=== PATIENT | female | born 1975 | race American Indian/Alaskan Native ===

== ENCOUNTER 2018-08-09 10:05 | Emergency (ER) | payer OTHER, SELFPAY ==
--- OUTSIDE RECORDS SUMMARY | 2018-08-09 10:07 | XMS REPORT ---
:1975 [facility] [address] [place] [address] Care Team Providers Name Role Phone Unavailable Unavailable Unavailable Problems This patient has no known problems. Allergies, Adverse Reactions, Alerts This patient has no known allergies or adverse reactions. Medications This patient has no known medications.
[2018-08-09] MEDS ORDERED: ONDANSETRON 4 MG/2 ML VIAL ONE ×2 (10:35→11:54)
[2018-08-09] MEDS ORDERED: NA CHLORIDE 0.9% 1,000 ML ONE ×2 (10:35→13:02)
[2018-08-09] MEDS ORDERED: MORPHINE 4 MG/ML SYR ONE (10:35)
[2018-08-09 11:02] LABS: Albumin 4.3 g/dL (3.4-5.0); Bilirubin Direct 0.1 mg/dL (0-0.2); Bilirubin Total 0.5 mg/dL (0.2-1.0); Potassium 3.4 mmol/L (3.5-5.1); Protein, Total 8.5 g/dL (6.4-8.2)
[2018-08-09 11:14] LABS: Absolute Lymphocytes (CBC) 5.3 K/uL (0.7-4.9); Absolute Monocytes 0.7 K/uL (0.1-1.3); Absolute Neutrophil 4.7 K/uL (1.8-8.0); Hematocrit 42.2 % (36.0-45.0); Lymphocytes % 48.6 % (15.3-44.8); MPV 8.4 fL (7.6-11.3); Monocytes % 6.6 % (3.3-12.3); RBC Red Blood Cell Count 4.99 M/uL (3.86-4.86)
[2018-08-09] MEDS ORDERED: DIPHENHYDRAMINE 50 MG/ML VIAL ONE (11:54)
[2018-08-09] MEDS ORDERED: KETOROLAC 30 MG/ML INJ ONE (13:00)
[2018-08-09] MEDS ORDERED: FAMOTIDINE 20 MG/2 ML VIAL IV ONE (13:00)
[2018-08-09] MEDS ORDERED: PROMETHAZINE 25 MG/ML VIAL ONE (13:18)
--- NOTE | 2018-08-09 13:24 | EKG ---
Test Date: 2018-08-09 Test Time: 10:18:45 Sales Account Associate: JAZMYN MEASUREMENT RESULTS: Intervals: Rate: 70 WY: 168 QRSD: 98 QT: 414 QTc: 447 Romeo: P: 40 WY: 168 QRS: -5 T: 62 INTERPRETIVE STATEMENTS: Normal sinus rhythm Normal ECG No previous ECG available for comparison Electronically Signed On 08-09-18 13:23:19 CDT by Ajrun Aj
[2018-08-09 13:40] LABS: Urine Blood NEGATIVE (NEG); Urine Glucose NEGATIVE (NEG); Urine Protein 3+ (NEG); Urine pH 5.5 (5.0-7.0)
[2018-08-09 14:09] LABS: Blood Morphology Comment NOT SEEN (NOT SEEN); Platelet Estimate ADEQ
--- NOTE | 2018-08-09 14:18 | ER ---
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 Transition of care: patient was not received from another setting of care. Onset of symptoms was August 09, 2018. Risk Assessment: Do you want to hurt yourself or someone else? Patient reports no desire to harm self or others. Initial Sepsis Screen: Does the patient meet any 2 criteria? No. Patient's initial sepsis screen is negative. Does the patient have a suspected source of infection? No. Patient's initial sepsis screen is negative. Care prior to arrival: None. 10:10 Method Of Arrival: Ambulatory sg 10:10 Acuity: BOLA 3 sg Historical: - Allergies: 10:15 No Known Allergies; sg - Home Meds: 10:15 Beta Sincere [Active]; sg - PMHx: 10:15 Diabetes - NIDDM; Hyperlipidemia; Hypertension; sg - Immunization history:: Adult Immunizations up to date. - Social history:: Smoking status: Patient/guardian denies using tobacco. - Ebola Screening: : Patient negative for fever greater than or equal to 101.5 degrees Fahrenheit, and additional compatible Ebola Virus Disease symptoms Patient denies exposure to infectious person Patient denies travel to an Ebola-affected area in the 21 days before illness onset No symptoms or risks identified at this time. Screenin:25 Abuse screen: Denies threats or abuse. Nutritional screening: No deficits noted. em Tuberculosis screening: No symptoms or risk factors identified. Fall Risk None identified. Assessment: 10:20 General: Appears uncomfortable, Reports feeling ill for 2-3 days, Denies fever. Pain: em Complains of pain in chest and left upper quadrant and right upper quadrant Pain radiates to back Pain currently is 6 out of 10 on a pain scale. Pain began 2-3 days ago. Neuro: Level of Consciousness is awake, alert, obeys commands, Oriented to person, place, time, situation, Moves all extremities. Gait is steady, Speech is normal. Cardiovascular: Reports nausea, syncope, Heart tones S1 S2 present Capillary refill < 3 seconds Patient's skin is warm and dry. Rhythm is sinus rhythm. Respiratory: Airway is patent Respiratory effort is even, unlabored, Respiratory pattern is regular, symmetrical, Breath sounds are clear bilaterally. Denies shortness of breath. GI: Abdomen is round non-distended, Pt is actively vomiting bile, Bowel sounds present X 4 quads. Abd is soft X 4 quads Abdomen is tender to palpation in right upper quadrant and left upper quadrant Reports nausea, vomiting, Patient currently denies diarrhea. Derm: Skin is intact, is healthy with good turgor, Skin is pink, warm \T\ dry. Musculoskeletal: Range of motion: intact in all extremities. 10:40 Reassessment: Patient appears in no apparent distress at this time. I agree with above iw assessment by Sajan Dangelo LVN. 11:30 Reassessment: Patient appears in no apparent distress at this time. Patient and/or em family updated on plan of care and expected duration. Pain level reassessed. Patient is alert, oriented x 3, equal unlabored respirations, skin warm/dry/pink. feeling slightly better, rates nausea 7/10, provider at bedside. 12:40 Reassessment: Patient and/or family updated on plan of care and expected duration. Pain em level reassessed. reports pain that woke her up from anterior side of chest to posterior, provider notified, new medication orders received. 13:00 Reassessment: given water for PO challenge, unable to tolerate PO challenge at this em time, provider notified. 14:13 Reassessment: PO challenge given, tolerated PO challenge, provider notified. em 14:34 Reassessment: Patient appears in no apparent distress at this time. Patient and/or em family updated on plan of care and expected duration. Pain level reassessed. Patient is alert, oriented x 3, equal unlabored respirations, skin warm/dry/pink. rates nausea 3/10 Patient states feeling better. Patient states symptoms have improved. Vital Signs: 10:14 BP 189 / 103; Pulse 74; Resp 16; Temp 98.2(TE); Pulse Ox 100% ; Pain 6/10; sg 10:40 BP 175 / 95; Pulse 66; Resp 18; Pulse Ox 18% on R/A; em 11:36 BP 174 / 79; Pulse 70; Resp 18; Pulse Ox 95% on R/A; em 12:30 BP 171 / 92; Pulse 70; Resp 18; Pulse Ox 99% on R/A; em 14:27 BP 179 / 89; Pulse 72; Resp 18; Pulse Ox 99% on R/A; em ED Course: 10:08 Patient arrived in ED. mr 10:08 Fifi Lawrence FNP-C is PHCP. kb 10:08 Inder Newman MD is Attending Physician. kb 10:12 Sajan Dangelo LVN is Primary Nurse. em 10:14 Arm band placed on. sg 10:17 Triage completed. sg 10:25 Patient has correct armband on for positive identification. Placed in gown. Bed in low em position. Call light in reach. Pulse ox on. NIBP on. 10:33 EKG done, by operating theatre technician. reviewed by Fifi KAY. at1 10:35 Initial lab(s) drawn, by nm, sent to lab. Inserted saline lock: 20 gauge in right em forearm, using aseptic technique. Blood collected. 14:00 PO fluids given. ms 14:33 No provider procedures requiring assistance completed. IV discontinued, intact, em bleeding controlled, No redness/swelling at site. Pressure dressing applied. Administered Medications: 10:35 Drug: NS 0.9% 1000 ml Route: IV; Rate: 1000 ml; Site: right forearm; em 12:37 Follow up: IV Status: Completed infusion; IV Intake: 1000ml em 10:36 Drug: morphine 4 mg Route: IVP; Site: right forearm; iw 12:38 Follow up: Response: No adverse reaction; Pain is decreased em 10:37 Drug: Zofran 4 mg Route: IVP; Site: right forearm; iw 11:30 Follow up: Response: No adverse reaction; Nausea unchanged em 11:49 Drug: Zofran 4 mg Route: IVP; Site: right forearm; em 12:30 Follow up: Response: No adverse reaction; Nausea is decreased em 11:49 Drug: Benadryl 12.5 mg Route: IVP; Site: right forearm; iw 12:30 Follow up: Response: No adverse reaction; Marked relief of symptoms em 13:03 Drug: Pepcid 20 mg Route: IVP; Site: right forearm; iw 13:30 Follow up: Response: No adverse reaction; Pain is decreased em 13:30 Follow up: Response: No adverse reaction; Pain is decreased em 13:04 Drug: TORadol 30 mg Route: IVP; Site: right forearm; iw 13:05 Drug: NS 0.9% 1000 ml Route: IV; Rate: 1 bolus; Site: right forearm; em 14:43 Follow up: IV Status: Completed infusion; IV Intake: 1000ml em 13:20 Drug: Phenergan 12.5 mg Route: IVP; Site: right forearm; iw 14:15 Follow up: Response: No adverse reaction; Nausea is decreased em Intake: 11:15 IV: 1000ml; Total: 1000ml. em 12:37 IV: 1000ml; Total: 2000ml. em 14:43 IV: 1000ml; Total: 3000ml. em Outcome: 14:17 Discharge ordered by . kb 14:42 Discharged to home ambulatory. em 14:42 Condition: good 14:42 Discharge instructions given to patient, Instructed on discharge instructions, follow up and referral plans. Demonstrated understanding of instructions, follow-up care. 14:42 Patient left the ED. em Signatures: Fifi Lawrence, ICT ANALYST-C ICT ANALYST-Ckb Keith Hardwick, RN RN Killian, Aaliyah mr Dangelo, Sajan, MATERIAL WORKER MATERIAL WORKER em Clary Pandya, RN Mica Reno ms, Amanda, warehouse unloader EKG Tat1
--- NOTE | 2018-08-09 14:18 | EDPHYS ---
Physician Documentation [facility] Name: Tonya Caballero Age: 43 yrs Sex: Female : 1975 Arrival Date: 08/09/2018 Time: 10:08 Bed 15 Private MD: ED Physician Inder Newman HPI: 08/09 10:45 This 43 yrs old Female presents to ER via Ambulatory with complaints of kb Abdominal Pain, Chest Pain, Vomiting. 10:45 The patient presents with abdominal pain in the upper abdomen. Onset: The kb symptoms/episode began/occurred 4 day(s) ago. The symptoms do not radiate. Associated signs and symptoms: Pertinent positives: nausea and vomiting. The symptoms are described as constant. Modifying factors: The symptoms are alleviated by nothing, the symptoms are aggravated by nothing. Severity of pain: At its worst the pain was moderate in the emergency department the pain is unchanged. The patient has experienced similar episodes in the past, a few times. The patient has been recently seen by a physician: the ER physician, out of Town, 3 day(s) ago, with similar presenting complaints, lab tests were done. Pt reports n/v and abd pain that started on Sunday. Went to [place] ER and was given reglan and bentyl, but symptoms have persisted. . Historical: - Allergies: 10:15 No Known Allergies; sg - Home Meds: 10:15 Beta Sincere [Active]; sg - PMHx: 10:15 Diabetes - NIDDM; Hyperlipidemia; Hypertension; sg - Immunization history:: Adult Immunizations up to date. - Social history:: Smoking status: Patient/guardian denies using tobacco. - Ebola Screening: : Patient negative for fever greater than or equal to 101.5 degrees Fahrenheit, and additional compatible Ebola Virus Disease symptoms Patient denies exposure to infectious person Patient denies travel to an Ebola-affected area in the 21 days before illness onset No symptoms or risks identified at this time. ROS: 10:21 Constitutional: Negative for fever, chills, and weight loss, ENT: Negative for injury, kb pain, and discharge, Neck: Negative for injury, pain, and swelling, Respiratory: Negative for shortness of breath, cough, wheezing, and pleuritic chest pain, Back: Negative for injury and pain, : Negative for injury, bleeding, discharge, and swelling, MS/Extremity: Negative for injury and deformity, Skin: Negative for injury, rash, and discoloration, Neuro: Negative for headache, weakness, numbness, tingling, and seizure. 10:21 Cardiovascular: Positive for chest pain, Negative for edema, orthopnea, palpitations, paroxysmal nocturnal dyspnea. 10:21 Abdomen/GI: Positive for abdominal pain, nausea and vomiting, Negative for diarrhea, constipation, abdominal cramps, abdominal distension, anorexia. Exam: 10:39 Constitutional: This is a well developed, well nourished patient who is awake, alert, kb and in no acute distress. Head/Face: Normocephalic, atraumatic. ENT: Nares patent. No nasal discharge, no septal abnormalities noted. Tympanic membranes are normal and external auditory canals are clear. Oropharynx with no redness, swelling, or masses, exudates, or evidence of obstruction, uvula midline. Mucous membranes moist. Neck: Trachea midline, no thyromegaly or masses palpated, and no cervical lymphadenopathy. Supple, full range of motion without nuchal rigidity, or vertebral point tenderness. No Meningismus. Chest/axilla: Normal chest wall appearance and motion. Nontender with no deformity. No lesions are appreciated. Cardiovascular: Regular rate and rhythm with a normal S1 and S2. No gallops, murmurs, or rubs. Normal PMI, no JVD. No pulse deficits. Respiratory: Lungs have equal breath sounds bilaterally, clear to auscultation and percussion. No rales, rhonchi or wheezes noted. No increased work of breathing, no retractions or nasal flaring. Skin: Warm, dry with normal turgor. Normal color with no rashes, no lesions, and no evidence of cellulitis. MS/ Extremity: Pulses equal, no cyanosis. Neurovascular intact. Full, normal range of motion. Neuro: Awake and alert, GCS 15, oriented to person, place, time, and situation. Cranial nerves II-XII grossly intact. Motor strength 5/5 in all extremities. Sensory grossly intact. Cerebellar exam normal. Normal gait. 10:39 Abdomen/GI: Inspection: abdomen appears normal, Bowel sounds: normal, in all quadrants, Palpation: soft, in all quadrants, moderate abdominal tenderness, in the right upper quadrant and left upper quadrant. 10:48 ECG was reviewed by the Attending Physician. kb Vital Signs: 10:14 BP 189 / 103; Pulse 74; Resp 16; Temp 98.2(TE); Pulse Ox 100% ; Pain 6/10; sg 10:40 BP 175 / 95; Pulse 66; Resp 18; Pulse Ox 18% on R/A; em 11:36 BP 174 / 79; Pulse 70; Resp 18; Pulse Ox 95% on R/A; em 12:30 BP 171 / 92; Pulse 70; Resp 18; Pulse Ox 99% on R/A; em 14:27 BP 179 / 89; Pulse 72; Resp 18; Pulse Ox 99% on R/A; em MDM: 10:09 Patient medically screened. kb 10:22 Data reviewed: vital signs, nurses notes. Data interpreted: Pulse oximetry: on room air kb is 100 %. Interpretation: normal. 11:43 ED course: Pt reports she is feeling better, but gets nausea when moving around. . kb 13:43 ED course: Pt failed first po challenge. Phenergan administered, will repeat PO kb challenge. 14:16 Counseling: I had a detailed discussion with the patient and/or guardian regarding: the kb historical points, exam findings, and any diagnostic results supporting the discharge/admit diagnosis, lab results, the need for outpatient follow up, a family practitioner, to return to the emergency department if symptoms worsen or persist or if there are any questions or concerns that arise at home. ED course: Tolerating PO after phenergan. Pt would like to go home. Will continue phenergan and reglan as needed. 08/09 10:23 Order name: Basic Metabolic Panel; Complete Time: 11:04 kb 08/09 10:23 Order name: CBC with Diff; Complete Time: 14:10 kb 08/09 10:23 Order name: Hepatic Function; Complete Time: 11:04 kb 08/09 10:23 Order name: Lipase; Complete Time: 11:04 kb 08/09 12:56 Order name: Urine Dipstick--Ancillary (enter results); Complete Time: 13:43 eb 08/09 14:06 Order name: Manual Differential; Complete Time: 14:10 EDMS 08/09 10:23 Order name: IV Saline Lock; Complete Time: 10:35 kb 08/09 10:23 Order name: Labs collected and sent; Complete Time: 10:35 kb 08/09 11:21 Order name: Vital Signs; Complete Time: 11:35 kb 08/09 12:37 Order name: PO challenge; Complete Time: 13:04 kb 08/09 13:05 Order name: EKG Electrocardiogram EDMS 08/09 13:43 Order name: PO challenge; Complete Time: 14:14 kb EC:48 Rate is 70 beats/min. Rhythm is regular, Normal Sinus Rhythm. QRS Jayess is Normal. CO kb interval is normal at 168 msec. QRS interval is normal at 98 msec. QT interval is normal at 414 msec. Clinical impression: Normal ECG. Interpreted by me. Reviewed by me. Administered Medications: 10:35 Drug: NS 0.9% 1000 ml Route: IV; Rate: 1000 ml; Site: right forearm; em 12:37 Follow up: IV Status: Completed infusion; IV Intake: 1000ml em 10:36 Drug: morphine 4 mg Route: IVP; Site: right forearm; iw 12:38 Follow up: Response: No adverse reaction; Pain is decreased em 10:37 Drug: Zofran 4 mg Route: IVP; Site: right forearm; iw 11:30 Follow up: Response: No adverse reaction; Nausea unchanged em 11:49 Drug: Zofran 4 mg Route: IVP; Site: right forearm; em 12:30 Follow up: Response: No adverse reaction; Nausea is decreased em 11:49 Drug: Benadryl 12.5 mg Route: IVP; Site: right forearm; iw 12:30 Follow up: Response: No adverse reaction; Marked relief of symptoms em 13:03 Drug: Pepcid 20 mg Route: IVP; Site: right forearm; iw 13:30 Follow up: Response: No adverse reaction; Pain is decreased em 13:30 Follow up: Response: No adverse reaction; Pain is decreased em 13:04 Drug: TORadol 30 mg Route: IVP; Site: right forearm; iw 13:05 Drug: NS 0.9% 1000 ml Route: IV; Rate: 1 bolus; Site: right forearm; em 14:43 Follow up: IV Status: Completed infusion; IV Intake: 1000ml em 13:20 Drug: Phenergan 12.5 mg Route: IVP; Site: right forearm; iw 14:15 Follow up: Response: No adverse reaction; Nausea is decreased em Disposition: 15:17 Co-signature as Attending Physician, Inder Newman MD. rn Disposition: 08/09/18 14:17 Discharged to Home. Impression: Nausea with vomiting, unspecified, Essential (primary) hypertension, Upper abdominal pain, unspecified. - Condition is Stable. - Discharge Instructions: Nausea and Vomiting, Adult, [id number]. - Medication Reconciliation Form, Thank You Letter, Antibiotic Education, Prescription Opioid Use, Work release form form. - Follow up: Emergency Department; When: As needed; Reason: Worsening of condition. Follow up: Private Physician; When: 2 - 3 days; Reason: Recheck today's complaints, Continuance of care, Re-evaluation by your physician. Signatures: Dispatcher [employer] EDFifi Ramesh, CLINICAL MANAGER-C CLINICAL MANAGER-Ckb Keith Hardwick, RN RN sg Sajan Dangelo, CEMENT AND CONCRETE PLANT WORKER CEMENT AND CONCRETE PLANT WORKER Clary Merino, Inder Castaneda RN, MD MD fingernail former: (The following items were deleted from the chart) 14:18 14:17 08/09/2018 14:17 Discharged to Home. Impression: Nausea with vomiting, kb unspecified. Condition is Stable. Forms are Medication Reconciliation Form, Thank You Letter, Antibiotic Education, Prescription Opioid Use. Follow up: Emergency Department; When: As needed; Reason: Worsening of condition. Follow up: Private Physician; When: 2 - 3 days; Reason: Recheck today's complaints, Continuance of care, Re-evaluation by your physician. kb 14:42 14:18 08/09/2018 14:17 Discharged to Home. Impression: Nausea with vomiting, em unspecified; Essential (primary) hypertension; Upper abdominal pain, unspecified. Condition is Stable. Discharge Instructions: Nausea and Vomiting, Adult, [id number]. Forms are Medication Reconciliation Form, Thank You Letter, Antibiotic Education, Prescription Opioid Use. Follow up: Emergency Department; When: As needed; Reason: Worsening of condition. Follow up: Private Physician; When: 2 - 3 days; Reason: Recheck today's complaints, Continuance of care, Re-evaluation by your physician. kb
== END 2018-08-09 14:42 | disposition home or self-care (01) ==
LOC: ER 10:05
DX: R11.2 Nausea with vomiting, unspecified (principal); I10 Essential (primary) hypertension
CPT/HCPCS: 36415; 80048; 80076; 81003; 83690; 85025; 93005; 96361; 96374; 96375; 99284; J2405; J2550; J7030

== ENCOUNTER 2018-08-11 07:50 | Emergency (ER) | payer SELFPAY ==
--- OUTSIDE RECORDS SUMMARY | 2018-08-11 07:52 | XMS REPORT ---
:1975 [facility] Address [address] [place] [address] [address] [place] [address] Care Team Providers Name Role Phone Unavailable Unavailable Unavailable Problems This patient has no known problems. Allergies, Adverse Reactions, Alerts This patient has no known allergies or adverse reactions. Medications This patient has no known medications.
[2018-08-11] MEDS ORDERED: PROMETHAZINE 25 MG/ML VIAL ONE (08:14)
[2018-08-11] MEDS ORDERED: NA CHLORIDE 0.9% 1,000 ML ONE (08:14)
[2018-08-11 08:28] LABS: Absolute Lymphocytes (CBC) 2.7 K/uL (0.7-4.9); Absolute Monocytes 0.4 K/uL (0.1-1.3); Absolute Neutrophil 5.4 K/uL (1.8-8.0); Basophils % 0.7 % (0-1.3); Eosinophils % 0.9 % (0-4.4); Hematocrit 40.5 % (36.0-45.0); Lymphocytes % 31.2 % (15.3-44.8); Monocytes % 4.8 % (3.3-12.3); RBC Red Blood Cell Count 4.82 M/uL (3.86-4.86)
[2018-08-11] MEDS ORDERED: FAMOTIDINE 20 MG/2 ML VIAL IV ONE (08:43)
[2018-08-11] MEDS ORDERED: METOCLOPRAMIDE 10 MG/2mL INJ ONE (08:43)
[2018-08-11 08:49] LABS: ALT/SGPT 27 U/L (12-78); AST/SGOT 15 U/L (15-37); Albumin 4.1 g/dL (3.4-5.0); Alkaline Phosphatase 110 U/L (45-117); BUN Blood Urea Nitrogen 9 mg/dL (7-18); Bicarbonate 27 mmol/L (21-32); Bilirubin Direct 0.1 mg/dL (0-0.2); Bilirubin Total 0.5 mg/dL (0.2-1.0); Glucose Level 183 mg/dL (74-106); Lipase 82 U/L (73-393); Potassium 3.4 mmol/L (3.5-5.1); Protein, Total 8.1 g/dL (6.4-8.2); Sodium Level 137 mmol/L (136-145)
[2018-08-11] MEDS ORDERED: cloNIDine HCl 0.1 MG TAB ONE (09:59)
[2018-08-11 10:10] LABS: Urine Blood NEGATIVE (NEG); Urine Glucose NEGATIVE (NEG); Urine Protein 2+ (NEG)
--- NOTE | 2018-08-11 10:45 | RAD REPORT ---
EXAM DESCRIPTION: CT - Abdomen Pelvis W Contrast - 08/11/2018 10:23 am CLINICAL HISTORY: Abdominal pain, hyperemesis COMPARISON: June 2015 TECHNIQUE: Biphasic, helical CT imaging of the abdomen and pelvis was performed following 100 ml non -ionic IV contrast. Oral contrast was given. All CT scans are performed using dose optimization technique as appropriate and may include automated exposure control or mA/KV adjustment according to patient size. FINDINGS: No suspicious findings in the lung bases. The liver, spleen, and pancreas show no suspicious findings. Cholecystectomy clips are present. No bi liary tree dilatation. Symmetric renal function is seen with no hydronephrosis or suspicious renal mass. No pyelonephritis o r acute parenchymal process. No bladder abnormalities. No adrenal abnormality. Uterus and ovaries hiren w no suspicious findings. No gastric wall thickening or edema. Oral contrast has reached the right side colon. No dilated large or small bowel. There is moderate stool volume in the colon. No free air, free fluid or inflammatory stranding. No hernia, mass or bulky lymphadenopathy. No suspicious bony findings. IMPRESSION: Contrast enhanced CT abdomen and pelvis showing no significant or suspicious finding.
[2018-08-11] MEDS ORDERED: DIAZEPAM 5 MG TABLET ONE (10:55)
[2018-08-11] MEDS ORDERED: ONDANSETRON 4 MG/2 ML VIAL ONE (10:56)
--- NOTE | 2018-08-11 11:12 | ER ---
Nurse's Notes [facility] Name: Tonya Caballero Age: 43 yrs Sex: Female : 1975 Arrival Date: 08/11/2018 Time: 07:53 Bed 5 Private MD: Diagnosis: Vomiting;Unspecified abdominal pain Presentation: 08/11 07:55 Presenting complaint: Patient states: "I've been vomiting since last Sunday and I was aa5 seen here a few days ago and in [place] [facility] on Sunday but I still can't stop vomiting". Pt states "I've vomited about 7 times today since 4am and it's just bile". Pt also c/o abd pain. 07:55 Transition of care: patient was not received from another setting of care. Onset of aa5 symptoms was July 2018. Risk Assessment: Do you want to hurt yourself or someone else? Patient reports no desire to harm self or others. Initial Sepsis Screen: Does the patient meet any 2 criteria? No. Patient's initial sepsis screen is negative. Does the patient have a suspected source of infection? No. Patient's initial sepsis screen is negative. Care prior to arrival: None. 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 - Social history:: Smoking status: Patient uses tobacco products, smokes one pack cigarettes per day. - Family history:: not pertinent. - Ebola Screening: : No symptoms or risks identified at this time. - Hospitalizations: : No recent hospitalization is reported. Screenin:08 Abuse screen: Denies threats or abuse. Nutritional screening: No deficits noted. aa5 Tuberculosis screening: No symptoms or risk factors identified. Fall Risk None identified. Assessment: 07:55 General: Appears uncomfortable, Behavior is calm, cooperative. Pain: Complains of pain aa5 in across umbilical area Pain does not radiate. Pain currently is 6 out of 10 on a pain scale. Quality of pain is described as "like my guts are twisting and I know it's just pain from vomiting so much" Pain began approximately 1 week ago Is intermittent. Neuro: Level of Consciousness is awake, alert, obeys commands, Oriented to person, place, time, situation, Appropriate for age. Cardiovascular: Heart tones S1 S2 present Rhythm is regular. Respiratory: Airway is patent Respiratory effort is even, unlabored, Respiratory pattern is regular, symmetrical, Breath sounds are clear bilaterally. GI: Abdomen is round non-distended, Bowel sounds present X 4 quads. Abd is soft and non tender X 4 quads. Reports nausea, vomiting, Patient currently denies diarrhea. : No signs and/or symptoms were reported regarding the genitourinary system. EENT: No signs and/or symptoms were reported regarding the EENT system. Derm: Skin is pink, warm \\T\\ dry. Musculoskeletal: Range of motion: intact in all extremities. 08:30 Reassessment: Pt dry heaving at this time, Dr. Newman notified (see MAR). Pt ambulatory aa5 to restroom to provide urine specimen. . 08:40 Reassessment: Patient is alert, oriented x 3, equal unlabored respirations, skin aa5 warm/dry/pink. Pt appears comfortable at this time, pt states "just give me a few minutes and I'll start drinking the CT oral contrast". . 09:10 Reassessment: Patient is alert, oriented x 3, equal unlabored respirations, skin aa5 warm/dry/pink. Pt lying down in bed. States symptoms have not improved. Pt states "I drank some of the contrast but I threw it all up (300 cc)", Dr. Newman was notified. . 09:45 Reassessment: Patient is alert, oriented x 3, equal unlabored respirations, skin aa5 warm/dry/pink. Awaiting CT scan. Pt states "I keep trying to rest and get comfortable but I just can't". Pt now lying down in bed. . 10:35 Reassessment: Pt back from CT scan, pt states "I had a panic attack in CT". Pt aa5 requesting anti-nausea medication and anxiety medication at this time. Dr. Newman notified. . 11:20 Reassessment: Patient is alert, oriented x 3, equal unlabored respirations, skin aa5 warm/dry/pink. 11:20 General: Behavior is calm. aa5 Vital Signs: 07:56 BP 195 / 111; Pulse 71; Resp 18 S; Temp 98.0(O); Pulse Ox 98% on R/A; Weight 91.63 kg aa5 (R); Height 5 ft. 4 in. (162.56 cm) (R); Pain 6/10; 08:40 BP 199 / 91; Pulse 74; Resp 18 S; Pulse Ox 98% on R/A; aa5 09:45 BP 216 / 114; Pulse 66; Resp 18 S; Pulse Ox 98% on R/A; aa5 10:45 BP 204 / 114; Pulse 70; Resp 16 S; Pulse Ox 99% on R/A; aa5 11:15 BP 151 / 94; Pulse 71; Resp 16 S; Pulse Ox 99% on R/A; aa5 07:56 Body Mass Index 34.67 (91.63 kg, 162.56 cm) aa5 09:45 Dr. Newman notified of increased BP aa5 ED Course: 07:53 Patient arrived in ED. mr 07:54 Arm band placed on Patient placed in an exam room, on a stretcher. aa5 07:54 Patient has correct armband on for positive identification. Placed in gown. Bed in low aa5 position. Call light in reach. Side rails up X2. 07:55 Inder Newman MD is Attending Physician. rn 08:03 Ese Gottlieb, LARS is Primary Nurse. aa5 08:04 Triage completed. aa5 08:15 Inserted saline lock: 20 gauge in left antecubital area, using aseptic technique. aa5 Missed attempt by Barrie Castro RN at 0810. 08:21 Initial lab(s) drawn, by me, sent to lab. Missed attempt(s): 22 gauge in right hj antecubital area. 10:[address] kw1 10:24 CT Abd/Pelvis - W/Contrast In Process Unspecified. EDMS 11:11 Ross Thorpe MD is Referral Physician. rn 11:20 No provider procedures requiring assistance completed. aa5 11:20 IV discontinued, intact, bleeding controlled, No redness/swelling at site. Pressure aa5 dressing applied. Administered Medications: 08:15 Drug: NS 0.9% 1000 ml Route: IV; Rate: 1000 ml; Site: left antecubital; aa5 11:00 Follow up: IV Status: Completed infusion aa5 08:15 Drug: Phenergan 25 mg Route: IVP; Site: left antecubital; aa5 08:20 Follow up: Response: No adverse reaction aa5 08:33 Drug: Reglan 10 mg Route: IVP; Site: left antecubital; aa5 08:40 Follow up: Response: No adverse reaction aa5 08:35 Drug: Pepcid 20 mg Route: IVP; Site: left antecubital; aa5 08:40 Follow up: Response: No adverse reaction aa5 09:48 Drug: cloNIDine 0.2 mg Route: PO; aa5 10:50 Follow up: Response: No adverse reaction aa5 10:50 Drug: Valium 5 mg Route: PO; aa5 11:20 Follow up: Response: No adverse reaction; Anxiety decreased aa5 10:50 Drug: Zofran 4 mg Route: IVP; Site: left antecubital; aa5 10:55 Follow up: Response: No adverse reaction aa5 Outcome: 11:11 Discharge ordered by . rn 11:20 Discharged to home ambulatory, with family. aa5 11:20 Condition: stable 11:20 Discharge instructions given to patient, Instructed on discharge instructions, follow up and referral plans. medication usage, Demonstrated understanding of instructions, follow-up care, medications, Prescriptions given X 1. 11:28 Patient left the ED. aa5 Signatures: Dispatcher [employer] Aaliyah Langston Roman, MD MD rn Calderon, Audri, RN RN aa5 Barrie Castro RN RN Analy Lobo 1
--- NOTE | 2018-08-11 11:12 | EDPHYS ---
Physician Documentation [facility] Name: Tonya Caballero Age: 43 yrs Sex: Female : 1975 Arrival Date: 08/11/2018 Time: 07:53 Bed 5 Private MD: ED Physician Inder Newman HPI: 08/11 08:03 This 43 yrs old Female presents to ER via Unassigned with complaints of rn Vomiting. 08:03 The patient presents to the emergency department with nausea, vomiting, abdominal pain. rn Onset: The symptoms/episode began/occurred 1 week(s) ago. Possible causes: unknown. The symptoms are aggravated by nothing. The symptoms are alleviated by nothing. Severity of symptoms: At their worst the symptoms were moderate in the emergency department the symptoms are unchanged. The patient has experienced similar episodes in the past. The patient has been recently seen by a physician:. Reports seen twice for this, "only labs done", reports nausea/vomiting daily for 1 week, no known intestinal issues, no fever, no diarrhea. States taking phenergan at home and still throwing up.. 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 - Social history:: Smoking status: Patient uses tobacco products, smokes one pack cigarettes per day. - Family history:: not pertinent. - Ebola Screening: : No symptoms or risks identified at this time. - Hospitalizations: : No recent hospitalization is reported. ROS: 08:03 Constitutional: Negative for fever, chills, + weight loss since vomiting Eyes: Negative rn for injury, pain, redness, and discharge, Neck: Negative for injury, pain, and swelling, Cardiovascular: Negative for chest pain, palpitations, and edema, Respiratory: Negative for shortness of breath, cough, wheezing, and pleuritic chest pain, Abdomen/GI: + abd pain, nausea/vomiting MS/Extremity: Negative for injury and deformity, Skin: Negative for injury, rash, and discoloration, Neuro: + generalized weakness, no headache Exam: 08:03 Constitutional: This is a well developed, well nourished patient who is awake, alert, rn and in no acute distress. Head/Face: Normocephalic, atraumatic. Eyes: Pupils equal round and reactive to light, extra-ocular motions intact. Lids and lashes normal. Conjunctiva and sclera are non-icteric and not injected. Cornea within normal limits. Periorbital areas with no swelling, redness, or edema. ENT: dry MM Neck: Supple, full range of motion without nuchal rigidity. No Meningismus. Respiratory: No increased work of breathing, no retractions or nasal flaring. Abdomen/GI: soft, mild periumbilical tenderness, no rebound Back: No spinal tenderness. No costovertebral tenderness. Full range of motion. Skin: Warm, dry MS/ Extremity: Pulses equal, no cyanosis. Neurovascular intact. Full, normal range of motion. Equal circumference. Neuro: Awake and alert, GCS 15, oriented to person, place, time, and situation. Cranial nerves II-XII grossly intact. Motor strength 5/5 in all extremities. Sensory grossly intact. 08:22 ECG was reviewed by the Attending Physician. rn Vital Signs: 07:56 BP 195 / 111; Pulse 71; Resp 18 S; Temp 98.0(O); Pulse Ox 98% on R/A; Weight 91.63 kg aa5 (R); Height 5 ft. 4 in. (162.56 cm) (R); Pain 6/10; 08:40 BP 199 / 91; Pulse 74; Resp 18 S; Pulse Ox 98% on R/A; aa5 09:45 BP 216 / 114; Pulse 66; Resp 18 S; Pulse Ox 98% on R/A; aa5 10:45 BP 204 / 114; Pulse 70; Resp 16 S; Pulse Ox 99% on R/A; aa5 11:15 BP 151 / 94; Pulse 71; Resp 16 S; Pulse Ox 99% on R/A; aa5 07:56 Body Mass Index 34.67 (91.63 kg, 162.56 cm) aa5 09:45 Dr. Newman notified of increased BP aa5 MDM: 07:55 Patient medically screened. rn 11:10 Differential diagnosis: Nonspecific abd pain, gastritis, pancreatitis, diverticulitis, rn viral gastroenteritis, gastroenteritis. Data reviewed: vital signs, nurses notes, lab test result(s), radiologic studies, CT scan, and as a result, I will discharge patient. Counseling: I had a detailed discussion with the patient and/or guardian regarding: the historical points, exam findings, and any diagnostic results supporting the discharge/admit diagnosis, lab results, radiology results, the need for outpatient follow up, to return to the emergency department if symptoms worsen or persist or if there are any questions or concerns that arise at home. Response to treatment: the patient's symptoms have markedly improved after treatment, and as a result, I will discharge patient. Special discussion: Based on the patient's Hx, exam, and Dx evaluation, there is no indication for emergent surgery or inpatient Tx. It is understood by the patient/guardian that if the Sx's persist or worsen they need to return immediately for re-evaluation. I discussed with the patient/guardian in detail that at this point there is no indication for admission to the hospital. It is understood, however, that if the symptoms persist or worsen the patient needs to return immediately for re-evaluation. Based on the history and exam findings, there is no indication for further emergent testing or inpatient evaluation. 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 ED course: Recommend GI f/u given multiple normal w/u in ER, has hx of acid reflux, doesn't take meds regularly, and under a lot of stress. Return precautions given, will prescribe zofran to alternate with her phenergan. Currently tolerating water. . 08/11 08:01 Order name: Basic Metabolic Panel; Complete Time: 09: rn 08/11 08:01 Order name: CBC with Diff; Complete Time: :08/11 08:01 Order name: Hepatic Function; Complete Time: 09:08/11 08:01 Order name: Lipase; Complete Time: 09:08/11 08:51 Order name: Urine Dipstick--Ancillary (enter results); Complete Time: 10:20 eb 08/11 08:51 Order name: Urine --Ancillary (enter results); Complete Time: 10:20 eb 08/11 08:01 Order name: CT Abd/Pelvis - W/Contrast; Complete Time: 10:53 rn 08/11 08:01 Order name: IV Saline Lock; Complete Time: 08:40 rn 08/11 08:01 Order name: Labs collected and sent; Complete Time: 08:40 rn 08/11 08:02 Order name: Urine Dipstick-Ancillary (obtain specimen); Complete Time: 08:40 rn 08/11 08:02 Order name: Urine Test (obtain specimen); Complete Time: 08:40 rn 08/11 08:08 Order name: EKG - Nurse/Tech; Complete Time: 08:20 rn EC:22 Rate is 70 beats/min. Rhythm is regular. QRS [place] is Normal. NM interval is normal. QRS rn interval is normal. QT interval is normal. No Q waves. T waves are Normal. No ST changes noted. Clinical impression: Normal ECG. Interpreted by me. Reviewed by me. Administered Medications: 08:15 Drug: NS 0.9% 1000 ml Route: IV; Rate: 1000 ml; Site: left antecubital; aa5 11:00 Follow up: IV Status: Completed infusion aa5 08:15 Drug: Phenergan 25 mg Route: IVP; Site: left antecubital; aa5 08:20 Follow up: Response: No adverse reaction aa5 08:33 Drug: Reglan 10 mg Route: IVP; Site: left antecubital; aa5 08:40 Follow up: Response: No adverse reaction aa5 08:35 Drug: Pepcid 20 mg Route: IVP; Site: left antecubital; aa5 08:40 Follow up: Response: No adverse reaction aa5 09:48 Drug: cloNIDine 0.2 mg Route: PO; aa5 10:50 Follow up: Response: No adverse reaction aa5 10:50 Drug: Valium 5 mg Route: PO; aa5 11:20 Follow up: Response: No adverse reaction; Anxiety decreased aa5 10:50 Drug: Zofran 4 mg Route: IVP; Site: left antecubital; aa5 10:55 Follow up: Response: No adverse reaction aa5 Disposition: 08/11/18 11:11 Discharged to Home. Impression: Vomiting, Unspecified abdominal pain. - Condition is Stable. - Discharge Instructions: Abdominal Pain, Adult, Nausea and Vomiting, Adult. - Prescriptions for Zofran ODT 4 mg Oral tablet,disintegrating - place 1 tablet by TRANSLINGUAL route every 8 hours As needed; 15 tablet. - Medication Reconciliation Form, Thank You Letter, Antibiotic Education, Prescription Opioid Use form. - Follow up: Ross Thorpe MD; When: As needed; Reason: Recheck today's complaints, Re-evaluation by your physician. - Problem is an ongoing problem. - Symptoms have improved. Signatures: Dispatcher [employer] EDMS Inder Newman MD MD rn Calderon, Audri, RN RN aa5 Corrections: (The following items were deleted from the chart) 11:28 11:11 08/11/2018 11:11 Discharged to Home. Impression: Vomiting; Unspecified abdominal aa5 pain. Condition is Stable. Forms are Medication Reconciliation Form, Thank You Letter, Antibiotic Education, Prescription Opioid Use. Follow up: Ross Thorpe; When: As needed; Reason: Recheck today's complaints, Re-evaluation by your physician. Problem is an ongoing problem. Symptoms have improved. rn
== END 2018-08-11 11:28 | disposition home or self-care (01) ==
LOC: ER 07:50
DX: R11.2 Nausea with vomiting, unspecified (principal); R10.9 Unspecified abdominal pain; E11.9 Type 2 diabetes mellitus without complications; E78.5 Hyperlipidemia, unspecified; I10 Essential (primary) hypertension; F17.210 Nicotine dependence, cigarettes, uncomplicated
CPT/HCPCS: 36415; 74177; 80048; 80076; 81003; 81025; 83690; 85025; 96361; 96374; 96375; 99284; J2405; J2550; J2765; J7030; Q9967

== ENCOUNTER 2019-01-03 08:31 | Emergency (ER) | payer OTHER, SELFPAY ==
--- OUTSIDE RECORDS SUMMARY | 2019-01-03 08:34 | XMS REPORT ---
:1975 [facility] Address [address] [place] [address] [address] [place] [address] Care Team Providers Name Role Phone Unavailable Unavailable Unavailable Problems This patient has no known problems. Allergies, Adverse Reactions, Alerts This patient has no known allergies or adverse reactions. Medications This patient has no known medications.
--- NOTE | 2019-01-03 09:39 | ER ---
Nurse's Notes [facility] Name: Tonya Caballero Age: 43 yrs Sex: Female : 1975 Arrival Date: 01/03/2019 Time: 08:35 Bed 7 Private MD: Diagnosis: Vomiting;Gastro-esophageal reflux disease;Anxiety disorder, unspecified Presentation: 01/03 08:46 Presenting complaint: Patient states: n/v/body chills x 1 day. Denies abd pain. sv Transition of care: patient was not received from another setting of care. Onset of symptoms was January 02, 2019. Risk Assessment: Do you want to hurt yourself or someone else? Patient reports no desire to harm self or others. Initial Sepsis Screen: Does the patient meet any 2 criteria? No. Patient's initial sepsis screen is negative. Does the patient have a suspected source of infection? No. Patient's initial sepsis screen is negative. Care prior to arrival: None. 08:46 Method Of Arrival: Ambulatory sv 08:46 Acuity: BOLA 3 sv Historical: - Allergies: 08:47 No Known Allergies; sv - Home Meds: 08:47 Metoprolol Tartrate Oral [Active]; Omeprazole Oral [Active]; sv - PMHx: 08:47 Diabetes - NIDDM; Hyperlipidemia; Hypertension; sv - PSHx: 08:47 Cholecystectomy; Left ovary removed; Fallopian tubes removed; sv - Immunization history:: Adult Immunizations up to date. - Social history:: Smoking status: Patient uses tobacco products. - Ebola Screening: : No symptoms or risks identified at this time. - Family history:: not pertinent. Screenin:47 Abuse screen: Denies threats or abuse. Denies injuries from another. Nutritional sv screening: No deficits noted. Tuberculosis screening: No symptoms or risk factors identified. Fall Risk None identified. Assessment: 09:52 Reassessment: Patient appears in no apparent distress at this time. No changes from previously documented assessment. Patient and/or family updated on plan of care and expected duration. Pain level reassessed. Patient is alert, oriented x 3, equal unlabored respirations, skin warm/dry/pink. Vital Signs: 08:47 BP 165 / 105; Pulse 82; Resp 18; Temp 97.9; Pulse Ox 99% ; Weight 90.72 kg; Height 5 sv ft. 3 in. (160.02 cm); Pain 0/10; 09:31 BP 130 / 99; Pulse 78; Resp 18; Pulse Ox 100% ; sv 08:47 Body Mass Index 35.43 (90.72 kg, 160.02 cm) sv ED Course: 08:35 Patient arrived in ED. cf2 08:42 Robina Herman RN is Primary Nurse. sv 08:42 Anup Morelos MD is Attending Physician. celeste 08:42 Arm band placed on. sv 08:42 Patient has correct armband on for positive identification. Bed in low position. sv 08:46 Triage completed. sv 08:47 Call light in reach. Adult w/ patient. Pulse ox on. NIBP on. Door closed. Head of bed sv elevated. 08:48 Awaiting ED provider evaluation. sv 09:25 Awaiting ED provider evaluation. sv 09:29 ED physician to see patient. sv 09:52 No provider procedures requiring assistance completed. Patient did not have IV access sv during this emergency room visit. Administered Medications: 09:52 Drug: ProTONIX 40 mg Route: PO; sv 09:52 Follow up: Response: Medication administered at discharge. sv 09:52 Drug: Zofran 4 mg Route: PO; sv 09:52 Follow up: Response: Medication administered at discharge. sv Outcome: 09:37 Discharge ordered by . celeste 09:52 Discharged to home ambulatory. sv 09:52 Condition: stable 09:52 Discharge instructions given to patient, Instructed on discharge instructions, follow up and referral plans. medication usage, Demonstrated understanding of instructions, follow-up care, medications, Prescriptions given X 2. 09:52 Patient left the ED. sv Signatures: Robina Herman RN RN Anup Hernandez MD MD cha Frazier, [place] cf2
--- NOTE | 2019-01-03 09:39 | EDPHYS ---
Physician Documentation [facility] Name: Tonya Caballero Age: 43 yrs Sex: Female : 1975 Arrival Date: 01/03/2019 Time: 08:35 Bed 7 Private MD: ED Physician Anup Morelos HPI: 01/03 09:34 This 43 yrs old Female presents to ER via Ambulatory with complaints of celeste Nausea/Vomiting. 09:34 The patient presents to the emergency department with nausea, vomiting. Onset: The celeste symptoms/episode began/occurred 2 day(s) ago. Possible causes: unknown. The symptoms are aggravated by nothing. The symptoms are alleviated by nothing. Associated signs and symptoms: The patient has no apparent associated signs or symptoms. Severity of symptoms: At their worst the symptoms were. The patient has not experienced similar symptoms in the past. Historical: - Allergies: 08:47 No Known Allergies; sv - Home Meds: 08:47 Metoprolol Tartrate Oral [Active]; Omeprazole Oral [Active]; sv - PMHx: 08:47 Diabetes - NIDDM; Hyperlipidemia; Hypertension; sv - PSHx: 08:47 Cholecystectomy; Left ovary removed; Fallopian tubes removed; sv - Immunization history:: Adult Immunizations up to date. - Social history:: Smoking status: Patient uses tobacco products. - Ebola Screening: : No symptoms or risks identified at this time. - Family history:: not pertinent. ROS: 09:34 Constitutional: Negative for fever, chills, and weight loss, Eyes: Negative for injury, celeste pain, redness, and discharge, ENT: Negative for injury, pain, and discharge, Neck: Negative for injury, pain, and swelling, Cardiovascular: Negative for chest pain, palpitations, and edema, Respiratory: Negative for shortness of breath, cough, wheezing, and pleuritic chest pain, Back: Negative for injury and pain, : Negative for injury, bleeding, discharge, and swelling, MS/Extremity: Negative for injury and deformity, Skin: Negative for injury, rash, and discoloration, Neuro: Negative for headache, weakness, numbness, tingling, and seizure, Psych: Negative for depression, anxiety, suicide ideation, homicidal ideation, and hallucinations, Allergy/Immunology: Negative for hives, rash, and allergies, Endocrine: Negative for neck swelling, polydipsia, polyuria, polyphagia, and marked weight changes, Hematologic/Lymphatic: Negative for swollen nodes, abnormal bleeding, and unusual bruising. 09:34 Abdomen/GI: Positive for abdominal pain, vomiting. 09:34 Psych: Positive for anxiety. Exam: 09:34 Constitutional: This is a well developed, well nourished patient who is awake, alert, celeste and in no acute distress. Head/Face: Normocephalic, atraumatic. Eyes: Pupils equal round and reactive to light, extra-ocular motions intact. Lids and lashes normal. Conjunctiva and sclera are non-icteric and not injected. Cornea within normal limits. Periorbital areas with no swelling, redness, or edema. ENT: Nares patent. No nasal discharge, no septal abnormalities noted. Tympanic membranes are normal and external auditory canals are clear. Oropharynx with no redness, swelling, or masses, exudates, or evidence of obstruction, uvula midline. Mucous membranes moist. Neck: Trachea midline, no thyromegaly or masses palpated, and no cervical lymphadenopathy. Supple, full range of motion without nuchal rigidity, or vertebral point tenderness. No Meningismus. Chest/axilla: Normal chest wall appearance and motion. Nontender with no deformity. No lesions are appreciated. Cardiovascular: Regular rate and rhythm with a normal S1 and S2. No gallops, murmurs, or rubs. Normal PMI, no JVD. No pulse deficits. Respiratory: Lungs have equal breath sounds bilaterally, clear to auscultation and percussion. No rales, rhonchi or wheezes noted. No increased work of breathing, no retractions or nasal flaring. Back: No spinal tenderness. No costovertebral tenderness. Full range of motion. Skin: Warm, dry with normal turgor. Normal color with no rashes, no lesions, and no evidence of cellulitis. MS/ Extremity: Pulses equal, no cyanosis. Neurovascular intact. Full, normal range of motion. Neuro: Awake and alert, GCS 15, oriented to person, place, time, and situation. Cranial nerves II-XII grossly intact. Motor strength 5/5 in all extremities. Sensory grossly intact. Cerebellar exam normal. Normal gait. Psych: Awake, alert, with orientation to person, place and time. Behavior, mood, and affect are within normal limits. 09:34 Abdomen/GI: Inspection: abdomen appears normal, Bowel sounds: normal, Palpation: mild abdominal tenderness, in the epigastric area. 09:39 Musculoskeletal/extremity: DVT Exam: No signs of deep vein thrombosis. no pain, no celeste swelling, no tenderness, negative Homans' sign noted on exam, no appreciated bluish discoloration, no erythema, no increased warmth. Vital Signs: 08:47 BP 165 / 105; Pulse 82; Resp 18; Temp 97.9; Pulse Ox 99% ; Weight 90.72 kg; Height 5 sv ft. 3 in. (160.02 cm); Pain 0/10; 09:31 BP 130 / 99; Pulse 78; Resp 18; Pulse Ox 100% ; sv 08:47 Body Mass Index 35.43 (90.72 kg, 160.02 cm) sv MDM: 08:42 Patient medically screened. [facility] 09:39 Data reviewed: vital signs, nurses notes. [facility] Administered Medications: 09:52 Drug: ProTONIX 40 mg Route: PO; sv 09:52 Follow up: Response: Medication administered at discharge. sv 09:52 Drug: Zofran 4 mg Route: PO; sv 09:52 Follow up: Response: Medication administered at discharge. sv Disposition: 01/03/19 09:37 Discharged to Home. Impression: Vomiting, Gastro-esophageal reflux disease, Anxiety disorder, unspecified. - Condition is Stable. - Discharge Instructions: Type 2 Diabetes Mellitus, Diagnosis, Adult, Nausea and Vomiting, Adult, Nausea and Vomiting, Adult, [id number], Type 2 Diabetes Mellitus, Diagnosis, Adult, [id number]. - Prescriptions for Protonix 40 mg Oral Tablet - take 1 tablet by ORAL route once daily; 30 tablet. Zofran 4 mg Oral Tablet - take 1 tablet by ORAL route every 12 hours As needed; 20 tablet. - Work release form, Medication Reconciliation Form, Thank You Letter, Antibiotic Education, Prescription Opioid Use form. - Follow up: Private Physician; When: 2 - 3 days; Reason: Recheck today's complaints, Continuance of care, Re-evaluation by your physician. - Problem is new. - Symptoms have improved. Signatures: Robina Herman RN RN Anup Morelos MD MD cha Corrections: (The following items were deleted from the chart) 09:52 09:37 01/03/2019 09:37 Discharged to Home. Impression: Vomiting; Gastro-esophageal sv reflux disease; Anxiety disorder, unspecified. Condition is Stable. Forms are Work release form, Medication Reconciliation Form, Thank You Letter, Antibiotic Education, Prescription Opioid Use. Follow up: Private Physician; When: 2 - 3 days; Reason: Recheck today's complaints, Continuance of care, Re-evaluation by your physician. Problem is new. Symptoms have improved. celeste
[2019-01-03] MEDS ORDERED: ONDANSETRON 4 MG (ODT) TAB ONE (09:42)
[2019-01-03] MEDS ORDERED: PANTOPRAZOLE 40MG TABLET PO ONE (09:42)
== END 2019-01-03 09:52 | disposition home or self-care (01) ==
LOC: ER 08:31
DX: K21.9 Gastro-esophageal reflux disease without esophagitis (principal); F41.9 Anxiety disorder, unspecified; I10 Essential (primary) hypertension
CPT/HCPCS: 99283

== ENCOUNTER 2019-03-03 19:43 | Emergency (ER) | payer OTHER ==
[2019-03-03] MEDS ORDERED: MORPHINE 2 MG/ML SYR ONE (20:22)
[2019-03-03] MEDS ORDERED: METOPROLOL TAR 50 MG TAB ONE (20:22)
[2019-03-03] MEDS ORDERED: ASPIRIN 81 MG CHEWABLE TABLET ONE (20:22)
[2019-03-03] MEDS ORDERED: ONDANSETRON 4 MG/2 ML VIAL ONE (20:23)
[2019-03-03 20:49] LABS: Absolute Lymphocytes (CBC) 3.9 K/uL (0.7-4.9); Basophils % 1.1 % (0-1.3); Hematocrit 38.3 % (36.0-45.0); Lymphocytes % 37.7 % (15.3-44.8); MPV 7.7 fL (7.6-11.3); RBC Red Blood Cell Count 4.51 M/uL (3.86-4.86)
[2019-03-03 20:50] LABS: Protime INR 0.97
[2019-03-03 21:09] LABS: ALT/SGPT 16 U/L (12-78); AST/SGOT 10 U/L (15-37); Albumin 3.8 g/dL (3.4-5.0); Alkaline Phosphatase 122 U/L (45-117); BUN Blood Urea Nitrogen 9 mg/dL (7-18); Bicarbonate 27 mmol/L (21-32); Bilirubin Direct < 0.1 mg/dL (0-0.2); Bilirubin Total 0.4 mg/dL (0.2-1.0); Glucose Level 184 mg/dL (74-106); Magnesium 1.9 mg/dL (1.8-2.4); NT PRO-BNP 57 pg/mL (<125); Potassium 3.4 mmol/L (3.5-5.1); Protein, Total 7.8 g/dL (6.4-8.2); Sodium Level 139 mmol/L (136-145); Troponin (Emerg Dept Use Only) < 0.02 ng/mL (0.0-0.045)
--- NOTE | 2019-03-03 21:16 | ER ---
Nurse's Notes [facility] Name: Tonya Caballero Age: 44 yrs Sex: Female : 1975 Arrival Date: 03/03/2019 Time: 19:46 Bed 4 Private MD: Jessica Gary A Diagnosis: Other chest pain;Emotional lability-grief reaction;Essential (primary) hypertension;Type 2 diabetes mellitus;Hypokalemia Presentation: 03/03 19:55 Presenting complaint: Patient states: chest pressure. pt found out at 1800 her older ak1 brother . pt younger last Sunday. Transition of care: patient was not received from another setting of care. Onset of symptoms is unknown. Risk Assessment: Do you want to hurt yourself or someone else? Patient reports no desire to harm self or others. Initial Sepsis Screen: Does the patient meet any 2 criteria? No. Patient's initial sepsis screen is negative. Does the patient have a suspected source of infection? No. Patient's initial sepsis screen is negative. Care prior to arrival: None. 19:55 Method Of Arrival: Ambulatory ak1 19:55 Acuity: BOLA 3 ak1 Triage Assessment: 19:56 General: Appears distressed, Behavior is anxious. Pain: Complains of pain in chest. 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 - Social history:: Smoking status: Patient uses tobacco products, smokes one pack cigarettes per day. - Ebola Screening: : No symptoms or risks identified at this time. - Family history:: not pertinent. Screenin:10 Abuse screen: Denies threats or abuse. Denies injuries from another. Nutritional ca1 screening: No deficits noted. Tuberculosis screening: No symptoms or risk factors identified. Fall Risk IV access (20 points). Assessment: 20:10 General: Appears in no apparent distress. comfortable, Behavior is cooperative, ca1 appropriate for age, crying. Pain: Complains of pain in mid-sternal area Pain does not radiate. Pain currently is 4 out of 10 on a pain scale. Quality of pain is described as heavy, Pain began 2 hours ago. Is intermittent. Neuro: Level of Consciousness is awake, alert, obeys commands, Oriented to person, place, time, situation, Appropriate for age. Cardiovascular: Heart tones S1 S2 present Capillary refill < 3 seconds Patient's skin is warm and dry. Pulses are all present. Rhythm is sinus rhythm. Respiratory: Airway is patent Respiratory effort is even, unlabored, Respiratory pattern is regular, symmetrical, Breath sounds are clear bilaterally. GI: Abdomen is round non-distended, Bowel sounds present X 4 quads. Abd is soft and non tender X 4 quads. : No deficits noted. No signs and/or symptoms were reported regarding the genitourinary system. EENT: No deficits noted. No signs and/or symptoms were reported regarding the EENT system. Derm: Skin is intact, is healthy with good turgor, Skin is pink, warm \T\ dry. Musculoskeletal: Circulation, motion, and sensation intact. Capillary refill < 3 seconds, Range of motion: intact in all extremities. 21:17 Reassessment: Patient appears in no apparent distress at this time. Patient and/or ca1 family updated on plan of care and expected duration. Pain level reassessed. Patient is alert, oriented x 3, equal unlabored respirations, skin warm/dry/pink. 21:55 Reassessment: Patient appears in no apparent distress at this time. Patient is alert, ca1 oriented x 3, equal unlabored respirations, skin warm/dry/pink. Appears calm at this time. 22:05 Reassessment: Patient appears in no apparent distress at this time. Patient and/or wh family updated on plan of care and expected duration. Pain level reassessed. Patient is alert, oriented x 3, equal unlabored respirations, skin warm/dry/pink. Patient states feeling better. Patient states symptoms have improved. Vital Signs: 19:56 BP 195 / 113; Pulse 95; Resp 22; Temp 97.0; Pulse Ox 100% on R/A; Weight 99.79 kg (R); ak1 Height 5 ft. 4 in. (162.56 cm) (R); Pain 10/10; 21:17 BP 182 / 112; Pulse 80; Resp 16 S; Pulse Ox 98% on R/A; ca1 21:55 BP 138 / 90; Pulse 68; Resp 20 S; Pulse Ox 99% on R/A; ca1 19:56 Body Mass Index 37.76 (99.79 kg, 162.56 cm) ak1 ED Course: 19:46 Patient arrived in ED. es 19:46 Jessica Gary MD is Private Physician. es 19:56 Triage completed. ak1 19:56 Arm band placed on Patient placed in an exam room, on a stretcher, Patient notified of ak1 wait time. 20:08 Anup Morelos MD is Attending Physician. celeste 20:10 Patient has correct armband on for positive identification. Placed in gown. Bed in low ca1 position. Call light in reach. Side rails up X 1. desk monitor on. Pulse ox on. NIBP on. Warm blanket given. 20:10 No provider procedures requiring assistance completed. Patient maintains SpO2 ca1 saturation greater than 95% on room air. 20:31 Josefina Brooks, LARS is Primary Nurse. ca1 20:40 Inserted saline lock: 22 gauge in left antecubital area, using aseptic technique. Blood ea collected. 20:58 XRAY Chest (1 view) In Process Unspecified. EDMS 21:15 Jessica Gary MD is Referral Physician. celeste 21:15 Frank Gutierrez MD is Referral Physician. celeste 22:06 IV discontinued, intact, bleeding controlled, No redness/swelling at site. wh Administered Medications: 20:45 Drug: Zofran 4 mg Route: IVP; Site: left antecubital; ea 21:28 Follow up: Response: No adverse reaction ca1 20:47 Drug: Aspirin Chewable Tablet 324 mg Route: PO; ea 21:28 Follow up: Response: No adverse reaction ca1 20:47 Drug: Lopressor (metoprolol TARTRATE) 50 mg Route: PO; ea 21:28 Follow up: Response: No adverse reaction ca1 20:47 Drug: morphine 2 mg Route: IVP; Site: left antecubital; ea 22:06 Follow up: Response: No adverse reaction; Pain is decreased; RASS: Alert and Calm (0) 21:15 Drug: Lisinopril 10 mg Route: PO; ca1 21:56 Follow up: Response: No adverse reaction; Blood pressure is lowered ca1 21:27 Drug: Potassium Effervescent Tablet 25 mEq Route: PO; ca1 21:56 Follow up: Response: No adverse reaction ca1 21:28 Drug: Ativan 1 mg Route: IVP; Site: left forearm; ca1 21:56 Follow up: Response: No adverse reaction; Marked relief of symptoms ca1 Outcome: 21:15 Discharge ordered by . celeste 22:05 Discharged to home ambulatory. 22:05 Condition: stable 22:05 Discharge instructions given to patient, Instructed on discharge instructions, follow up and referral plans. no drinking with medication, no driving heavy equipment, medication usage, POC Chest pain and HTN Demonstrated understanding of instructions, follow-up care, medications, POC Prescriptions given X 2. 22:07 Patient left the ED. Signatures: Dispatcher [employer] EDAnup Forbes MD MD cha Salyer, Edna es Krenek, Amber RN LARS akElly Barone RN RN ea Habalo, Winsy wh Acob, Cheryl, RN RN ca1
--- NOTE | 2019-03-03 21:16 | EDPHYS ---
Physician Documentation [facility] Name: Tonya Caballero Age: 44 yrs Sex: Female : 1975 Arrival Date: 03/03/2019 Time: 19:46 Bed 4 Private MD: Jessica Gary A ED Physician Anup Morelos HPI: 03/03 21:02 This 44 yrs old Female presents to ER via Ambulatory with complaints of [facility] Chest Pain. 21:02 The patient or guardian reports chest pain that is located primarily in the anterior [facility] chest wall, bilaterally. Onset: just prior to arrival. The pain does not radiate. Associated signs and symptoms: Pertinent positives: stress. The chest pain is described as a pressure. Modifying factors: The symptoms are alleviated by nothing. the symptoms are aggravated by emotionally stressful situations. Severity of pain: At its worst the pain was mild in the emergency department the pain has resolved. The patient has not experienced similar symptoms in the past. 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 - Social history:: Smoking status: Patient uses tobacco products, smokes one pack cigarettes per day. - Ebola Screening: : No symptoms or risks identified at this time. - Family history:: not pertinent. ROS: 21:02 Constitutional: Negative for fever, chills, and weight loss, Eyes: Negative for injury, celeste pain, redness, and discharge, ENT: Negative for injury, pain, and discharge, Neck: Negative for injury, pain, and swelling, Respiratory: Negative for shortness of breath, cough, wheezing, and pleuritic chest pain, Abdomen/GI: Negative for abdominal pain, nausea, vomiting, diarrhea, and constipation, Back: Negative for injury and pain, : Negative for injury, bleeding, discharge, and swelling, MS/Extremity: Negative for injury and deformity, Skin: Negative for injury, rash, and discoloration, Neuro: Negative for headache, weakness, numbness, tingling, and seizure, Psych: Negative for depression, anxiety, suicide ideation, homicidal ideation, and hallucinations, Allergy/Immunology: Negative for hives, rash, and allergies, Endocrine: Negative for neck swelling, polydipsia, polyuria, polyphagia, and marked weight changes, Hematologic/Lymphatic: Negative for swollen nodes, abnormal bleeding, and unusual bruising. 21:02 Cardiovascular: Positive for chest pain, of the chest. Exam: 21:02 Constitutional: This is a well developed, well nourished patient who is awake, alert, celeste and in no acute distress. Head/Face: Normocephalic, atraumatic. Eyes: Pupils equal round and reactive to light, extra-ocular motions intact. Lids and lashes normal. Conjunctiva and sclera are non-icteric and not injected. Cornea within normal limits. Periorbital areas with no swelling, redness, or edema. ENT: Nares patent. No nasal discharge, no septal abnormalities noted. Tympanic membranes are normal and external auditory canals are clear. Oropharynx with no redness, swelling, or masses, exudates, or evidence of obstruction, uvula midline. Mucous membranes moist. Neck: Trachea midline, no thyromegaly or masses palpated, and no cervical lymphadenopathy. Supple, full range of motion without nuchal rigidity, or vertebral point tenderness. No Meningismus. Chest/axilla: Normal chest wall appearance and motion. Nontender with no deformity. No lesions are appreciated. Cardiovascular: Regular rate and rhythm with a normal S1 and S2. No gallops, murmurs, or rubs. Normal PMI, no JVD. No pulse deficits. Respiratory: Lungs have equal breath sounds bilaterally, clear to auscultation and percussion. No rales, rhonchi or wheezes noted. No increased work of breathing, no retractions or nasal flaring. Abdomen/GI: Soft, non-tender, with normal bowel sounds. No distension or tympany. No guarding or rebound. No evidence of tenderness throughout. Back: No spinal tenderness. No costovertebral tenderness. Full range of motion. Female : Normal external genitalia. Skin: Warm, dry with normal turgor. Normal color with no rashes, no lesions, and no evidence of cellulitis. MS/ Extremity: Pulses equal, no cyanosis. Neurovascular intact. Full, normal range of motion. Neuro: Awake and alert, GCS 15, oriented to person, place, time, and situation. Cranial nerves II-XII grossly intact. Motor strength 5/5 in all extremities. Sensory grossly intact. Cerebellar exam normal. Normal gait. Psych: Awake, alert, with orientation to person, place and time. Behavior, mood, and affect are within normal limits. 21:02 Musculoskeletal/extremity: DVT Exam: No signs of deep vein thrombosis. no pain, no swelling, no tenderness, negative Homans' sign noted on exam, no appreciated bluish discoloration, no erythema, no increased warmth. Vital Signs: 19:56 BP 195 / 113; Pulse 95; Resp 22; Temp 97.0; Pulse Ox 100% on R/A; Weight 99.79 kg (R); ak1 Height 5 ft. 4 in. (162.56 cm) (R); Pain 10/10; 21:17 BP 182 / 112; Pulse 80; Resp 16 S; Pulse Ox 98% on R/A; ca1 21:55 BP 138 / 90; Pulse 68; Resp 20 S; Pulse Ox 99% on R/A; ca1 19:56 Body Mass Index 37.76 (99.79 kg, 162.56 cm) ak1 MDM: 20:08 Patient medically screened. [facility] 21:06 Data reviewed: vital signs, nurses notes, lab test result(s), EKG, radiologic studies, [facility] CT scan, plain films. 03/03 20:08 Order name: Basic Metabolic Panel; Complete Time: 21:12 03/03 20:08 Order name: CBC with Diff; Complete Time: 21:00 03/03 20:08 Order name: LFT's; Complete Time: 21:12 03/03 20:08 Order name: Magnesium; Complete Time: 21:12 03/03 20:08 Order name: NT PRO-BNP; Complete Time: 21:12 03/03 20:08 Order name: PT-INR; Complete Time: 21:00 03/03 20:08 Order name: Troponin (emerg Dept Use Only); Complete Time: 21:12 03/03 20:08 Order name: XRAY Chest (1 view) 03/03 20:08 Order name: EKG; Complete Time: 20:09 ea 03/03 20:08 Order name: Cardiac monitoring; Complete Time: 20: ea 03/03 20:08 Order name: EKG - Nurse/Tech; Complete Time: 20: ea 03/03 20:08 Order name: IV Saline Lock; Complete Time: 20:34 ea 03/03 20:08 Order name: Labs collected and sent; Complete Time: 20:34 ea 03/03 20:08 Order name: O2 Per Protocol; Complete Time: 20: ea 03/03 20:08 Order name: O2 Sat Monitoring; Complete Time: 20: ea Administered Medications: 20:45 Drug: Zofran 4 mg Route: IVP; Site: left antecubital; ea 21:28 Follow up: Response: No adverse reaction ca1 20:47 Drug: Aspirin Chewable Tablet 324 mg Route: PO; ea 21:28 Follow up: Response: No adverse reaction ca1 20:47 Drug: Lopressor (metoprolol TARTRATE) 50 mg Route: PO; ea 21:28 Follow up: Response: No adverse reaction ca1 20:47 Drug: morphine 2 mg Route: IVP; Site: left antecubital; ea 22:06 Follow up: Response: No adverse reaction; Pain is decreased; RASS: Alert and Calm (0) wh 21:15 Drug: Lisinopril 10 mg Route: PO; ca1 21:56 Follow up: Response: No adverse reaction; Blood pressure is lowered ca1 21:27 Drug: Potassium Effervescent Tablet 25 mEq Route: PO; ca1 21:56 Follow up: Response: No adverse reaction ca1 21:28 Drug: Ativan 1 mg Route: IVP; Site: left forearm; ca1 21:56 Follow up: Response: No adverse reaction; Marked relief of symptoms ca1 Disposition: 03/03/19 21:15 Discharged to Home. Impression: Other chest pain, Emotional lability - grief reaction, Essential (primary) hypertension, Type 2 diabetes mellitus, Hypokalemia. - Condition is Stable. - Discharge Instructions: Nonspecific Chest Pain, Type 2 Diabetes Mellitus, Diagnosis, Adult, Hypertension, Nonspecific Chest Pain, [id number], Hypertension, [id number], Aspirin and Your Heart, Type 2 Diabetes Mellitus, Diagnosis, Adult, [id number]. - Prescriptions for Lisinopril 10 mg Oral Tablet - take 1 tablet by ORAL route once daily; 20 tablet. Xanax 1 mg Oral Tablet - take 1 tablet by ORAL route every 8 hours As needed; 20 tablet. - Medication Reconciliation Form, Thank You Letter, Antibiotic Education, Prescription Opioid Use form. - Follow up: Jessica Gary; When: 1 - 2 days; Reason: Recheck today's complaints, Continuance of care, Re-evaluation by your physician. Follow up: Frank Gutierrez; When: 2 - 3 days; Reason: Recheck today's complaints, Re-evaluation by your physician. - Problem is new. - Symptoms have improved. Signatures: Dispatcher [employer] EDMS Anup Morelos MD MD cha Krenek, Amber RN RN ak1 Elly Huitron RN Roland Hughes ea, Josefina RN RN ca1 Corrections: (The following items were deleted from the chart) 22:07 21:15 03/03/2019 21:15 Discharged to Home. Impression: Other chest pain; Emotional wh lability - grief reaction; Essential (primary) hypertension; Type 2 diabetes mellitus; Hypokalemia. Condition is Stable. Discharge Instructions: Nonspecific Chest Pain, Type 2 Diabetes Mellitus, Diagnosis, Adult, Hypertension, Nonspecific Chest Pain, [id number], Hypertension, [id number], Aspirin and Your Heart, Type 2 Diabetes Mellitus, Diagnosis, Adult, [id number]. Prescriptions for Lisinopril 10 mg Oral Tablet - take 1 tablet by ORAL route once daily; 20 tablet, Xanax 1 mg Oral Tablet - take 1 tablet by ORAL route every 8 hours As needed; 20 tablet. and Forms are Medication Reconciliation Form, Thank You Letter, Antibiotic Education, Prescription Opioid Use. Follow up: Jessica Gary; When: 1 - 2 days; Reason: Recheck today's complaints, Continuance of care, Re-evaluation by your physician. Follow up: Farnk Gutierrez; When: 2 - 3 days; Reason: Recheck today's complaints, Re-evaluation by your physician. Problem is new. Symptoms have improved. celeste
[2019-03-03] MEDS ORDERED: LISINOPRIL 10 MG TAB ONE (21:21)
[2019-03-03] MEDS ORDERED: LORazepam 2 MG/ML VIAL ONE (21:21)
[2019-03-03] MEDS ORDERED: POTASSIUM 25 MEQ EFFERV TAB ONE (21:22)
[2019-03-03 22:11] VITALS: TEMP 97
[2019-03-03 22:14] VITALS: BP 138/90; O2SAT 99
--- NOTE | 2019-03-04 07:42 | RAD REPORT ---
EXAM DESCRIPTION: RAD - Chest Single View - 03/03/2019 8:58 pm CLINICAL HISTORY: Chest pain, chest pressure COMPARISON: None. TECHNIQUE: AP portable chest image was obtained 2033 hours . FINDINGS: Lungs are clear. Heart and vasculature are normal. No measurable pleural effusion and no p neumothorax. No acute bony abnormality seen. No acute aortic findings suspected. IMPRESSION: No acute cardiopulmonary process.
--- NOTE | 2019-03-04 08:50 | P.CNS ---
Date of Consult: 03/03/19 Reason for Consult: Medical management Requesting Physician: Anup Morelos Primary Care Provider: Abdirahman Chief Complaint: Anxiety disorder/hypertension/chest pain/bereavement History of Present Illness: Patient is a 44-year-old female who presents to the hospital with anxiety disorder. Her brother a week ago and she had another brother who lives in town today. Her son also a year ago. The anniversary was last week. She is undergoing a lot of anxiety. Her blood pressure was poorly controlled. She was having chest discomfort. She came into the ER for further evaluation. Her EKGs and troponin are negative. She will be discharged with anxiolytics. She will also be given blood pressure medicines Allergies NKDA Allergy (Uncoded 07/07/15 12:04) Unknown No Known Allergies Allergy (Uncoded 03/04/17 21:08) Unknown Home Medications: Amitriptyline [Elavil] 25 mg PO BEDTIME 07/07/15 Dicyclomine HCl [Bentyl] 20 mg PO Q6HP PRN 07/07/15 Gemfibrozil [Lopid] 600 mg PO BID 07/07/15 Hydrocodone Bit/Acetaminophen [[place] 10-325 Tablet] 1 each PO Q6HP PRN 07/07/15 Ibuprofen [Motrin] 800 mg PO Q6HP PRN 07/07/15 Metoprolol Tartrate [Lopressor] 50 mg PO BID 07/07/15 Promethazine Tab [Phenergan] 25 mg PO Q6HP PRN 07/07/15 - Past Medical/Surgical History -: Hypertension -: Type 2 diabetes -: Obesity -: Cholecystectomy -: Hysterectomy - Family History Father Family History: Reviewed- Non-Contributory - Social History Smoking Status: Current every day smoker Review of Systems 10-point ROS is otherwise unremarkable Physical Examination Temp Pulse Resp BP Pulse Ox 97.0 F 68 20 138/90 03/03/19 19:56 03/03/19 21:55 03/03/19 21:55 03/03/19 21:55 General: Alert, In no apparent distress, Oriented x3 HEENT: Atraumatic, PERRLA, Mucous membr. moist/pink, EOMI, Sclerae nonicteric Neck: Supple, 2+ carotid pulse no bruit, No LAD, Without JVD or thyroid abnormality Respiratory: Clear to auscultation bilaterally, Normal air movement Cardiovascular: Regular rate/rhythm, Normal S1 S2, No murmurs Gastrointestinal: Normal bowel sounds, Soft and benign, Non-distended, No tenderness Musculoskeletal: No clubbing, No swelling, No tenderness Integumentary: No rashes Neurological: Normal gait, Normal speech, Normal tone, Sensation intact, Cranial nerves 3-12 intact, Normal affect Lymphatics: No axilla or inguinal lymphadenopathy Laboratory Data (last 24 hrs) 03/03/19 20:30: PT 11.5, INR 0.97 03/03/19 20:30: WBC 10.4, Hgb 12.7, Hct 38.3, Plt Count 296 03/03/19 20:30: Sodium 139, Potassium 3.4 L, BUN 9, Creatinine 0.86, Glucose 184 H, Magnesium 1.9, Total Bilirubin 0.4, AST 10 L, ALT 16, Alkaline Phosphatase 122 H - Problems (1) Anxiety disorder Status: Acute (2) Bereavement Status: Acute (3) Hypertension Status: Acute (4) Chest pain Status: Acute Conclusions/ Impression: Plan: 1. Anxiolytics 2. Strict blood pressure control 3. Outpatient follow with PCP and Cardiology 4. Return to the ER if symptoms worsen Critical Care: No Time Spent Managing Pts care (In Minutes): 30
--- NOTE | 2019-03-04 12:12 | EKG ---
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
== END 2019-03-03 22:07 | disposition home or self-care (01) ==
LOC: ER 19:43
DX: F43.29 Adjustment disorder with other symptoms (principal); E87.6 Hypokalemia; I10 Essential (primary) hypertension; E11.9 Type 2 diabetes mellitus without complications; F17.210 Nicotine dependence, cigarettes, uncomplicated; F41.9 Anxiety disorder, unspecified; E78.5 Hyperlipidemia, unspecified
CPT/HCPCS: 93005; 85025; 80048; 36415; 83735; 85610; 80076; 84484; 83880; 71045; J2270; J2405; 99285

== ENCOUNTER 2019-11-19 10:49 | Emergency (ER) | payer OTHER ==
--- OUTSIDE RECORDS SUMMARY | 2019-11-19 12:39 | XMS REPORT | Continuity of Care Document ---
:1975 Author Organization [facility] t Address [address] [place] [address] Care Team Providers Name Role Phone Unavailable Unavailable Unavailable Problems This patient has no known problems. Allergies, Adverse Reactions, Alerts This patient has no known allergies or adverse reactions. Medications This patient has no known medications. Procedures This patient has no known procedures. Results This patient has no known results.
--- NOTE | 2019-11-19 14:17 | EDPHYS ---
Physician Documentation [facility] Name: Tonya Caballero Age: 44 yrs Sex: Female : 1975 Arrival Date: 11/19/2019 Time: 11:14 Bed 19 Private MD: ED Physician Anton Hermosillo HPI: 11/18 14:29 This 44 yrs old Female presents to ER via Ambulatory with complaints of snw Fever, loss of taste/ smell. 14:29 The patient reports fever, not measured (subjective). Onset: The symptoms/episode snw began/occurred suddenly, 4 day(s) ago, and became persistent. Associated signs and symptoms: Pertinent positives: abdominal pain, cough, diarrhea, nausea, vomiting, loss of taste and smell. Severity of symptoms: At their worst the symptoms were moderate. The patient has not experienced similar symptoms in the past. The patient has not recently seen a physician. Historical: - Allergies: 11:17 No Known Allergies; ss - PMHx: 11:17 Anxiety; Diabetes - NIDDM; Hyperlipidemia; Hypertension; ss - PSHx: 11:17 Cholecystectomy; Hysterectomy; ss - Immunization history:: Adult Immunizations up to date. - Social history:: Smoking status: Patient reports the use of cigarette tobacco products, smokes one pack cigarettes per day. ROS: 14:15 Eyes: Negative for injury, pain, redness, and discharge, ENT: Negative for injury, snw pain, and discharge, Neck: Negative for injury, pain, and swelling, Cardiovascular: Negative for chest pain, palpitations, and edema. 14:15 Back: Negative for injury and pain, : Negative for injury, bleeding, discharge, and swelling, MS/Extremity: Negative for injury and deformity, Skin: Negative for injury, rash, and discoloration. 14:15 Constitutional: Positive for body aches, fatigue, fever, malaise. 14:15 Respiratory: Positive for cough. 14:15 Abdomen/GI: Positive for abdominal pain, nausea, vomiting, and diarrhea. 14:15 Neuro: Positive for headache. Exam: 14:14 Constitutional: This is a well developed, well nourished patient who is awake, alert, snw and in no acute distress. Head/Face: Normocephalic, atraumatic. Eyes: Pupils equal round and reactive to light, extra-ocular motions intact. Lids and lashes normal. Conjunctiva and sclera are non-icteric and not injected. Cornea within normal limits. Periorbital areas with no swelling, redness, or edema. ENT: Nares patent. No nasal discharge, no septal abnormalities noted. Tympanic membranes are normal and external auditory canals are clear. Oropharynx with no redness, swelling, or masses, exudates, or evidence of obstruction, uvula midline. Mucous membranes moist. Neck: Trachea midline, no thyromegaly or masses palpated, and no cervical lymphadenopathy. Supple, full range of motion without nuchal rigidity, or vertebral point tenderness. No Meningismus. Chest/axilla: Normal chest wall appearance and motion. Nontender with no deformity. No lesions are appreciated. Cardiovascular: Regular rate and rhythm with a normal S1 and S2. No gallops, murmurs, or rubs. Normal PMI, no JVD. No pulse deficits. Respiratory: Lungs have equal breath sounds bilaterally, clear to auscultation and percussion. No rales, rhonchi or wheezes noted. No increased work of breathing, no retractions or nasal flaring. 14:14 Back: No spinal tenderness. No costovertebral tenderness. Full range of motion. Skin: Warm, dry with normal turgor. Normal color with no rashes, no lesions, and no evidence of cellulitis. MS/ Extremity: Pulses equal, no cyanosis. Neurovascular intact. Full, normal range of motion. Neuro: Awake and alert, GCS 15, oriented to person, place, time, and situation. Cranial nerves II-XII grossly intact. Motor strength 5/5 in all extremities. Sensory grossly intact. Cerebellar exam normal. Normal gait. Psych: Awake, alert, with orientation to person, place and time. Behavior, mood, and affect are within normal limits. 14:14 Abdomen/GI: Inspection: abdomen appears normal, Bowel sounds: normal, Palpation: soft, mild abdominal tenderness, in all quadrants. Vital Signs: 11:14 BP 150 / 91; Pulse 84; Resp 16; Temp 97.5(TE); Pulse Ox 98% on R/A; Weight 95.25 kg; ss Height 5 ft. 4 in. (162.56 cm); Pain 8/10; 14:32 Pulse 85; Resp 16; Pulse Ox 97% on R/A; vc 11:14 Body Mass Index 36.05 (95.25 kg, 162.56 cm) ss MDM: 14:17 Patient medically screened. snw 14:29 Data reviewed: vital signs, nurses notes. Data interpreted: Pulse oximetry: on room air snw is 98 %. Interpretation: normal. Counseling: I had a detailed discussion with the patient and/or guardian regarding: the historical points, exam findings, and any diagnostic results supporting the discharge/admit diagnosis, lab results, the need for outpatient follow up, to return to the emergency department if symptoms worsen or persist or if there are any questions or concerns that arise at home. Special discussion: I have referred the patient to see his PCP for further evaluation of high blood pressure. Based on the history and exam findings, there is no indication for further emergent testing or inpatient evaluation. I discussed with the patient/guardian the need to see the primary care provider for further evaluation of the symptoms. 11/18 13:47 Order name: COVID-19 snw Administered Medications: 14:30 Drug: Phenergan 25 mg Route: PO; vc 14:31 Follow up: Response: No adverse reaction; Medication administered at discharge. vc 14:30 Drug: Bentyl 20 mg Route: PO; vc 14:31 Follow up: Response: No adverse reaction; Medication administered at discharge. vc 14:30 Drug: UltRAM 25 mg Route: PO; vc 14:30 Follow up: Response: No adverse reaction; Medication administered at discharge. vc Disposition: 17:56 Co-signature as Attending Physician, Anton Hermosillo MD I agree with the assessment and kdr plan of care. Disposition: 11/19/19 14:17 Discharged to Home. Impression: Vomiting, Diarrhea, unspecified, Viral infection, unspecified. - Condition is Stable. - Discharge Instructions: Food Choices to Help Relieve Diarrhea, Adult, Fever, Adult, Nausea and Vomiting, Adult, Viral Respiratory Infection, Rehydration, Adult, COVID-19. - Prescriptions for Bentyl 20 mg Oral Tablet - take 1 tablet by ORAL route every 6 hours As needed; 20 tablet. promethazine 25 mg Oral Tablet - take 1 tablet by ORAL route every 6 hours As needed; 20 tablet. - Work release form, Medication Reconciliation Form, Thank You Letter, Antibiotic Education, Prescription Opioid Use form. - Follow up: Private Physician; When: 1 week; Reason: Recheck today's complaints, Continuance of care, Re-evaluation by your physician. Follow up: Emergency Department; When: As needed; Reason: Worsening of condition. Signatures: Dispatcher [employer] EDMS Anton Hermosillo MD MD [facility] Sandi Mtz, SPECIALIZED DEVELOPER-C SPECIALIZED DEVELOPER-Csnw Arianna Echevarria RN RN ss Tanna Luna RN RN vc Corrections: (The following items were deleted from the chart) 14:47 14:17 11/19/2019 14:17 Discharged to Home. Impression: Vomiting; Diarrhea, unspecified; vc Viral infection, unspecified. Condition is Stable. Forms are Medication Reconciliation Form, Thank You Letter, Antibiotic Education, Prescription Opioid Use. Follow up: Private Physician; When: 1 week; Reason: Recheck today's complaints, Continuance of care, Re-evaluation by your physician. Follow up: Emergency Department; When: As needed; Reason: Worsening of condition. snw
--- NOTE | 2019-11-19 14:17 | ER ---
Nurse's Notes [facility] Name: Tonya Caballero Age: 44 yrs Sex: Female : 1975 Arrival Date: 11/19/2019 Time: 11:14 Bed 19 Private MD: Diagnosis: Vomiting;Diarrhea, unspecified;Viral infection, unspecified Presentation: 11/18 11:14 Chief complaint: Patient states: loss of taste, fever, weakness, N/V, fatigue, body ss aches and headache that began 2 days ago. Coronavirus screen: Surgical mask placed on patient. Patient moved to private room, placed in contact and droplet isolation with eye protection until further assessment. Patient reports a cough. Patient reports shortness of breath or difficulty breathing. Patient reports a measured and/or subjective temperature greater than 100.4F. Patient denies travel on a cruise ship or to a country the [facility] currently lists as an affected area. Patient denies contact with known and/or suspected case of COVID-19. Ebola Screen: Patient denies exposure to infectious person. Patient denies travel to an Ebola-affected area in the 21 days before illness onset. Initial Sepsis Screen: Does the patient meet any 2 criteria? No. Patient's initial sepsis screen is negative. Does the patient have a suspected source of infection? No. Patient's initial sepsis screen is negative. Risk Assessment: Do you want to hurt yourself or someone else? Patient reports no desire to harm self or others. Onset of symptoms was November 17, 2019. 11:14 Method Of Arrival: Ambulatory ss 11:14 Acuity: BOLA 3 ss Historical: - Allergies: 11:17 No Known Allergies; ss - PMHx: 11:17 Anxiety; Diabetes - NIDDM; Hyperlipidemia; Hypertension; ss - PSHx: 11:17 Cholecystectomy; Hysterectomy; ss - Immunization history:: Adult Immunizations up to date. - Social history:: Smoking status: Patient reports the use of cigarette tobacco products, smokes one pack cigarettes per day. Screenin:43 Abuse screen: Denies threats or abuse. Denies injuries from another. Nutritional ss screening: No deficits noted. Tuberculosis screening: Never had TB. Fall Risk None identified. Assessment: 13:44 General: Appears uncomfortable, ill, Behavior is calm, cooperative, Reports fever for ss 1-2 days, feeling ill for 1-2 days, fatigue for 1-2 days. Pain: Complains of pain in headache, generalized body aches Pain currently is 8 out of 10 on a pain scale. Neuro: Level of Consciousness is awake, alert, obeys commands, Oriented to person, place, time, situation, Speech is normal. Cardiovascular: Capillary refill < 3 seconds is brisk in bilateral fingers. Respiratory: Airway is patent Respiratory effort is even, unlabored, Respiratory pattern is regular, symmetrical. GI: Reports nausea, vomiting, loss sense of taste. : No signs and/or symptoms were reported regarding the genitourinary system. EENT: Nares are clear Oral mucosa is moist. Derm: Skin is pink, warm \T\ dry. normal. Musculoskeletal: Circulation, motion, and sensation intact. Range of motion: intact in all extremities. 14:40 Reassessment: Patient appears in no apparent distress at this time. Patient and/or vc family updated on plan of care and expected duration. Pain level reassessed. Patient is alert, oriented x 3, equal unlabored respirations, skin warm/dry/pink. Vital Signs: 11:14 BP 150 / 91; Pulse 84; Resp 16; Temp 97.5(TE); Pulse Ox 98% on R/A; Weight 95.25 kg; ss Height 5 ft. 4 in. (162.56 cm); Pain 8/10; 14:32 Pulse 85; Resp 16; Pulse Ox 97% on R/A; vc 11:14 Body Mass Index 36.05 (95.25 kg, 162.56 cm) ED Course: 11:14 Patient arrived in ED. ss 11:16 Triage completed. ss 11:17 Arm band placed on right wrist. ss 13:43 Patient has correct armband on for positive identification. Bed in low position. Call ss light in reach. Side rails up X 1. 13:46 Sandi Mtz FNP-C is [facility]. snw 13:46 Anton Hermosillo MD is Attending Physician. snw 13:54 Tanna Luna RN is Primary Nurse. vc 14:45 No provider procedures requiring assistance completed. Patient did not have IV access vc during this emergency room visit. Administered Medications: 14:30 Drug: Phenergan 25 mg Route: PO; vc 14:31 Follow up: Response: No adverse reaction; Medication administered at discharge. vc 14:30 Drug: Bentyl 20 mg Route: PO; vc 14:31 Follow up: Response: No adverse reaction; Medication administered at discharge. vc 14:30 Drug: UltRAM 25 mg Route: PO; vc 14:30 Follow up: Response: No adverse reaction; Medication administered at discharge. vc Outcome: 14:17 Discharge ordered by MD. rothman 14:45 Discharged to home ambulatory. vc 14:45 Condition: good 14:45 Discharge instructions given to patient, Instructed on discharge instructions, follow up and referral plans. medication usage, Self quarantine until COVID-19 results are in. Demonstrated understanding of instructions, follow-up care, medications, Prescriptions given X 2. 14:47 Patient left the ED. vc Addendum: 11/21/2019 08:12 Addendum: COVID-19 Result: Negative result given to RN to notify pt. Other: box s s full. Unable to leave . 15:39 Addendum: COVID-19 Result: Negative result given to RN to notify pt. Notified pt of e b negative COVID 19 swab results. Pt advised that even with a negative test result they should remain in isolation until symptom free for 3 days without medication. Pt also advised to return to the ED for worsening symptoms. Signatures: Sandi Mtz, HEAD OF DIGITAL-C HEAD OF DIGITAL-Hannahw Arianna Echevarria RN RN ss Botello, Elizabeth eb Calcote, Vanessa, RN RN vc Corrections: (The following items were deleted from the chart) 11/18 11:25 11:14 Acuity: BOLA 4 [facility]
[2019-11-19] MEDS ORDERED: DICYCLOMINE HCL 10 MG CAP ONE (14:25)
[2019-11-19] MEDS ORDERED: PROMETHAZINE 25 MG TABLET ONE (14:25)
[2019-11-19] MEDS ORDERED: TRAMADOL HCL 50 MG TAB ONE (14:28)
[2019-11-19 14:59] VITALS: BP 150/91; TEMP 97.5
[2019-11-19 15:00] VITALS: O2SAT 97
== END 2019-11-19 14:47 | disposition home or self-care (01) ==
LOC: ER 10:49
DX: B34.9 Viral infection, unspecified (principal); Z20.828 Contact with and (suspected) exposure to other viral communicable diseases; R11.10 Vomiting, unspecified; R19.7 Diarrhea, unspecified; I10 Essential (primary) hypertension; F17.210 Nicotine dependence, cigarettes, uncomplicated
CPT/HCPCS: 99283; U0001; Q0169

== ENCOUNTER 2020-06-29 13:32 | Emergency (ER) | payer OTHER ==
--- NOTE | 2020-06-29 15:45 | RAD REPORT ---
EXAM DESCRIPTION: CT - Head Brain Wo Cont - 06/29/2020 3:08 pm CLINICAL HISTORY: Syncope COMPARISON: None. TECHNIQUE: Computed axial tomography of the head was obtained. IV contrast was not requested. All CT scans are performed using dose optimization technique as appropriate and may include automated exposure control or mA/KV adjustment according to patient size. FINDINGS: An intracranial bleed is not seen . The ventricles are normal in caliber. No extra-axial fluid collection is noted. Fluid within the sinuses/ mastoids is not seen. IMPRESSION: No acute intracranial abnormality is seen. If patient's symptoms persist MRI of the bra in would be recommended.
--- NOTE | 2020-06-29 18:24 | EDPHYS ---
Physician Documentation [facility] Name: Tonya Caballero Age: 45 yrs Sex: Female : 1975 Arrival Date: 06/29/2020 Time: 13:39 Bed 23 Private MD: ED Physician Anup Morelos HPI: 06/29 18:17 This 45 yrs old Female presents to ER via Ambulatory with complaints of jmm Fall Injury. 18:17 Details of fall: The patient fell from an upright position. Onset: The symptoms/episode jmm began/occurred acutely, just prior to arrival. Associated injuries: The patient sustained injury to the head. The patient has not experienced similar symptoms in the past. This is a 45 year old female with a history of DM, HLP, HTN that presents to the ED with complaints of headache after slipping on an icy curb. Patient states she landed on her left side. Patient states she lost consciousness. Patient also complains of left buttock pain. . 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 - Social history:: Smoking status: Patient reports the use of cigarette tobacco products, smokes one pack cigarettes per day. ROS: 18:17 Constitutional: Negative for fever, chills, and weight loss, Cardiovascular: Negative jmm for chest pain, palpitations, and edema, Respiratory: Negative for shortness of breath, cough, wheezing, and pleuritic chest pain, Abdomen/GI: Negative for abdominal pain, nausea, vomiting, diarrhea, and constipation. 18:17 Neuro: Positive for headache. 18:17 All other systems are negative. Exam: 18:17 Constitutional: This is a well developed, well nourished patient who is awake, alert, jmm and in no acute distress. Head/Face: atraumatic. Eyes: EOMI, no conjunctival erythema appreciated ENT: Moist Mucus Membranes 18:17 Chest/axilla: Normal chest wall appearance and motion. Cardiovascular: Regular rate and rhythm. No edema appreciated Respiratory: Normal respirations, no respiratory distress appreciated Abdomen/GI: Non distended, soft Back: Normal ROM Skin: General appearance color normal MS/ Extremity: Moves all extremities, no obvious deformities appreciated, no edema noted to the lower extremities Neuro: Awake and alert, normal gait Psych: Behavior is normal, Mood is normal, Patient is cooperative and pleasant 18:17 Neck: C-spine: appears grossly normal, no vertebral tenderness, no crepitus, ROM/movement: is normal. Vital Signs: 13:59 BP 160 / 83; Pulse 81; Resp 17 S; Temp 97.4(TE); Pulse Ox 98% on R/A; Weight 90.72 kg jd3 (R); Height 5 ft. 3 in. (160.02 cm) (R); Pain 6/10; 18:38 BP 149 / 80; Pulse 80; Resp 16 S; Pulse Ox 98% on R/A; jd3 13:59 Body Mass Index 35.43 (90.72 kg, 160.02 cm) jd3 13:59 norco taken prior to coming to ER jd3 MDM: 17:[address] [facility] 18:17 Data reviewed: vital signs, nurses notes. Counseling: I had a detailed discussion with [facility] the patient and/or guardian regarding: the historical points, exam findings, and any diagnostic results supporting the discharge/admit diagnosis, radiology results, the need for outpatient follow up, to return to the emergency department if symptoms worsen or persist or if there are any questions or concerns that arise at home. ED course: CT negative. [place] C Spine negative. Advised to follow up with pcp and otherwise given head injury return precautions. Patient understood and agrees with the plan of care. . 06/29 14:53 Order name: CT Head Brain wo Cont; Complete Time: 17:54 iw Administered Medications: 18:21 Drug: Ibuprofen 800 mg Route: PO; iw 18:39 Follow up: Response: Medication administered at discharge. jd3 18:22 Drug: Valium 5 mg Route: PO; iw 18:39 Follow up: Response: Medication administered at discharge. jd3 Disposition: 06/29/20 18:23 Discharged to Home. Impression: Unspecified injury of head. - Condition is Stable. - Discharge Instructions: Head Injury, Adult. - Prescriptions for Zanaflex 4 mg Oral Tablet - take 1 tablet by ORAL route every 8 hours As needed; 20 tablet. - Work release form, Medication Reconciliation Form, Thank You Letter, Antibiotic Education, Prescription Opioid Use form. - Follow up: Private Physician; When: 2 - 3 days; Reason: Recheck today's complaints, Continuance of care, Re-evaluation by your physician. Addendum: 07/01/2020 07:01 Co-signature as Attending Physician, Anup Morelos MD I agree with the assessment and c degroot plan of care. Signatures: Dispatcher [employer] EDAnup Forbes MD MD cha Mickail, Joel, PA PA jmm Williams, Irene, Tony Garcia RN, RN RN jd3 Corrections: (The following items were deleted from the chart) 06/29 18:39 18:23 06/29/2020 18:23 Discharged to Home. Impression: Unspecified injury of head. jd3 Condition is Stable. Forms are Medication Reconciliation Form, Thank You Letter, Antibiotic Education, Prescription Opioid Use. Follow up: Private Physician; When: 2 - 3 days; Reason: Recheck today's complaints, Continuance of care, Re-evaluation by your physician. selam
--- NOTE | 2020-06-29 18:24 | ER ---
Nurse's Notes [facility] Name: Tonya Caballero Age: 45 yrs Sex: Female : 1975 Arrival Date: 06/29/2020 Time: 13:39 Bed 23 Private MD: Diagnosis: Unspecified injury of head Presentation: 06/29 13:55 Chief complaint: Patient states: "I fell a little while ago and hit my head. my family jd3 said I was out for like 30 sec and then I came too. I am having a headache now and feeling real dizzy.". Coronavirus screen: At this time, the client does not indicate any symptoms associated with coronavirus-19. Ebola Screen: Patient negative for fever greater than or equal to 101.5 degrees Fahrenheit, and additional compatible Ebola Virus Disease symptoms. Initial Sepsis Screen: Does the patient meet any 2 criteria? No. Patient's initial sepsis screen is negative. Does the patient have a suspected source of infection? No. Patient's initial sepsis screen is negative. Risk Assessment: Do you want to hurt yourself or someone else? Patient reports no desire to harm self or others. Onset of symptoms was June 29, 2020. 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 - Social history:: Smoking status: Patient reports the use of cigarette tobacco products, smokes one pack cigarettes per day. Screenin:12 Abuse screen: Denies threats or abuse. Denies injuries from another. Nutritional iw screening: No deficits noted. Tuberculosis screening: No symptoms or risk factors identified. Fall Risk Fall in past 12 months (25 points). Assessment: 18:11 General: Appears in no apparent distress. Behavior is calm, cooperative. Pain: iw Complains of pain in back of head and back of neck. Neuro: Level of Consciousness is awake, alert, obeys commands, Oriented to person, place, time, situation, Moves all extremities. Full function Reports headache a syncopal episode. Cardiovascular: Patient's skin is warm and dry. Respiratory: Respiratory effort is even, unlabored, Respiratory pattern is regular, symmetrical. Derm: Skin is intact, is healthy with good turgor. Musculoskeletal: Range of motion: intact in all extremities. 18:37 Reassessment: Patient appears in no apparent distress at this time. Patient and/or jd3 family updated on plan of care and expected duration. Pain level reassessed. Patient is alert, oriented x 3, equal unlabored respirations, skin warm/dry/pink. reported understanding of discharge instructions, even and steady gait upon discharge. Vital Signs: 13:59 BP 160 / 83; Pulse 81; Resp 17 S; Temp 97.4(TE); Pulse Ox 98% on R/A; Weight 90.72 kg jd3 (R); Height 5 ft. 3 in. (160.02 cm) (R); Pain 6/10; 18:38 BP 149 / 80; Pulse 80; Resp 16 S; Pulse Ox 98% on R/A; jd3 13:59 Body Mass Index 35.43 (90.72 kg, 160.02 cm) jd3 13:59 norco taken prior to coming to ER j ED Course: 13:39 Patient arrived in ED. rg4 13:57 Triage completed. jd3 13:59 Arm band placed on. jd3 15:08 CT Head Brain wo Cont In Process Unspecified. EDMS 17:54 Jersey Álvarez PA is PHCP. jmm 17:54 Anup Morelos MD is Attending Physician. jmm 18:11 Clary Pandya, RN is Primary Nurse. iw 18:12 No provider procedures requiring assistance completed. Patient did not have IV access iw during this emergency room visit. 18:38 Patient has correct armband on for positive identification. Bed in low position. Call jd3 light in reach. Side rails up X 1. Pulse ox on. NIBP on. Administered Medications: 18:21 Drug: Ibuprofen 800 mg Route: PO; iw 18:39 Follow up: Response: Medication administered at discharge. jd3 18:22 Drug: Valium 5 mg Route: PO; iw 18:39 Follow up: Response: Medication administered at discharge. jd3 Outcome: 18:23 Discharge ordered by . selam 18:38 Discharged to home ambulatory, with family. jd3 18:38 Condition: stable 18:38 Discharge instructions given to patient, Instructed on discharge instructions, follow up and referral plans. medication usage, Demonstrated understanding of instructions, follow-up care, medications, Prescriptions given X 1. 18:39 Patient left the ED. jd3 Signatures: Dispatcher [employer] EDMS Jersey Álvarez PA PA jmm Williams, Irene, RN RN Cheryl Dan 4 Tony Mares RN RN jd3 Corrections: (The following items were deleted from the chart) 18:39 18:39 Response: No adverse reaction jd3 jd3
[2020-06-29] MEDS ORDERED: DIAZEPAM 5 MG TABLET ONE (18:32)
[2020-06-29] MEDS ORDERED: IBUPROFEN 400 MG TAB ONE (18:32)
[2020-06-29 18:43] VITALS: TEMP 97.4; O2SAT 98
[2020-06-29 18:45] VITALS: BP 149/80
== END 2020-06-29 18:39 | disposition home or self-care (01) ==
LOC: ER 13:32
DX: S09.90XA Unspecified injury of head, initial encounter (principal); F17.210 Nicotine dependence, cigarettes, uncomplicated; E11.9 Type 2 diabetes mellitus without complications; F41.9 Anxiety disorder, unspecified; E78.5 Hyperlipidemia, unspecified; I10 Essential (primary) hypertension; W00.2XXA Other fall from one level to another due to ice and snow, initial encounter
CPT/HCPCS: 70450; 99284

== ENCOUNTER 2020-12-07 09:44 | Emergency (ER) | payer OTHER ==
--- OUTSIDE RECORDS SUMMARY | 2020-12-07 09:46 | XMS REPORT | Continuity of Care Document ---
:1975 Author Organization [facility] t Address [address] [place] [address] Care Team Providers Name Role Phone Madeleine Sotelo MD Attending Clinician Problems This patient has no known problems. Allergies, Adverse Reactions, Alerts This patient has no known allergies or adverse reactions. Medications This patient has no known medications. Procedures This patient has no known procedures. Encounters Start End Encounter Admission Attending Care Care Encounter Source Date/Time Date/Time Type Type Clinicians Facility Department ID 2019-11-24 2019-11-24 Emergency [facility] Sotelo [id number] 14:20:26 18:54:00 Lucas Kaur [id number] [place] [id number] [place] [id number] Results This patient has no known results.
--- NOTE | 2020-12-07 10:23 | RAD REPORT ---
EXAM DESCRIPTION: RAD - Chest Pa And Lat (2 Views) - 12/07/2020 10:16 am CLINICAL HISTORY: COUGH COMPARISON: February 2019 TECHNIQUE: Frontal and lateral views of the chest were obtained. FINDINGS: The lungs are clear of a peripheral mass or consolidation. Patient has a prominent baselin e interstitial pattern that is slightly increased on the current study. This could indicate a mild in terstitial infiltrate or edema. Viral infiltrate is possible. No airspace component seen. Failure or volume overload are not suspected. Heart size is normal and central vasculature is within normal limits. No pleural effusion or pneu mothorax seen. No acute bony finding noted. No aortic abnormality. IMPRESSION: No focal mass or consolidation. Baseline interstitial pattern is slightly increased since 2019. In the acute setting this could indic ated mild interstitial edema or viral infiltrate.
[2020-12-07 11:44] LABS: SARS-COV-2 RT PCR NEGATIVE (NEGATIVE)
--- NOTE | 2020-12-07 18:05 | EDPHYS ---
Physician Documentation [facility] Name: Tonya Caballero Age: 45 yrs Sex: Female : 1975 Arrival Date: 12/07/2020 Time: 09:47 Bed 17 Private MD: ED Physician Inder Newman HPI: 12/07 12:05 This 45 yrs old Female presents to ER via Ambulatory with complaints of rn Cough, Congestion, Fever, Shortness Of Breath. 12:05 The patient or guardian reports cough, flu symptoms, low-grade fever, no appetite. rn Onset: The symptoms/episode began/occurred 1 week(s) ago. Severity of symptoms: At their worst the symptoms were mild, in the emergency department the symptoms are unchanged. Modifying factors: The symptoms are alleviated by nothing, the symptoms are aggravated by nothing. Associated signs and symptoms: Pertinent positives: fever, rhinorrhea, sore throat. The patient has not experienced similar symptoms in the past. The patient has not recently seen a physician. Patient reports cough, congestion, runny nose. Symptoms present for 1 week. Positive smoker. Positive exposed to a grandchild with RSV recently. 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 Tried a Z-Jaswant and breathing treatments and steroids with no improvement. Historical: - Allergies: 10:30 No Known Allergies; iw - Home Meds: 10:30 Lexapro 20 mg Oral tab [Active]; lorazepam 0.5 mg Oral tab [Active]; metoprolol iw tartrate 50 mg Oral tab [Active]; [place] 10-325 mg Oral tab as needed [Active]; Protonix 40 mg Oral grps [Active]; - PMHx: 10:30 Diabetes - NIDDM; Hyperlipidemia; Hypertension; Anxiety; iw - Immunization history:: Client reports receiving the 2nd dose of the Covid vaccine. - Social history:: Smoking status: Patient reports the use of cigarette tobacco products, smokes one-half pack cigarettes per day. - Family history:: not pertinent. - Hospitalizations: : No recent hospitalization is reported. ROS: 12:05 Constitutional: Positive fever and chills Eyes: Negative for injury, pain, redness, and tornado chaser, ENT: Positive for sore throat and runny nose Cardiovascular: Negative for chest pain, palpitations, and edema, Respiratory: Positive cough Abdomen/GI: Negative for abdominal pain, nausea, vomiting, diarrhea, and constipation, Back: Negative for injury and pain, MS/Extremity: Negative for injury and deformity, Skin: Negative for injury, rash, and discoloration, Neuro: Negative for numbness, tingling, and seizure. Exam: 12:05 Constitutional: This is a well developed, well nourished patient who is awake, alert, rn and in no acute distress. Head/Face: Normocephalic, atraumatic. Eyes: Periorbital areas with no swelling, redness, or edema. ENT: No stridor Cardiovascular: Regular rate and rhythm No pulse deficits. Respiratory: Mild tachypnea, no retractions, speaking full sentences Skin: Warm, dry MS/ Extremity: Pulses equal, no cyanosis. Neuro: Awake and alert, GCS 15 Vital Signs: 10:27 BP 146 / 92; Pulse 104; Resp 20 S; Temp 97.0; Pulse Ox 97% on R/A; Weight 90.72 kg; iw Height 5 ft. 4 in. (162.56 cm); 11:46 BP 115 / 58; Pulse 95; Resp 20; Pulse Ox 96% ; vg1 10:27 Body Mass Index 34.33 (90.72 kg, 162.56 cm) iw MDM: 11:21 Patient medically screened. rn 12:05 Differential Diagnosis: Bronchitis Influenza Upper Respiratory Infection Viral Syndrome rn Pneumonia Other Covid. Data reviewed: vital signs, nurses notes, lab test result(s), radiologic studies, plain films, and as a result, I will discharge patient. Counseling: I had a detailed discussion with the patient and/or guardian regarding: the historical points, exam findings, and any diagnostic results supporting the discharge/admit diagnosis, lab results, radiology results, the need for outpatient follow up, to return to the emergency department if symptoms worsen or persist or if there are any questions or concerns that arise at home. Special discussion: I discussed with the patient/guardian in detail that at this point there is no indication for admission to the hospital. It is understood, however, that if the symptoms persist or worsen the patient needs to return immediately for re-evaluation. ED course: Patient RSV positive, negative for flu and Covid, chest x-ray with viral infiltrate, no oxygen requirement.. 12/07 09:54 Order name: XRAY Chest Pa And Lat (2 Views); Complete Time: 11:13 rn 12/07 11:45 Order name: COVID-19/FLU A+B/RSV; Complete Time: 11:51 EDMS Administered Medications: No medications were administered Disposition Summary: 12/07/20 12:08 Discharge Ordered Location: Home rn Problem: new rn Symptoms: are unchanged rn Condition: Stable rn Diagnosis - Acute bronchitis due to respiratory syncytial virus rn Followup: rn - With: Private Physician - When: As needed - Reason: Recheck today's complaints, Re-evaluation by your physician Discharge Instructions: - Discharge Summary Sheet rn - Acute Bronchitis, Adult rn - Respiratory Syncytial Virus Infection, Adult rn Forms: - Medication Reconciliation Form rn - Thank You Letter 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 EDMS EDMS 10:48 10:33 Influenza Screen (A \T\ B)+BA.LAB.BRZ ordered. EDMS EDMS 10:49 10:33 Respiratory Syncytial Virus Ag+BA.LAB.BRZ ordered. EDMS EDMS
--- NOTE | 2020-12-07 18:05 | ER ---
Nurse's Notes [facility] Name: Tonya Caballero Age: 45 yrs Sex: Female : 1975 Arrival Date: 12/07/2020 Time: 09:47 Bed 17 Private MD: Diagnosis: Acute bronchitis due to respiratory syncytial virus Presentation: 12/07 10:27 Chief complaint: Patient states: has had cough, fever, has an inhaler, has been on iw zpack and steroids, had two negative rapid COVID tests, has runny nose , symptoms started Sunday, was exposed to RSV recently. Coronavirus screen: congestion, cough unrelated to allergies, fever. Ebola Screen: Patient negative for fever greater than or equal to 101.5 degrees Fahrenheit, and additional compatible Ebola Virus Disease symptoms Patient denies exposure to infectious person. Patient denies travel to an Ebola-affected area in the 21 days before illness onset. No symptoms or risks identified at this time. Initial Sepsis Screen: Does the patient meet any 2 criteria? No. Patient's initial sepsis screen is negative. Does the patient have a suspected source of infection? No. Patient's initial sepsis screen is negative. Risk Assessment: Do you want to hurt yourself or someone else? Patient reports no desire to harm self or others. Onset of symptoms was December 05, 2020. 10:27 Method Of Arrival: Ambulatory iw 10:27 Acuity: BOLA 3 iw Historical: - Allergies: 10:30 No Known Allergies; iw - Home Meds: 10:30 Lexapro 20 mg Oral tab [Active]; lorazepam 0.5 mg Oral tab [Active]; metoprolol iw tartrate 50 mg Oral tab [Active]; [place] 10-325 mg Oral tab as needed [Active]; Protonix 40 mg Oral grps [Active]; - PMHx: 10:30 Diabetes - NIDDM; Hyperlipidemia; Hypertension; Anxiety; iw - Immunization history:: Client reports receiving the 2nd dose of the Covid vaccine. - Social history:: Smoking status: Patient reports the use of cigarette tobacco products, smokes one-half pack cigarettes per day. - Family history:: not pertinent. - Hospitalizations: : No recent hospitalization is reported. Screenin:45 Abuse screen: Denies threats or abuse. Nutritional screening: No deficits noted. vg1 Tuberculosis screening: Fall Risk No fall in past 12 months (0 pts). No secondary diagnosis (0 pts). No IV (0 pts). Ambulatory Aid- None/Bed Rest/Nurse Assist (0 pts). Gait- Normal/Bed Rest/Wheelchair (0 pts) Mental Status- Oriented to own ability (0 pts). Total [place]anton Fall Scale indicates No Risk (0-24 pts). Assessment: 10:07 Reassessment: Called to Triage 3 times. No answer. Unable to locate patient. ss 11:40 General: Appears in no apparent distress. uncomfortable, Behavior is calm, cooperative. vg1 Pain: Denies pain. Neuro: Level of Consciousness is awake, alert, obeys commands, Oriented to person, place, time, situation. Cardiovascular: Patient's skin is warm and dry. Respiratory: Reports cough that is productive, pain with cough Airway is patent Respiratory effort is even, unlabored, Breath sounds with wheezes bilaterally. GI: No signs and/or symptoms were reported involving the gastrointestinal system. : No signs and/or symptoms were reported regarding the genitourinary system. EENT: No signs and/or symptoms were reported regarding the EENT system. Derm: Skin is intact, is healthy with good turgor. Musculoskeletal: Circulation, motion, and sensation intact. Vital Signs: 10:27 BP 146 / 92; Pulse 104; Resp 20 S; Temp 97.0; Pulse Ox 97% on R/A; Weight 90.72 kg; iw Height 5 ft. 4 in. (162.56 cm); 11:46 BP 115 / 58; Pulse 95; Resp 20; Pulse Ox 96% ; vg1 10:27 Body Mass Index 34.33 (90.72 kg, 162.56 cm) iw ED Course: 09:47 Patient arrived in ED. mr 10:16 XRAY Chest Pa And Lat (2 Views) In Process Unspecified. EDMS 10:30 Triage completed. iw 10:31 Arm band placed on. iw 11:21 Inder Newman MD is Attending Physician. rn 11:25 Irma Gunn, LARS is Primary Nurse. vg1 11:45 Patient has correct armband on for positive identification. Placed in gown. Bed in low vg1 position. Call light in reach. Side rails up X 1. 12:23 No provider procedures requiring assistance completed. Patient did not have IV access vg1 during this emergency room visit. Administered Medications: No medications were administered Outcome: 12:08 Discharge ordered by . rn 12:23 Discharged to home ambulatory. vg1 12:23 Condition: stable 12:23 Discharge instructions given to patient, Instructed on discharge instructions, follow up and referral plans. Demonstrated understanding of instructions, follow-up care. 12:24 Patient left the ED. vg1 Signatures: Dispatcher [employer] MILANAZ Aaliyah Daily Clary Pandya RN RN iw Inder Newman MD MD rn Smirch, Shelby, RN RN ss Irma Gunn RN RN vg1 Corrections: (The following items were deleted from the chart) 10:35 10:27 Chief complaint: Patient states: has had cough, fever, has an inhaler, has been iw on zpack and steroids, had two negative rapid COVID tests, has runny nose , symptoms started Sunday iw
[2020-12-08 21:05] VITALS: TEMP 97
[2020-12-08 21:08] VITALS: BP 115/58; O2SAT 96
== END 2020-12-07 12:24 | disposition home or self-care (01) ==
LOC: ER 09:44
DX: J20.5 Acute bronchitis due to respiratory syncytial virus (principal); Z20.822 Contact with and (suspected) exposure to COVID-19; F17.210 Nicotine dependence, cigarettes, uncomplicated; E11.9 Type 2 diabetes mellitus without complications; E78.5 Hyperlipidemia, unspecified; I10 Essential (primary) hypertension; F41.9 Anxiety disorder, unspecified
CPT/HCPCS: 0241U; 71046

== ENCOUNTER 2021-05-30 14:29 | Emergency (ER) | payer OTHER ==
--- OUTSIDE RECORDS SUMMARY | 2021-05-30 14:33 | XMS REPORT | Continuity of Care Document ---
:1975 Author Organization [facility] t Address [address] [place] [address] Care Team Providers Name Role Phone Madeleine Sotelo MD Attending Clinician Payers Payer Name Policy Type Policy Number Effective Date Expiration Date S ource Problems Condition Condition Condition Status Onset Resolution Last Treating Co mments Source Name Details Category Date Date Treatment Clinician Date No known No known Disease Unive rs active active ity of problems problems [facility] Allergies, Adverse Reactions, Alerts Allergy Allergy Status Severity Reaction(s) Onset Inactive Treating Comm ents Source Name Type Date Date Clinician NO KNOWN Drug Active Univers ALLERGIE Class ity of S [facility] Social History Social Habit Start Date Stop Date Quantity Comments Source Sex Assigned At Uni versity of [facility] Smoking Status Start Date Stop Date Source Unknown if ever smoked Universit y of [facility] Medications Ordered Filled Start Stop Current Ordering Indication Dosage Frequency Signature Comments Components Source Medication Medication Date Date Medication? Clinician (SIG) Name Name metoclopram Yes [id number] 10mg Take 1 Univers alicia HCl 10 3-27 tablet by ity of mg tablet 00:00: mouth [place] 00 every 6 Medical (six) Branch hours. dicyclomine Yes [id number] 20mg Take 1 Univers (BENTYL) 20 3-27 tablet by ity of mg tablet 00:00: mouth 4 [place] 00 (four) Medical times Branch daily. metoclopram 2017-05 Yes 10mg Take 1 Univ ers alicia HCl 10 2-29 tablet by ity of mg tablet 00:00: mouth [place] 00 every 6 Medical (six) Branch hours as needed for Nausea and Vomiting (N/V). ondansetron 2018- Yes 4mg Take 1 Univ ers 4 mg 2-11 tablet by ity of disintegrat 00:00: mouth [place] ing tablet 00 every 8 Medica l (eight) Branch hours as needed for Nausea and Vomiting (N/V). Vital Signs Vital Name Observation Time Observation Value Comments Source Systolic blood 2019-11-24 19:11:00 163 mm[Hg] Univer sity of pressure [facility] Diastolic blood 2019-11-24 19:11:00 93 mm[Hg] Unive rsity of [facility] Heart rate 2019-11-24 19:11:00 77 /min Universi ty [facility] Body temperature 2019-11-24 19:11:00 37.17 [facility]zia [facility] [place] Respiratory rate 2019-11-24 19:11:00 18 /min [facility] Body weight 2019-11-24 19:11:00 90.719 kg Universi ty [facility] BMI 2019-11-24 19:11:00 35.43 kg/m2 Universi ty [facility] Oxygen saturation in 2019-11-24 19:11:00 99 /min University of Arterial blood by [facility] Pulse oximetry Branch Systolic blood 2019-11-24 19:11:00 163 mm[Hg] Univer sity of [facility] Diastolic blood 2019-11-24 19:11:00 93 mm[Hg] [facility] Heart rate 2019-11-24 19:11:00 77 /min Universi ty [facility] Body temperature 2019-11-24 19:11:00 37.17 Kezia [facility] ersity [facility] Respiratory rate 2019-11-24 19:11:00 18 /min [facility] Body weight 2019-11-24 19:11:00 90.719 kg Universi ty [facility] BMI 2019-11-24 19:11:00 35.43 kg/m2 Universi ty [facility] Oxygen saturation in 2019-11-24 19:11:00 99 /min University of Arterial blood by [facility] Pulse oximetry Branch Procedures Procedure Date / Time Performed Performing Clinician Sourc e URINALYSIS 2019-11-24 19:18:00 Lucas Sotelo [place] f [facility] NOTICE OF PRIVACY 2019-11-24 18:53:10 Doctor Unassigned, No Univ ersity [facility] PRACTICES Name [facility] CONSENT/REFUSAL FOR 2019-11-24 18:52:41 Doctor Unassigned, No Un iversity [facility] DIAGNOSIS AND Name [facility] TREATMENT Encounters Start End Encounter Admission Attending Care Care Encounter Source Date/Time Date/Time Type Type Clinicians Facility Department ID 2019-11-24 2019-11-24 Emergency [facility] [id number] 14:20:26 18:54:00 Lucas Kaur [id number] [facility] [id number] [place] [id number] [facility] 2019-11-24 2019-11-24 [facility] [id number] Univers 14:20:26 18:54:00 Lucas Kaur [id number] i ty of [facility] [id number] [facility] [id number] [place] [id number] Branch 2019-11-24 2019-11-24 Emergency X [facility] ERT [id number] Univers 13:53:00 13:53:[address] [facility] Results Test Description Test Time Test Comments Results Result Comments Source URINALYSIS 2019-11-24 20:38:00 Test Item Value Reference Range Interpretation Comme nts APPEARANCE (test code = Clear Clear [id number]) COLOR (test code = 5947357769) Yellow Yellow PH (test code = 8158917781) 4.8-8.0 SP GRAVITY (test code = 1.003-1.030 2923343387) GLU U QUAL (test code = 50 mg/dL Normal A 7682447678) BLOOD (test code = 5880875131) 1+ Negative A KETONES (test code = 3862173711) Negative Negative PROTEIN (test code = 2887-8) 30 mg/dL Negative A UROBILIN (test code = Normal Normal 0154034140) BILIRUBIN (test code = Negative Negative 2953654957) NITRITE (test code = 6719186927) Negative Negative LEUK TONYA (test code = 250/uL Negative A 6747547735) RBC/HPF (test code = 8098513256) See_Comment H [Automated message] The system which ge nerated this result transmit kath reference range: 0 - 3 HP F. The reference range was not used to interpret th is result as normal/abnormal . WBC/HPF (test code = 1592234905) See_Comment H [Automated message] The system which ge nerated this result transmit kath reference range: 0 - 5 HP F. The reference range was not used to interpret th is result as normal/abnormal . BACTERIA (test code = Many Negative A 9445954475) MUCOUS (test code = 4998857529) Slight Negative LPF A SQ EPITH (test code = HPF 8005013735) Lab Interpretation (test code = Abnormal 90891-2) [facility]
--- NOTE | 2021-05-30 15:46 | ER ---
Nurse's Notes [facility] Name: Tonya Caballero Age: 46 yrs Sex: Female : 1975 Arrival Date: 05/30/2021 Time: 14:32 Bed Waiting Private MD: Diagnosis: ED Course: 05/30 14:32 Patient arrived in ED. ja2 15:46 Patient's name was called from ER lobby. No response. Unable to locate patient. Will vg1 disposition as left without being seen by a provider. Administered Medications: No medications were administered Outcome: 15:46 Patient left the ED. vg1 Signatures: Irma Gunn RN RN vg1 Deysi Munoz
== END 2021-05-30 15:46 | disposition left against medical advice (07) ==
LOC: ER 14:29
DX: Z02.9 Encounter for administrative examinations, unspecified (principal)

== ENCOUNTER 2022-11-01 11:44 | Emergency (ER) | payer BC, OTHER ==
--- OUTSIDE RECORDS SUMMARY | 2022-11-01 11:50 | XMS REPORT | Continuity of Care Document ---
:1975 Author Organization [facility] t Address [address] [place] [address] [address] [place] [address] Care Team Providers Name Role Phone Pcp, Patient Does Not Have A Primary Care Physician +[id number] NICK RICK Attending Clinician Unavailable WHIT ROSAS Attending Clinician Unavailable Nick Rick MD Attending Clinician Doctor Unassigned, [place] Attending Clinician Unavailable Andrea SOUSA, Heena Louis Attending Clinician Unavailable Bridget SOUSA, Ekaterina Joseph Attending Clinician Hiram BATEMAN, Stanislav Lopez Attending Clinician Florencio BATEMAN, Ana Luisa Attending Clinician Moriah BATEMAN, Abhishek Zuñiga Attending Clinician ABHISHEK MAJOR Attending Clinician Deana vailable LANCE PATEL Attending Clinician Unavailable Lance Patel DO Attending Clinician Lucas Sotelo MD Attending Clinician Moriah BATEMAN, Abhishek Zuñiga Admitting Clinician MORIAH, MOSTAFA ROHAN AHMED MOHAMED Admitting Clinician Deana vailable Payers Payer Name Policy Type Policy Number Effective Date Expiration Date S halie [place] - [id number] 2022 00:00:00 OUT OF STATE Problems Condition Condition Condition Status Onset Resolution Last Treating Co mments Source Name Details Category Date Date Treatment Clinician Date 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 nce 605 ity of mellitus mellitus 00:00: [place] without without 00 Medical complicati complicati Br anch on, with on, with long-term long-term current current use of use of insulin insulin Coronary Coronary Disease Active Unive rs artery artery 605 ity of disease disease 00:00: [place] involving involving 00 Medi timmy andreafski andreafski Branch coronary coronary artery of artery of andreafski andreafski heart heart without without angina angina pectoris pectoris Hyperlipid Hyperlipid Disease Active U nivers emia, emia, 6-05 ity of unspecifie unspecifie 00:00: [place] d d 00 Medical hyperlipid hyperlipid Br anch emia type emia type Primary Primary Disease Active Univers hypertensi hypertensi 6-05 it y of on on 00:00: [place] 00 Medical Branch Tobacco Tobacco Disease Active Univers dependence dependence 605 it y of 00:00: [place] 00 Medical Branch Obesity Obesity Disease Active Univers (BMI (BMI 5-09 ity of 30-39.9) 30-39.9) 00:00: [place] 00 Medical Branch NSTEMI NSTEMI Disease Active Univers (non-ST (non-ST -09 ity of elevated elevated 00:00: [place] myocardial myocardial 00 Me dical infarction infarction Br anch ) ) No known No known Disease Unive rs active active ity of problems problems [facility] Allergies, Adverse Reactions, Alerts Allergy Allergy Status Severity Reaction(s) Onset Inactive Treating Comm ents Source Name Type Date Date Clinician NO KNOWN Drug Active Univers ALLERGIE Class ity of S [facility] Social History Social Habit Start Date Stop Date Quantity Comments Source History of tobacco Cigarette Smoker University of use [place] [facility] History SDOH University o f Alcohol Std Drinks [place] [facility] History SDOH University o f Alcohol Binge [place] [facility] History SDOH Social Unive rsity of Connections Get [place] Med ical Together Branch History SDOH Social Unive rsity of Connections [facility] Medical Branch History SDOH Social Unive rsity of Connections [place] [facility] Membership Branch History SDMI Social Unive rsity of Connections [place] [facility] Meetings Branch Cigarettes smoked 2022-09-19 2022-09-19 Univers ity of current (pack per 00:00:00 00:00:00 [facility] edical day) - Reported Branch Cigarette 2022-09-19 2022-09-19 University of pack-years 00:00:00 00:00:00 [place] [facility] Tobacco use and 2022-09-19 2022-09-19 User of Universit y of exposure 00:00:00 00:00:00 smokeless [place] [facility] tobacco Branch Alcohol intake 2022-09-19 2022-09-19 Lifetime University of 00:00:00 00:00:00 non-drinker [place] [facility] (finding) Branch History SDMI 2022-09-19 2022-09-19 1 University o f Alcohol Frequency 00:00:00 00:00:00 [facility] edical Branch History SDMI Social 2022-09-19 2022-09-19 1 Unive rsity of Connections Phone 00:00:00 00:00:00 [facility] edical Branch History SDMI Social 2022-09-19 2022-09-19 7 Unive rsity of Connections Living 00:00:00 00:00:00 [place] [facility] History SDMI 2022-09-19 2022-09-19 0 University o f Physical Activity 00:00:00 00:00:00 [facility] edical DPW Branch History SDMI 2022-09-19 2022-09-19 0 University o f Physical Activity 00:00:00 00:00:00 [facility] edical MPS Branch History SDMI 2022-09-19 2022-09-19 5 University o f Financial 00:00:00 00:00:00 [place] [facility] History SDMI Food 2022-09-19 2022-09-19 1 Univers ity of Worry 00:00:00 00:00:00 [place] [facility] History SDOH Food 2022-09-19 2022-09-19 1 Univers ity of Scarcity 00:00:00 00:00:00 [place] [facility] History SDMI 2022-09-19 2022-09-19 2 University o f Transport Med 00:00:00 00:00:00 [place] [facility] al Branch History SDOH 2022-09-19 2022-09-19 2 University o f Transport Non-Med 00:00:00 00:00:00 [place] M edical Branch History SDOH 2022-09-19 2022-09-19 2 University o f Housing Unable to 00:00:00 00:00:00 [place] M edical Pay Branch History SDOH 2022-09-19 2022-09-19 1 University o f Housing Places 00:00:00 00:00:00 [place] Medi timmy Lived Branch History SDOH 2022-09-19 2022-09-19 2 University o f Housing Homeless 00:00:00 00:00:00 [place] Me dical Last Year Branch Exposure to 2022-09-08 2022-09-18 Not sure University SARS-CoV-2 (event) 00:00:00 22:55:00 [facility] Sex Ass[birth year] At [birth year] Universit y of 00:00:00 00:00:00 [facility] Smoking Status Start Date Stop Date Source Tobacco smoking consumption [facility] Sm[facility] daily 2022-09-19 00:00:00 [facility] Ordered Filled Start Stop Current Ordering Indication Dosage Frequency Signature Comments Components Source Medication Medication Date Date Medication? Clinician (SIG) Name Name varenicline Yes [id number] Start 1 Univers 1 mg tablet 6-05 week ity of 00:00: before [place] [address] quit date. Medical Day 1-3: Branch 0.5 mg (1/2 tab) once; Day 4-7: 0.5 mg (1/2 tab) twice; THEN 1 mg (1 tab) twice daily for 3 weeks. varenicline Yes [id number] Start 1 Univers 1 mg tablet 6-05 week ity of 00:00: before [place] quit date. Medical Day 1-3: Branch 0.5 mg (1/2 tab) once; Day 4-7: 0.5 mg (1/2 tab) twice; THEN 1 mg (1 tab) twice daily for 3 weeks. varenicline Yes [id number] Start 1 Univers 1 mg tablet 6-05 week ity of 00:00: before quit date. Medical Day 1-3: Branch 0.5 mg (1/2 tab) once; Day 4-7: 0.5 mg (1/2 tab) twice; THEN 1 mg (1 tab) twice daily for 3 weeks. insulin Yes 12U 12 Units, Unive rs detemir 5-11 Subcutaneo ity of U-100 13:00: us, BID [place] (LEVEMIR 00 MEALS, Medical U-100 First dose Branch INSULIN) on [place] injection 09/21/22 at 12 Units 0800, Until Discontinu ed, Routine
Restricte d - To be dispensed only to: Continuati on from home insulin Yes 14U 14 Units, Unive rs detemir 5-11 Subcutaneo ity of U-100 13:00: us, BID [place] (LEVEMIR 00 MEALS, Medical U-100 First dose Branch INSULIN) (after injection last 14 Units modificati on) on [place] 09/21/22 at 0800, Until Discontinu ed, Routine
Restricte d - To be dispensed only to: Continuati on from home atorvastati Yes 80mg 80 mg, Univ ers n (LIPITOR) 5-11 Oral, QHS, it y of tablet 80 02:00: First dose [place] mg 00 (after Medical last Branch modificati on) on Sun09/20/22 at 2100, Until Discontinu ed, Routine atorvastati Yes 80mg 80 mg, Univ ers n (LIPITOR) 5-11 Oral, QHS, it y of tablet 80 02:00: First dose [place] mg 00 (after Medical last Branch modificati on) on Sun09/20/22 at 2100, Until Discontinu ed, Routine losartan Yes [id number] 100mg Take 1 Un german 100 mg 5-11 tablet by ity of tablet 00:00: mouth in [place] the Medical morning. Branch aspirin 81 0 Yes [id number] 81mg Take 1 U nivers mg chewable 5-11 tablet by ity of tablet 00:00: mouth in [place] the Medical morning. Branch insulin Yes [id number] 14U inject 14 Univers detemir 5-11 Units ity of U-100 100 00:00: under the [place] unit/mL 00 skin in Medical injection the Branch morning and 14 Units in the evening. inject with meals. losartan 2022-0 Yes [id number] 100mg Take 1 Un german 100 mg 5-11 tablet by ity of tablet 00:00: mouth in [place] the Medical morning. Branch aspirin 81 2022-0 Yes [id number] 81mg Take 1 U nivers mg chewable 5-11 tablet by ity of tablet 00:00: mouth in [place] the Medical morning. Branch insulin 2022-0 Yes [id number] 14U inject 14 Univers detemir 5-11 Units ity of U-100 100 00:00: under the [place] unit/mL 00 skin in Medical injection the Branch morning and 14 Units in the evening. inject with meals. losartan 2022-0 Yes [id number] 100mg Take 1 Un german 100 mg 5-11 tablet by ity of tablet 00:00: mouth in [place] the Medical morning. Branch aspirin 81 2022-0 Yes [id number] 81mg Take 1 U nivers mg chewable 5-11 tablet by ity of tablet 00:00: mouth in [place] the Medical morning. Branch insulin 2022-0 Yes [id number] 14U inject 14 Univers detemir 5-11 Units ity of U-100 100 00:00: under the [place] unit/mL 00 skin in Medical injection the Branch morning and 14 Units in the evening. inject with meals. losartan 2022-0 Yes [id number] 100mg Take 1 Un german 100 mg 5-11 tablet by ity of tablet 00:00: mouth in [place] the Medical morning. Branch aspirin 81 2022-0 Yes [id number] 81mg Take 1 U nivers mg chewable 5-11 tablet by ity of tablet 00:00: mouth in [place] the Medical morning. Branch insulin 2022-0 Yes [id number] 14U inject 14 Univers detemir 5-11 Units ity of U-100 100 00:00: under the [place] unit/mL 00 skin in Medical injection the Branch morning and 14 Units in the evening. inject with meals. losartan 2022-0 Yes [id number] 100mg Take 1 Un german 100 mg 5-11 tablet by ity of tablet 00:00: mouth in [place] the Medical morning. Branch aspirin 81 2022-0 Yes [id number] 81mg Take 1 U nivers mg chewable 5-11 tablet by ity of tablet 00:00: mouth in [place] 00 the Medical morning. Branch insulin 2022-0 Yes [id number] 14U inject 14 Univers detemir 5-11 Units ity of U-100 100 00:00: under the [place] unit/mL 00 skin in Medical injection the Branch morning and 14 Units in the evening. inject with meals. losartan 2022-0 Yes [id number] 100mg Take 1 Un german 100 mg 5-11 tablet by ity of tablet 00:00: mouth in [place] 00 the Medical morning. Branch aspirin 81 2022-0 Yes [id number] 81mg Take 1 U nivers mg chewable 5-11 tablet by ity of tablet 00:00: mouth in [place] the morning. Branch insulin 2022-0 Yes [id number] 14U inject 14 Univers detemir 5-11 Units ity of U-100 100 00:00: under the [place] unit/mL 00 skin in Medical injection the Branch morning and 14 Units in the evening. inject with meals. losartan 2022-0 Yes [id number] 100mg Take 1 Un german 100 mg 5-11 tablet by ity of tablet 00:00: mouth in [place] the Medical morning. Branch aspirin 81 2022-0 Yes [id number] 81mg Take 1 U nivers mg chewable 5-11 tablet by ity of tablet 00:00: mouth in [place] the Medical morning. Branch insulin 2022-0 Yes [id number] 14U inject 14 Univers detemir 5-11 Units ity of U-100 100 00:00: under the [place] unit/mL 00 skin in Medical injection the Branch morning and 14 Units in the evening. inject with meals. losartan 2022-0 Yes [id number] 100mg Take 1 Un german 100 mg 5-11 tablet by ity of tablet 00:00: mouth in [place] the Medical morning. Branch aspirin 81 2022-0 Yes [id number] 81mg Take 1 U nivers mg chewable 5-11 tablet by ity of tablet 00:00: mouth in [place] 00 the Medical morning. Branch insulin 2022-0 Yes [id number] 14U inject 14 Univers detemir 5-11 Units ity of U-100 100 00:00: under the [place] unit/mL 00 skin in Medical injection the [place] morning and 14 Units in the evening. inject with meals. losartan 2022-0 Yes [id number] 100mg Take 1 Un german 100 mg 5-11 tablet by ity of tablet 00:00: mouth in [place] 00 the Medical morning. Branch aspirin 81 2022-0 Yes [id number] 81mg Take 1 U nivers mg chewable 5-11 tablet by ity of tablet 00:00: mouth in [place] 00 the Medical morning. Branch insulin 0 Yes [id number] 14U inject 14 Univers detemir 5-11 Units ity of U-100 100 00:00: under the [place] unit/mL 00 skin in Medical injection the Branch morning and 14 Units in the evening. inject with meals. insulin 2022- No [id number] 14U inject 14 Univers detemir 5-11 05-10 Units ity of U-100 100 00:00: 00:00 under the [place] unit/mL 00 :00 skin in Medical injection the [place] morning and 14 Units in the evening. inject with meals. Do all this for 30 days. carvediloL Yes 6.25mg 6.25 mg, U nivers (COREG) 5-10 Oral, BID ity of tablet 6.25 22:00: [place]ALS, [place] mg 00 First dose Medical on Sun09/20/22 at 1700, Until Discontinu ed, Routine insulin 3-0 Yes 6U 6 Units, Univer s lispro 5-10 Subcutaneo ity of (human) 22:00: us, TID [place] (HumaLOG 00 MEALS, Medical U-100) First dose Branch injection 6 (after Units last modificati on) on Sun09/20/22 at 1700, Until Discontinu ed, Routine insulin 2023-0 Yes 9U 9 Units, Univer s lispro 5-10 Subcutaneo ity of (human) 22:00: us, TID [place] (HumaLOG 00 MEALS, Medical U-100) First dose Branch injection 9 (after Units last modificati on) on Sun09/20/22 at 1700, Until Discontinu ed, Routine carvediloL 2022-0 Yes 6.25mg 6.25 mg, U nivers (COREG) 5-10 Oral, BID ity of tablet 6.25 22:00: [place]ALS, [place] mg 00 First dose Medical on Sun09/20/22 at 1700, Until Discontinu ed, Routine clopidogreL 600mg 600 mg, U nivers (PLAVIX) 09-2010 Oral, ity of 300 mg 21:52: 21:58 ONCE, 1 [place] tablet 600 00 :00 dose, On Medic al mg Sun09/20/22 at 1700, Routine insulin No 18U 18 Units, Univ ers glargine 09-20 Subcutaneo ity of (LANTUS 18:15: 20:52 us, DAILY, [place] U-100) 00 :47 First dose Medical injection (after Branch 18 Units last modificati on) on Sun09/20/22 at 1315, Until Discontinu ed, Routine ALPRAZolam Yes .25mg Take 1 Univ ers (XANAX) 5-10 tablet by ity of 0.25 mg 17:18: mouth at [place] tablet 36 bedtime as Medical needed. Branch ALPRAZolam Yes .25mg Take 1 Univ ers (XANAX) 5-10 tablet by ity of 0.25 mg 17:18: mouth at [place] tablet 36 bedtime as Medical needed. Branch ALPRAZolam Yes .25mg Take 1 Univ ers (XANAX) 5-10 tablet by ity of 0.25 mg 17:18: mouth at [place] tablet 36 bedtime as Medical needed. Branch ALPRAZolam Yes .25mg Take 1 Univ ers (XANAX) 5-10 tablet by ity of 0.25 mg 17:18: mouth at [place] tablet 36 bedtime as Medical needed. Branch ALPRAZolam 0 Yes .25mg Take 1 Univ ers (XANAX) 5-10 tablet by ity of 0.25 mg 17:18: mouth at [place] tablet 36 bedtime as Medical needed. Branch ALPRAZolam 0 Yes .25mg Take 1 Univ ers (XANAX) 5-10 tablet by ity of 0.25 mg 17:18: mouth at [place] tablet 36 bedtime as Medical needed. Branch ALPRAZolam 0 Yes .25mg Take 1 Univ ers (XANAX) 5-10 tablet by ity of 0.25 mg 17:18: mouth at [place] tablet 36 bedtime as Medical needed. Branch ALPRAZolam Yes .25mg Take 1 Univ ers (XANAX) 5-10 tablet by ity of 0.25 mg 17:18: mouth at [place] tablet 36 bedtime as Medical needed. Branch ALPRAZolam Yes .25mg Take 1 Univ ers (XANAX) 5-10 tablet by ity of 0.25 mg 17:18: mouth at [place] tablet 36 bedtime as Medical needed. Branch metoprolol 2022- No 25mg Take 0.5 Un german tartrate 5-10 05-10 tablets by ity of (LOPRESSOR) 17:18: 00:00 mouth in [place] 50 mg 32 :00 the Medical tablet morning Branch and 0.5 tablets in the evening. omeprazole 2022- No 20mg Take 1 Univ ers 20 mg 5-10 05-10 capsule by ity of capsule 17:18: 00:00 mouth in [place] 32 :00 the Medical morning Branch and 1 capsule in the evening. losartan 25 0 2022- No 25mg Take 1 Uni vers mg tablet 5-10 05-10 tablet by ity of 17:18: 00:00 mouth in [place] 32 :00 the Medical morning. Branch hydrOXYzine 2022- No 10mg 10 mg, Uni vers (ATARAX) 5-10 05-10 Oral, ity of tablet 10 15:45: 16:28 ONCE, 1 [place] mg 00 :00 dose, On Medical Wed [place] 09/20/22 at 1045, Routine perflutren 2022- No [id number] 3mL 3 mL, IV Univers protein-A 5-10 05-10 Push, ity of microsphr 14:30: 14:30 ONCE, 1 [place] (OPTISON) 00 :00 dose, On Medica l injection 3 Sun [facility] 09/20/22 at 0930, Routine losartan Yes 100mg 100 mg, Unive rs (COZAAR) 5-10 Oral, ity of tablet 100 14:00: DAILY, [place] mg 00 First dose Medical (after Branch last modificati on) on Sun09/20/22 at 0900, Until Discontinu ed, Routine losartan 2022-0 Yes 100mg 100 mg, Unive rs (COZAAR) 5-10 Oral, ity of tablet 100 14:00: DAILY, [place] mg 00 First dose Medical (after Branch last modificati on) on Sun09/20/22 at 0900, Until Discontinu ed, Routine insulin 2022-0 2022- No 2U 2 Units, Unive rs lispro 5-10 05-10 Subcutaneo ity of (human) 12:30: 18:02 us, TIRENEE, [place] (HumaLOG 00 :12 First dose Medic al U-100) on Sun injection 2 09/20/22 at Units 0730, Until Discontinu ed, Routine QUEtiapine 2022-0 Yes 50mg 50 mg, Unive rs (SEROQUEL) 5-10 Oral, QHS, ity of tablet 50 02:00: First dose [place] mg 00 on [facility] 09/19/22 at Branch 2100, Until Discontinu ed, Routine QUEtiapine 2022-0 Yes 50mg 50 mg, Unive rs (SEROQUEL) 5-10 Oral, QHS, ity of tablet 50 02:00: First dose [place] mg 00 on [facility] 09/19/22 at Branch 2100, Until Discontinu ed, Routine insulin 2022-0 2022- No 10U 10 Units, Univ ers glargine 5-10 05-10 Subcutaneo ity of (LANTUS 02:00: 12:15 us, QHS, [place] U-100) 00 :05 First dose Medical injection on Sun 10 Units 09/19/22 at 2100, Until Discontinu ed, Routine ticagrelor 2022-0 Yes 90mg 90 mg, Unive rs (BRILINTA) 5-10 Oral, BID, ity of tablet 90 01:00: First dose [place] mg 00 on [facility] 09/19/22 at Branch 2000, Until Discontinu ed, Routine ticagrelor 2022-0 3- No 90mg 90 mg, Univ ers (BRILINTA) 5-10 05-10 Oral, BID, it y of tablet 90 01:00: 21:53 First dose [place] mg 00 :19 on [facility] 09/19/22 at Branch 1999, Until Discontinu ed, Routine semaglutide 0 Yes [id number] .25mg inject Univers (OZEMPIC) 5-10 0.25 mg ity of 0.25 mg or 00:00: under the [place] 0.5 mg (2 00 skin Medical mg/3 mL) weekly. Branch PnIj empaglifloz 2022-0 Yes [id number] 25mg Take 1 Univers in 5-10 tablet by ity of (JARDIANCE) 00:00: mouth in [place] 25 mg Tab 00 the Medical morning. Branch Blood-Gluco 0 Yes [id number] Use as Univers se Meter 5-10 directed ity of (ACCU-CHEK 00:00: [place] GUIDE 00 Medical GLUCOSE Branch METER) Misc lancets 33 2022-0 Yes [id number] Use as Univers gauge Misc 5-10 directed ity o f 00:00: [place] 00 [facility] Branch blood sugar 2022-0 Yes [id number] Use as Univers diagnostic 5-10 directed ity o f (ACCU-CHEK 00:00: [place] GUIDE TEST 00 Medical STRIPS) Branch strip insulin 0 Yes [id number] Humalog Un german lispro 100 5-10 insulin If ity of unit/mL pen 00:00: blood [place] injector 00 sugar Medical before [place] meal is higher than 160: Blood sugar 160 to 200, give 1 unit. Blood sugar 201 to 240, give 2 units. Blood sugar 241 to 280, give 3 units. Blood sugar 281 to 300, give 4 units. Blood sugar greater than 300, give 5 units, recheck in 3 hours and cover again with sliding scale.Max dose 18 units daily Blood-Gluco 0 Yes [id number] Use as Univers se Meter 5-10 directed ity of (ACCU-CHEK 00:00: [place] GUIDE 00 Medical GLUCOSE Branch METER) Misc lancets 33 2022-0 Yes [id number] Use as Univers gauge Misc 5-10 directed ity o f 00:00: [place] 00 [facility] Branch omeprazole 2022-0 Yes [id number] 20mg Take 1 U nivers 20 mg 5-10 capsule by ity of capsule 00:00: mouth in [place] 00 the Medical morning Branch and 1 capsule in the evening. nitroglycer 2022-[id number] 1 Univers in 0.4 mg 5-10 tablet ity of sublingual 00:00: under the [place] tablet 00 tongue Medical every 5 Branch (five) minutes as needed for Chest pain. carvediloL 2022-0 Yes [id number] 6.25mg Take 1 Univers 6.25 mg 5-10 tablet by ity of tablet 00:00: mouth in [place] 00 the Medical morning Branch and 1 tablet in the evening. Take with meals. atorvastati 2022-0 Yes [id number] 80mg Take 1 Univers n 80 mg 5-10 tablet by ity of tablet 00:00: mouth at [place] [address] bedtime. Medical Branch empaglifloz 2022-0 Yes [id number] 25mg Take 1 Univers in 5-10 tablet by ity of (JARDIANCE) 00:00: mouth in [place] 25 mg Tab 00 the Medical morning. Branch pioglitazon 2022-0 Yes [id number] 15mg Take 1 Univers e 15 mg 5-10 tablet by ity of tablet 00:00: mouth in [place] the Medical morning. Branch blood sugar 2022-0 Yes [id number] Use as Univers diagnostic 5-10 directed ity o f (ACCU-CHEK 00:00: [place] GUIDE TEST 00 Medical STRIPS) Branch strip clopidogreL 2022-0 Yes [id number] 75mg Take 1 Univers 75 mg 5-10 tablet by ity of tablet 00:00: mouth in [place] 00 the Medical morning. Branch Blood-Gluco 2022-0 Yes [id number] Use as Univers se Meter 5-10 directed ity of (ACCU-CHEK 00:00: [place] [facility] 00 Medical GLUCOSE Branch METER) Misc lancets 33 2022-0 Yes [id number] Use as Univers gauge Misc 5-10 directed ity o f 00:00: [place] 00 Medical Branch omeprazole 3-0 Yes [id number] 20mg Take 1 U nivers 20 mg 5-10 capsule by ity of capsule 00:00: mouth in [place] 00 the Medical morning Branch and 1 capsule in the evening. nitroglycer 2022-[id number] 1 Univers in 0.4 mg 5-10 tablet ity of sublingual 00:00: under the [place] tablet 00 tongue Medical every 5 Branch (five) minutes as needed for Chest pain. carvediloL 2023-0 Yes [id number] 6.25mg Take 1 Univers 6.25 mg 5-10 tablet by ity of tablet 00:00: mouth in [place] the Medical morning Branch and 1 tablet in the evening. Take with meals. atorvastati 2022-0 Yes [id number] 80mg Take 1 Univers n 80 mg 5-10 tablet by ity of tablet 00:00: mouth at [place] [address] bedtime. Medical Branch empaglifloz 2022-0 Yes [id number] 25mg Take 1 Univers in 5-10 tablet by ity of (JARDIANCE) 00:00: mouth in [place] 25 mg Tab 00 the Medical morning. Branch pioglitazon 2022-0 Yes [id number] 15mg Take 1 Univers e 15 mg 5-10 tablet by ity of tablet 00:00: mouth in [place] 00 the Medical morning. Branch blood sugar 2022-0 Yes [id number] Use as Univers diagnostic 5-10 directed ity o f (ACCU-CHEK 00:00: [place] GUIDE TEST 00 Medical STRIPS) Branch strip clopidogreL 2022-0 Yes [id number] 75mg Take 1 Univers 75 mg 5-10 tablet by ity of tablet 00:00: mouth in [place] the morning. Branch Blood-Gluco 2022-0 Yes [id number] Use as Univers se Meter 5-10 directed ity of (ACCU-CHEK 00:00: [place] GUIDE 00 Medical GLUCOSE Branch METER) Misc lancets 33 2022-0 Yes [id number] Use as Univers gauge Misc 5-10 directed ity o f 00:00: [place] 00 Medical Branch omeprazole 3-0 Yes [id number] 20mg Take 1 U nivers 20 mg 5-10 capsule by ity of capsule 00:00: mouth in [place] 00 the Medical morning Branch and 1 capsule in the evening. nitroglycer 2022-[id number] 1 Univers in 0.4 mg 5-10 tablet ity of sublingual 00:00: under the [place] tablet 00 tongue Medical every 5 Branch (five) minutes as needed for Chest pain. carvediloL 3-0 Yes [id number] 6.25mg Take 1 Univers 6.25 mg 5-10 tablet by ity of tablet 00:00: mouth in [place] 00 the Medical morning Branch and 1 tablet in the evening. Take with meals. atorvastati 2022-0 Yes [id number] 80mg Take 1 Univers n 80 mg 5-10 tablet by ity of tablet 00:00: mouth at [place] [address] bedtime. Medical Branch empaglifloz 2022-0 Yes [id number] 25mg Take 1 Univers in 5-10 tablet by ity of (JARDIANCE) 00:00: mouth in [place] 25 mg Tab 00 the Medical morning. Branch pioglitazon 2022-0 Yes [id number] 15mg Take 1 Univers e 15 mg 5-10 tablet by ity of tablet 00:00: mouth in [place] 00 the Medical morning. Branch blood sugar 2022-0 Yes [id number] Use as Univers diagnostic 5-10 directed ity o f (ACCU-CHEK 00:00: [place] GUIDE TEST 00 Medical STRIPS) Branch strip clopidogreL 2022-0 Yes [id number] 75mg Take 1 Univers 75 mg 5-10 tablet by ity of tablet 00:00: mouth in [place] 00 the Medical morning. Branch Blood-Gluco 2022-0 Yes [id number] Use as Univers se Meter 5-10 directed ity of (ACCU-CHEK 00:00: [place] GUIDE 00 Medical GLUCOSE Branch METER) Misc lancets 33 2022-0 Yes [id number] Use as Univers gauge Misc 5-10 directed ity o f 00:00: [place] 00 Medical Branch omeprazole 3-0 Yes [id number] 20mg Take 1 U nivers 20 mg 5-10 capsule by ity of capsule 00:00: mouth in [place] the Medical morning Branch and 1 capsule in the evening. nitroglycer 2022-[id number] 1 Univers in 0.4 mg 5-10 tablet ity of sublingual 00:00: under the [place] tablet 00 tongue Medical every 5 Branch (five) minutes as needed for Chest pain. carvediloL 2022-0 Yes [id number] 6.25mg Take 1 Univers 6.25 mg 5-10 tablet by ity of tablet 00:00: mouth in [place] 00 the Medical morning Branch and 1 tablet in the evening. Take with meals. atorvastati 2022-0 Yes [id number] 80mg Take 1 Univers n 80 mg 5-10 tablet by ity of tablet 00:00: mouth at [place] 00 bedtime. Medical Branch empaglifloz 2022-0 Yes [id number] 25mg Take 1 Univers in 5-10 tablet by ity of (JARDIANCE) 00:00: mouth in [place] 25 mg Tab 00 the morning. Branch pioglitazon 2022-0 Yes [id number] 15mg Take 1 Univers e 15 mg 5-10 tablet by ity of tablet 00:00: mouth in [place] 00 the Medical morning. Branch blood sugar 2022-0 Yes [id number] Use as Univers diagnostic 5-10 directed ity o f (ACCU-CHEK 00:00: [place] GUIDE TEST 00 Medical STRIPS) Branch strip clopidogreL 2022-0 Yes [id number] 75mg Take 1 Univers 75 mg 5-10 tablet by ity of tablet 00:00: mouth in [place] the Medical morning. Branch Blood-Gluco 2022-0 Yes [id number] Use as Univers se Meter 5-10 directed ity of (ACCU-CHEK 00:00: [place] GUIDE 00 Medical GLUCOSE Branch METER) Misc lancets 33 2022-0 Yes [id number] Use as Univers gauge Misc 5-10 directed ity o f 00:00: [place] 00 Medical Branch omeprazole 2022-0 Yes [id number] 20mg Take 1 U nivers 20 mg 5-10 capsule by ity of capsule 00:00: mouth in [place] the Medical morning Branch and 1 capsule in the evening. nitroglycer 2022-[id number] 1 Univers in 0.4 mg 5-10 tablet ity of sublingual 00:00: under the [place] tablet 00 tongue Medical every 5 Branch (five) minutes as needed for Chest pain. carvediloL 2022-0 Yes [id number] 6.25mg Take 1 Univers 6.25 mg 5-10 tablet by ity of tablet 00:00: mouth in [place] 00 the Medical morning Branch and 1 tablet in the evening. Take with meals. atorvastati 2022-0 Yes [id number] 80mg Take 1 Univers n 80 mg 5-10 tablet by ity of tablet 00:00: mouth at [place] [address] bedtime. Medical Branch empaglifloz 2022-0 Yes [id number] 25mg Take 1 Univers in 5-10 tablet by ity of (JARDIANCE) 00:00: mouth in [place] 25 mg Tab 00 the Medical morning. Branch pioglitazon 2022-0 Yes [id number] 15mg Take 1 Univers e 15 mg 5-10 tablet by ity of tablet 00:00: mouth in [place] 00 the Medical morning. Branch blood sugar 2022-0 Yes [id number] Use as Univers diagnostic 5-10 directed ity o f (ACCU-CHEK 00:00: [place] GUIDE TEST 00 Medical STRIPS) Branch strip clopidogreL 2022-0 Yes [id number] 75mg Take 1 [facility] 75 mg 5-10 tablet by ity of tablet 00:00: mouth in [place] 00 the Medical morning. Branch Blood-Gluco 2022-0 Yes [id number] Use as Univers se Meter 5-10 directed ity of (ACCU-CHEK 00:00: [place] GUIDE 00 Medical GLUCOSE Branch METER) Misc lancets 33 2022-0 Yes [id number] Use as Univers gauge Misc 5-10 directed ity o f 00:00: [place] 00 Medical Branch omeprazole 2022-0 Yes [id number] 20mg Take 1 U nivers 20 mg 5-10 capsule by ity of capsule 00:00: mouth in [place] 00 the Medical morning Branch and 1 capsule in the evening. nitroglycer 2022-[id number] 1 [facility] in 0.4 mg 5-10 tablet ity of sublingual 00:00: under the [place] tablet 00 tongue Medical every 5 Branch (five) minutes as needed for Chest pain. carvediloL 2022-0 Yes [id number] 6.25mg Take 1 [facility] 6.25 mg 5-10 tablet by ity of tablet 00:00: mouth in [place] 00 the Medical morning Branch and 1 tablet in the evening. Take with meals. atorvastati 2022-0 Yes [id number] 80mg Take 1 Univers n 80 mg 5-10 tablet by ity of tablet 00:00: mouth at [place] 00 bedtime. Medical Branch empaglifloz 2022-0 Yes [id number] 25mg Take 1 [facility] in 5-10 tablet by ity of (JARDIANCE) 00:00: mouth in [place] 25 mg Tab 00 the Medical morning. Branch pioglitazon 2022-0 Yes [id number] 15mg Take 1 Univers e 15 mg 5-10 tablet by ity of tablet 00:00: mouth in [place] 00 the Medical morning. Branch blood sugar 2022-0 Yes [id number] Use as [facility] diagnostic 5-10 directed ity o f (ACCU-CHEK 00:00: [place] GUIDE TEST 00 Medical STRIPS) Branch strip clopidogreL 2022-0 Yes [id number] 75mg Take 1 [facility] 75 mg 5-10 tablet by ity of tablet 00:00: mouth in [place] 00 the Medical morning. Branch Blood-Gluco 2022-0 Yes [id number] Use as Univers se Meter 5-10 directed ity of (ACCU-CHEK 00:00: [place] [address] Medical GLUCOSE Branch METER) Misc lancets 33 2022-0 Yes [id number] Use as Univers gauge Misc 5-10 directed ity o f 00:00: [place] 00 Medical Branch omeprazole 2022-0 Yes [id number] 20mg Take 1 U nivers 20 mg 5-10 capsule by ity of capsule 00:00: mouth in [place] [address] the Medical morning Branch and 1 capsule in the evening. nitroglycer 2022-[id number] 1 [facility] in 0.4 mg 5-10 tablet ity of sublingual 00:00: under the [place] tablet 00 tongue Medical every 5 Branch (five) minutes as needed for Chest pain. carvediloL 2022-0 Yes [id number] 6.25mg Take 1 [facility] 6.25 mg 5-10 tablet by ity of tablet 00:00: mouth in [place] 00 the Medical morning Branch and 1 tablet in the evening. Take with meals. atorvastati 2022-0 Yes [id number] 80mg Take 1 Univers n 80 mg 5-10 tablet by ity of tablet 00:00: mouth at [place] [address] bedtime. Medical Branch empaglifloz 2022-0 Yes [id number] 25mg Take 1 [facility] in 5-10 tablet by ity of (JARDIANCE) 00:00: mouth in [place] 25 mg Tab 00 the Medical morning. Branch pioglitazon 2022-0 Yes [id number] 15mg Take 1 Univers e 15 mg 5-10 tablet by ity of tablet 00:00: mouth in [place] 00 the Medical morning. Branch blood sugar 2022-0 Yes [id number] Use as [facility] diagnostic 5-10 directed ity o f (ACCU-CHEK 00:00: [place] GUIDE TEST 00 Medical STRIPS) Branch strip clopidogreL 2022-0 Yes [id number] 75mg Take 1 [facility] 75 mg 5-10 tablet by ity of tablet 00:00: mouth in [place] 00 the Medical morning. Branch Blood-Gluco 2022-0 Yes [id number] Use as Univers se Meter 5-10 directed ity of (ACCU-CHEK 00:00: [place] GUIDE 00 Medical GLUCOSE Branch METER) Misc lancets 33 2022-0 Yes [id number] Use as [facility] gauge Misc 5-10 directed ity o f 00:00: [place] 00 Medical Branch omeprazole 2022-0 Yes [id number] 20mg Take 1 U nivers 20 mg 5-10 capsule by ity of capsule 00:00: mouth in [place] 00 the Medical morning Branch and 1 capsule in the evening. nitroglycer 2022-[id number] 1 [facility] in 0.4 mg 5-10 tablet ity of sublingual 00:00: under the [place] tablet 00 tongue Medical every 5 Branch (five) minutes as needed for Chest pain. carvediloL 2022-0 Yes [id number] 6.25mg Take 1 [facility] 6.25 mg 5-10 tablet by ity of tablet 00:00: mouth in [place] 00 the Medical morning Branch and 1 tablet in the evening. Take with meals. atorvastati 2022-0 Yes [id number] 80mg Take 1 [facility] n 80 mg 5-10 tablet by ity of tablet 00:00: mouth at [place] [address] bedtime. Medical Branch empaglifloz 2022-0 Yes [id number] 25mg Take 1 [facility] in 5-10 tablet by ity of (JARDIANCE) 00:00: mouth in [place] 25 mg Tab 00 the Medical morning. Branch pioglitazon 2022-0 Yes [id number] 15mg Take 1 Univers e 15 mg 5-10 tablet by ity of tablet 00:00: mouth in [place] 00 the Medical morning. Branch blood sugar 2022-0 Yes [id number] Use as [facility] diagnostic 5-10 directed ity o f (ACCU-CHEK 00:00: [place] GUIDE TEST 00 Medical STRIPS) Branch strip clopidogreL 2022-0 Yes [id number] 75mg Take 1 [facility] 75 mg 5-10 tablet by ity of tablet 00:00: mouth in [place] 00 the Medical morning. Branch Blood-Gluco 2022-0 Yes [id number] Use as Univers se Meter 5-10 directed ity of (ACCU-CHEK 00:00: [place] GUIDE 00 Medical GLUCOSE Branch METER) Misc lancets 33 2022-0 Yes [id number] Use as [facility] gauge Misc 5-10 directed ity o f 00:00: [place] 00 Medical Branch omeprazole 2022-0 Yes [id number] 20mg Take 1 U nivers 20 mg 5-10 capsule by ity of capsule 00:00: mouth in [place] 00 the Medical morning Branch and 1 capsule in the evening. nitroglycer 2022-[id number] 1 [facility] in 0.4 mg 5-10 tablet ity of sublingual 00:00: under the [place] tablet 00 tongue Medical every 5 Branch (five) minutes as needed for Chest pain. carvediloL 2022-0 Yes [id number] 6.25mg Take 1 [facility] 6.25 mg 5-10 tablet by ity of tablet 00:00: mouth in [place] 00 the Medical morning Branch and 1 tablet in the evening. Take with meals. atorvastati 2022-0 Yes [id number] 80mg Take 1 Univers n 80 mg 5-10 tablet by ity of tablet 00:00: mouth at [place] [address] bedtime. Medical Branch empaglifloz 2022-0 Yes [id number] 25mg Take 1 [facility] in 5-10 tablet by ity of (JARDIANCE) 00:00: mouth in [place] 25 mg Tab 00 the Medical morning. Branch pioglitazon 2022-0 Yes [id number] 15mg Take 1 Univers e 15 mg 5-10 tablet by ity of tablet 00:00: mouth in [place] 00 the Medical morning. Branch blood sugar 2022-0 Yes [id number] Use as [facility] diagnostic 5-10 directed ity o f (ACCU-CHEK 00:00: [place] GUIDE TEST 00 Medical STRIPS) Branch strip clopidogreL 2022-0 Yes [id number] 75mg Take 1 [facility] 75 mg 5-10 tablet by ity of tablet 00:00: mouth in [place] 00 the Medical morning. Branch insulin 2022-0 2022- Yes [id number] 9U inject 9 Univers lispro, 5-10 11-07 Units ity of human, 100 00:00: 05:59 under the [place] unit/mL 00 :00 skin in Medical injection the Branch morning and 9 Units at noon and 9 Units in the evening. inject with meals. Do all this for 180 days. insulin 2022- Yes [id number] 9U inject 9 Univers lispro, 5-10 11-07 Units ity of human, 100 00:00: 05:59 under the [place] unit/mL 00 :00 skin in Medical injection the Branch morning and 9 Units at noon and 9 Units in the evening. inject with meals. Do all this for 180 days. insulin 2022- Yes [id number] 9U inject 9 Univers lispro, 5-10 11-07 Units ity of human, 100 00:00: 05:59 under the [place] unit/mL 00 :00 skin in Medical injection the Branch morning and 9 Units at noon and 9 Units in the evening. inject with meals. Do all this for 180 days. insulin 2022- Yes [id number] 9U inject 9 Univers lispro, 5-10 11-07 Units ity of human, 100 00:00: 05:59 under the [place] unit/mL 00 :00 skin in Medical injection the Branch morning and 9 Units at noon and 9 Units in the evening. inject with meals. Do all this for 180 days. insulin 2022- Yes [id number] 9U inject 9 Univers lispro, 5-10 11-07 Units ity of human, 100 00:00: 05:59 under the [place] unit/mL 00 :00 skin in Medical injection the Branch morning and 9 Units at noon and 9 Units in the evening. inject with meals. Do all this for 180 days. insulin 2022- Yes [id number] 9U inject 9 Univers lispro, 5-10 11-07 Units ity of human, 100 00:00: 05:59 under the [place] unit/mL 00 :00 skin in Medical injection the Branch morning and 9 Units at noon and 9 Units in the evening. inject with meals. Do all this for 180 days. insulin 2022- Yes [id number] 9U inject 9 Univers lispro, 5-10 11-07 Units ity of human, 100 00:00: 05:59 under the [place] unit/mL 00 :00 skin in Medical injection the Branch morning and 9 Units at noon and 9 Units in the evening. inject with meals. Do all this for 180 days. insulin 2022- Yes [id number] 9U inject 9 Univers lispro, 5-10 11-07 Units ity of human, 100 00:00: 05:59 under the [place] unit/mL 00 :00 skin in Medical injection the [place] morning and 9 Units at noon and 9 Units in the evening. inject with meals. Do all this for 180 days. insulin 2022- Yes [id number] 9U inject 9 Univers lispro, 5-10 11-07 Units ity of human, 100 00:00: 05:59 under the [place] unit/mL 00 :00 skin in Medical injection the [place] morning and 9 Units at noon and 9 Units in the evening. inject with meals. Do all this for 180 days. Insulin 2022- Yes [id number] 14U inject 14 Univers Glargine 5-10 06-10 Units ity of (BASAGLAR 00:00: 04:59 under the [place] KWIKPEN 00 :00 skin in Medical U-100 the [place] INSULIN) morning 100 unit/mL for 30 (3 mL) doses. injection semaglutide 2022- No [id number] .25mg inject Univers (OZEMPIC) 5-10 05-10 0.25 mg ity of 0.25 mg or 00:00: 00:00 under the [place] 0.5 mg (2 00 :00 skin Medical mg/3 mL) weekly. [place] PnIj empaglifloz 2022- No [id number] 25mg Take 1 Univers in 5-10 05-10 tablet by ity of (JARDIANCE) 00:00: 00:00 mouth in [place] 25 mg Tab 00 :00 the Medical morning. [place] blood sugar 2022- No [id number] Use as Univers diagnostic 5-10 05-10 directed ity of (ACCU-CHEK 00:00: 00:00 [place] GUIDE TEST 00 :00 Medical STRIPS) [place] strip Insulin 2022- No [id number] 14U inject 14 Univers Glargine 5-10 05-10 Units ity of (BASAGLAR 00:00: 00:00 under the [place] KWIKPEN 00 :00 skin in Medical U-100 the Branch INSULIN) morning 100 unit/mL for 30 (3 mL) doses. injection insulin 2022- No [id number] Humalog U nivers lispro 100 5-10 05-10 insulin If it y of unit/mL pen 00:00: 00:00 blood [place] injector 00 :00 sugar Medical before [place] meal is higher than 160: Blood sugar 160 to 200, give 1 unit. Blood sugar 201 to 240, give 2 units. Blood sugar 241 to 280, give 3 units. Blood sugar 281 to 300, give 4 units. Blood sugar greater than 300, give 5 units, recheck in 3 hours and cover again with sliding scale.Max dose 18 units daily ticagrelor 2022- No [id number] 90mg Take 1 Univers 90 mg 5-10 05-10 tablet by ity of tablet 00:00: 00:00 mouth in [place] 00 :00 the Medical morning Branch and 1 tablet in the evening. clopidogreL 2022- No [id number] 75mg Take 1 Univers 75 mg 5-10 05-10 tablet by ity of tablet 00:00: 00:00 mouth in [place] 00 :00 the Medical morning. Branch insulin 2022- No [id number] 14U inject 14 Univers glargine 5-10 05-10 Units ity of 100 unit/mL 00:00: 00:00 under the [place] injection 00 :00 skin in [facility] the [place] morning and 14 Units in the evening. ALPRAZolam 2022- No .5mg 0.5 mg, Uni vers (XANAX) 09-19 Oral, ity of tablet 0.5 22:45: 23:35 ONCE, 1 [place] mg 00 :00 dose, On Medical Sun09/19/22 Branch at 1745, Routine HYDROcodone 2022- No 1{tbl} 1 tablet, Univers -acetaminop 09-19 Oral, ONCE i ty of hen (NORCO) 21:30: 20:41 NOW, 1 [place] 10-325 mg 00 :00 dose, On Medica l tablet Sun09/19/22 Branc h tablet at 1630, Routine iopamidol 2022- No ONCE INTRA U nivers (ISOVUE 09-19 PROCEDURE, ity o f 370-500 mL) 19:21: 19:31 Starting [place] injection 38 :01 on [facility] Medical 09/19/22 at Branch 1421, Until Sun09/19/22 at 1431, Routine, CV Intraproce dure ticagrelor 2022- No ONCE INTRA Univers (BRILINTA) 09-19 PROCEDURE, it y of tablet 19:19: 19:31 Starting [place] 45 :01 on [facility] Medical 09/19/22 at Branch 1419, Until Sun09/19/22 at 1431, Routine, CV Intraproce dure adenosine 6 2022- No ONCE INTRA Univers mg/1000 mL 09-19 PROCEDURE, it y of INTRACORONA 19:09: 19:31 Starting [place] RY 32 :01 on [facility] Medical injection 09/19/22 at [facility] h for CATH 1409, LAB Until Sun09/19/22 at 1431, Routine, CV Intraproce dure hydralAZINE 2022- No ONCE INTRA Univers (APRESOLINE 09-19 PROCEDURE, i ty of ) injection 18:50: 19:31 Starting [place] 51 :01 on [facility] Medical 09/19/22 at Branch 1350, Until Sun09/19/22 at 1431, STAT, CV Intraproce dure aspirin 2022-0 Yes 325mg 325 mg, Univer s tablet 325 09-19 Oral, ity of mg 18:33: PRE-PROCED [place] 40 URE ONCE, Medical 1 dose, Branch Starting on Sun09/19/22 at 1333, Until Discontinu ed, Routine, Surgery/Pr ocedure, CV Preprocedu re aspirin 2022-0 Yes 325mg 325 mg, Univer s tablet 325 09 Oral, ity of mg 18:33: PRE-PROCED [place] 40 URE ONCE, Medical 1 dose, Branch Starting on Sun09/19/22 at 1333, Until Discontinu ed, Routine, Surgery/Pr ocedure, CV Preprocedu re nitroglycer 2022- No ONCE INTRA Univers in (TRIDIL) 09-19 PROCEDURE, i ty of 2 mg in 10 18:12: 19:31 [place] mL D5W for 08 :01 on [facility] Cardiac 09/19/22 at Branch Cath 1312, Until 09/19/22 at 1431, Routine, CV Intraproce dure verapamiL 2022- No ONCE INTRA U nivers (ISOPTIN) 09-19 PROCEDURE, ity of injection 18:12: 19:31 Starting [place] 01 :01 on [facility] 09/19/22 at Branch 1312, Until 09/19/22 at 1431, Routine, CV Intraproce dure heparin 2022- No ONCE INTRA Uni vers 1,000 09-19 PROCEDURE, ity of unit/mL 18:11: 19:31 Starting [place] injection 48 :01 on [facility] 09/19/22 at Branch 1311, Until 09/19/22 at 1431, Routine, CV Intraproce dure lidocaine 2022- No ONCE INTRA U nivers 1% (PF) 09-19 PROCEDURE, ity o f (XYLOCAINE) 18:01: 19:31 Starting [place] injection 00 :01 on [facility] 09/19/22 at Branch 1301, Until 09/19/22 at 1431, Routine, CV Intraproce dure midazolam 2022- No ONCE INTRA U nivers (VERSED) 09-19 PROCEDURE, ity of injection 17:59: 19:31 Starting [place] 40 :01 on [facility] 09/19/22 at Branch 1259, Until 09/19/22 at 1431, Routine, CV Intraproce dure FENTanyl PF 2022- No ONCE INTRA Univers (SUBLIMAZE 09-19 PROCEDURE, it y of (PF)) 17:59: 19:31 Starting [place] injection 16 :01 on [facility] 09/19/22 at Branch 1259, Until 09/19/22 at 1431, Routine, CV Intraproce dure nicotine 2022- No 1{patch 1 Patch, U nivers (NICODERM) 09-19 } Topical, ity of 21 mg/24 hr 17:00: 18:44 Administer [place] patch 1 00 :10 over 24 Medical Patch Hours, Branch Q24H, First dose on Sun09/19/22 at 1200, Until Discontinu ed, Routine lidocaine 3-0 2023- No 1{patch 1 Patch, Univers (LIDODERM) 09-19 } Topical, ity of 5 % (700 16:45: 04:11 Administer [place] mg/patch) 00 :00 over 12 Medical patch 1 Hours, Branch Patch ONCE, 1 dose, On Sun09/19/22 at 1145, Routine hydrOXYzine 2022-0 2022- No 10mg 10 mg, Uni vers (ATARAX) 09-19- Oral, ity of tablet 10 16:45: 16:10 ONCE, 1 [place] mg 00 :00 dose, On Medical Sun09/19/22 Branch at 1145, Routine acetaminoph 2022-0 Yes 1{tbl} 1 tablet, Univers en-codeine 09-19 Oral, ity of (TYLENOL 15:45: Q6HPRN, [place] #3) 300-30 01 Starting Medic al mg tablet 1 on Sun [place] tablet 09/19/22 at 1045, Until Discontinu ed, Routine, Pain (scale 7-10) acetaminoph 2022-0 Yes 1{tbl} 1 tablet, Univers en-codeine 09-19 Oral, ity of (TYLENOL 15:45: Q6HPRN, [place] #3) 300-30 01 Starting Medic al mg tablet 1 on [facility] tablet 09/19/22 at 1045, Until Discontinu ed, Routine, Pain (scale 7-10) metoprolol 2022-0 Yes 25mg Take 0.5 Uni vers tartrate 5-09 tablets by ity o f (LOPRESSOR) 15:03: mouth [place] 50 mg 23 the Medical tablet morning Branch and 0.5 tablets in the evening. omeprazole 3-0 Yes 20mg Take 1 Unive rs 20 mg 5- capsule by ity of capsule 15:03: mouth in [place] 23 the Medical morning Branch and 1 capsule in the evening. ALPRAZolam 2022-0 Yes .25mg Take 1 Univ ers (XANAX) 5-09 tablet by ity of 0.25 mg 15:03: mouth at [facility] 23 bedtime as Medical needed. Branch losartan 25 2023-0 Yes 25mg Take 1 Univ ers mg tablet 09-19 tablet by ity o f 15:03: mouth in [place] 23 the Medical morning. [place] aspirin 2022-0 Yes 81mg 81 mg, Univers chewable 09-19 Oral, ity of tablet 81 14:00: DAILY, [place] mg 00 First dose Medical on [facility] 09/19/22 at 0900, Until Discontinu ed, Routine aspirin 2022-0 Yes 81mg 81 mg, Univers chewable 09-19 Oral, ity of tablet 81 14:00: DAILY, [place] mg 00 First dose Medical on [facility] 09/19/22 at 0900, Until Discontinu ed, Routine losartan 2022-0 2022- No 50mg 50 mg, Univer s (COZAAR) 09-19- Oral, ity of tablet 50 14:00: 11:35 DAILY, [place] mg 00 :46 First dose Medical on [facility] 09/19/22 at 0900, Until Discontinu ed, Routine omeprazole 0 Yes 20mg 20 mg, Unive rs (PRILOSEC) 09-19 Oral, BID, ity of capsule 20 13:00: First dose [place] mg 00 on [facility] 09/19/22 at Branch 0800, Until Discontinu ed, Routine Sliding 2022-0 Yes Subcutaneo Univ ers Scale - us, Q4H, ity of Insulin - 13:00: First dose [place] Lispro 00 on [facility] (HumaLOG) 09/19/22 at [facility] h 0800, Until Discontinu ed, Routine omeprazole 2022-0 Yes 20mg 20 mg, Unive rs (PRILOSEC) 09-19 Oral, BID, ity of capsule 20 13:00: First dose [place] mg 00 on [facility] 09/19/22 at Branch 0800, Until Discontinu ed, Routine Sliding 2022-0 Yes Subcutaneo Univ ers Scale - us, Q4H, ity of Insulin - 13:00: First dose [place] Lispro 00 on [facility] (HumaLOG) 09/19/22 at [facility] h 0800, Until Discontinu ed, Routine metoprolol 2022-0 202- No 25mg 25 mg, Univ ers tartrate 09-19- Oral, BID, ity of (LOPRESSOR) 13:00: 18:44 First dose [place] tablet 25 00 :35 on Sun Medical mg 09/19/22 at Branch 0800, Until Discontinu ed, Routine enoxaparin 2022- No 1mg/kg 90 mg Uni vers (LOVENOX) 09-19 (rounded ity o f injection 13:00: 09:34 [place] 90.7 [place] 90 mg 00 :09 mg = 1 Medical mg/kg Branch ?90.7 kg), Subcutaneo us, Q12H, First dose on Sun09/19/22 at 0800, Until Discontinu ed, Routine magnesium 2022- No 4g 4 g, IV Univ ers sulfate in 09-19 Piggyback, it y of water 4 11:15: 15:[address] [place] [address] gram/50 mL 00 :00 mL/hr Medical (8 %) IV Administer Branc h Piggyback 4 over 120 g Minutes, ONCE, 1 dose, On Sun09/19/22 at 0615, Routine atorvastati 2022- No 40mg 40 mg, Uni vers n (LIPITOR) 09-19 0510 Oral, QHS, i ty of tablet 40 10:00: 11:34 First dose [place] mg 00 :17 on Sun [facility] 09/19/22 at Branch 0500, Until Discontinu ed, Routine ALPRAZolam 0 Yes .25mg 0.25 mg, Un german (XANAX) 09-19 Oral, ity of tablet 0.25 09:48: QHSPRN, [place] mg 00 Starting Medical on [facility] 09/19/22 at 0448, Until Discontinu ed, Routine, Anxiety ALPRAZolam 0 Yes .25mg 0.25 mg, Un german (XANAX) 09-19 Oral, ity of tablet 0.25 09:48: QHSPRN, [place] mg 00 Starting Medical on [facility] 09/19/22 at 0448, Until Discontinu ed, Routine, Anxiety nitroglycer Yes .4mg 0.4 mg, Uni vers in 09-19 Sublingual ity of (NITROSTAT) 09:35: , Q5MIN [place] sublingual 45 PRN, Medical tablet 0.4 Starting Branc h mg on e 09/19/22 at 0435, Until Discontinu ed, Routine, Chest pain nitroglycer 2022-0 Yes .4mg 0.4 mg, Uni vers in 09-19 Sublingual ity of (NITROSTAT) 09:35: , Q5MIN [place] sublingual 45 PRN, Medical tablet 0.4 Starting Branc h mg on Sun09/19/22 at 0435, Until Discontinu ed, Routine, Chest pain glucagon 2022-0 Yes 1mg 1 mg, Univers (GLUCAGEN 09-19 Intramuscu ity of DIAGNOSTIC 09:33: [place], PRN, [place] KIT) 02 Starting Medical injection 1 on [facility] 09/19/22 at 0433, Until Discontinu ed, ERIK, Blood Glucose < or = 70 mg/dL and patient is NPO, unable to swallow or has mental changes. acetaminoph 0 Yes 650mg 650 mg, Un german en 09-19 Oral, ity of (TYLENOL) 09:33: Q6HPRN, [place] tablet 650 02 Starting Medic al mg on [facility] Branch 09/19/22 at 0433, Until Discontinu ed, Routine, Pain (scale 1-3) glucagon 2022-0 Yes 1mg 1 mg, Univers (GLUCAGEN 09-19 Intramuscu ity of DIAGNOSTIC 09:33: [place], PRN, [place] KIT) 02 Starting Medical injection 1 on [facility] 09/19/22 at 0433, Until Discontinu ed, ERIK, Blood Glucose < or = 70 mg/dL and patient is NPO, unable to swallow or has mental changes. acetaminoph 0 Yes 650mg 650 mg, Un german en 09-19 Oral, ity of (TYLENOL) 09:33: Q6HPRN, [place] tablet 650 02 Starting Medic al mg on [facility] Branch 09/19/22 at 0433, Until Discontinu ed, Routine, Pain (scale 1-3) dextrose 2022-0 Yes 250mL 250 mL, IV Un german 10% (D10W) 09-19 Infusion, ity of bolus 09:33: PRN - SEE [place] infusion 01 INSTRUCTIO Medic al 250 mL NS, Branch Administer over 60 Minutes, Other, If blood glucose is < or = 70 mg/dL and patient is unable to swallow or has mental status changes, Starting on Sun09/19/22 at 0433
If blood glucose is < or = 70 mg/dL and patient is unable to swallow or has mental status changes (Give glucagon order if patient needs fluid restrictio n): IF IV access available: Dextrose 10%. 1. 125 mL (? bag) of D10W IV infusion - equivalent to 12.5 g dextrose 2. Blood glucose - draw blood glucose 15 minutes after D10W Administra tion. 3. If blood glucose is < 80 mg/dL, repeat.
dextrose 2022- Yes 250mL 250 mL, IV Un german 10% (D10W) 09-19 Infusion, ity of bolus 09:33: PRN - SEE [place] infusion 01 INSTRUCTIO Medic al 250 mL NS, Branch Administer over 60 Minutes, Other, If blood glucose is < or = 70 mg/dL and patient is unable to swallow or has mental status changes, Starting on Sun09/19/22 at 0433
If blood glucose is < or = 70 mg/dL and patient is unable to swallow or has mental status changes (Give glucagon order if patient needs fluid restrictio n): IF IV access available: Dextrose 10%. 1. 125 mL (? bag) of D10W IV infusion - equivalent to 12.5 g dextrose 2. Blood glucose - draw blood glucose 15 minutes after D10W Administra tion. 3. If blood glucose is < 80 mg/dL, repeat.
morpHINE (4 2022-0 202- No 4mg 4 mg, Slow Univers mg/mL) 09-19- IV Push, ity of injection 4 07:30: 07:21 [place] 1 [place] :[place] dose, On Medical Sun09/19/22 Branch at 0230, STAT ondansetron 2022-0 202- No 4mg 4 mg, Slow Univers (ZOFRAN 09-19- IV Push, ity of (PF)) 07:30: 07:21 ONCE, 1 [place] injection 4 00 :00 dose, On Medi timmy mg Sun09/19/22 Branch at 0230, ERIK NaCl 0.9% 2022- No 1000mL at 999 Uni vers (NS) IV 09-19 mL/hr, ity of infusion 07:00: 09:35 [place] 1,000 mL 00 :57 s, Medical CONTINUOUS Branch , Starting on Sun09/19/22 at 0200, Until Sun09/19/22 at 0435, Routine insulin 2022- No 10U 10 Units, Univ ers regular 09-19 Subcutaneo ity o f human 06:45: 05:56 , ONCE, [place] (HUMULIN R) 00 :00 1 dose, On Me dical injection Sun09/19/22 Bran ch 10 Units at 0145, Routine
Indicatio n for insulin: Hyperglyce sheldon nitroglycer 2022- No .4mg 0.4 mg, Un german in 09-19 Sublingual ity of (NITROSTAT) 05:15: 05:18 , ONCE, 1 [place] sublingual 00 :00 dose, On Medic al tablet 0.4 Sun09/19/22 Bra nch mg at 0015, ERIK methylPREDN Yes [id number] Take by [employer] [facility] 05-16 mouth ity of (MEDROL, 00:00: SEE-INSTRU [place] JAVIER,) 4 mg 00 CTIONS. Medica l tablets follow Branch package directions chlorphenir 2022-0 Yes [id number] 4mg Take 1 Univers amine 4 mg -03 tablet by ity of tablet 00:00: mouth [place] 00 every 6 Medical (six) Branch hours as needed for Allergies or Runny nose. methylPREDN 2022-0 2022- No [id number] Take by [employer] ISolone 05-16- mouth ity of (MEDROL, 00:00: 00:00 [place]INSTRU [place] J[place]IER[place] 4 mg 00 :00 CTIONS. Medica l tablets follow Branch package directions chlorphenir 2022-0 2022- No [id number] 4mg Take 1 Univers amine 4 mg -03 - tablet by ity of tablet 00:00: 00:00 mouth [place] 00 :00 every 6 Medical (six) Branch hours as needed for Allergies or Runny nose. methylPREDN 2022- No [id number] Take by Univers ISolone 05-16-09 mouth ity of (MEDROL, 00:00: 00:00 [place]INSTRU [place] J[place]IER,) 4 mg 00 :00 CTIONS. Medica l tablets follow Branch package directions chlorphenir 2022- No [id number] 4mg Take 1 Univers amine 4 mg 05-16-09 tablet by ity of tablet 00:00: 00:00 mouth [place] 00 :00 every 6 Medical (six) Branch hours as needed for Allergies or Runny nose. metoclopram 2018- Yes [id number] 10mg Take 1 Univers alicia HCl 10 3-27 tablet by ity of mg tablet 00:00: mouth [place] 00 every 6 Medical (six) Branch hours. dicyclomine 2018- Yes [id number] 20mg Take 1 Univers (BENTYL) 20 3-27 tablet by ity of mg tablet 00:00: mouth (four) Medical times Branch daily. metoclopram Yes [id number] 10mg Take 1 Univers alicia HCl 10 3-27 tablet by ity of mg tablet 00:00: mouth [place] 00 every 6 Medical (six) Branch hours. dicyclomine 2018- Yes [id number] 20mg Take 1 Univers (BENTYL) 20 3-27 tablet by ity of mg tablet 00:00: mouth (four) Medical times Branch daily. metoclopram 2018- Yes [id number] 10mg Take 1 Univers alicia HCl 10 3-27 tablet by ity of mg tablet 00:00: mouth [place] 00 every 6 Medical (six) Branch hours. dicyclomine 2018- Yes [id number] 20mg Take 1 Univers (BENTYL) 20 3-27 tablet by ity of mg tablet 00:00: mouth (four) Medical times Branch daily. dicyclomine 2022- No [id number] 20mg Take 1 Univers (BENTYL) 20 3-27 05-09 tablet by it y of mg tablet 00:00: 00:00 [place] :[place] (four) Medical times Branch daily. metoclopram 2022- No [id number] 10mg Take 1 Univers alicia HCl 10 3-27 05-09 tablet by ity of mg tablet 00:00: 00:00 mouth [place] 00 :00 every 6 Medical (six) Branch hours. dicyclomine 2022- No [id number] 20mg Take 1 Univers (BENTYL) 20 3-27 05-09 tablet by it y of mg tablet 00:00: 00:00 mouth [place] 00 :[place] (four) Medical times Branch daily. metoclopram 2022- No [id number] 10mg Take 1 Univers alicia HCl 10 3-27 05-09 tablet by ity of mg tablet 00:00: 00:00 mouth [place] 00 :00 every 6 Medical (six) Branch hours. metoclopram 2017-05 Yes 10mg Take 1 Univ ers alicia HCl 10 2-29 tablet by ity of mg tablet 00:00: mouth [place] 00 every 6 Medical (six) Branch hours as needed for Nausea and Vomiting (N/V). metoclopram 2017-05 Yes 10mg Take 1 Univ ers alicia HCl 10 2-29 tablet by ity of mg tablet 00:00: mouth [place] 00 every 6 Medical (six) Branch hours as needed for Nausea and Vomiting (N/V). metoclopram 2017-05 Yes 10mg Take 1 Univ ers alicia HCl 10 2-29 tablet by ity of mg tablet 00:00: mouth [place] 00 every 6 Medical (six) Branch hours as needed for Nausea and Vomiting (N/V). metoclopram 2017-05 No 10mg Take 1 Uni vers alicia HCl 10 2-29 05-09 tablet by ity of mg tablet 00:00: 00:00 mouth [place] 00 :00 every 6 Medical (six) Branch hours as needed for Nausea and Vomiting (N/V). metoclopram 2017-05 No 10mg Take 1 Uni vers alicia HCl 10 2-29 05-09 tablet by ity of mg tablet 00:00: 00:00 mouth [place] 00 :00 every 6 Medical (six) Branch hours as needed for Nausea and Vomiting (N/V). ondansetron 2017-05 Yes 4mg Take 1 Univ ers 4 mg 2-11 tablet by ity of disintegrat 00:00: mouth [place] ing tablet 00 every 8 Medica l (eight) Branch hours as needed for Nausea and Vomiting (N/V). ondansetron 2017-05 Yes 4mg Take 1 Univ ers 4 mg 2-11 tablet by ity of disintegrat 00:00: mouth [place] ing tablet 00 every 8 Medica l (eight) Branch hours as needed for Nausea and Vomiting (N/V). ondansetron 2017-05 Yes 4mg Take 1 Univ ers 4 mg 2-11 tablet by ity of disintegrat 00:00: mouth [place] ing tablet 00 every 8 Medica l (eight) Branch hours as needed for Nausea and Vomiting (N/V). ondansetron 2017-05 No 4mg Take 1 Uni vers 4 mg 2-11 05-09 tablet by ity of disintegrat 00:00: 00:00 [place] tablet 00 :00 every 8 Medica l (eight) Branch hours as needed for Nausea and Vomiting (N/V). ondansetron 2017-05 4mg Take 1 Uni vers 4 mg 2-11 05-09 tablet by ity of disintegrat 00:00: 00:00 [place] tablet 00 :00 every 8 Medica l (eight) Branch hours as needed for Nausea and Vomiting (N/V). Vital Signs Vital Name Observation Time Observation Value Comments Source Systolic blood 2022-10-16 143 mm[Hg] University of pressure 20:41:00 [facility] Diastolic blood 2022-10-16 84 mm[Hg] [place] o f pressure 20:41:00 [facility] Heart rate 2022-10-16 89 /min [facility] 20:41:00 [facility] Respiratory rate 2022-10-16 16 /min [facility] 20:41:00 [facility] Body height 2022-10-16 162.6 cm [facility] 20:41:00 [facility] Body weight 2022-10-16 94.348 kg [facility] 20:41:00 [facility] BMI 2022-10-16 35.70 kg/m2 [facility] 20:41:00 [facility] Oxygen saturation 2022-10-16 96 /min [facility] [facility] Arterial blood 20:41:00 [facility] by Pulse oximetry Branch Systolic blood 2022-09-20 178 mm[Hg] University of pressure 16:20:00 [facility] Diastolic blood 2022-09-20 96 mm[Hg] University o f pressure 16:20:00 [place] [facility] Heart rate 2022-09-20 76 /min University of 16:20:00 [facility] Branch Body temperature 2022-09-20 37 Kezia University of 16:20:00 [place] [facility] Respiratory rate 2022-09-20 20 /min University of 16:20:00 [facility] Branch Oxygen saturation 2022-09-20 98 /min University of in Arterial blood 16:20:00 [place] Medi timmy by Pulse oximetry Branch Body height 2022-09-19 160 cm University of 09:00:00 [place] [facility] Body weight 2022-09-19 92.579 kg actual wt on University of 09:00:00 the regular [place] Medical scale Branch BMI 2022-09-19 36.15 kg/m2 University of 09:00:00 [facility] Branch Systolic blood 2022-09-19 183 mm[Hg] University of pressure 17:55:18 [facility] Branch Diastolic blood 2022-09-19 93 mm[Hg] University o f pressure 17:55:18 [place] [facility] Heart rate 2022-09-19 65 /min University of 17:55:18 [place] [facility] Respiratory rate 2022-09-19 20 /min University of 17:55:18 [facility] Branch Oxygen saturation 2022-09-19 100 /min University of in Arterial blood 17:55:18 [facility] timmy by Pulse oximetry Branch Body temperature 2022-09-19 36.11 Kezia University of 16:22:00 [place] [facility] Body height 2022-09-19 160 cm University of 09:00:00 [place] [facility] [place] Body weight 2022-09-19 92.579 kg actual wt on University of 09:00:00 the regular [place] Medical scale Branch BMI 2022-09-19 36.15 kg/m2 University of 09:00:00 [facility] Branch Systolic blood 2022-05-16 168 mm[Hg] University of pressure 15:58:00 [place] [facility] Diastolic blood 2022-05-16 100 mm[Hg] University o f pressure 15:58:00 [place] [facility] Heart rate 2022-05-16 100 /min University of 15:58:00 [facility] Branch Body temperature 2022-05-16 36.72 Kezia University of 15:58:00 [facility] Branch Respiratory rate 2022-05-16 20 /min University of 15:58:00 [place] [facility] Body height 2022-05-16 160 cm University of 15:58:00 [facility] Body weight 2022-05-16 90.719 kg University of 15:58:00 [facility] BMI 2022-05-16 35.43 kg/m2 University of 15:58:00 [facility] Oxygen saturation 2022-05-16 97 /min University of in Arterial blood 15:58:00 [facility] timmy by Pulse oximetry Branch Systolic blood 2019-11-24 163 mm[Hg] University of pressure 19:11:00 [facility] Diastolic blood 2019-11-24 93 mm[Hg] University o f pressure 19:11:00 [facility] Heart rate 2019-11-24 77 /min University of 19:11:00 [facility] Body temperature 2019-11-24 37.17 Kezia University of 19:11:00 [facility] Respiratory rate 2019-11-24 18 /min University of 19:11:00 [facility] Body weight 2019-11-24 90.719 kg University of 19:11:00 [facility] BMI 2019-11-24 35.43 kg/m2 University of 19:11:00 [facility] Oxygen saturation 2019-11-24 99 /min University of in Arterial blood 19:11:00 [facility] by Pulse oximetry Branch Systolic blood 2019-11-24 163 mm[Hg] University of pressure 19:11:00 [facility] Diastolic blood 2019-11-24 93 mm[Hg] University o f pressure 19:11:00 [facility] Heart rate 2019-11-24 77 /min University of 19:11:00 [facility] Body temperature 2019-11-24 37.17 Kezia University of 19:11:00 [facility] Respiratory rate 2019-11-24 18 /min University of 19:11:00 [facility] Body weight 2019-11-24 90.719 kg University of 19:11:00 [facility] BMI 2019-11-24 35.43 kg/m2 University of 19:11:00 [facility] Oxygen saturation 2019-11-24 99 /min University in Arterial blood 19:11:00 [facility] by Pulse oximetry Branch Procedures Procedure Date / Time Performing Clinician Source Performed ASSIGNMENT OF BENEFITS 2022-10-16 20:33:36 Doctor [facility], [facility] [place] [facility] POCT GLUCOSE (AUTOMATED) 2022-09-20 16:58:00 Abhishek Major [facility] POCT GLUCOSE (AUTOMATED) 2022-09-20 16:58:00 Flo Majora Un iversity of [facility] TRANSTHORACIC ECHO (TTE) 2022-09-20 14:18:25 Morelia Moran [facility] [place] COMPLETE W/ CONTRAST Medical Bra [facility] TRANSTHORACIC ECHO (TTE) 2022-09-20 14:18:25 Morelia Moran Uni versity of [place] COMPLETE W/ CONTRAST Medical Bra [facility] POCT GLUCOSE (AUTOMATED) 2022-09-20 13:13:00 Abhishek Major Un iversity of [facility] POCT GLUCOSE (AUTOMATED) 2022-09-20 13:13:00 Abhishek Major Un iversity of [facility] MAGNESIUM 2022-09-20 09:54:00 Maddie [facility] BASIC METABOLIC PANEL (NA, 2022-09-20 09:54:00 [facility], CL, CO2, GLUCOSE, BUN, Medica l Branch CREATININE, CA) CBC WITHOUT DIFF 2022-09-20 09:54:00 Maddie [facility] MAGNESIUM 2022-09-20 09:54:00 [facility]IC METABOLIC PANEL (NA, 2022-09-20 09:54:00 Raúl Perkins niversity [facility] K, CL, CO2, GLUCOSE, BUN, Medica l Branch CREATININE, CA) CBC WITHOUT DIFF 2022-09-20 09:54:00 [facility] POCT GLUCOSE (AUTOMATED) 2022-09-20 09:50:00 Abhishek Major Un iversity of [facility] POCT GLUCOSE (AUTOMATED) 2022-09-20 09:50:00 Abhishek Major Un iversity of [facility] POCT GLUCOSE (AUTOMATED) 2022-09-20 05:02:00 Moriah Mostafa Un iversity [facility] POCT GLUCOSE (AUTOMATED) 2022-09-20 05:02:00 Moriah Mostafa [facility] ACTIVATED PARTIAL THRMPLAS 2022-09-20 02:01:00 Salehin Salman U niversity of [place] [facility] ACTIVATED PARTIAL THRMPLAS 2022-09-20 02:01:00 Salehin, Salman U niversity of [place] [facility] POCT GLUCOSE (AUTOMATED) 2022-09-20 01:58:00 Moriah Mostafa Un [facility]versity [facility] POCT GLUCOSE (AUTOMATED) 2022-09-20 01:58:00 Moriah Mostafa Un [facility] ACTIVATED PARTIAL THRMPLAS 2022-09-19 22:03:00 Salehin Salman U niversity of [place] [facility] ACTIVATED PARTIAL THRMPLAS 2022-09-19 22:03:00 Salehin, Salman U niversity of [place] [facility] POCT GLUCOSE (AUTOMATED) 2022-09-19 21:34:00 Moriah Mostafa Un [facility]vers[facility] POCT GLUCOSE (AUTOMATED) 2022-09-19 21:34:00 Moriah Mostafa Un [facility]versity [facility] CARDIAC CATHETERIZATION 2022-09-19 19:12:51 Moriah, Mostafa Uni versity [facility] CARDIAC CATHETERIZATION 2022-09-19 19:12:51 Moriah, Mostafa Uni [facility] CARDIAC CATHETERIZATION 2022-09-19 19:12:51 Moriah, Mostafa Uni versity of [facility] CARDIAC CATHETERIZATION 2022-09-19 19:12:51 Moriah, Mostafa Uni versity of [facility] CARDIAC CATHETERIZATION 2022-09-19 19:12:51 Moriah, Mostafa Uni versity [facility] Bran ch CARDIAC CATHETERIZATION 2022-09-19 19:12:51 Moriah, Mostafa Uni versity [facility] Bran ch CARDIAC CATHETERIZATION 2022-09-19 19:12:51 Moriah, Mostafa Uni versity [facility] Bran ch CARDIAC CATHETERIZATION 2022-09-19 19:12:51 Moriah, Mostafa Uni versity [facility] Bran ch CARDIAC CATHETERIZATION 2022-09-19 19:12:51 Moriah, Mostafa Uni versity [facility] Bran ch CARDIAC CATHETERIZATION 2022-09-19 19:12:51 Moriah, Mostafa Uni [facility] POCT ACT LOW RANGE 2022-09-19 19:04:00 Moriah, Mostafa Universi ty [facility] Bran ch POCT ACT LOW RANGE 2022-09-19 19:04:00 Moriah, Mostafa Universi ty [facility] Bran ch POCT ACT LOW RANGE 2022-09-19 18:31:00 Moriah, Mostafa Universi ty [facility] POCT ACT LOW RANGE 2022-09-19 18:31:00 Moriah, Mostafa Universi ty [facility] POCT GLUCOSE (AUTOMATED) 2022-09-19 14:21:00 AbuLouise [facility] POCT GLUCOSE (AUTOMATED) 2022-09-19 14:21:00 uLouise [facility] COVID-19 (ID NOW RAPID 2022-09-19 11:30:00 Morelia Moran [facility] TESTING) Medical Branch LAB ONLY COVID 2022-09-19 11:30:00 Morelia Moran [facility] INTERPRETATION [facility] Branch COVID-19 (ID NOW RAPID 2022-09-19 11:30:00 Morelia Moran [facility] TESTING) Medical Branch LAB ONLY COVID 2022-09-19 11:30:00 Morelia Moran [facility] INTERPRETATION [facility] TROPONIN I 2022-09-19 11:28:00 [facility] N-TERMINAL PRO-BNP 2022-09-19 11:28:00 Luisa [facility] TROPONIN I 2022-09-19 11:28:00 [facility] N-TERMINAL PRO-BNP 2022-09-19 11:28:00 Morelia Moran [facility] PROTHROMBIN TIME / INR 2022-09-19 11:27:00 Morelia Moran [facility] ACTIVATED PARTIAL THRMPLAS 2022-09-19 11:27:00 Morelia Moran [facility] PROTHROMBIN TIME / INR 2022-09-19 11:27:00 Morelia Moran [facility] ACTIVATED PARTIAL THRMPLAS 2022-09-19 11:27:00 Morelia Moran [facility] XR CHEST 1 VW 2022-09-19 10:21:00 [facility] XR CHEST 1 2022-09-19 10:21:00 [facility] HB ECG ROUTINE & RHYTHM 2022-09-19 09:42:59 Luisa [facility] HB ECG ROUTINE & RHYTHM 2022-09-19 09:42:59 Luisa [facility] POCT GLUCOSE (AUTOMATED) 2022-09-19 07:12:00 [facility]ATED) 2022-09-19 07:12:00 [facility] PO[facility] GLUCOSE (AUTOMATED) 2022-09-19 05:54:00 [facility] POCT GLUCOSE (AUTOMATED) 2022-09-19 05:54:00 Stanislav Gandhi [facility] URINE DRUG (IMMUNOASSAY) - 2022-09-19 05:19:00 Stanislav Gandhi [facility] COMPREHENSIVE DRUG SCREEN Medica l Branch URINALYSIS 2022-09-19 05:19:00 Stanislav Gandhi [facility] URINE DRUG (IMMUNOASSAY) - 2022-09-19 05:19:00 Stanislav Gandhi [facility] COMPREHENSIVE DRUG SCREEN Medica l Branch URINALYSIS 2022-09-19 05:19:00 Stanislav Gandhi [facility] XR CHEST 2 VW 2022-09-19 04:44:00 Stanislav Gandhi [facility] XR CHEST 2 VW 2022-09-19 04:44:00 Stanislav Gandhi [facility] LIPASE 2022-09-19 04:01:00 Stanislav Gandhi [facility] MAGNESIUM 2022-09-19 04:01:00 Morelia Moran [facility] TROPONIN I 2022-09-19 04:01:00 Stanislav Gandhi [facility] COMP. METABOLIC PANEL 2022-09-19 04:01:00 Stanislav Gandhi [facility] ([id number]) Medical [place] LIPID PANEL ([id number])(TOTAL 2022-09-19 04:01:00 Morelia Moran [facility] CHOLESTEROL, [facility] TRIGLYCERIDES, HDL) CBC WITH DIFF 2022-09-19 04:01:00 Stanislav Gandhi [facility] GLYCOSYLATED HEMOGLOBIN 2022-09-19 04:01:00 Morelia Moran [facility] (A1C) Medical Branch LIPASE 2022-09-19 04:01:00 Stanislav Gandhi [facility] MAGNESIUM 2022-09-19 04:01:00 Morelia Moran [facility] TROPONIN I 2022-09-19 04:01:00 Stanislav Gandhi [facility] COMP. METABOLIC PANEL 2022-09-19 04:01:00 Stanislav Gandhi [facility] ([id number]) Medical Branch LIPID PANEL (54976)(TOTAL 2022-09-19 04:01:00 Morelia Moran [facility] CHOLESTEROL, Medical Branch TRIGLYCERIDES, HDL) CBC WITH DIFF 2022-09-19 04:01:00 Stanislav Gandhi [facility] GLYCOSYLATED HEMOGLOBIN 2022-09-19 04:01:00 Morelia Moran [facility] (A1C) Medical Branch HB ECG ROUTINE & RHYTHM 2022-09-19 03:59:05 Stanislav Gandhi [facility] HB ECG ROUTINE & RHYTHM 2022-09-19 03:59:05 Stanislav Gandhi [facility] CONSENT/REFUSAL FOR 2022-09-19 03:48:27 Doctor Clark, [facility] DIAGNOSIS AND TREATMENT [facility] CONSENT/REFUSAL FOR 2022-09-19 03:48:27 Doctor Clark [facility] DIAGNOSIS AND TREATMENT [facility] HOSPITAL ADMISSION 2022-09-18 05:01:00 Doctor Clark, [facility] HOSPITAL ADMISSION 2022-09-18 05:01:00 Doctor Unatonny, [facility] CONSENT/REFUSAL FOR 2022-05-16 15:53:10 Doctor Clark [facility] DIAGNOSIS AND TREATMENT [facility] [place] URINALYSIS 2019-11-24 19:18:00 Lucas Sotelo [place] [facility] NOTICE OF PRIVACY 2019-11-24 18:53:10 Doctor Clark, [facility] CONSENT/REFUSAL FOR 2019-11-24 18:52:41 Doctor Clark [facility] DIAGNOSIS AND TREATMENT [facility] [place] Plan of Care Planned Activity Planned Date Details Comments Source Medication 2022-11-13 varenicline 1 mg [facility] 00:00:00 tablet [code = Medical [facility] h [id number]] Medication 2022-11-13 varenicline 1 mg [facility] 00:00:00 tablet [code = Medical [facility] h [id number]] Medication 2022-11-13 varenicline 1 mg [facility] 00:00:00 tablet [code = Medical [facility] [id number]] Encounters Start End Encounter Admission Attending Care Care Encounter Source Date/Time Date/Time Type Type Clinicians Facility Department ID 2022-10-16 2022-10-16 Outpatient R NICK RICK [facility] [id number] Univers 15:30:00 16:45:49 ity of [facility] 2022-10-16 2022-10-16 Office Nick Rick [facility] [id number] Univers 15:30:00 16:45:49 Visit N [facility] [id number] it [place] [id number] [id number] [address] OFFICE BUILDING 2022-10-16 2022-10-16 Orders Doctor MARCO A [id number] Univers 00:00:00 00:00:00 Only Unassigned, CARL [id number] ity of [facility] [id number] [place] [id number] [address] 2022-10-03 2022-10-03 Telephone MARCO A Mendez [id number] Univers 00:00:00 00:00:00 Heena HENRY [id number] i ty of [facility] [id number] [place] [id number] [address] 2022-09-28 2022-09-28 Telephone MARCO A Mendez [id number] Univers 00:00:00 00:00:00 Heena HENRY [id number] i ty of [facility] [id number] [place] [id number] [address] 2022-09-24 2022-09-24 Telephone MARCO A Mendez [id number] Univers 00:00:00 00:00:00 Heena HENRY [id number] i ty of [facility] [id number] [place] [id number] [address] 2022-09-21 2022-09-21 Transition GABRIELA Gill [id number] Univers 00:00:00 00:00:00 of Care Ekaterina CARBAJAL [id number] i ty [id number] [id number] [facility] 403 Branch 2022-09-18 2022-09-20 [facility] Stanislav Gandhi 1.2.840. [id number] Univers 22:51:00 17:18:00 Encounter KoryFredericAna Luisa Fletcher CARL [id number] .10 ity of [facility] [id number] [place] [id number] [facility] 090 Branch 2022-09-18 2022-09-20 Inpatient X MORIAHMARY STARKE [facility] [id number] Univers 22:51:00 17:18:00 MOSTAFA ity of [facility] 2022-09-19 2022-09-19 Surgery Nick Rick [id number] Univers 10:57:00 12:57:00 N CARL 350.1.13.10 it y of [facility] 4.2.7.2.686 [place] [id number] [facility] [address] 2022-05-16 2022-05-16 Emergency X [facility] ERT [id number] Univers 10:00:00 11:08:00 LANCE branham [facility] 2022-05-16 2022-05-16 Emergency [facility] [id number] Univers 10:00:00 11:08:00 Lance COONEY 350.1.13.10 i ty of [place] [id number] [facility] [address] 2022-05-16 2022-05-16 Orders Doctor MARCO A 1.2.840.114 [id number] Univers 00:00:00 00:00:00 Only Unassigned, CARL 350.1.13.10 ity [place] [facility] 4.2.7.2.686 [place] [id number] [facility] [address] 2019-11-24 2019-11-24 Emergency Deepak [facility] 1.2.645.263 [id number] 1112 14:20:26 18:54:00 Lucas Cooney 350.1.13.10 [place] 4.2.7.2.686 [place] [id number] [facility] 2019-11-24 2019-11-24 Emergency Jayes, [facility] 1.2.289.736 [id number] Univers 14:20:26 18:54:00 Lucas Cooney 350.1.13.10 i ty of [place] 4.2.7.2.686 [facility] [id number] [address] 2019-11-24 2019-11-24 Emergency X [facility] ERT [id number] Univers 13:53:00 13:53:00 ity [facility] Results Test Description Test Time Test Comments Results Result Comments Source POCT GLUCOSE (AUTOMATED) 2022-09-20 16:59:53 Test Item Value Reference Range Interpretation Comme nts POCT GLU (test code = 3888340238) 358 mg/dL 70-110 H Lab Interpretation (test code = 32035-5) Abnormal [facility] GLUCOSE (AUTOMATED)2022-09-20 16:59:53 Test Item Value Reference Range Interpretation Comments POCT GLU (test code = 5275356127) 358 mg/dL 70-110 H Lab Interpretation (test code = Abnormal 34477-6) [facility] GLUCOSE (AUTOMATED)2022-09-20 13:24:00 Test Item Value Reference Range Interpretation Comments POCT GLU (test code = 6075112880) 314 mg/dL 70-110 H Lab Interpretation (test code = Abnormal 98206-2) [facility] GLUCOSE (AUTOMATED)2022-09-20 13:24:00 Test Item Value Reference Range Interpretation Comments POCT GLU (test code = 3451640048) 314 mg/dL 70-110 H Lab Interpretation (test code = Abnormal 31657-9) [facility] (NA, K, CL, CO2, GLUCOSE, BUN, CREATININE, CA)2022-09-20 10:38:01 Test Item Value Reference Range Interpretation Comments NA (test code = 135 mmol/L 135-145 5360037285) K (test code = 4.0 mmol/L 3.5-5.0 Slight 2187462423) hemolysis CL (test code = 100 mmol/L 98-108 4735749769) CO2 TOTAL (test code 26 mmol/L 23-31 = 6883980788) AGAP (test code = 9 2-16 0425109218) BUN (test code = 12 mg/dL 7-23 Slight 3695542787) hemolysis GLUCOSE (test code = 243 mg/dL 70-110 H 5710518247) CREATININE (test code 0.43 mg/dL 0.50-1.04 L = 4947312557) CALCIUM (test code = 8.7 mg/dL 8.6-10.6 9658643486) eGFR (test code = 156.7 mL/min/1.73m2 5395681126) MISHA (test code = MISHA) Association of Glomerular Filtration Rate (GFR) and Staging of Kidney Disease* + -----+ --------+ +| GFR (mL/min/1.73 m2) ?| With Kidney Damage ?| ?Without Kidney Damage+ +------- +---- --+| ?>90 ?| ?Stage one ?| ? Normal ?+ ------+ ---------+--------- +| ?60-89 ?| ?Stage two ?| ? Decreased GFR ? + -----+ --------+ +| ?30-59 ?| ?Stage three ?| ? Stage three ? + -----+ --------+ +| ?15-29 ?| ?Stage four ? | ? Stage four ?+ ------+ ---------+--------- +| ?<15 (or dialysis) ? ?| ?Stage five ? | ? Stage five ?+ ------+ ---------+--------- + *Each stage assumes the associated GFR level has been in effect for at least three months. ?Stages 1 to 5, with or without kidney disease, indicate chronic kidney disease. Notes: Determination of stages one and two (with eGFR >59mL/min/1.73 m2) requires estimation of kidney damage for at least three months as defined by structural or functional abnormalities of the kidney, manifested by either:Pathological abnormalities or Markers of kidney damage (including abnormalities in the composition of the blood or urine or abnormalities in imaging tests). Lab Interpretation Abnormal (test code = 21589-0) [facility] Test Item Value Reference Range Interpretation Comments MAGNESIUM (test code = 6602395814) 1.7 mg/dL 1.7-2.4 Lab Interpretation (test code = Normal 90582-2) [facility] METABOLIC PANEL (NA, K, CL, CO2, GLUCOSE, BUN, CREATININE, CA)2022-09-20 10:38:01 Test Item Value Reference Range Interpretation Comments NA (test code = 135 mmol/L 135-145 5393748147) K (test code = 4.0 mmol/L 3.5-5.0 Slight 0858745233) hemolysis CL (test code = 100 mmol/L 98-108 3646354428) CO2 TOTAL (test code 26 mmol/L 23-31 = 1959437358) AGAP (test code = 9 2-16 7651147182) BUN (test code = 12 mg/dL 7-23 Slight 8426342010) hemolysis GLUCOSE (test code = 243 mg/dL 70-110 H 5003324372) CREATININE (test code 0.43 mg/dL 0.50-1.04 L = 1175446726) CALCIUM (test code = 8.7 mg/dL 8.6-10.6 0496769892) eGFR (test code = 156.7 mL/min/1.73m2 3746661768) MISHA (test code = MISHA) Association of Glomerular Filtration Rate (GFR) and Staging of Kidney Disease* + -----+ --------+ +| GFR (mL/min/1.73 m2) ?| With Kidney Damage ?| ?Without Kidney Damage+ +------- +---- --+| ?>90 ?| ?Stage one ?| ? Normal ?+ ------+ ---------+--------- +| ?60-89 ?| ?Stage two ?| ? Decreased GFR ? + -----+ --------+ +| ?30-59 ?| ?Stage three ?| ? Stage three ? + -----+ --------+ +| ?15-29 ?| ?Stage four ? | ? Stage four ?+ ------+ ---------+--------- +| ?<15 (or dialysis) ? ?| ?Stage five ? | ? Stage five ?+ ------+ ---------+--------- + *Each stage assumes the associated GFR level has been in effect for at least three months. ?Stages 1 to 5, with or without kidney disease, indicate chronic kidney disease. Notes: Determination of stages one and two (with eGFR >59mL/min/1.73 m2) requires estimation of kidney damage for at least three months as defined by structural or functional abnormalities of the kidney, manifested by either:Pathological abnormalities or Markers of kidney damage (including abnormalities in the composition of the blood or urine or abnormalities in imaging tests). Lab Interpretation Abnormal (test code = 74198-3) [facility] 10[facility]38:01 Test Item Value Reference Range Interpretation Comments MAGNESIUM (test code = 0670392101) 1.7 mg/dL 1.7-2.4 Lab Interpretation (test code = Normal 12100-0) [facility] [id number] 10:12:01 Test Item Value Reference Range Interpretation Comments WBC (test code = 6690-2) 10.36 See_Comment [A utomated message] The system Smart Panel generated this result transmit kath reference range : 4.30 - 11.10 10*3/?L. The reference range was not used to interpret this result as normal/abnormal . RBC (test code = 789-8) 4.42 See_Comment [Au tomated message] The system Smart Panel generated this result transmit kath reference range : 3.93 - 5.25 10* 6/?L. The reference r sheba was not used to interpret this result as normal/abnormal . HGB (test code = 718-7) 12.7 g/dL 11.6-15.0 HCT (test code = 4544-3) 37.3 % 35.7-45.2 MCH (test code = 785-6) 28.7 pg 25.9-32.8 MCV (test code = 787-2) 84.4 fL 80.6-95.5 MCHC (test code = 786-4) 34.0 g/dL 31.6-35.1 PLT (test code = 777-3) 289 See_Comment [Au tomated message] The system Smart Panel generated this result transmit kath reference range : 166 - 358 10*3/?L. The reference range was not used to interpret this result as normal/abnormal . MPV (test code = 9.3 fL 9.5-12.9 L 65434-6) RDW-CV (test code = 12.9 % 12.0-15.5 788-0) RDW-SD (test code = 39.6 fL 39.0-49.9 07985-4) NRBC x10^3 (test code = See_Comment [Au tomated message] 5786932163) The system Smart Panel generated this result transmit kath reference range : 10*3/?L. The reference range was not used to interpret this result as normal/abnormal . NRBC/100 WBC (test code 0.0 See_Comment [Au tomated message] = 6815328349) The system [employer] generated this result transmit kath reference range : 0.0 - 10.0 /100 WBC s. The reference r sheba was not used to interpret this result as normal/abnormal . IPF % (test code = 0326085229) Lab Interpretation (test Abnormal code = 23322-2) [facility] WITHOUT [id number] 10:12:01 Test Item Value Reference Range Interpretation Comments WBC (test code = 6690-2) 10.36 See_Comment [A utomated message] The system Smart Panel generated this result transmit kath reference range : 4.30 - 11.10 10*3/?L. The reference range was not used to interpret this result as normal/abnormal . RBC (test code = 789-8) 4.42 See_Comment [Au tomated message] The system Smart Panel generated this result transmit kath reference range : 3.93 - 5.25 10* 6/?L. The reference r sheba was not used to interpret this result as normal/abnormal . HGB (test code = 718-7) 12.7 g/dL 11.6-15.0 HCT (test code = 4544-3) 37.3 % 35.7-45.2 MCH (test code = 785-6) 28.7 pg 25.9-32.8 MCV (test code = 787-2) 84.4 fL 80.6-95.5 MCHC (test code = 786-4) 34.0 g/dL 31.6-35.1 PLT (test code = 777-3) 289 See_Comment [Au tomated message] The system Smart Panel generated this result transmit kath reference range : 166 - 358 10*3/?L. The reference range was not used to interpret this result as normal/abnormal . MPV (test code = 9.3 fL 9.5-12.9 L 80375-6) RDW-CV (test code = 12.9 % 12.0-15.5 788-0) RDW-SD (test code = 39.6 fL 39.0-49.9 11605-2) NRBC x10^3 (test code = See_Comment [Au tomated message] 7487453707) The system Smart Panel generated this result transmit kath reference range : 10*3/?L. The reference range was not used to interpret this result as normal/abnormal . NRBC/100 WBC (test code 0.0 See_Comment [Au tomated message] = 2970728727) The system [employer] generated this result transmit kath reference range : 0.0 - 10.0 /100 WBC s. The reference r sheba was not used to interpret this result as normal/abnormal . IPF % (test code = 1134093769) Lab Interpretation (test Abnormal code = 34459-0) [facility] GLUCOSE (AUTOMATED)2022-09-20 09:51:14 Test Item Value Reference Range Interpretation Comments POCT GLU (test code = 9205656168) 251 mg/dL 70-110 H Lab Interpretation (test code = Abnormal 53775-9) [facility] GLUCOSE (AUTOMATED)2022-09-20 09:51:14 Test Item Value Reference Range Interpretation Comments POCT GLU (test code = 9556095605) 251 mg/dL 70-110 H Lab Interpretation (test code = Abnormal 28589-9) [facility] GLUCOSE (AUTOMATED)2022-09-20 05:03:47 Test Item Value Reference Range Interpretation Comments POCT GLU (test code = 0293516209) 238 mg/dL 70-110 H Lab Interpretation (test code = Abnormal 03678-6) [facility] GLUCOSE (AUTOMATED)2022-09-20 05:03:47 Test Item Value Reference Range Interpretation Comments POCT GLU (test code = 8994153271) 238 mg/dL 70-110 H Lab Interpretation (test code = Abnormal 43937-5) [facility]22-[facility]-20 02:25:53 Test Item Value Reference Range Interpretation Comments APTT Patient (test code 37 See_Comment H [Au tomated message] = 3173-2) The system Smart Panel generated this result transmitted ref erence range: 26 - 36 Seconds. The reference range was not used to int erpret this result as normal/abnormal . Lab Interpretation (test Abnormal code = 18482-3) [facility]2022-09-20 02:25:53 Test Item Value Reference Range Interpretation Comments APTT Patient (test code 37 See_Comment H [Au tomated message] = 3173-2) The system Smart Panel generated this result transmitted ref erence range: 26 - 36 Seconds. The reference range was not used to int erpret this result as normal/abnormal . Lab Interpretation (test Abnormal code = 11418-6) [facility] GLUCOSE (AUTOMATED)2022-09-20 01:59:08 Test Item Value Reference Range Interpretation Comments POCT GLU (test code = 4397934642) 399 mg/dL 70-110 H Lab Interpretation (test code = Abnormal 17958-5) [facility] GLUCOSE (AUTOMATED)2022-09-20 01:59:08 Test Item Value Reference Range Interpretation Comments POCT GLU (test code = 5803773921) 399 mg/dL 70-110 H Lab Interpretation (test code = Abnormal 12607-4) [facility] GLUCOSE (AUTOMATED)2022-09-19 22:19:23 Test Item Value Reference Range Interpretation Comments POCT GLU (test code = 2163465001) 379 mg/dL 70-110 H Lab Interpretation (test code = Abnormal 74303-5) [facility] GLUCOSE (AUTOMATED)2022-09-19 22:19:23 Test Item Value Reference Range Interpretation Comments POCT GLU (test code = 9241473058) 379 mg/dL 70-110 H Lab Interpretation (test code = Abnormal 53186-2) [facility] ACT LOW [id number] 19:13:24 Test Item Value Reference Range Interpretation Comments ACTLR (test code = 276 See_Comment H [Automat ed message] 7548234225) The system Smart Panel generated this result transmitted ref erence range: 89 - 169 Seconds. The reference range was not used to int erpret this result as normal/abnormal . Lab Interpretation (test Abnormal code = 38816-4) [facility] ACT LOW [id number] 19:13:24 Test Item Value Reference Range Interpretation Comments ACTLR (test code = 276 See_Comment H [Automat ed message] 1658090462) The system Smart Panel generated this result transmitted ref erence range: 89 - 169 Seconds. The reference range was not used to int erpret this result as normal/abnormal . Lab Interpretation (test Abnormal code = 07288-9) [facility] ACT LOW [id number] 18:37:26 Test Item Value Reference Range Interpretation Comments ACTLR (test code = 374 See_Comment H [Automat ed message] 2506725258) The system Smart Panel generated this result transmitted ref erence range: 89 - 169 Seconds. The reference range was not used to int erpret this result as normal/abnormal . Lab Interpretation (test Abnormal code = 58095-0) [facility] ACT LOW [id number] 18:37:26 Test Item Value Reference Range Interpretation Comments ACTLR (test code = 374 See_Comment H [Automat ed message] 6778153094) The system Smart Panel generated this result transmitted ref erence range: 89 - 169 Seconds. The reference range was not used to int erpret this result as normal/abnormal . Lab Interpretation (test Abnormal code = 34875-2) [facility] GLUCOSE (AUTOMATED)2022-09-19 14:24:25 Test Item Value Reference Range Interpretation Comments POCT GLU (test code = 5686403944) 225 mg/dL 70-110 H Lab Interpretation (test code = Abnormal 98697-7) [facility] GLUCOSE (AUTOMATED)2022-09-19 14:24:25 Test Item Value Reference Range Interpretation Comments POCT GLU (test code = 4422348970) 225 mg/dL 70-110 H Lab Interpretation (test code = Abnormal 07232-0) [facility]22-09-19 10:31:36 Test Item Value Reference Range Interpretation Comments HGB A1C (test code = 10.6 % 4.0-5.7 H 4548-4) MISHA (test code = MISHA) Reference RangesNormal: <5.7%Prediabetes: 5.7 - 6.4%Diabetes: > 6.5% Lab Interpretation (test Abnormal code = 15396-3) [facility]2022-09-19 10:31:36 Test Item Value Reference Range Interpretation Comments HGB A1C (test code = 10.6 % 4.0-5.7 H 4548-4) MISHA (test code = MISHA) Reference RangesNormal: <5.7%Prediabetes: 5.7 - 6.4%Diabetes: > 6.5% Lab Interpretation (test Abnormal code = 91960-5) [facility] 10:15:22 Test Item Value Reference Range Interpretation Comments MAGNESIUM (test code = 9758493896) 1.6 mg/dL 1.7-2.4 L Lab Interpretation (test code = Abnormal 85467-4) [facility] 10:15:22 Test Item Value Reference Range Interpretation Comments MAGNESIUM (test code = 2145792572) 1.6 mg/dL 1.7-2.4 L Lab Interpretation (test code = Abnormal 71963-9) [facility] (16183)(TOTAL CHOLESTEROL, TRIGLYCERIDES, HDL)2022-09-19 10:10:43 Test Item Value Reference Range Interpretation Comments CHOL (test code = 9355065314) 219 mg/dL 120-200 H HDL (test code = 9999641103) 36 mg/dL >=50 L HDLC RATIO (test code = 6455048482) 6.1 <=4.5 H TRIG (test code = 2565544809) 388 mg/dL 30-170 H LDL CHOL (test code = 43387-0) 105 mg/dL <=160 VLDL (test code = 4384135527) 78 mg/dL 5-60 H Lab Interpretation (test code = Abnormal 32542-8) [facility] (29950)(TOTAL CHOLESTEROL, TRIGLYCERIDES, HDL)2022-09-19 10:10:43 Test Item Value Reference Range Interpretation Comments CHOL (test code = 5703214425) 219 mg/dL 120-200 H HDL (test code = 6148980795) 36 mg/dL >=50 L HDLC RATIO (test code = 8278855852) 6.1 <=4.5 H TRIG (test code = 5969139444) 388 mg/dL 30-170 H LDL CHOL (test code = 01986-2) 105 mg/dL <=160 VLDL (test code = 5621472473) 78 mg/dL 5-60 H Lab Interpretation (test code = Abnormal 14183-2) [facility] GLUCOSE (AUTOMATED)2022-09-19 07:14:14 Test Item Value Reference Range Interpretation Comments POCT GLU (test code = 6900038779) 330 mg/dL 70-110 H Lab Interpretation (test code = Abnormal 73393-0) [facility] GLUCOSE (AUTOMATED)2022-09-19 07:14:14 Test Item Value Reference Range Interpretation Comments POCT GLU (test code = 0007122002) 330 mg/dL 70-110 H Lab Interpretation (test code = Abnormal 07067-6) [facility] GLUCOSE (AUTOMATED)2022-09-19 05:58:25 Test Item Value Reference Range Interpretation Comments POCT GLU (test code = 6392903588) 403 mg/dL 70-110 H Lab Interpretation (test code = Abnormal 41275-6) [facility] GLUCOSE (AUTOMATED)2022-09-19 05:58:25 Test Item Value Reference Range Interpretation Comments POCT GLU (test code = 1372797377) 403 mg/dL 70-110 H Lab Interpretation (test code = Abnormal 61384-2) [facility] [id number] 04:36:52 Test Item Value Reference Range Interpretation Comments TROPONIN I (test code = 0.116 ng/mL <=0.034 H 5730551350) MISHA (test code = MISHA) Reference (Normal) Range (defined by the 99th percentile reference limit): <= 0.034 ng/mL Note: Cardiac troponin begins to rise 3-4 hours after the onset of ischemia. Repeat in 4-6 hours if the sample was drawn within 3-4 hours of the onset of the symptom and found normal. Diagnosis of myocardial injury is made with acute changes in cTn concentrations with at least one serial sample above the 99th percentile upper reference limit (URL), taken together with the patient's clinical presentation. Biotin has been reported to cause a negative bias, interpret results relative to patient's use of biotin. Lab Interpretation Abnormal (test code = 52331-7) [facility] [id number] 04:36:52 Test Item Value Reference Range Interpretation Comments TROPONIN I (test code = 0.116 ng/mL <=0.034 H 8830992316) MISHA (test code = MISHA) Reference (Normal) Range (defined by the 99th percentile reference limit): <= 0.034 ng/mL Note: Cardiac troponin begins to rise 3-4 hours after the onset of ischemia. Repeat in 4-6 hours if the sample was drawn within 3-4 hours of the onset of the symptom and found normal. Diagnosis of myocardial injury is made with acute changes in cTn concentrations with at least one serial sample above the 99th percentile upper reference limit (URL), taken together with the patient's clinical presentation. Biotin has been reported to cause a negative bias, interpret results relative to patient's use of biotin. Lab Interpretation Abnormal (test code = 48208-0) [facility] WITH [id number] 04:36:31 Test Item Value Reference Range Interpretation Comments WBC (test code = 9.71 See_Comment [Automated 0243-2) message] The sy stem which generated this result transmitted reference range : 4.30 - 11.10 10*3/?L. The reference range was not used to interpret this result as normal/abnormal . RBC (test code = 4.55 See_Comment [Automated 834-8) message] The sy stem which generated this result transmitted reference range : 3.93 - 5.25 10*6/?L. The reference range was not used to interpret this result as normal/abnormal . HGB (test code = 13.0 g/dL 11.6-15.0 718-7) HCT (test code = 38.8 % 35.7-45.2 4544-3) MCV (test code = 85.3 fL 80.6-95.5 787-2) MCH (test code = 28.6 pg 25.9-32.8 785-6) MCHC (test code = 33.5 g/dL 31.6-35.1 786-4) RDW-SD (test code = 40.3 fL 39.0-49.9 03754-1) RDW-CV (test code = 13.0 % 12.0-15.5 788-0) PLT (test code = 315 See_Comment [Automated 777-3) message] The sy stem which generated this result transmitted reference range : 166 - 358 10*3/ ?L. The reference r sheba was not used to interpret this result as normal/abnormal . MPV (test code = 9.6 fL 9.5-12.9 09825-3) NRBC/100 WBC (test 0.0 See_Comment [Automat ed code = 3130187663) message] The system which generated this result transmitted reference range : 0.0 - 10.0 /100 WBCs. The refer ence range was not u sed to interpret th is result as normal/abnormal . NRBC x10^3 (test code See_Comment [Auto mated = 5701726935) message] The s ystem which generated this result transmitted reference range : 10*3/?L. The reference range was not used to interpret this result as normal/abnormal . GRAN MAT (NEUT) % 48.1 % (test code = 770-8) IMM GRAN % (test code 0.50 % = 9294782145) LYMPH % (test code = 41.6 % 736-9) MONO % (test code = 7.7 % 5905-5) EOS % (test code = 1.6 % 713-8) BASO % (test code = 0.5 % 706-2) GRAN MAT x10^3(ANC) 4.66 10*3/uL 1.88-7.09 (test code = 2352776741) IMM GRAN x10^3 (test 0.05 10*3/uL 0.00-0.06 code = 7276863320) LYMPH x10^3 (test code 4.04 10*3/uL 1.32-3.29 H = 731-0) MONO x10^3 (test code 0.75 10*3/uL 0.33-0.92 = 742-7) EOS x10^3 (test code = 0.16 10*3/uL 0.03-0.39 711-2) BASO x10^3 (test code 0.05 10*3/uL 0.01-0.07 = 704-7) Lab Interpretation Abnormal (test code = 72658-4) [facility] WITH [id number] 04:36:31 Test Item Value Reference Range Interpretation Comments WBC (test code = 9.71 See_Comment [Automated 6690-2) message] The sy stem which generated this result transmitted reference range : 4.30 - 11.10 10*3/?L. The reference range was not used to interpret this result as normal/abnormal . RBC (test code = 4.55 See_Comment [Automated 789-8) message] The sy stem which generated this result transmitted reference range : 3.93 - 5.25 10*6/?L. The reference range was not used to interpret this result as normal/abnormal . HGB (test code = 13.0 g/dL 11.6-15.0 718-7) HCT (test code = 38.8 % 35.7-45.2 4544-3) MCV (test code = 85.3 fL 80.6-95.5 787-2) MCH (test code = 28.6 pg 25.9-32.8 785-6) MCHC (test code = 33.5 g/dL 31.6-35.1 786-4) RDW-SD (test code = 40.3 fL 39.0-49.9 29298-4) RDW-CV (test code = 13.0 % 12.0-15.5 788-0) PLT (test code = 315 See_Comment [Automated 777-3) message] The sy stem which generated this result transmitted reference range : 166 - 358 10*3/ ?L. The reference r sheba was not used to interpret this result as normal/abnormal . MPV (test code = 9.6 fL 9.5-12.9 10110-4) NRBC/100 WBC (test 0.0 See_Comment [Automat ed code = 1120082962) message] The system which generated this result transmitted reference range : 0.0 - 10.0 /100 WBCs. The refer ence range was not u sed to interpret th is result as normal/abnormal . NRBC x10^3 (test code See_Comment [Auto mated = 9008855017) message] The s ystem which generated this result transmitted reference range : 10*3/?L. The reference range was not used to interpret this result as normal/abnormal . GRAN MAT (NEUT) % 48.1 % (test code = 770-8) IMM GRAN % (test code 0.50 % = 0872703421) LYMPH % (test code = 41.6 % 736-9) MONO % (test code = 7.7 % 5905-5) EOS % (test code = 1.6 % 713-8) BASO % (test code = 0.5 % 706-2) GRAN MAT x10^3(ANC) 4.66 10*3/uL 1.88-7.09 (test code = 5695639846) IMM GRAN x10^3 (test 0.05 10*3/uL 0.00-0.06 code = 1254348242) LYMPH x10^3 (test code 4.04 10*3/uL 1.32-3.29 H = 731-0) MONO x10^3 (test code 0.75 10*3/uL 0.33-0.92 = 742-7) EOS x10^3 (test code = 0.16 10*3/uL 0.03-0.39 711-2) BASO x10^3 (test code 0.05 10*3/uL 0.01-0.07 = 704-7) Lab Interpretation Abnormal (test code = 33753-6) [facility]. METABOLIC PANEL ([id number])2022-09-19 04:29:09 Test Item Value Reference Range Interpretation Comments NA (test code = 132 mmol/L 135-145 L 2136891650) K (test code = 4.5 mmol/L 3.5-5.0 7205684710) CL (test code = 95 mmol/L 98-108 L 2493391290) CO2 TOTAL (test code = 27 mmol/L 23-31 9801720751) AGAP (test code = 10 2-16 6347274228) BUN (test code = 15 mg/dL 7-23 6812694775) GLUCOSE (test code = 511 mg/dL 70-110 HH 0859720648) CREATININE (test code = 0.68 mg/dL 0.50-1.04 1619527789) TOTAL BILI (test code = 0.4 mg/dL 0.1-1.3 0376527612) CALCIUM (test code = 10.3 mg/dL 8.6-10.6 6517046244) T PROTEIN (test code = 7.3 g/dL 6.3-8.2 7662547326) ALBUMIN (test code = 4.2 g/dL 3.5-5.0 0100366663) ALK PHOS (test code = 138 U/L 34-122 H 6871726679) ALTv (test code = 19 U/L 5-35 1742-6) AST(SGOT) (test code = 18 U/L 13-40 9399284586) eGFR (test code = 92.3 mL/min/1.73m2 0436509627) MISHA (test code = MISHA) Association of Glomerular Filtration Rate (GFR) and Staging of Kidney Disease* + --+ --+ ------+| GFR (mL/min/1.73 m2) ?| With Kidney Damage ?| ?Without Kidney Damage+ --------+ --------+ +| ?>90 ?| ?Stage one ?| ? Normal ?+ ---+ ---+ -------+| ?60-89 ?| ?Stage two ?| ? Decreased GFR ? + --+ --+ ------+| ?30-59 ?| ?Stage three ?| ? Stage three ? + --+ --+ ------+| ?15-29 ?| ?Stage four ? | ? Stage four ?+ ---+ ---+ -------+| ?<15 (or dialysis) ? ?| ?Stage five ? | ? Stage five ?+ ---+ ---+ -------+ *Each stage assumes the associated GFR level has been in effect for at least three months. ?Stages 1 to 5, with or without kidney disease, indicate chronic kidney disease. Notes: Determination of stages one and two (with eGFR >59mL/min/1.73 m2) requires estimation of kidney damage for at least three months as defined by structural or functional abnormalities of the kidney, manifested by either:Pathological abnormalities or Markers of kidney damage (including abnormalities in the composition of the blood or urine or abnormalities in imaging tests). Lab Interpretation Abnormal (test code = 21065-3) [facility] ([id number][facility]-19 04:29:09 Test Item Value Reference Range Interpretation Comments NA (test code = 132 mmol/L 135-145 L 5851628162) K (test code = 4.5 mmol/L 3.5-5.0 0202132149) CL (test code = 95 mmol/L 98-108 L 0429125730) CO2 TOTAL (test code = 27 mmol/L 23-31 1737856768) AGAP (test code = 10 2-16 6635036959) BUN (test code = 15 mg/dL 7-23 4249364651) GLUCOSE (test code = 511 mg/dL 70-110 HH 9435055383) CREATININE (test code = 0.68 mg/dL 0.50-1.04 4463889995) TOTAL BILI (test code = 0.4 mg/dL 0.1-1.4 0828200621) CALCIUM (test code = 10.3 mg/dL 8.6-10.6 8364026587) T PROTEIN (test code = 7.3 g/dL 6.3-8.2 0635128979) ALBUMIN (test code = 4.2 g/dL 3.5-5.0 4007312333) ALK PHOS (test code = 138 U/L 34-122 H 9267941674) ALTv (test code = 19 U/L 5-35 1742-6) AST(SGOT) (test code = 18 U/L 13-40 0847978109) eGFR (test code = 92.3 mL/min/1.73m2 1368605274) MISHA (test code = MISHA) Association of Glomerular Filtration Rate (GFR) and Staging of Kidney Disease* + --+ --+ ------+| GFR (mL/min/1.73 m2) ?| With Kidney Damage ?| ?Without Kidney Damage+ --------+ --------+ +| ?>90 ?| ?Stage one ?| ? Normal ?+ ---+ ---+ -------+| ?60-89 ?| ?Stage two ?| ? Decreased GFR ? + --+ --+ ------+| ?30-59 ?| ?Stage three ?| ? Stage three ? + --+ --+ ------+| ?15-29 ?| ?Stage four ? | ? Stage four ?+ ---+ ---+ -------+| ?<15 (or dialysis) ? ?| ?Stage five ? | ? Stage five ?+ ---+ ---+ -------+ *Each stage assumes the associated GFR level has been in effect for at least three months. ?Stages 1 to 5, with or without kidney disease, indicate chronic kidney disease. Notes: Determination of stages one and two (with eGFR >59mL/min/1.73 m2) requires estimation of kidney damage for at least three months as defined by structural or functional abnormalities of the kidney, manifested by either:Pathological abnormalities or Markers of kidney damage (including abnormalities in the composition of the blood or urine or abnormalities in imaging tests). Lab Interpretation Abnormal (test code = 72277-0) [facility], [id number] 04:25:07 Test Item Value Reference Range Interpretation Comments LIPASE (test code = 3163197102) 114 U/L 0-220 Lab Interpretation (test code = Normal 52843-3) [facility], [id number] 04:25:07 Test Item Value Reference Range Interpretation Comments LIPASE (test code = 8456326683) 114 U/L 0-220 Lab Interpretation (test code = Normal 05905-3) [facility] Test Item Value Reference Range Interpretation Comments APPEARANCE (test code = Clear Clear 6772359454) COLOR (test code = Yellow Yellow 9466135117) PH (test code = 4.8-8.0 9528775665) SP GRAVITY (test code = 1.003-1.030 1015701791) GLU U QUAL (test code = 50 mg/dL Normal A 0972535074) BLOOD (test code = 1+ Negative A 1645281631) KETONES (test code = Negative Negative 3669743732) PROTEIN (test code = 30 mg/dL Negative A 2887-8) UROBILIN (test code = Normal Normal 2406978973) BILIRUBIN (test code = Negative Negative 4912332834) NITRITE (test code = Negative Negative 8571809019) LEUK TONYA (test code = 250/uL Negative A 4218625149) RBC/HPF (test code = See_Comment H [Autom ated message] 8617571636) The system Smart Panel generated this result transmitted ref erence range: 0 - 3 HP F. The reference range was not used to int erpret this result as normal/abnormal . WBC/HPF (test code = See_Comment H [Autom ated message] 0741378824) The system Smart Panel generated this result transmitted ref erence range: 0 - 5 HP F. The reference range was not used to int erpret this result as normal/abnormal . BACTERIA (test code = Many Negative A 8040686985) MUCOUS (test code = Slight Negative LPF A 4201060454) SQ EPITH (test code = HPF 4856941871) Lab Interpretation (test Abnormal code = 13804-8) [facility]"
[2022-11-01] MEDS ORDERED: MORPHINE 4 MG/ML SYR ONE (12:16)
[2022-11-01] MEDS ORDERED: FAMOTIDINE 20 MG/2 ML VIAL IV ONE (12:16)
[2022-11-01] MEDS ORDERED: NA CHLORIDE 0.9% 1,000 ML ONE (12:16)
[2022-11-01] MEDS ORDERED: ONDANSETRON 4 MG/2 ML VIAL ONE (12:16)
[2022-11-01 12:21] LABS: Specific Gravity 1.026 (1.005-1.030); Urine Bacteria None Seen /HPF (<20); Urine Bilirubin NEGATIVE (Negative); Urine Blood Negative (Negative); Urine Clarity Clear (Clear); Urine Color Colorless (Yellow); Urine Glucose 4+ (Over) (Negative); Urine Protein NEGATIVE (Negative); Urine RBC <5 /HPF (None Seen); Urine Urobilinogen Normal (Normal); Urine pH 5.5 (5.0-7.0)
[2022-11-01 12:42] LABS: Absolute Lymphocytes (CBC) 3.3 K/uL (0.7-4.9); Lymphocytes % 42.7 % (15.3-44.8); MCV 87.8 fL (80-100); MPV 7.1 fL (7.6-11.3); RBC Red Blood Cell Count 3.99 M/uL (3.86-4.86)
--- NOTE | 2022-11-01 12:47 | RAD REPORT ---
EXAM DESCRIPTION: CT - Stone Protocol - 11/01/2022 12:31 pm CLINICAL HISTORY: FLANK PAIN COMPARISON: Abdomen Pelvis W Contrast dated 08/11/2018; CT ABD PELVIS W CONTRAST dated 06/15/2015 TECHNIQUE: Thin cut axial CT imaging of the abdomen and pelvis was performed without IV contrast. Mu ltiplanar reformats were generated and reviewed. All CT scans are performed using dose optimization technique as appropriate and may include automated exposure control or mA/KV adjustment according to patient size. FINDINGS: No suspicious findings in the lung bases. The liver, spleen, and pancreas show no suspicious findings. Status post cholecystectomy. No intra or extrahepatic biliary ductal dilation. Symmetric renal contour, without suspicious parenchymal findings within limits of noncontrast techniq ue. No evidence of radiopaque calculi or hydroureteronephrosis. No dilated bowel loops or bowel wall thickening. No free air, free fluid or inflammatory stranding. N o hernia, mass or bulky lymphadenopathy. The urinary bladder is without significant finding. Scattere d uterine wall calcifications suggestive of underlying small fibroids. No suspicious bony findings. IMPRESSION: No acute intra-abdominal process. Incidental findings as above.
[2022-11-01 13:01] LABS: Albumin 3.6 g/dL (3.4-5.0); Bilirubin Total 0.3 mg/dL (0.2-1.0); Magnesium 2.3 mg/dL (1.6-2.4); Potassium 3.9 mEq/L (3.5-5.1); Protein, Total 7.8 g/dL (6.4-8.2)
--- NOTE | 2022-11-01 15:16 | EDPHYS ---
Physician Documentation [facility] Name: Tonya Caballero Age: 47 yrs Sex: Female : 1975 Arrival Date: 11/01/2022 Time: 11:44 Bed 18 Private MD: ED Physician Chacorta Ayala HPI: 11/01 12:07 This 47 yrs old Female presents to ER via Ambulatory with complaints of snw Possible Kidney Stone. 12:07 The patient complains of pain in the left mid back. The pain does not radiate. Onset: snw The symptoms/episode began/occurred acutely. Modifying factors: The symptoms are alleviated by nothing. Associated signs and symptoms: Pertinent positives: urinary frequency, nausea, Pertinent negatives: fever. Severity of pain: At its worst the pain was moderate. The patient has experienced similar episodes in the past. CT in September. Historical: - Allergies: 12:04 No Known Allergies; ph - PMHx: 12:04 Anxiety; Diabetes - NIDDM; Hyperlipidemia; Hypertension; Myocardial infarction; ph - Immunization history:: Adult Immunizations unknown. - Social history:: Smoking status: Patient reports the use of cigarette tobacco products, denies chronic smoking, but will smoke occasionally. ROS: 12:05 Constitutional: Negative for fever, chills, and weight loss, Eyes: Negative for injury, snw pain, redness, and discharge, ENT: Negative for injury, pain, and discharge, Neck: Negative for injury, pain, and swelling, Cardiovascular: Negative for chest pain, palpitations, and edema, Respiratory: Negative for shortness of breath, cough, wheezing, and pleuritic chest pain, Abdomen/GI: Negative for abdominal pain, nausea, vomiting, diarrhea, and constipation, MS/Extremity: Negative for injury and deformity, Skin: Negative for injury, rash, and discoloration, Neuro: Negative for headache, weakness, numbness, tingling, and seizure, Psych: Negative for depression, anxiety, suicide ideation, homicidal ideation, and hallucinations. 12:05 Back: Positive for pain at rest, flank pain, on the left. 12:05 : Positive for polyuria from diabetes medication, multiple new medications, quitting smoking, drinks lots of caffeine, has hx of renal calculi. Exam: 12:04 Constitutional: This is a well developed, well nourished patient who is awake, alert, snw and in no acute distress. Head/Face: Normocephalic, atraumatic. Eyes: Pupils equal round and reactive to light, extra-ocular motions intact. Lids and lashes normal. Conjunctiva and sclera are non-icteric and not injected. Cornea within normal limits. Periorbital areas with no swelling, redness, or edema. ENT: Nares patent. No nasal discharge, no septal abnormalities noted. Tympanic membranes are normal and external auditory canals are clear. Oropharynx with no redness, swelling, or masses, exudates, or evidence of obstruction, uvula midline. Mucous membranes moist. Neck: Trachea midline, no thyromegaly or masses palpated, and no cervical lymphadenopathy. Supple, full range of motion without nuchal rigidity, or vertebral point tenderness. No Meningismus. Chest/axilla: Normal chest wall appearance and motion. Nontender with no deformity. No lesions are appreciated. Cardiovascular: Regular rate and rhythm with a normal S1 and S2. No gallops, murmurs, or rubs. Normal PMI, no JVD. No pulse deficits. Respiratory: Lungs have equal breath sounds bilaterally, clear to auscultation and percussion. No rales, rhonchi or wheezes noted. No increased work of breathing, no retractions or nasal flaring. Abdomen/GI: Soft, non-tender, with normal bowel sounds. No distension or tympany. No guarding or rebound. No evidence of tenderness throughout. Skin: Warm, dry with normal turgor. Normal color with no rashes, no lesions, and no evidence of cellulitis. MS/ Extremity: Pulses equal, no cyanosis. Neurovascular intact. Full, normal range of motion. Neuro: Awake and alert, GCS 15, oriented to person, place, time, and situation. Cranial nerves II-XII grossly intact. Motor strength 5/5 in all extremities. Sensory grossly intact. Cerebellar exam normal. Normal gait. Psych: Awake, alert, with orientation to person, place and time. Behavior, mood, and affect are within normal limits. 12:04 Back: pain, that is moderate, of the left mid back, ROM is normal, normal spinal alignment noted. Vital Signs: 12:02 BP 159 / 78; Pulse 81; Resp 18; Temp 97.8; Pulse Ox 98% on R/A; Weight 92.53 kg; ph 12:51 BP 129 / 80; Pulse 70; Resp 18; Pulse Ox 96% ; Pain 4/10; nj1 14:45 BP 131 / 77; Pulse 64; Resp 18; Pulse Ox 97% on R/A; ss 15:45 BP 147 / 78; Pulse 67; Resp 18; Pulse Ox 97% ; Pain 0/10; ss 12:51 Pain Scale: Adult nj1 15:45 Pain Scale: Adult ss MDM: 11:48 Patient medically screened. snw 15:14 Differential diagnosis: nephrolithiasis, pyelonephritis, UTI. Data reviewed: vital snw signs, nurses notes. I considered the following discharge prescriptions or medication management in the emergency department Medications were administered in the Emergency Department. See MAR. Counseling: I had a detailed discussion with the patient and/or guardian regarding: the historical points, exam findings, and any diagnostic results supporting the discharge/admit diagnosis, the presence of at least one elevated blood pressure reading (>120/80) during this emergency department visit, lab results, radiology results, the need for outpatient follow up, to return to the emergency department if symptoms worsen or persist or if there are any questions or concerns that arise at home. Response to treatment: the patient's symptoms have markedly improved after treatment. Special discussion: Based on the patient's Hx, exam, and Dx evaluation, there is no indication for emergent surgery or inpatient Tx. It is understood by the patient/guardian that if the Sx's persist or worsen they need to return immediately for re-evaluation. Based on the history and exam findings, there is no indication for further emergent testing or inpatient evaluation. I discussed with the patient/guardian the need to see the primary care provider for further evaluation of the symptoms. 11/01 11:48 Order name: Urine W/Microscopic (UAM); Complete Time: 12:24 snw 11/01 12:04 Order name: CBC with Diff; Complete Time: 12:48 snw 11/01 12:04 Order name: CMP; Complete Time: 13:02 snw 11/01 12:04 Order name: Lipase; Complete Time: 13:02 snw 11/01 12:04 Order name: Magnesium; Complete Time: 13:02 snw 11/01 12:04 Order name: CT Stone Protocol; Complete Time: 12:48 snw 11/01 12:04 Order name: Labs collected and sent; Complete Time: 12:31 snw Administered Medications: 12:18 Drug: NS 0.9% IV 1000 ml Route: IV; Rate: 1 bolus; Site: right antecubital; nj1 15:00 Follow up: Response: No adverse reaction; IV Status: Completed infusion; IV Intake: ss 1000ml 12:18 Drug: Ondansetron IVP 4 mg Route: IVP; Site: right antecubital; nj1 12:52 Follow up: Response: No adverse reaction nj1 12:20 Drug: Famotidine IVP 20 mg Route: IVP; Site: right antecubital; nj1 12:52 Follow up: Response: No adverse reaction nj1 12:22 Drug: morphine IVP or IV 4 mg Route: IVP; Infused Over: 4 mins; Site: right antecubital;nj1 12:54 Follow up: Response: No adverse reaction; Pain is decreased nj1 Disposition: :23 Co-signature as Attending Physician, Chacorta Ayala MD I reviewed the patient's care rt provided by the Advanced Practice Provider and agree with the diagnosis and treatment plan. Disposition Summary: 11/01/22 15:16 Discharge Ordered Location: Home snw Condition: Stable snw Diagnosis - Unspecified renal colic snw Followup: snw - With: Emergency Department - When: As needed - Reason: Worsening of condition Followup: snw - With: Private Physician - When: 2 - 3 days - Reason: Recheck today's complaints, Continuance of care, Re-evaluation by your physician Discharge Instructions: - Discharge Summary Sheet snw - Renal Colic snw - Dietary Guidelines to Help Prevent Kidney Stones snw - Rehydration, Adult snw Forms: - Work release form snw - Medication Reconciliation Form snw - Thank You Letter snw - Antibiotic Education snw - Prescription Opioid Use snw Prescriptions: - Tramadol 50 mg Oral Tablet - take 1 tablet by ORAL route every 8 hours as needed; 12 tablet; Refills: 0, snw Product Selection Permitted - orphenadrine citrate 100 mg Oral Tablet Sustained Release - take 1 tablet by ORAL route 2 times per day As needed; 20 tablet; Refills: 0, snw Product Selection Permitted Signatures: Dispatcher [employer] Sandi Hairston FNP-C PUMPING STATION ENGINEER-Csnw Shakila Chen RN RN ph Chacorta Ayala MD MD rt Ro Reyna RN RN nj1 Arianna New RN ss
--- NOTE | 2022-11-01 15:16 | ER ---
Nurse's Notes [facility] Name: Tonya Caballero Age: 47 yrs Sex: Female : 1975 Arrival Date: 11/01/2022 Time: 11:44 Bed 18 Private MD: Diagnosis: Unspecified renal colic Presentation: 11/01 12:02 Chief complaint: Patient states: L mid back pain radiating to L flank, N/V, started ph this morning, hx of kidney stones, states this feels similar to previous episodes. Coronavirus screen: Vaccine status: Patient reports receiving the 2nd dose of the covid vaccine. Ebola Screen: No symptoms or risks identified at this time. Initial Sepsis Screen: Does the patient meet any 2 criteria? No. Patient's initial sepsis screen is negative. Does the patient have a suspected source of infection? No. Patient's initial sepsis screen is negative. Risk Assessment: Do you want to hurt yourself or someone else? Patient reports no desire to harm self or others. Onset of symptoms was November 01, 2022. 12:02 Method Of Arrival: Ambulatory ph 12:02 Acuity: BOLA 3 ph Historical: - Allergies: 12:04 No Known Allergies; ph - PMHx: 12:04 Anxiety; Diabetes - NIDDM; Hyperlipidemia; Hypertension; Myocardial infarction; ph - Immunization history:: Adult Immunizations unknown. - Social history:: Smoking status: Patient reports the use of cigarette tobacco products, denies chronic smoking, but will smoke occasionally. Screenin:30 [facility] ED Fall Risk Assessment (Adult) History of falling in the last 3 months, nj1 including since admission No falls in past 3 months (0 pts) Confusion or Disorientation No (0 pts) Intoxicated or Sedated No (0 pts) Impaired Gait No (0 pts) Mobility Assist Device Used No (0 pt) Altered Elimination No (0 pt) Score/Fall Risk Level 0 - 2 = Low Risk Oriented to surroundings, Maintained a safe environment, Hourly rounding (assess needs \T\ fall precautionary measures) done. Abuse screen: Denies threats or abuse. Denies injuries from another. Nutritional screening: No deficits noted. Tuberculosis screening: No symptoms or risk factors identified. Assessment: 12:15 General: Appears in no apparent distress. comfortable, Behavior is calm, cooperative, nj1 appropriate for age. Pain: Complains of pain in flank, left Pain currently is 7 out of 10 on a pain scale. 12:15 Neuro: Level of Consciousness is awake, alert, obeys commands. Cardiovascular: nj1 Patient's skin is warm and dry. Respiratory: Airway is patent Respiratory effort is even, unlabored. GI: Reports vomiting, Left flank pain. 12:52 Reassessment: Patient appears in no apparent distress at this time. Patient and/or nj1 family updated on plan of care and expected duration. Pain level reassessed. Patient is alert, oriented x 3, equal unlabored respirations, skin warm/dry/pink. Patient states feeling better. Patient states symptoms have improved. 14:45 Reassessment: Patient appears in no apparent distress at this time. Pt resting/sleeping ss at this time. 15:45 Reassessment: Patient appears in no apparent distress at this time. Patient and/or ss family updated on plan of care and expected duration. Pain level reassessed. Patient is alert, oriented x 3, equal unlabored respirations, skin warm/dry/pink. Patient denies pain at this time. Patient states feeling better. Patient states symptoms have improved. Vital Signs: 12:02 BP 159 / 78; Pulse 81; Resp 18; Temp 97.8; Pulse Ox 98% on R/A; Weight 92.53 kg; ph 12:51 BP 129 / 80; Pulse 70; Resp 18; Pulse Ox 96% ; Pain 4/10; nj1 14:45 BP 131 / 77; Pulse 64; Resp 18; Pulse Ox 97% on R/A; ss 15:45 BP 147 / 78; Pulse 67; Resp 18; Pulse Ox 97% ; Pain 0/10; ss 12:51 Pain Scale: Adult nj1 15:45 Pain Scale: Adult ss ED Course: 11:45 Patient arrived in ED. kj1 11:48 Sandi Mtz [facility]C [facility]. snw 11:48 Chacorta Ayala MD is Attending Physician. snw 11:56 Ro Reyna, LARS is Primary Nurse. nj1 12:03 Triage completed. ph 12:04 Arm band placed on Patient placed in an exam room, on a stretcher. ph 12:18 Inserted saline lock: 22 gauge in right antecubital area, using aseptic technique. nj1 Blood collected. 12:20 Patient has correct armband on for positive identification. Bed in low position. Call nj1 light in reach. Adult w/ patient. 12:32 CT Stone Protocol In Process Unspecified. EDMS 15:45 No provider procedures requiring assistance completed. ss 15:45 IV discontinued, intact, bleeding controlled. ss Administered Medications: 12:18 Drug: NS 0.9% IV 1000 ml Route: IV; Rate: 1 bolus; Site: right antecubital; nj1 15:00 Follow up: Response: No adverse reaction; IV Status: Completed infusion; IV Intake: ss 1000ml 12:18 Drug: Ondansetron IVP 4 mg Route: IVP; Site: right antecubital; nj1 12:52 Follow up: Response: No adverse reaction nj1 12:20 Drug: Famotidine IVP 20 mg Route: IVP; Site: right antecubital; nj1 12:52 Follow up: Response: No adverse reaction nj1 12:22 Drug: morphine IVP or IV 4 mg Route: IVP; Infused Over: 4 mins; Site: right antecubital;nj1 12:54 Follow up: Response: No adverse reaction; Pain is decreased nj1 Medication: 15:45 VIS not applicable for this client. ss Intake: 15:00 IV: 1000ml; Total: 1000ml. ss Outcome: 15:16 Discharge ordered by MD. snw 15:45 Discharged to home ambulatory, with family. ss 15:45 Condition: stable 15:45 Discharge instructions given to patient, Instructed on discharge instructions, follow up and referral plans. medication usage, Demonstrated understanding of instructions, follow-up care, medications, Prescriptions given X 2. 15:53 Patient left the ED. Signatures: Dispatcher [employer] EDMS Sandi Mtz, PVC MONITOR-C PVC MONITOR-Csnw Arianna New, LARS RN ss Shakila Chen RN RN Howard, Jelena kj1 Ro Reyna RN RN nj1
[2022-11-01 16:21] VITALS: TEMP 97.8
[2022-11-01 16:29] VITALS: O2SAT 97
[2022-11-01 16:30] VITALS: BP 147/78
== END 2022-11-01 15:53 | disposition home or self-care (01) ==
LOC: ER 11:44
DX: N23 Unspecified renal colic (principal); F17.210 Nicotine dependence, cigarettes, uncomplicated
CPT/HCPCS: 85025; 81001; 36415; 83735; 83690; 80053; 76377; 74176; J2405; J7030

== ENCOUNTER 2023-08-31 19:25 | Emergency (ER) | payer BC ==
--- OUTSIDE RECORDS SUMMARY | 2023-08-31 19:31 | XMS REPORT | Continuity of Care Document ---
Author Name Unknown Address [address] [facility] [facility] [address] [place] [address] [facility] Address [address] [place] [address] Care Team Providers Care Dental Assistant Name Role Phone Remberto BATEMAN, Hodan Howard Primary Care Physician Nick Rick MD Attending Clinician [phone] LAURA GANDHI Attending Clinician Unavailable Laura Gandhi MD Attending Clinician [phone] DAVID CRUZ Attending Clinician Unavail able NICK RICK Attending Clinician Unavailable HODAN SR Attending Clinician Unava ilDORI Nair Attending Clinician Unavailab tad [email or web address]_S Attending Clinician Unavailkira Sr MD, Hodan Howard Attending Clinician [phone] Doctor Unassigned, [place] Attending Clinician U navailTRACI Wilkinson Attending Clinician Unavailable Traci Eason Attending Clinician [phone] Andrea RNHeena Attending Clinician Siri Gill RN, Ekaterina M Attending Clinician [phone] Florencio BATEMAN, Ana Luisa Attending Clinician [phone] Surjit BATEMAN, Neha Zuñiga Attendin g Clinician SURJIT, NEHA ZUÑIGA Attending C linician Unavailable CUATE PATEL Attending Clinician Unavailable Cuate Patel DO Attending Clinician [phone] Lucas Sotelo MD Attending Clinician [phone] LAURA GANDHI Admitting Clinician Unavailable DORI ARBOLEDA Admitting Clinician Unavailab tad GC_GCBZW_Kasamreena_S Admitting Clinician UnavailTRACI Leung Admitting Clinician Unavailable Surjit BATEMAN, Neha Zuñiga Admittin g Clinician NEHA MAJOR Admitting C linician Unavailable Payers Payer Name Policy Type Policy Number Effective Date Expirati on Date Source Problems Condition Name Condition Details Condition Category Status Onset Date Resolution Date Last Treatment Date Treating Clinician Comments Source Type 2 diabetes mellitus without complicati on, with long-term current use of insulin Type 2 diabetes mellitus without complicati on, with long-term current use of insulin Disease Recurre nce 10-16 00:00: 00 [facility] Coronary artery disease involving enterprise coronary artery of enterprise heart without angina pectoris Coronary artery disease involving enterprise coronary artery of enterprise heart without angina pectoris Disease Active 10-16 00:00: 00 [facility] Hyperlipid emia, unspecifie d hyperlipid emia type Hyperlipid emia, unspecifie d hyperlipid emia type Disease Active 10-16 00:00: 00 [facility] Primary hypertensi on Primary hypertensi on Disease Active 10-16 00:00: 00 [facility] Tobacco dependence Tobacco dependence Disease Active 10-16 00:00: 00 [facility] Obesity (BMI 30-39.9) Obesity (BMI 30-39.9) Disease Active 09-19 00:00: 00 [facility] NSTEMI (non-ST elevated myocardial infarction ) NSTEMI (non-ST elevated myocardial infarction ) Disease Active 09-19 00:00: 00 [facility] No known active problems No known active problems Disease [facility] Allergies, Adverse Reactions, Alerts Allergy Name Allergy Type Status Severity Reaction(s) Onset Date Inactive Date Treating Clinician Comments Source NO KNOWN ALLERGIE S Drug Class Active [facility] Social History Social Habit Start Date Stop Date Quantity Comments Source Gender identity [facility] of tobacco use Cigarette Smoker [facility] History SDOH Alcohol Std Drinks [facility] History SDOH Alcohol Binge [facility] History SDOH Social Connections Get Together [facility] History SDOH Social Connections Pentecostalism [facility] History SDOH Social Connections Membership [facility] History SDOH Social Connections Meetings [facility] Alcohol intake 2023-08-13 00:00:00 2023-08-13 00:00:00 Lifetime non-drinker (finding) [facility] History of Social function 2022-11-09 00:00:00 2022-11-09 00:00:00 [facility] Cigarettes smoked current (pack per day) - Reported 2022-09-19 00:00:00 2022-09-19 00:00:00 [facility] Cigarette pack-years 2022-09-19 00:00:00 2022-09-19 00:00:00 [facility] Tobacco use and exposure 2022-09-19 00:00:00 2022-09-19 00:00:00 User of smokeless tobacco [facility] History SDOH Alcohol Frequency 2022-09-19 00:00:00 2022-09-19 00:00:00 1 [facility] History SDOH Social Connections Phone 2022-09-19 00:00:00 2022-09-19 00:00:00 1 [facility] History SDOH Social Connections Living 2022-09-19 00:00:00 2022-09-19 00:00:00 7 [facility] History SDOH Physical Activity DPW 2022-09-19 00:00:00 2022-09-19 00:00:00 0 [facility] History SDOH Physical Activity MPS 2022-09-19 00:00:00 2022-09-19 00:00:00 0 [facility] History SDOH Financial 2022-09-19 00:00:00 2022-09-19 00:00:00 5 [facility] History SDOH Food Worry 2022-09-19 00:00:00 2022-09-19 00:00:00 1 [facility] History SDOH Food Scarcity 2022-09-19 00:00:00 2022-09-19 00:00:00 1 [facility] History SDOH Transport Med 2022-09-19 00:00:00 2022-09-19 00:00:00 2 [facility] History SDOH Transport Non-Med 2022-09-19 00:00:00 2022-09-19 00:00:00 2 [facility] History SDOH Housing Unable to Pay 2022-09-19 00:00:00 2022-09-19 00:00:00 2 [facility] History SDOH Housing Places Lived 2022-09-19 00:00:00 2022-09-19 00:00:00 1 [facility] History SDOH Housing Homeless Last Year 2022-09-19 00:00:00 2022-09-19 00:00:00 2 [facility] Exposure to SARS-CoV-2 (event) 2022-09-08 00:00:00 2022-09-18 22:55:00 Not sure [facility] Sex Assigned At 1975 00:00:00 1975 00:00:00 [facility] Smoking Status Start Date Stop Date Source Tobacco smoking consumption unknown [facility] Smokes tobacco daily 2022-09-19 00:00:00 [facility] Medications Ordered Medication Name Filled Medication Name Start Date Stop Date Current Medication? Ordering Clinician Indication Dosage Frequency Signature (SIG) Comments Components Source carvediloL 6.25 mg tablet 08-21 00:00: 00 Yes [id number] TAKE 1 TABLET BY MOUTH TWICE A DAY (MORNING AND EVENING) WITH MEALS [facility] losartan 100 mg tablet 08-21 00:00: 00 Yes [id number] 100mg TAKE 1 TABLET BY MOUTH EVERY MORNING [facility] carvediloL 6.25 mg tablet 06-05 00:00: 00 08-21 00:00 :00 No [id number] Take 2 tablets by mouth every morning AND 1 tablet every evening. [facility] ALPRAZolam (XANAX) 0.25 mg tablet 06-04 15:06: 32 Yes .25mg Take 1 tablet by mouth at bedtime as needed. [facility] clopidogreL 75 mg tablet 06-04 00:00: 00 Yes [id number] 75mg Take 1 tablet by mouth in the morning. [facility] nitroglycer in 0.4 mg sublingual tablet 06-04 00:00: [id number] 1 tablet under the tongue every 5 (five) minutes as needed for Chest pain. [facility] losartan 100 mg tablet 06-04 00:00: 00 08-21 00:00 :00 No [id number] 100mg Take 1 tablet by mouth in the morning. [facility] carvediloL 6.25 mg tablet 06-04 00:00: 00 06-05 00:00 :00 No [id number] 6.25mg Take 1 tablet by mouth in the morning and 1 tablet in the evening. Take with meals. Please take 12.5 mg ( 2 tabs of the 6.25) in the AM and 1 tablet (6.25 mg) in PM [facility] losartan (COZAAR) tablet 100 mg 2022-05 15:00: 00 Yes 100mg 100 mg, Oral, DAILY, First dose (after last modificati on) on Sun03/20/23 at 0900, Until Discontinu ed, Routine [facility] carvediloL (COREG) tablet 6.25 mg 2022-05 14:00: 00 Yes 6.25mg 6.25 mg, Oral, BID MEALS, First dose on Sun03/20/23 at 0800, Until Discontinu ed, Routine [facility] ketorolac (TORADOL) injection 15 mg 2022-05 02:00: 00 03-20 01:48 :00 No 15mg 15 mg, Slow IV Push, ONCE, 1 dose, On Sun03/19/23 at 2000, Routine [facility] NaCl 0.9% (NS) bolus infusion 1,000 mL 2022-05 02:00: 00 03-20 02:31 :00 No 1000mL at 999 mL/hr, 1,000 mL, IV Infusion, ONCE, 1 dose, On Sun03/19/23 at 2000, ERIK [facility] HYDROcodone -acetaminop hen (NORCO 5) 5-325 mg tablet 1 tablet 2022-05 00:00: 00 03-19 23:58 :00 No 1{tbl} 1 tablet, Oral, ONCE, 1 dose, On Sun03/19/23 at 1800, ERIK [facility] carvediloL 6.25 mg tablet 01-29 00:00: 00 06-04 00:00 :00 No [id number] 6.25mg Take 1 tablet by mouth in the morning and 1 tablet in the evening. Take with meals. [facility] clopidogreL 75 mg tablet 01-29 00:00: 00 06-04 00:00 :00 No [id number] 75mg Take 1 tablet by mouth in the morning. [facility] varenicline 1 mg tablet 11-13 00:00: 00 Yes [id number] 1mg Take 1 tablet by mouth in the morning and 1 tablet in the evening. [facility] insulin lispro 100 unit/mL pen injector 11-09 00:00: 00 Yes [id number] 9U inject 9 Units under the skin in the morning and 9 Units at noon and 9 Units in the evening. inject before meals. Adjust according to sliding scale [facility] Insulin Detemir 100 unit/mL (3 mL) injection 11-09 00:00: 00 Yes [id number] 18U inject 18 Units under the skin in the morning and 18 Units in the evening. [facility] Insulin Pierron, Disposable, (BD INSULIN PEN NEEDLE UF) 31 gauge x 5/16" Ndle 11-09 00:00: 00 Yes [id number] Use to inject insulin daily [facility] Insulin Pierron, Disposable, (BD INSULIN PEN NEEDLE UF) 31 gauge x 5/16" Ndle 11-09 00:00: 00 Yes [id number] Use to inject insulin daily [facility] insulin lispro 100 unit/mL pen injector 11-09 00:00: 00 Yes [id number] 9U inject 9 Units under the skin in the morning and 9 Units at noon and 9 Units in the evening. inject before meals. Adjust according to sliding scale [facility] insulin detemir U-100 100 unit/mL injection 11-09 00:00: 00 11-09 00:00 :00 No [id number] 18U inject 18 Units under the skin in the morning and 18 Units in the evening. inject with meals. [facility] varenicline 1 mg tablet 10-16 00:00: 00 Yes [id number] Start 1 week before quit date. Day 1-3: 0.5 mg (1/2 tab) once; Day 4-7: 0.5 mg (1/2 tab) twice; THEN 1 mg (1 tab) twice daily for 3 weeks. [facility] insulin detemir U-100 (LEVEMIR U-100 INSULIN) injection 12 Units 09-21 13:00: 00 Yes 12U 12 Units, Subcutaneo us, BID MEALS, First dose on Sun09/21/22 at 0800, Until Discontinu ed, Routine
Restricte d - To be dispensed only to: Continuati on from home [facility] insulin detemir U-100 (LEVEMIR U-100 INSULIN) injection 14 Units 09-21 13:00: 00 Yes 14U 14 Units, Subcutaneo us, BID MEALS, First dose (after last modificati on) on Sun09/21/22 at 0800, Until Discontinu ed, Routine
Restricte d - To be dispensed only to: Continuati on from home [facility] atorvastati n (LIPITOR) tablet 80 mg 09-21 02:00: 00 Yes 80mg 80 mg, Oral, QHS, First dose (after last modificati on) on Sun09/20/22 at 2100, Until Discontinu ed, Routine [facility] aspirin 81 mg chewable tablet 09-21 00:00: 00 Yes [id number] 81mg Take 1 tablet by mouth in the morning. [facility] losartan 100 mg tablet 09-21 00:00: 00 06-04 00:00 :00 No [id number] 100mg Take 1 tablet by mouth in the morning. [facility] insulin detemir U-100 100 unit/mL injection 09-21 00:00: 00 11-09 00:00 :00 No [id number] 14U inject 14 Units under the skin in the morning and 14 Units in the evening. inject with meals. [facility] insulin lispro (human) (HumaLOG U-100) injection 6 Units 09-20 22:00: 00 Yes 6U 6 Units, Subcutaneo us, TID MEALS, First dose (after last modificati on) on Sun09/20/22 at 1700, Until Discontinu ed, Routine [facility] insulin lispro (human) (HumaLOG U-100) injection 9 Units 09-20 22:00: 00 Yes 9U 9 Units, Subcutaneo us, TID MEALS, First dose (after last modificati on) on Sun09/20/22 at 1700, Until Discontinu ed, Routine [facility] carvediloL (COREG) tablet 6.25 mg 09-20 22:00: 00 Yes 6.25mg 6.25 mg, Oral, BID MEALS, First dose on Sun09/20/22 at 1700, Until Discontinu ed, Routine [facility] clopidogreL (PLAVIX) 300 mg tablet 600 mg 09-20 21:52: 00 09-20 21:58 :00 No 600mg 600 mg, Oral, ONCE, 1 dose, On Sun09/20/22 at 1700, Routine [facility] insulin glargine (LANTUS U-100) injection 18 Units 09-20 18:15: 00 09-20 20:52 :47 No 18U 18 Units, Subcutaneo us, DAILY, First dose (after last modificati on) on Sun09/20/22 at 1315, Until Discontinu ed, Routine [facility] ALPRAZolam (XANAX) 0.25 mg tablet 09-20 17:18: 36 Yes .25mg Take 1 tablet by mouth at bedtime as needed. [facility] metoprolol tartrate (LOPRESSOR) 50 mg tablet 09-20 17:18: 32 09-20 00:00 :00 No 25mg Take 0.5 tablets by mouth in the morning and 0.5 tablets in the evening. [facility] omeprazole 20 mg capsule 09-20 17:18: 32 09-20 00:00 :00 No 20mg Take 1 capsule by mouth in the morning and 1 capsule in the evening. [facility] losartan 25 mg tablet 09-20 17:18: 32 09-20 00:00 :00 No 25mg Take 1 tablet by mouth in the morning. [facility] hydrOXYzine (ATARAX) tablet 10 mg 09-20 15:45: 00 09-20 16:28 :00 No 10mg 10 mg, Oral, ONCE, 1 dose, On Sun09/20/22 at 1045, Routine [facility] perflutren protein-A microsphr (OPTISON) injection 3 mL 09-20 14:30: 00 09-20 14:30 :00 No [id number] 3mL 3 mL, IV Push, ONCE, 1 dose, On Sun09/20/22 at 0930, Routine [facility] losartan (COZAAR) tablet 100 mg 09-20 14:00: 00 Yes 100mg 100 mg, Oral, DAILY, First dose (after last modificati on) on Sun09/20/22 at 0900, Until Discontinu ed, Routine [facility] insulin lispro (human) (HumaLOG U-100) injection 2 Units 09-20 12:30: 00 09-20 18:02 :12 No 2U 2 Units, Subcutaneo us, TIDAC, First dose on Sun09/20/22 at 0730, Until Discontinu ed, Routine [facility] QUEtiapine (SEROQUEL) tablet 50 mg 09-20 02:00: 00 Yes 50mg 50 mg, Oral, QHS, First dose on Sun09/19/22 at 2100, Until Discontinu ed, Routine [facility] insulin glargine (LANTUS U-100) injection 10 Units 09-20 02:00: 00 09-20 12:15 :05 No 10U 10 Units, Subcutaneo us, QHS, First dose on Sun09/19/22 at 2100, Until Discontinu ed, Routine [facility] ticagrelor (BRILINTA) tablet 90 mg 09-20 01:00: 00 09-20 21:53 :19 No 90mg 90 mg, Oral, BID, First dose on Sun09/19/22 at 2000, Until Discontinu ed, [facility] (ACCU-CHEK GUIDE GLUCOSE METER) [facility] 09-20 00:00: 00 Yes [id number] Use as directed [facility] lanc[facility] 33 gauge [facility] 09-20 00:00: 00 Yes [id number] Use as directed [facility] omeprazole 20 mg capsule 09-20 00:00: 00 Yes [id number] 20mg Take 1 capsule by mouth in the morning and 1 capsule in the evening. [facility] atorvastati n 80 mg tablet 09-20 00:00: 00 Yes [id number] 80mg Take 1 tablet by mouth at bedtime. [facility] empaglifloz in (JARDIANCE) 25 mg Tab 09-20 00:00: 00 Yes [id number] 25mg Take 1 tablet by mouth in the morning. [facility] pioglitazon e 15 mg tablet 09-20 00:00: 00 Yes [id number] 15mg Take 1 tablet by mouth in the morning. [facility] blood sugar diagnostic (ACCU-CHEK GUIDE TEST STRIPS) strip 09-20 00:00: 00 Yes [id number] Use as directed [facility] Blood-Gluco se Meter (ACCU-CHEK GUIDE GLUCOSE METER) Misc 09-20 00:00: 00 Yes [id number] Use as directed [facility] nitroglycer in 0.4 mg sublingual tablet 09-20 00:00: 00 06-04 00:00 :[id number] 1 tablet under the tongue every 5 (five) minutes as needed for Chest pain. [facility] carvediloL 6.25 mg tablet 09-20 00:00: 00 01-29 00:00 :00 No [id number] 6.25mg Take 1 tablet by mouth in the morning and 1 tablet in the evening. Take with meals. [facility] clopidogreL 75 mg tablet 09-20 00:00: 00 01-29 00:00 :00 No [id number] 75mg Take 1 tablet by mouth in the morning. [facility] insulin lispro, human, 100 unit/mL injection 09-20 00:00: 00 11-09 00:00 :00 No [id number] 9U inject 9 Units under the skin in the morning and 9 Units at noon and 9 Units in the evening. inject with meals. Do all this for 180 days. [facility] semaglutide (OZEMPIC) 0.25 mg or 0.5 mg (2 mg/3 mL) PnIj 09-20 00:00: 00 09-20 00:00 :00 No [id number] .25mg inject 0.25 mg under the skin weekly. [facility] Insulin Glargine (BASAGLAR KWIKPEN U-100 INSULIN) 100 unit/mL (3 mL) injection 09-20 00:00: 00 09-20 00:00 :00 No [id number] 14U inject 14 Units under the skin in the morning for 30 doses. [facility] insulin lispro 100 unit/mL pen injector 09-20 00:00: 00 09-20 00:00 :00 No [id number] Humalog insulin If blood sugar before meal is higher than 160: Blood sugar 160 to 200, give 1 unit. Blood sugar 201 to 240, give 2 units. Blood sugar 241 to 280, give 3 units. Blood sugar 281 to 300, give 4 units. Blood sugar greater than 300, give 5 units, recheck in 3 hours and cover again with sliding scale.Max dose 18 units daily [facility] ticagrelor 90 mg tablet 09-20 00:00: 00 09-20 00:00 :00 No [id number] 90mg Take 1 tablet by mouth in the morning and 1 tablet in the evening. [facility] insulin glargine 100 unit/mL injection 09-20 00:00: 00 09-20 00:00 :00 No [id number] 14U inject 14 Units under the skin in the morning and 14 Units in the evening. [facility] ALPRAZolam (XANAX) tablet 0.5 mg 09-19 22:45: 00 09-19 23:35 :00 No .5mg 0.5 mg, Oral, ONCE, 1 dose, On Sun09/19/22 at 1745, Routine [facility] HYDROcodone -acetaminop hen (NORCO) 10-325 mg tablet 1 tablet 09-19 21:30: 00 09-19 20:41 :00 No 1{tbl} 1 tablet, Oral, ONCE NOW, 1 dose, On Sun09/19/22 at 1630, Routine [facility] iopamidol (ISOVUE 370-500 mL) injection 09-19 19:21: 38 09-19 19:31 :01 No ONCE INTRA PROCEDURE, Starting on Sun09/19/22 at 1421, Until Sun09/19/22 at 1431, Routine, CV Intraproce dure [facility] ticagrelor (BRILINTA) tablet 09-19 19:19: 45 09-19 19:31 :01 No ONCE INTRA PROCEDURE, Starting on Sun09/19/22 at 1419, Until Sun09/19/22 at 1431, Routine, CV Intraproce dure [facility] adenosine 6 mg/1000 mL INTRACORONA RY injection for SANITOR 09-19 19:09: 32 09-19 19:31 :01 No ONCE INTRA PROCEDURE, Starting on Sun09/19/22 at 1409, Until Sun09/19/22 at 1431, Routine, CV Intraproce dure [facility] hydralAZINE (APRESOLINE ) injection 09-19 18:50: 51 09-19 19:31 :01 No ONCE INTRA PROCEDURE, Starting on Sun09/19/22 at 1350, Until Sun09/19/22 at 1431, STAT, CV Intraproce dure [facility] aspirin tablet 325 mg 09-19 18:33: 40 Yes 325mg 325 mg, Oral, PRE-PROCED URE ONCE, 1 dose, Starting on Sun09/19/22 at 1333, Until Discontinu ed, Routine, Surgery/Pr ocedure, CV Preprocedu re [facility] nitroglycer in (TRIDIL) 2 mg in 10 mL D5W for Cardiac Cath 09-19 18:12: 08 09-19 19:31 :01 No ONCE INTRA PROCEDURE, Starting on Sun09/19/22 at 1312, Until Sun09/19/22 at 1431, Routine, CV Intraproce dure [facility] verapamiL (ISOPTIN) injection 09-19 18:12: 01 09-19 19:31 :01 No ONCE INTRA PROCEDURE, Starting on Sun09/19/22 at 1312, Until Sun09/19/22 at 1431, Routine, CV Intraproce dure [facility] heparin 1,000 unit/mL injection 09-19 18:11: 48 09-19 19:31 :01 No ONCE INTRA PROCEDURE, Starting on Sun09/19/22 at 1311, Until Sun09/19/22 at 1431, Routine, CV Intraproce dure [facility] lidocaine 1% (PF) (XYLOCAINE) injection 09-19 18:01: 00 09-19 19:31 :01 No ONCE INTRA PROCEDURE, Starting on Sun09/19/22 at 1301, Until Sun09/19/22 at 1431, Routine, CV Intraproce dure [facility] midazolam (VERSED) injection 09-19 17:59: 40 09-19 19:31 :01 No ONCE INTRA PROCEDURE, Starting on Sun09/19/22 at 1259, Until Sun09/19/22 at 1431, Routine, CV Intraproce dure [facility] FENTanyl PF (SUBLIMAZE (PF)) injection 09-19 17:59: 16 09-19 19:31 :01 No ONCE INTRA PROCEDURE, Starting on Sun09/19/22 at 1259, Until Sun09/19/22 at 1431, Routine, CV Intraproce dure [facility] nicotine (NICODERM) 21 mg/24 hr patch 1 Patch 09-19 17:00: 00 09-20 18:44 :10 No 1{patch } 1 Patch, Topical, Administer over 24 Hours, Q24H, First dose on Sun09/19/22 at 1200, Until Discontinu ed, Routine [facility] lidocaine (LIDODERM) 5 % (700 mg/patch) patch 1 Patch 09-19 16:45: 00 09-20 04:11 :00 No 1{patch } 1 Patch, Topical, Administer over 12 Hours, ONCE, 1 dose, On Sun09/19/22 at 1145, Routine [facility] hydrOXYzine (ATARAX) tablet 10 mg 09-19 16:45: 00 09-19 16:10 :00 No 10mg 10 mg, Oral, ONCE, 1 dose, On Sun09/19/22 at 1145, Routine [facility] acetaminoph en-codeine (TYLENOL #3) 300-30 mg tablet 1 tablet 09-19 15:45: 01 Yes 1{tbl} 1 tablet, Oral, Q6HPRN, Starting on Sun09/19/22 at 1045, Until Discontinu ed, Routine, Pain (scale 7-10) [facility] metoprolol tartrate (LOPRESSOR) 50 mg tablet 09-19 15:03: 23 Yes 25mg Take 0.5 tablets by mouth in the morning and 0.5 tablets in the evening. [facility] omeprazole 20 mg capsule 09-19 15:03: 23 Yes 20mg Take 1 capsule by mouth in the morning and 1 capsule in the evening. [facility] ALPRAZolam (XANAX) 0.25 mg tablet 09-19 15:03: 23 Yes .25mg Take 1 tablet by mouth at bedtime as needed. [facility] losartan 25 mg tablet 09-19 15:03: 23 Yes 25mg Take 1 tablet by mouth in the morning. [facility] aspirin chewable tablet 81 mg 09-19 14:00: 00 Yes 81mg 81 mg, Oral, DAILY, First dose on Sun09/19/22 at 0900, Until Discontinu ed, Routine [facility] losartan (COZAAR) tablet 50 mg 09-19 14:00: 00 09-20 11:35 :46 No 50mg 50 mg, Oral, DAILY, First dose on Sun09/19/22 at 0900, Until Discontinu ed, Routine [facility] omeprazole (PRILOSEC) capsule 20 mg 09-19 13:00: 00 Yes 20mg 20 mg, Oral, BID, First dose on Sun09/19/22 at 0800, Until Discontinu ed, Routine [facility] Sliding Scale Insulin - Lispro (HumaLOG) 09-19 13:00: 00 Yes Subcutaneo us, Q4H, First dose on Sun09/19/22 at 0800, Until Discontinu ed, Routine [facility] metoprolol tartrate (LOPRESSOR) tablet 25 mg 09-19 13:00: 00 09-20 18:44 :35 No 25mg 25 mg, Oral, BID, First dose on Sun09/19/22 at 0800, Until Discontinu ed, Routine [facility] enoxaparin (LOVENOX) injection 90 mg 09-19 13:00: 00 09-19 09:34 :09 No 1mg/kg 90 mg (rounded from 90.7 mg = 1 mg/kg ?90.7 kg), Subcutaneo , Q12H, First dose on Sun09/19/22 at 0800, Until Discontinu ed, Routine [facility] magnesium sulfate in water 4 gram/50 mL (8 %) IV Piggyback 4 g 09-19 11:15: 00 09-19 15:12 :00 No 4g 4 g, IV Piggyback, at 25 mL/hr Administer over 120 Minutes, ONCE, 1 dose, On Sun09/19/22 at 0615, Routine [facility] atorvastati n (LIPITOR) tablet 40 mg 09-19 10:00: 00 09-20 11:34 :17 No 40mg 40 mg, Oral, QHS, First dose on Sun09/19/22 at 0500, Until Discontinu ed, Routine [facility] ALPRAZolam (XANAX) tablet 0.25 mg 09-19 09:48: 00 Yes .25mg 0.25 mg, Oral, QHSPRN, Starting on Sun09/19/22 at 0448, Until Discontinu ed, Routine, Anxiety [facility] nitroglycer in (NITROSTAT) sublingual tablet 0.4 mg 09-19 09:35: 45 Yes .4mg 0.4 mg, Sublingual , Q5MIN PRN, Starting on Sun09/19/22 at 0435, Until Discontinu ed, Routine, Chest pain [facility] glucagon (GLUCAGEN DIAGNOSTIC KIT) injection 1 mg 09-19 09:33: 02 Yes 1mg 1 mg, Intramuscu lar, PRN, Starting on Sun09/19/22 at 0433, Until Discontinu ed, ERIK, Blood Glucose < or = 70 mg/dL and patient is NPO, unable to swallow or has mental changes. [facility] acetaminoph en (TYLENOL) tablet 650 mg 09-19 09:33: 02 Yes 650mg 650 mg, Oral, Q6HPRN, Starting on Sun09/19/22 at 0433, Until Discontinu ed, Routine, Pain (scale 1-3) [facility] dextrose 10% (D10W) bolus infusion 250 mL 09-19 09:33: 01 Yes 250mL 250 mL, IV Infusion, PRN - SEE INSTRUCTIO NS, Administer over 60 Minutes, Other, If blood [...] blood glucose is < 80 mg/dL, repeat.
[facility] morpHINE (4 mg/mL) injection 4 mg 09-19 07:30: 00 09-19 07:21 :00 No 4mg 4 mg, Slow IV Push, ONCE, 1 dose, On 5/9/23 at 0230, STAT [facility] ondansetron (ZOFRAN (PF)) injection 4 mg 09-19 07:30: 00 09-19 07:21 :00 No 4mg 4 mg, Slow IV Push, ONCE, 1 dose, On Sun09/19/22 at 0230, ERIK [facility] NaCl 0.9% (NS) IV infusion 1,000 mL 09-19 07:00: 00 09-19 09:35 :57 No 1000mL at 999 mL/hr, Intravenou s, CONTINUOUS , Starting on Sun09/19/22 at 0200, Until Sun09/19/22 at 0435, Routine [facility] insulin regular human (HUMULIN R) injection 10 Units 09-19 06:45: 00 09-19 05:56 :00 No 10U 10 Units, Subcutaneo us, ONCE, 1 dose, On Sun09/19/22 at 0145, Routine
Indicatio n for insulin: Hyperglyce sheldon [facility] nitroglycer in (NITROSTAT) sublingual tablet 0.4 mg 09-19 05:15: 00 09-19 05:18 :00 No .4mg 0.4 mg, Sublingual , ONCE, 1 dose, On Sun09/19/22 at 0015, ERIK [facility] methylPREDN ISolone (MEDROL, JAVIER,) 4 mg tablets 05-16 00:00: 00 09-19 00:00 :00 No [id number] Take by mouth SEE-INSTRU CTIONS. follow package directions [facility] chlorphenir amine 4 mg tablet 05-16 00:00: 00 09-19 00:00 :00 No [id number] 4mg Take 1 tablet by mouth every 6 (six) hours as needed for Allergies or Runny nose. [facility] dicyclomine (BENTYL) 20 mg tablet 3-27 00:00: 00 09-19 00:00 :00 No [id number] 20mg Take 1 tablet by mouth 4 (four) times daily. [facility] metoclopram alicia HCl 10 mg tablet 3 00:00: 00 09-19 00:00 :00 No [id number] 10mg Take 1 tablet by mouth every 6 (six) hours. [facility] metoclopram alicia HCl 10 mg tablet 2017-05 00:00: 00 09-19 00:00 :00 No 10mg Take 1 tablet by mouth every 6 (six) hours as needed for Nausea and Vomiting (N/V). [facility] ondansetron 4 mg disintegrat ing tablet 2017-05 00:00: 00 09-19 00:00 :00 No 4mg Take 1 tablet by mouth every 8 (eight) hours as needed for Nausea and Vomiting (N/V). [facility] Immunizations Ordered Immunization Name Filled Immunization Name Date Status Comments Source TDAP 2022-11-09 00:00:00 Completed [facility] TDAP 2022-11-09 00:00:00 Completed [facility] TDAP 2022-11-09 00:00:00 Completed [facility] TDAP 2022-11-09 00:00:00 Completed [facility] TDAP 2022-11-09 00:00:00 Completed [facility] SARS-COV-2 COVID-19 PFIZER VACCINE 2020-07-07 00:00:00 Completed [facility] SARS-COV-2 COVID-19 PFIZER VACCINE 2020-07-07 00:00:00 Completed [facility] SARS-COV-2 COVID-19 PFIZER VACCINE 2020-07-07 00:00:00 Completed [facility] SARS-COV-2 COVID-19 PFIZER VACCINE 2020-07-07 00:00:00 Completed [facility] SARS-COV-2 COVID-19 PFIZER VACCINE 2020-07-07 00:00:00 Completed [facility] SARS-COV-2 COVID-19 PFIZER VACCINE 2020-06-09 00:00:00 Completed [facility] SARS-COV-2 COVID-19 PFIZER VACCINE 2020-06-09 00:00:00 Completed [facility] SARS-COV-2 COVID-19 PFIZER VACCINE 2020-06-09 00:00:00 Completed [facility] SARS-COV-2 COVID-19 PFIZER VACCINE 2020-06-09 00:00:00 Completed [facility] SARS-COV-2 COVID-19 PFIZER VACCINE 2020-06-09 00:00:00 Completed [facility] SARS-COV-2 COVID-19 PFIZER VACCINE Unknown Completed [facility] SARS-COV-2 COVID-19 PFIZER VACCINE Unknown Completed [facility] TDAP Unknown Completed [facility] Influenza Virus Vaccine Unknown Completed [facility] SARS-COV-2 COVID-19 PFIZER VACCINE Unknown Completed [facility] SARS-COV-2 COVID-19 PFIZER VACCINE Unknown Completed [facility] TDAP Unknown Completed [facility] Influenza Virus Vaccine Unknown Completed [facility] SARS-COV-2 COVID-19 PFIZER VACCINE Unknown Completed [facility] SARS-COV-2 COVID-19 PFIZER VACCINE Unknown Completed [facility] SARS-COV-2 COVID-19 PFIZER VACCINE Unknown Completed [facility] SARS-COV-2 COVID-19 PFIZER VACCINE Unknown Completed [facility] TDAP Unknown Completed [facility] SARS-COV-2 COVID-19 PFIZER VACCINE Unknown Completed [facility] SARS-COV-2 COVID-19 PFIZER VACCINE Unknown Completed [facility] TDAP Unknown Completed [facility] SARS-COV-2 COVID-19 PFIZER VACCINE Unknown Completed [facility] SARS-COV-2 COVID-19 PFIZER VACCINE Unknown Completed [facility] TDAP Unknown Completed [facility] Influenza Virus Vaccine Unknown Completed [facility] SARS-COV-2 COVID-19 PFIZER VACCINE Unknown Completed [facility] SARS-COV-2 COVID-19 PFIZER VACCINE Unknown Completed [facility] TDAP Unknown Completed [facility] Influenza Virus Vaccine Unknown Completed [facility] SARS-COV-2 COVID-19 PFIZER VACCINE Unknown Completed [facility] SARS-COV-2 COVID-19 PFIZER VACCINE Unknown Completed [facility] TDAP Unknown Completed [facility] Influenza Virus Vaccine Unknown Completed [facility] Vital Signs Vital Name Observation Time Observation Value Comments S ource Systolic blood pressure 2023-08-13 04:15:00 193 mm[Hg] [facility] Diastolic blood pressure 2023-08-13 04:15:00 105 mm[Hg] [facility] Heart rate 2023-08-13 04:15:00 80 /min [facility] Body temperature 2023-08-13 04:15:00 36.78 Kezia [facility] Respiratory rate 2023-08-13 04:15:00 16 /min [facility] Oxygen saturation in Arterial blood by Pulse oximetry 2023-08-13 04:15:00 98 /min [facility] Body height 2023-08-13 02:16:00 160 cm [facility] Body weight 2023-08-13 02:16:00 89.631 kg [facility] BMI 2023-08-13 02:16:00 35.00 kg/m2 [facility] Systolic blood pressure 2023-06-04 21:10:00 171 mm[Hg] [facility] Diastolic blood pressure 2023-06-04 21:10:00 92 mm[Hg] [facility] Heart rate 2023-06-04 21:08:00 98 /min [facility] Body temperature 2023-06-04 21:08:00 36.44 Kezia [facility] Respiratory rate 2023-06-04 21:08:00 16 /min [facility] Body height 2023-06-04 21:08:00 160 cm [facility] Body weight 2023-06-04 21:08:00 92.987 kg [facility] BMI 2023-06-04 21:08:00 36.31 kg/m2 [facility] Oxygen saturation in Arterial blood by Pulse oximetry 2023-06-04 21:08:00 98 /min [facility] Systolic blood pressure 2023-03-20 01:48:00 148 mm[Hg] [facility] Diastolic blood pressure 2023-03-20 01:48:00 82 mm[Hg] [facility] Heart rate 2023-03-20 01:48:00 82 /min [facility] Body temperature 2023-03-20 01:48:00 36.61 Kezia [facility] Respiratory rate 2023-03-20 01:48:00 16 /min [facility] Oxygen saturation in Arterial blood by Pulse oximetry 2023-03-20 01:48:00 98 /min [facility] Body height 2023-03-19 23:37:00 160 cm [facility] Body weight 2023-03-19 23:37:00 90.719 kg [facility] BMI 2023-03-19 23:37:00 35.43 kg/m2 [facility] Systolic blood pressure 2023-01-13 20:13:00 150 mm[Hg] [facility] Diastolic blood pressure 2023-01-13 20:13:00 95 mm[Hg] [facility] Heart rate 2023-01-13 20:13:00 99 /min [facility] Body temperature 2023-01-13 20:13:00 36.72 Kezia [facility] Respiratory rate 2023-01-13 20:13:00 16 /min [facility] Body height 2023-01-13 20:13:00 160 cm [facility] Body weight 2023-01-13 20:13:00 94.348 kg [facility] BMI 2023-01-13 20:13:00 36.85 kg/m2 [facility] Oxygen saturation in Arterial blood by Pulse oximetry 2023-01-13 20:13:00 99 /min [facility] Systolic blood pressure 2022-11-09 14:39:00 135 mm[Hg] [facility] Diastolic blood pressure 2022-11-09 14:39:00 78 mm[Hg] [facility] Heart rate 2022-11-09 14:39:00 76 /min [facility] Respiratory rate 2022-11-09 14:39:00 16 /min [facility] Body height 2022-11-09 14:39:00 160 cm [facility] Body weight 2022-11-09 14:39:00 94.348 kg [facility] BMI 2022-11-09 14:39:00 36.85 kg/m2 [facility] Systolic blood pressure 2022-10-16 20:41:00 143 mm[Hg] [facility] Diastolic blood pressure 2022-10-16 20:41:00 84 mm[Hg] [facility] Heart rate 2022-10-16 20:41:00 89 /min [facility] Respiratory rate 2022-10-16 20:41:00 16 /min [facility] Body height 2022-10-16 20:41:00 162.6 cm [facility] Body weight 2022-10-16 20:41:00 94.348 kg [facility] BMI 2022-10-16 20:41:00 35.70 kg/m2 [facility] Oxygen saturation in Arterial blood by Pulse oximetry 2022-10-16 20:41:00 96 /min [facility] Systolic blood pressure 2022-09-20 16:20:00 178 mm[Hg] [facility] Diastolic blood pressure 2022-09-20 16:20:00 96 mm[Hg] [facility] Heart rate 2022-09-20 16:20:00 76 /min [facility] Body temperature 2022-09-20 16:20:00 37 Kezia [facility] Respiratory rate 2022-09-20 16:20:00 20 /min [facility] Oxygen saturation in Arterial blood by Pulse oximetry 2022-09-20 16:20:00 98 /min [facility] Body height 2022-09-19 09:00:00 160 cm [facility] Body weight 2022-09-19 09:00:00 92.579 kg actual wt on the regular scale [facility] BMI 2022-09-19 09:00:00 36.15 kg/m2 [facility] Systolic blood pressure 2022-09-19 17:55:18 183 mm[Hg] [facility] Diastolic blood pressure 2022-09-19 17:55:18 93 mm[Hg] [facility] Heart rate 2022-09-19 17:55:18 65 /min [facility] Respiratory rate 2022-09-19 17:55:18 20 /min [facility] Oxygen saturation in Arterial blood by Pulse oximetry 2022-09-19 17:55:18 100 /min [facility] Body temperature 2022-09-19 16:22:00 36.11 Kezia [facility] Body height 2022-09-19 09:00:00 160 cm [facility] Body weight 2022-09-19 09:00:00 92.579 kg actual wt on the regular scale [facility] BMI 2022-09-19 09:00:00 36.15 kg/m2 [facility] Systolic blood pressure 2022-05-16 15:58:00 168 mm[Hg] [facility] Diastolic blood pressure 2022-05-16 15:58:00 100 mm[Hg] [facility] Heart rate 2022-05-16 15:58:00 100 /min [facility] Body temperature 2022-05-16 15:58:00 36.72 Kezia [facility] Respiratory rate 2022-05-16 15:58:00 20 /min [facility] Body height 2022-05-16 15:58:00 160 cm [facility] Body weight 2022-05-16 15:58:00 90.719 kg [facility] BMI 2022-05-16 15:58:00 35.43 kg/m2 [facility] Oxygen saturation in Arterial blood by Pulse oximetry 2022-05-16 15:58:00 97 /min [facility] Systolic blood pressure 2019-11-24 19:11:00 163 mm[Hg] [facility] Diastolic blood pressure 2019-11-24 19:11:00 93 mm[Hg] [facility] Heart rate 2019-11-24 19:11:00 77 /min [facility] Body temperature 2019-11-24 19:11:00 37.17 Kezia [facility] Respiratory rate 2019-11-24 19:11:00 18 /min [facility] Body weight 2019-11-24 19:11:00 90.719 kg [facility] BMI 2019-11-24 19:11:00 35.43 kg/m2 [facility] Oxygen saturation in Arterial blood by Pulse oximetry 2019-11-24 19:11:00 99 /min [facility] Systolic blood pressure 2019-11-24 19:11:00 163 mm[Hg] [facility] Diastolic blood pressure 2019-11-24 19:11:00 93 mm[Hg] [facility] Heart rate 2019-11-24 19:11:00 77 /min [facility] Body temperature 2019-11-24 19:11:00 37.17 Kezia [facility] Respiratory rate 2019-11-24 19:11:00 18 /min [facility] Body weight 2019-11-24 19:11:00 90.719 kg [facility] BMI 2019-11-24 19:11:00 35.43 kg/m2 [facility] Oxygen saturation in Arterial blood by Pulse oximetry 2019-11-24 19:11:00 99 /min [facility] Procedures Procedure Date / Time Performed Performing Clinician Source XR HAND 3+ VW LEFT 2023-08-13 03:27:53 Laura Gandhi [facility] XR WRIST 3+ VW LEFT 2023-08-13 03:27:53 Laura Gandhi [facility] POCT GLUCOSE(AGE >30DAYS) 2023-03-20 01:58:00 Dori Gaston [facility] POCT GLUCOSE (AUTOMATED) 2023-03-20 01:57:00 Dori Bender [facility] DUPLEX VENOUS LEG RIGHT - BY VASCULAR LAB 2023-03-20 00:34:54 Dori Arboleda [facility] COMP. METABOLIC PANEL (86072) 2023-03-19 23:56:00 Dori Arboleda [facility] CBC WITH DIFF 2023-03-19 23:56:00 [facility]REATMENT 2023-03-19 23:20:04 Doctor Unassigned, [facility] ASSIGNMENT OF BENEFITS 2023-01-13 21:40:36 Docto r Unassigned, [place] [facility] CONSENT/REFUSAL FOR DIAGNOSIS AND TREATMENT 2023-01-13 20:00:11 Doctor Unassigned, [place] [facility] TDAP VACCINE, >11 YRS, IM 2022-11-09 15:09:16 Hodan Mejias [facility] [id number] CONSENT 2022-11-09 05:01:00 Doctor Emily signed, [facility] ASSIGNMENT OF BENEFITS 2022-10-16 20:33:36 Mo r Unassigned, [place] [facility] POCT GLUCOSE (AUTOMATED) 2022-09-20 16:58:00 Neha Dsouza [facility] POCT GLUCOSE (AUTOMATED) 2022-09-20 16:58:00 Neha Dsouza [facility] TRANSTHORACIC ECHO (TTE) COMPLETE W/ CONTRAST 2022-09-20 14:18:25 Luisa [facility] TRANSTHORACIC ECHO (TTE) COMPLETE W/ CONTRAST 2022-09-20 14:18:25 [facility] POCT GLUCOSE (AUTOMATED) 2022-09-20 13:13:00 Neha Dsouza [facility] POCT GLUCOSE (AUTOMATED) 2022-09-20 13:13:00 Neha Dsouza [facility] MAGNESIUM 2022-09-20 09:54:00 Raúl Perkins [facility] BASIC METABOLIC PANEL (NA, K, CL, CO2, GLUCOSE, BUN, CREATININE, CA) 2022-09-20 09:54:00 [facility] 2022-09-20 09:54:00 Raúl Perkins [facility] MAGNESIUM 2022-09-20 09:54:00 Raúl Perkins [facility] BASIC METABOLIC PANEL (NA, K, CL, CO2, GLUCOSE, BUN, CREATININE, CA) 2022-09-20 09:54:[address] [facility] CBC WITHOUT DIFF 2022-09-20 09:54:00 Raúl Perkins [facility] POCT GLUCOSE (AUTOMATED) 2022-09-20 09:50:00 Neha Dsouza [facility] POCT GLUCOSE (AUTOMATED) 2022-09-20 09:50:00 Neha Dsouza [facility] POCT GLUCOSE (AUTOMATED) 2022-09-20 05:02:00 James colinNeha [facility] POCT GLUCOSE (AUTOMATED) 2022-09-20 05:02:00 James colinMostjosiah Gelacio Jensen [facility] ACTIVATED PARTIAL THRMPLAS MICHELLE 2022-09-20 02:01:00 Luisa [facility] ACTIVATED PARTIAL THRMPLAS MICHELLE 2022-09-20 02:01:00 Luisa [facility] POCT GLUCOSE (AUTOMATED) 2022-09-20 01:58:00 James colin josiah Gelacio Jensen [facility] POCT GLUCOSE (AUTOMATED) 2022-09-20 01:58:00 James colin josiah Gelacio Sylviaanna [facility] ACTIVATED PARTIAL THRMPLAS MICHELLE 2022-09-19 22:03:00 Luisa [facility] ACTIVATED PARTIAL THRMPLAS MICHELLE 2022-09-19 22:03:00 Luisa [facility] POCT GLUCOSE (AUTOMATED) 2022-09-19 21:34:00 James colin Neha Jensen [facility] POCT GLUCOSE (AUTOMATED) 2022-09-19 21:34:00 James colin josiah Gelacio Sylviaanna [facility] CARDIAC CATHETERIZATION 2022-09-19 19:12:51 Jamesl andrew josiah Gelacio Sylviaanna [facility] CARDIAC CATHETERIZATION 2022-09-19 19:12:51 Jamesl andrew, josiah Jensen [facility] CARDIAC CATHETERIZATION 2022-09-19 19:12:51 Joce morales josiah Brizuela [facility] CARDIAC CATHETERIZATION 2022-09-19 19:12:51 Neha Allen [facility] CARDIAC CATHETERIZATION 2022-09-19 19:12:51 Neha Allen [facility] CARDIAC CATHETERIZATION 2022-09-19 19:12:51 Jamesl andrewNeha [facility] CARDIAC CATHETERIZATION 2022-09-19 19:12:51 Shal andrweNeha [facility] CARDIAC CATHETERIZATION 2022-09-19 19:12:51 Jamesl andrewNeha [facility] CARDIAC CATHETERIZATION 2022-09-19 19:12:51 Shal andrewNeha [facility] CARDIAC CATHETERIZATION 2022-09-19 19:12:51 Jamesl andrewNeha [facility] POCT ACT LOW RANGE 2022-09-19 19:04:00 SurjitNeha [facility] POCT ACT LOW RANGE 2022-09-19 19:04:00 SurjitNeha [facility] POCT ACT LOW RANGE 2022-09-19 18:31:00 SurjitNeha [facility] POCT ACT LOW RANGE 2022-09-19 18:31:00 SurjitNeha anna [facility] POCT GLUCOSE (AUTOMATED) 2022-09-19 14:21:00 Abu-Summer [facility] POCT GLUCOSE (AUTOMATED) 2022-09-19 14:21:00 [facility] COVID-19 (ID NOW RAPID TESTING) 2022-09-19 11:30:00 Luisa [facility] LAB ONLY COVID INTERPRETATION 2022-09-19 11:30:00 uLisa [facility] COVID-19 (ID NOW RAPID TESTING) 2022-09-19 11:30:00 Luisa [facility] LAB ONLY COVID INTERPRETATION 2022-09-19 11:30:00 Luisa [facility] TROPONIN I 2022-09-19 11:28:00 Morelia Moran [facility] N-TERMINAL PRO-BNP 2022-09-19 11:28:00 Luisa [facility] TROPONIN I 2022-09-19 11:28:00 Morelia Moran [facility] N-TERMINAL PRO-BNP 2022-09-19 11:28:00 Luisa [facility] PROTHROMBIN TIME / INR 2022-09-19 11:27:[address] [facility] ACTIVATED PARTIAL THRMPLAS MICHELLE 2022-09-19 11:27:00 Luisa [facility] PROTHROMBIN TIME / INR 2022-09-19 11:27:[address] [facility] ACTIVATED PARTIAL THRMPLAS MICHELLE 2022-09-19 11:27:00 Luisa [facility] XR CHEST 1 VW 2022-09-19 10:21:00 [facility] XR CHEST 1 VW 2022-09-19 10:21:00 [facility] HB ECG ROUTINE & RHYTHM STRIP 2022-09-19 09:42:59 Luisa [facility] HB ECG ROUTINE & RHYTHM STRIP 2022-09-19 09:42:59 Luisa [facility] POCT GLUCOSE (AUTOMATED) 2022-09-19 07:12:00 Jose R Gandhi [facility] POCT GLUCOSE (AUTOMATED) 2022-09-19 07:12:00 Jose R Gandhi [facility] POCT GLUCOSE (AUTOMATED) 2022-09-19 05:54:00 Jose R Gandhi [facility] POCT GLUCOSE (AUTOMATED) 2022-09-19 05:54:00 Jose R Gandhi [facility] URINE DRUG (IMMUNOASSAY) - COMPREHENSIVE DRUG SCREEN 2022-09-19 05:19:00 Laura Gandhi [facility] URINALYSIS 2022-09-19 05:19:00 Laura Gandhi [facility] URINE DRUG (IMMUNOASSAY) - COMPREHENSIVE DRUG SCREEN 2022-09-19 05:19:00 Laura Gandhi [facility] URINALYSIS 2022-09-19 05:19:00 Laura Gandhi [facility] XR CHEST 2 VW 2022-09-19 04:44:[address] [facility] XR CHEST 2 VW 2022-09-19 04:44:[address] [facility] LIPASE 2022-09-19 04:01:00 Laura Gandhi [facility] MAGNESIUM 2022-09-19 04:01:00 [facility] TROPONIN I 2022-09-19 04:01:00 Laura Gandhi [facility] COMP. METABOLIC PANEL (71988) 2022-09-19 04:01:00 Laura Gandhi [facility] LIPID PANEL (40300)(TOTAL CHOLESTEROL, TRIGLYCERIDES, HDL) 2022-09-19 04:01[facility]00 [facility] 2022-09-19 04:01:00 Laura Gandhi [facility] GLYCOSYLATED HEMOGLOBIN (A1C) 2022-09-19 04:01:00 Morelia Moran [facility] LIPASE 2022-09-19 04:01:00 Laura Gandhi [facility] MAGNESIUM 2022-09-19 04:01:00 Morelia Moran [facility] TROPONIN I 2022-09-19 04:01:00 Laura Gandhi [facility] COMP. METABOLIC PANEL ([id number]) 2022-09-19 04:01:00 Laura Gandhi [facility] LIPID PANEL ([id number])(TOTAL CHOLESTEROL, TRIGLYCERIDES, HDL) 2022-09-19 04:01:00 [facility]FF 2022-09-19 04:01:00 Laura Gandhi [facility] GLYCOSYLATED HEMOGLOBIN (A1C) 2022-09-19 04:01:00 Morelia Moran [facility] HB ECG ROUTINE & RHYTHM STRIP 2022-09-19 03:59:05 Laura Gandhi [facility] HB ECG ROUTINE & RHYTHM STRIP 2022-09-19 03:59:05 Laura Gandhi [facility] CONSENT/REFUSAL FOR DIAGNOSIS AND TREATMENT 2022-09-19 03:48:27 Doctor Unassigned, [place] [facility] CONSENT/REFUSAL FOR DIAGNOSIS AND TREATMENT 2022-09-19 03:48:27 Doctor Unassigned, [place] [facility] HOSPITAL ADMISSION 2022-09-18 05:01:00 Doctor Un assigned, [place] [facility] HOSPITAL ADMISSION 2022-09-18 05:01:00 Doctor Un assigned, [place] [facility] CONSENT/REFUSAL FOR DIAGNOSIS AND TREATMENT 2022-05-16 15:53:10 Doctor Unassigned, [place] [facility] URINALYSIS 2019-11-24 19:18:[address] [facility] NOTICE OF PRIVACY PRACTICES 2019-11-24 18:53:10 Doctor Unassigned, [place] [facility] CONSENT/REFUSAL FOR DIAGNOSIS AND TREATMENT 2019-11-24 18:52:41 Doctor Unassigned, [place] [facility] Encounters Start Date/Time End Date/Time Encounter Type Admission Type Attending [facility] Facility Care Department Encounter ID Source 2023-08-22 00:00:00 2023-08-22 00:00:00 [facility] [id number] [facility] 2023-08-12 21:20:00 2023-08-12 23:50:00 Emergency X [facility]URA [facility]HI [facility] ERT [id number] [facility] 2023-08-12 21:20:00 2023-08-12 23:50:00 Emergency Laura Gandhi [facility] [id number] [facility] 2023-08-06 00:00:00 2023-08-06 00:00:00 Outpatient R DAVID CRUZ [facility] [id number] [facility] 2023-06-04 15:00:00 2023-06-04 15:30:00 Office Visit ChidiNick fontaine [facility] 1.2.840.114 350.1.13.10 4.2.7.2.686 [id number] [facility] 2023-06-04 15:00:00 2023-06-04 15:00:00 Outpatient R NICK RICK [facility] [id number] [facility] 2023-06-04 00:00:00 2023-06-04 00:00:00 Telephone Nick Rick [facility] 1..840.114 350.1.13.10 4.2.7.2.686 [id number] [facility] 2023-04-16 15:30:00 2023-04-16 15:30:00 Outpatient R NICK RICK [facility] [id number] [facility] 2023-03-29 11:00:00 2023-03-29 11:00:00 Outpatient R HODAN SR [facility] [id number] [facility] 2023-03-19 17:46:00 2023-03-19 20:41:00 Emergency X JANNETTE ARBOLEDACECILE [facility] ERT [id number] [facility] 2023-03-19 17:46:00 2023-03-19 20:41:00 Emergency Nkechi Jannettececile [facility] 1..840.114 350.1.13.10 4.2.7.2.686 [id number] [facility] 2023-03-14 00:00:00 2023-03-14 00:00:00 Outpatient GC_[id number] diyala_S PRIV [facility] [id number] [facility] 2023-02-15 09:40:00 2023-02-15 09:40:00 Outpatient HODAN BOYD [facility] [id number] [facility] 2023-01-25 00:00:00 2023-01-25 00:00:00 Refill Remberto Hodan Andreacentervillejennifer [facility] 1..840.114 350.1.13.10 4.2.7.2.686 [id number] [id number] [facility] 2023-01-24 00:00:00 2023-01-24 00:00:00 Patient Secure Msg Doctor Unassigned, [place] [facility] 1..840.114 350.1.13.10 4.2.7.2.686 [id number] [facility] 2023-01-22 00:00:00 2023-01-22 00:00:00 Outpatient DAVID TRINIDAD [facility] [id number] [facility] 2023-01-13 15:15:00 2023-01-13 16:47:00 Emergency X TRACI SINCLAIR [facility] ERT [id number] [facility] 2023-01-13 15:15:00 2023-01-13 16:47:00 Emergency Traci Sinclair [facility] 1..840.114 350.1.13.10 4.2.7.2.686 [id number] [facility] 2022-12-26 00:00:00 2022-12-26 00:00:00 Outpatient DAVID TRINIDAD [facility] [id number] [facility] 2022-11-27 00:00:00 2022-11-27 00:00:00 Outpatient DAVID TRINIDAD [facility] [id number] [facility] 2022-11-09 09:40:00 2022-11-09 10:44:07 Outpatient R HODAN SR [facility] [id number] [facility] 2022-11-09 09:40:00 2022-11-09 10:44:07 Office Visit Hodan Sr Andreacentervillejennifer [facility] 1.0.114 350.1.13.10 4.2.7.2.686 [id number] [facility] 2022-11-09 00:00:00 2022-11-09 00:00:00 Orders Only Doctor Unassigned, [place] [facility] 1.2840.114 350.1.13.10 4.2.7.2.686 [id number] [facility] 2022-11-01 00:00:00 2022-11-01 00:00:00 Telephone Nick Rick [facility] 1.2840.114 350.1.13.10 4.2.7.2.686 [id number] [facility] 2022-10-16 15:30:00 2022-10-16 16:45:49 Outpatient R NICK RICK [facility] [id number] [facility] 2022-10-16 15:30:00 2022-10-16 16:45:49 Office Visit Nick Rick [facility] 1.2840.114 350.1.13.10 4.2.7.2.686 [id number] [id number] [facility] 2022-10-16 00:00:00 2022-10-16 00:00:00 Orders Only Doctor Unassigned, [place] [facility] 1.2840.114 350.1.13.10 4.2.7.2.686 [id number] [facility] 2022-10-11 00:00:00 2022-10-11 00:00:00 Patient Secure Msg Doctor Unassigned, [place] [facility] 1.2.840.114 350.1.13.10 4.2.7.2.686 [id number] [facility] 2022-10-03 00:00:00 2022-10-03 00:00:00 Telephone [facility] 1.2.840.114 350.1.13.10 4.2.7.2.686 [id number] [id number] [facility] 2022-09-28 00:00:00 2022-09-28 00:00:00 Telephone [facility] 1.2.840.114 350.1.13.10 4.2.7.2.686 [id number] 025 [id number] [facility] 2022-09-24 00:00:00 2022-09-24 00:00:00 Telephone [facility] 1.2.840.114 350.1.13.10 4.2.7.2.686 [id number] [facility] 2022-09-21 00:00:00 2022-09-21 00:00:00 Transition of Care Ekaterina Gill 1.2.840.114 350.1.13.10 4.2.7.2.686 [id number] [facility] 2022-09-18 22:51:00 2022-09-20 17:18:00 Hospital Encounter Laura Gandhi Tareq Shalaby, Mostafa Helmy Ahmed Mohamed [facility] 1.2.840.114 350.1.13.10 4.2.7.2.686 [id number] [facility] 2022-09-18 22:51:00 2022-09-20 17:18:00 Inpatient X NEHA MAJOR [facility] [id number] [facility] 2022-09-19 10:57:00 2022-09-19 12:57:00 Surgery Nick Rick Duarte [facility] 1.2.840.114 350.1.13.10 4.2.7.2.686 [id number] [facility] 2022-05-16 10:00:00 2022-05-16 11:08:00 Emergency X CUATE PATEL [facility] ERT [id number] [facility] 2022-05-16 10:00:00 2022-05-16 11:08:00 Emergency Cuate Patel [facility] 1.2.840.114 350.1.13.10 4.2.7.2.686 [id number] [facility] 2022-05-16 00:00:00 2022-05-16 00:00:00 Orders Only Doctor Unassigned, [place] [facility] 1.2.840.114 350.1.13.10 4.2.7.2.686 [id number] [facility] 2019-11-24 14:20:26 2019-11-24 18:54:00 Emergency Lucas Sotelo [facility] 1.2.840.114 350.1.13.10 4.2.7.2.686 [id number] [facility] 2019-11-24 14:20:26 2019-11-24 18:54:00 Emergency Lucas Sotelo [facility] 1.2.840.114 350.1.13.10 4.2.7.2.686 [id number] 2019-11-24 13:53:00 2019-11-24 13:53:00 Emergency X [facility] ERT [id number] [facility] Results Test Description Test Time Test Comments Results Result Comments Source XR HAND 3+ VW LEFT 03:47:17 ORDERING PHYSICIAN: LAURA GANDHI HISTORY: 48 years old, Female, FOOSH WITH LEFT HAND AND WRIST PAIN TECHNIQUE: XR HAND 3+ VW LEFT COMPARISON: None. FINDINGS: No acute fracture, dislocation or evidence of osseous destruction. 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 Old fracture of the fifthmetacarpal bone is also noted. Soft tissues are within normal limits. [facility] XR WRIST 3+ VW LEFT 03:46:25 ORDERING PHYSICIAN: LAURA GANDHI HISTORY: 48 years old, Female, FOOSH WITH LEFT HAND AND LEFT WRIST PAIN TECHNIQUE: XR WRIST 3+ VW LEFT COMPARISON: None. FINDINGS: No acute fracture, dislocation or evidence of osseous destruction. 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 Old fracture of the scaphoid bone noted. Soft tissues are withinnormal limits. [facility] 01:58:00* Test Item Value Reference Range Interpretation Comme nts POCT Glu (age>30days) (test code = 3342) 274 mg/dL 70-110 A Lab Interpretation (test cod e = 32630-7) Abnormal [facility]. METABOLIC PANEL (18600)2023-03-20 00:22:07* Test Item Value Reference Range Interpretation Comme nts NA (test code = 2592665103) 137 mmol/L 135-145 K (test code = 1092429708) 4.0 mmol/L 3.5-5.0 CL (test code = 3482375140) 104 mmol/L 98-108 CO2 TOTAL (test code = 5842905316) 24 mmol/L 23-31 AGAP (test code = 5916717850) 9 2-16 BUN (test code = 3641245091) 11 mg/dL 7-23 GLUCOSE (test code = 6417592849) 339 mg/dL 70-110 H CREATININE (test code = 6626108131) 0.60 mg/dL 0.50-1.04 TOTAL BILI (test code = 9163265233) 0.3 mg/dL 0.1-1.1 CALCIUM (test code = 7116788030) 9.2 mg/dL 8.6-10.6 T PROTEIN (test code = 8123026417) 7.1 g/dL 6.3-8.2 ALBUMIN (test code = 1252964161) 3.8 g/dL 3.5-5.0 ALK PHOS (test code = 8286414595) 148 U/L 34-122 H ALTv (test code = 1742-6) 35 U/L 5-35 AST(SGOT) (test code = 6890802320) 23 U/L 13-40 eGFR (test code = 36245-8) 110.2 mL/min/1.73m2 CKD-EPI eGFR (2020). Assuming creatinine has been stable day-to-day for at least three months, the eGFR indicates Category G1 (>= 90 mL/min/1.73 m2) Lab Interpretation (test code = 30225-3) Abnormal [facility] WITH [id number] 00:07:44* Test Item Value Reference Range Interpretation Comme nts WBC (test code = 6690-2) 6.72 See_Comment [Automated Isagena Vinveli] The system which generated this result transmitted reference range: 4.30 - 11.10 10*3/?L. The reference range was not used to interpret this result as normal/abnormal. RBC (test code = 789-8) 3.81 See_Comment L [Automated Isagena Vinveli] The system which generated this result transmitted reference range: 3.93 - 5.25 10*6/?L. The reference range was not used to interpret this result as normal/abnormal. HGB (test code = 718-7) 11.1 g/dL 11.6-15.0 L HCT (test code = 4544-3) 34.0 % 35.7-45.2 L MCV (test code = 787-2) 89.2 fL 80.6-95.5 MCH (test code = 785-6) 29.1 pg 25.9-32.8 MCHC (test code = 786-4) 32.6 g/dL 31.6-35.1 RDW-SD (test code = 52074-3) 43.8 fL 39.0-49.9 RDW-CV (test code = 788-0) 13.4 % 12.0-15.5 PLT (test code = 777-3) 287 See_Comment [Automated messa ge] The system which generated this result transmitted reference range: 166 - 358 10*3/?L. The reference range was not used to interpret this result as normal/abnormal. MPV (test code = 08106-8) 9.4 fL 9.5-12.9 L NRBC/100 WBC (test code = 9367260062) 0.0 See_Comment [Automated [employer] ssage] The system which generated this result transmitted reference range: 0.0 - 10.0 /100 WBCs. The reference range was not used to interpret this result as normal/abnormal. NRBC x10^3 (test code = 2157399755) See_Comment [Automated messa ge] The system which generated this result transmitted reference range: 10*3/?L. The reference range was not used to interpret this result as normal/abnormal. GRAN MAT (NEUT) % (test code = 770-8) 47.2 % IMM GRAN % (test code = 4853468992) 0.40 % LYMPH % (test code = 736-9) 43.0 % MONO % (test code = 5905-5) 7.0 % EOS % (test code = 713-8) 2.1 % BASO % (test code = 706-2) 0.3 % GRAN MAT x10^3(ANC) (test code = 4709204834) 3.17 10*3/uL 1.88-7.09 IMM GRAN x10^3 (test code = 9260848262) 0.03 10*3/uL 0.00-0.06 LYMPH x10^3 (test code = 731-0) 2.89 10*3/uL 1.32-3.29 MONO x10^3 (test code = 742-7) 0.47 10*3/uL 0.33-0.92 EOS x10^3 (test code = 711-2) 0.14 10*3/uL 0.03-0.39 BASO x10^3 (test code = 704-7) 0.01-0.07 Lab Interpretation (test code = 51875-8) Abnormal [facility] GLUCOSE (AUTOMATED)2022-09-20 16:59:53* Test Item Value Reference Range Interpretation Comme nts POCT GLU (test code = 6980550417) 358 mg/dL 70-110 H Lab Interpretation (test cod e = 10317-7) Abnormal [facility] GLUCOSE (AUTOMATED)2022-09-20 16:59:53* Test Item Value Reference Range Interpretation Comme nts POCT GLU (test code = 9458826519) 358 mg/dL 70-110 H Lab Interpretation (test cod e = 17506-6) Abnormal [facility] GLUCOSE (AUTOMATED)2022-09-20 13:24:00* Test Item Value Reference Range Interpretation Comme nts POCT GLU (test code = 7345187890) 314 mg/dL 70-110 H Lab Interpretation (test cod e = 83038-9) Abnormal [facility] GLUCOSE (AUTOMATED)2022-09-20 13:24:00* Test Item Value Reference Range Interpretation Comme nts POCT GLU (test code = 2187781070) 314 mg/dL 70-110 H Lab Interpretation (test cod e = 31517-6) Abnormal [facility] METABOLIC PANEL (NA, K, CL, CO2, GLUCOSE, BUN, CREATININE, CA)2022-09-20 10:38:01* Test Item Value Reference Range Interpretation Comme nts NA (test code = 3361360852) 135 mmol/L 135-145 K (test code = 8859152541) 4.0 mmol/L 3.5-5.0 Slight hemolysis CL (test code = 4289924295) 100 mmol/L 98-108 CO2 TOTAL (test code = 0624218059) 26 mmol/L 23-31 AGAP (test code = 0682103132) 9 2-16 BUN (test code = 2392425409) 12 mg/dL 7-23 Slight hemolysis GLUCOSE (test code = 9122541182) 243 mg/dL 70-110 H CREATININE (test code = 0788812609) 0.43 mg/dL 0.50-1.04 L CALCIUM (test code = 7678121332) 8.7 mg/dL 8.6-10.6 eGFR (test code = 1175635594) 156.7 mL/min/1.73m2 MISHA (test code = MISHA) Association of [...] or abnormalities in imaging tests). Lab Interpretation (test code = 99973-4) [facility]* Test Item Value Reference Range Interpretation Comme nts MAGNESIUM (test code = 9583109651) 1.7 mg/dL 1.7-2.4 Lab Interpretation (test cod e = 04611-0) [facility] (NA, K, CL, CO2, GLUCOSE, BUN, CREATININE, CA)2022-09-20 10:38:01* Test Item Value Reference Range Interpretation Comme nts NA (test code = 7143413024) 135 mmol/L 135-145 K (test code = 7320657225) 4.0 mmol/L 3.5-5.0 Slight hemolysis CL (test code = 3589938252) 100 mmol/L 98-108 CO2 TOTAL (test code = 5073486339) 26 mmol/L 23-31 AGAP (test code = 5492689581) 9 2-16 BUN (test code = 1965884244) 12 mg/dL 7-23 Slight hemolysis GLUCOSE (test code = 2201957945) 243 mg/dL 70-110 H CREATININE (test code = 5737524181) 0.43 mg/dL 0.50-1.04 L CALCIUM (test code = 4128786474) 8.7 mg/dL 8.6-10.6 eGFR (test code = 3628875778) 156.7 mL/min/1.73m2 MISHA (test code = MISHA) Association of [...] or abnormalities in imaging tests). Lab Interpretation (test code = 84884-6) [facility] 10:38:01* Test Item Value Reference Range Interpretation Comme nts MAGNESIUM (test code = 5918217958) 1.7 mg/dL 1.7-2.4 Lab Interpretation (test cod e = 03287-4) Normal [facility] WITHOUT [id number] 10:12:01* Test Item Value Reference Range Interpretation Comme nts WBC (test code = 6690-2) 10.36 See_Comment [Automated message] The system which generated this result transmitted reference range: 4.30 - 11.10 10*3/?L. The reference range was not used to interpret this result as normal/abnormal. RBC (test code = 789-8) 4.42 See_Comment [Automated message] The system which generated this result transmitted reference range: 3.93 - 5.25 10*6/?L. The reference range was not used to interpret this result as normal/abnormal. HGB (test code = 718-7) 12.7 g/dL 11.6-15.0 HCT (test code = 4544-3) 37.3 % 35.7-45.2 MCH (test code = 785-6) 28.7 pg 25.9-32.8 MCV (test code = 787-2) 84.4 fL 80.6-95.5 MCHC (test code = 786-4) 34.0 g/dL 31.6-35.1 PLT (test code = 777-3) 289 See_Comment [Automated message] The system which generated this result transmitted reference range: 166 - 358 10*3/?L. The reference range was not used to interpret this result as normal/abnormal. MPV (test code = 14860-3) 9.3 fL 9.5-12.9 L RDW-CV (test code = 788-0) 12.9 % 12.0-15.5 RDW-SD (test code = 15612-3) 39.6 fL 39.0-49.9 NRBC x10^3 (test code = 9622155149) See_Comment [Automated messa ge] The system which generated this result transmitted reference range: 10*3/?L. The reference range was not used to interpret this result as normal/abnormal. NRBC/100 WBC (test code = 9996108707) 0.0 See_Comment [Automated messa ge] The system which generated this result transmitted reference range: 0.0 - 10.0 /100 WBCs. The reference range was not used to interpret this result as normal/abnormal. IPF % (test code = 1592468938) Lab Interpretation (test code = 23936-4) Abnormal [facility] WITHOUT [id number] 10:12:01* Test Item Value Reference Range Interpretation Comme nts WBC (test code = 6690-2) 10.36 See_Comment [Automated message] The system which generated this result transmitted reference range: 4.30 - 11.10 10*3/?L. The reference range was not used to interpret this result as normal/abnormal. RBC (test code = 789-8) 4.42 See_Comment [Automated message] The system which generated this result transmitted reference range: 3.93 - 5.25 10*6/?L. The reference range was not used to interpret this result as normal/abnormal. HGB (test code = 718-7) 12.7 g/dL 11.6-15.0 HCT (test code = 4544-3) 37.3 % 35.7-45.2 MCH (test code = 785-6) 28.7 pg 25.9-32.8 MCV (test code = 787-2) 84.4 fL 80.6-95.5 MCHC (test code = 786-4) 34.0 g/dL 31.6-35.1 PLT (test code = 777-3) 289 See_Comment [Automated message] The system which generated this result transmitted reference range: 166 - 358 10*3/?L. The reference range was not used to interpret this result as normal/abnormal. MPV (test code = 30100-4) 9.3 fL 9.5-12.9 L RDW-CV (test code = 788-0) 12.9 % 12.0-15.5 RDW-SD (test code = 80815-2) 39.6 fL 39.0-49.9 NRBC x10^3 (test code = 6790879318) See_Comment [Automated messa ge] The system which generated this result transmitted reference range: 10*3/?L. The reference range was not used to interpret this result as normal/abnormal. NRBC/100 WBC (test code = 0042007536) 0.0 See_Comment [Automated messa ge] The system which generated this result transmitted reference range: 0.0 - 10.0 /100 WBCs. The reference range was not used to interpret this result as normal/abnormal. IPF % (test code = 0392181847) Lab Interpretation (test code = 29023-9) Abnormal [facility] GLUCOSE (AUTOMATED)2022-09-20 09:51:14* Test Item Value Reference Range Interpretation Comme nts POCT GLU (test code = 3021177758) 251 mg/dL 70-110 H Lab Interpretation (test cod e = 93891-4) Abnormal [facility] GLUCOSE (AUTOMATED)2022-09-20 09:51:14* Test Item Value Reference Range Interpretation Comme nts POCT GLU (test code = 3176749201) 251 mg/dL 70-110 H Lab Interpretation (test cod e = 52283-3) Abnormal [facility] GLUCOSE (AUTOMATED)2022-09-20 05:03:47* Test Item Value Reference Range Interpretation Comme nts POCT GLU (test code = 1798824522) 238 mg/dL 70-110 H Lab Interpretation (test cod e = 78025-3) Abnormal [facility] GLUCOSE (AUTOMATED)2022-09-20 05:03:47* Test Item Value Reference Range Interpretation Comme nts POCT GLU (test code = 6586192339) 238 mg/dL 70-110 H Lab Interpretation (test cod e = 14380-2) [facility] 02:25:53* Test Item Value Reference Range Interpretation Comme nts APTT Patient (test code = 3173-2) 37 See_Comment H [Automated messa ge] The system which generated this result transmitted reference range: 26 - 36 Seconds. The reference range was not used to interpret this result as normal/abnormal. Lab Interpretation (test code = 09675-2) [facility]2022-09-20 02:25:53* Test Item Value Reference Range Interpretation Comme nts APTT Patient (test code = 3173-2) 37 See_Comment H [Automated messa ge] The system which generated this result transmitted reference range: 26 - 36 Seconds. The reference range was not used to interpret this result as normal/abnormal. Lab Interpretation (test code = 17634-6) Abnormal [facility] GLUCOSE (AUTOMATED)2022-09-20 01:59:08* Test Item Value Reference Range Interpretation Comme nts POCT GLU (test code = 6269420484) 399 mg/dL 70-110 H Lab Interpretation (test cod e = 51849-4) Abnormal [facility] GLUCOSE (AUTOMATED)2022-09-20 01:59:08* Test Item Value Reference Range Interpretation Comme nts POCT GLU (test code = 7485193568) 399 mg/dL 70-110 H Lab Interpretation (test cod e = 81030-6) Abnormal [facility] GLUCOSE (AUTOMATED)2022-09-19 22:19:23* Test Item Value Reference Range Interpretation Comme nts POCT GLU (test code = 9205730645) 379 mg/dL 70-110 H Lab Interpretation (test cod e = 05475-4) Abnormal [facility] GLUCOSE (AUTOMATED)2022-09-19 22:19:23* Test Item Value Reference Range Interpretation Comme nts POCT GLU (test code = 2411907916) 379 mg/dL 70-110 H Lab Interpretation (test cod e = 73425-9) Abnormal [facility] ACT LOW [id number] 19:13:24* Test Item Value Reference Range Interpretation Comme nts ACTLR (test code = 1651407213) 276 See_Comment H [Automated messa ge] The system which generated this result transmitted reference range: 89 - 169 Seconds. The reference range was not used to interpret this result as normal/abnormal. Lab Interpretation (test code = 78952-2) Abnormal [facility] ACT LOW [id number] 19:13:24* Test Item Value Reference Range Interpretation Comme nts ACTLR (test code = 6264134405) 276 See_Comment H [Automated messa ge] The system which generated this result transmitted reference range: 89 - 169 Seconds. The reference range was not used to interpret this result as normal/abnormal. Lab Interpretation (test code = 59413-3) Abnormal [facility] ACT LOW [id number] 18:37:26* Test Item Value Reference Range Interpretation Comme nts ACTLR (test code = 1464665954) 374 See_Comment H [Automated messa ge] The system which generated this result transmitted reference range: 89 - 169 Seconds. The reference range was not used to interpret this result as normal/abnormal. Lab Interpretation (test code = 89702-4) Abnormal [facility] ACT LOW [id number] 18:37:26* Test Item Value Reference Range Interpretation Comme nts ACTLR (test code = 9307409797) 374 See_Comment H [Automated messa ge] The system which generated this result transmitted reference range: 89 - 169 Seconds. The reference range was not used to interpret this result as normal/abnormal. Lab Interpretation (test code = 46190-4) Abnormal [facility] GLUCOSE (AUTOMATED)2022-09-19 14:24:25* Test Item Value Reference Range Interpretation Comme nts POCT GLU (test code = 1129594154) 225 mg/dL 70-110 H Lab Interpretation (test cod e = 77190-4) Abnormal [facility] GLUCOSE (AUTOMATED)2022-09-19 14:24:25* Test Item Value Reference Range Interpretation Comme nts POCT GLU (test code = 0074816395) 225 mg/dL 70-110 H Lab Interpretation (test cod e = 90704-6) [facility]2022-09-19 10:31:36* Test Item Value Reference Range Interpretation Comme nts HGB A1C (test code = 4548-4) 10.6 % 4.0-5.7 H MISHA (test code = MISHA) Reference RangesNormal: <5.7%Prediabetes: 5.7 - 6.4%Diabetes: > 6.5% Lab Interpretation (test code = 06937-5) [facility]2022-09-19 10:31:36* Test Item Value Reference Range Interpretation Comme nts HGB A1C (test code = 4548-4) 10.6 % 4.0-5.7 H MISHA (test code = MISHA) Reference RangesNormal: <5.7%Prediabetes: 5.7 - 6.4%Diabetes: > 6.5% Lab Interpretation (test code = 25990-0) [facility] 10:15:22* Test Item Value Reference Range Interpretation Comme nts MAGNESIUM (test code = 9728245655) 1.6 mg/dL 1.7-2.4 L Lab Interpretation (test cod e = 69740-1) [facility] Test Item Value Reference Range Interpretation Comme nts MAGNESIUM (test code = 0882609890) 1.6 mg/dL 1.7-2.4 L Lab Interpretation (test cod e = 61223-2) [facility]TOTAL CHOLESTEROL, TRIGLYCERIDES, HDL)2022-09-19 10:10:43* Test Item Value Reference Range Interpretation Comme nts CHOL (test code = 1572603868) 219 mg/dL 120-200 H HDL (test code = 8878880557) 36 mg/dL >=50 L HDLC RATIO (test code = 0583095729) 6.1 <=4.5 H TRIG (test code = 0040092510) 388 mg/dL 30-170 H LDL CHOL (test code = 42751-7) 105 mg/dL <=160 VLDL (test code = 6146918844) 78 mg/dL 5-60 H Lab Interpretation (test cod e = 67941-1) [facility]TOTAL CHOLESTEROL, TRIGLYCERIDES, HDL)2022-09-19 10:10:43* Test Item Value Reference Range Interpretation Comme nts CHOL (test code = 8434576605) 219 mg/dL 120-200 H HDL (test code = 6307737020) 36 mg/dL >=50 L HDLC RATIO (test code = 7026243521) 6.1 <=4.5 H TRIG (test code = 2769500197) 388 mg/dL 30-170 H LDL CHOL (test code = 35823-6) 105 mg/dL <=160 VLDL (test code = 9288197681) 78 mg/dL 5-60 H Lab Interpretation (test cod e = 11132-1) [facility] 07:14:14* Test Item Value Reference Range Interpretation Comme nts POCT GLU (test code = 5899832895) 330 mg/dL 70-110 H Lab Interpretation (test cod e = 85568-8) Abnormal [facility] GLUCOSE (AUTOMATED)2022-09-19 07:14:14* Test Item Value Reference Range Interpretation Comme nts POCT GLU (test code = 4527267022) 330 mg/dL 70-110 H Lab Interpretation (test cod e = 78597-6) Abnormal [facility] GLUCOSE (AUTOMATED)2022-09-19 05:58:25* Test Item Value Reference Range Interpretation Comme nts POCT GLU (test code = 8164624355) 403 mg/dL 70-110 H Lab Interpretation (test cod e = 39577-6) Abnormal [facility] GLUCOSE (AUTOMATED)2022-09-19 05:58:25* Test Item Value Reference Range Interpretation Comme nts POCT GLU (test code = 3966451878) 403 mg/dL 70-110 H Lab Interpretation (test cod e = 97501-3) Abnormal [facility] B7385-12-92 04:36:52* Test Item Value Reference Range Interpretation Comme nts TROPONIN I (test code = 8951739537) 0.116 ng/mL <=0.034 H MISHA (test code = MISHA) Reference (Normal) [...] to patient's use of biotin. Lab Interpretation (test code = 50600-5) Abnormal [facility] W9727-57-68 04:36:52* Test Item Value Reference Range Interpretation Comme nts TROPONIN I (test code = 0477136179) 0.116 ng/mL <=0.034 H MISHA (test code = MISHA) Reference (Normal) [...] to patient's use of biotin. Lab Interpretation (test code = 57625-5) Abnormal [facility] WITH DLNG7498-96-98 04:36:31* Test Item Value Reference Range Interpretation Comme nts WBC (test code = 6690-2) 9.71 See_Comment [Automated Isagena Vinveli] The system which generated this result transmitted reference range: 4.30 - 11.10 10*3/?L. The reference range was not used to interpret this result as normal/abnormal. RBC (test code = 789-8) 4.55 See_Comment [Automated Isagena Vinveli] The system which generated this result transmitted reference range: 3.93 - 5.25 10*6/?L. The reference range was not used to interpret this result as normal/abnormal. HGB (test code = 718-7) 13.0 g/dL 11.6-15.0 HCT (test code = 4544-3) 38.8 % 35.7-45.2 MCV (test code = 787-2) 85.3 fL 80.6-95.5 MCH (test code = 785-6) 28.6 pg 25.9-32.8 MCHC (test code = 786-4) 33.5 g/dL 31.6-35.1 RDW-SD (test code = 37552-2) 40.3 fL 39.0-49.9 RDW-CV (test code = 788-0) 13.0 % 12.0-15.5 PLT (test code = 777-3) 315 See_Comment [Automated Isagena ge] The system which generated this result transmitted reference range: 166 - 358 10*3/?L. The reference range was not used to interpret this result as normal/abnormal. MPV (test code = 33027-4) 9.6 fL 9.5-12.9 NRBC/100 WBC (test code = 0292622519) 0.0 See_Comment [Automated me ssage] The system which generated this result transmitted reference range: 0.0 - 10.0 /100 WBCs. The reference range was not used to interpret this result as normal/abnormal. NRBC x10^3 (test code = 8458052224) See_Comment [Automated messa ge] The system which generated this result transmitted reference range: 10*3/?L. The reference range was not used to interpret this result as normal/abnormal. GRAN MAT (NEUT) % (test code = 770-8) 48.1 % IMM GRAN % (test code = 4397382845) 0.50 % LYMPH % (test code = 736-9) 41.6 % MONO % (test code = 5905-5) 7.7 % EOS % (test code = 713-8) 1.6 % BASO % (test code = 706-2) 0.5 % GRAN MAT x10^3(ANC) (test code = 5613302060) 4.66 10*3/uL 1.88-7.09 IMM GRAN x10^3 (test code = 6337481262) 0.05 10*3/uL 0.00-0.06 LYMPH x10^3 (test code = 731-0) 4.04 10*3/uL 1.32-3.29 H MONO x10^3 (test code = 742-7) 0.75 10*3/uL 0.33-0.92 EOS x10^3 (test code = 711-2) 0.16 10*3/uL 0.03-0.39 BASO x10^3 (test code = 704-7) 0.05 10*3/uL 0.01-0.07 Lab Interpretation (test code = 35227-1) Abnormal [facility] WITH PBHL6867-31-87 04:36:31* Test Item Value Reference Range Interpretation Comme nts WBC (test code = 6690-2) 9.71 See_Comment [Automated messa ge] The system which generated this result transmitted reference range: 4.30 - 11.10 10*3/?L. The reference range was not used to interpret this result as normal/abnormal. RBC (test code = 789-8) 4.55 See_Comment [Automated messa ge] The system which generated this result transmitted reference range: 3.93 - 5.25 10*6/?L. The reference range was not used to interpret this result as normal/abnormal. HGB (test code = 718-7) 13.0 g/dL 11.6-15.0 HCT (test code = 4544-3) 38.8 % 35.7-45.2 MCV (test code = 787-2) 85.3 fL 80.6-95.5 MCH (test code = 785-6) 28.6 pg 25.9-32.8 MCHC (test code = 786-4) 33.5 g/dL 31.6-35.1 RDW-SD (test code = 65197-4) 40.3 fL 39.0-49.9 RDW-CV (test code = 788-0) 13.0 % 12.0-15.5 PLT (test code = 777-3) 315 See_Comment [Automated Isagena ge] The system which generated this result transmitted reference range: 166 - 358 10*3/?L. The reference range was not used to interpret this result as normal/abnormal. MPV (test code = 67452-2) 9.6 fL 9.5-12.9 NRBC/100 WBC (test code = 4595123154) 0.0 See_Comment [Automated [employer] ssage] The system which generated this result transmitted reference range: 0.0 - 10.0 /100 WBCs. The reference range was not used to interpret this result as normal/abnormal. NRBC x10^3 (test code = 7991521286) See_Comment [Automated Isagena ge] The system which generated this result transmitted reference range: 10*3/?L. The reference range was not used to interpret this result as normal/abnormal. GRAN MAT (NEUT) % (test code = 770-8) 48.1 % IMM GRAN % (test code = 9468391840) 0.50 % LYMPH % (test code = 736-9) 41.6 % MONO % (test code = 5905-5) 7.7 % EOS % (test code = 713-8) 1.6 % BASO % (test code = 706-2) 0.5 % GRAN MAT x10^3(ANC) (test code = 4140032514) 4.66 10*3/uL 1.88-7.09 IMM GRAN x10^3 (test code = 7325622008) 0.05 10*3/uL 0.00-0.06 LYMPH x10^3 (test code = 731-0) 4.04 10*3/uL 1.32-3.29 H MONO x10^3 (test code = 742-7) 0.75 10*3/uL 0.33-0.92 EOS x10^3 (test code = 711-2) 0.16 10*3/uL 0.03-0.39 BASO x10^3 (test code = 704-7) 0.05 10*3/uL 0.01-0.07 Lab Interpretation (test code = 66896-9) [facility]53[facility] 04:29:09* Test Item Value Reference Range Interpretation Comme nts NA (test code = 9569553646) 132 mmol/L 135-145 L K (test code = 3557239564) 4.5 mmol/L 3.5-5.0 CL (test code = 6529177484) 95 mmol/L 98-108 L CO2 TOTAL (test code = 3852698821) 27 mmol/L 23-31 AGAP (test code = 4688044270) 10 2-16 BUN (test code = 3755935311) 15 mg/dL 7-23 GLUCOSE (test code = 4428942387) 511 mg/dL 70-110 HH CREATININE (test code = 6627091475) 0.68 mg/dL 0.50-1.04 TOTAL BILI (test code = 8916730478) 0.4 mg/dL 0.1-1.1 CALCIUM (test code = 4453720014) 10.3 mg/dL 8.6-10.6 T PROTEIN (test code = 8891124867) 7.3 g/dL 6.3-8.2 ALBUMIN (test code = 5888356566) 4.2 g/dL 3.5-5.0 ALK PHOS (test code = 7178708429) 138 U/L 34-122 H ALTv (test code = 1742-6) 19 U/L 5-35 AST(SGOT) (test code = 5202184355) 18 U/L 13-40 eGFR (test code = 1987192843) 92.3 mL/min/1.73m2 MISHA (test code = MISHA) Association of [...] or abnormalities in imaging tests). Lab Interpretation (test code = 45088-6) Abnormal [facility]. METABOLIC PANEL (30447)2022-09-19 04:29:09* Test Item Value Reference Range Interpretation Comme nts NA (test code = 7322523205) 132 mmol/L 135-145 L K (test code = 1505131644) 4.5 mmol/L 3.5-5.0 CL (test code = 2648411614) 95 mmol/L 98-108 L CO2 TOTAL (test code = 0734730276) 27 mmol/L 23-31 AGAP (test code = 6515468838) 10 2-16 BUN (test code = 8564080873) 15 mg/dL 7-23 GLUCOSE (test code = 8669447641) 511 mg/dL 70-110 HH CREATININE (test code = 3313129041) 0.68 mg/dL 0.50-1.04 TOTAL BILI (test code = 4939399982) 0.4 mg/dL 0.1-1.1 CALCIUM (test code = 9154731967) 10.3 mg/dL 8.6-10.6 T PROTEIN (test code = 1784644408) 7.3 g/dL 6.3-8.2 ALBUMIN (test code = 7901110426) 4.2 g/dL 3.5-5.0 ALK PHOS (test code = 2910049298) 138 U/L 34-122 H ALTv (test code = 1742-6) 19 U/L 5-35 AST(SGOT) (test code = 1516303788) 18 U/L 13-40 eGFR (test code = 7892257367) 92.3 mL/min/1.73m2 MISHA (test code = MISHA) Association of [...] or abnormalities in imaging tests). Lab Interpretation (test code = 28532-9) [facility] DXKCG1203-74-65 04:25:07* Test Item Value Reference Range Interpretation Comme nts LIPASE (test code = 3502034905) 114 U/L 0-220 Lab Interpretation (test cod e = 45204-6) [facility] IGJFR2596-95-14 04:25:07* Test Item Value Reference Range Interpretation Comme nts LIPASE (test code = 4219551745) 114 U/L 0-220 Lab Interpretation (test cod e = 62671-7) [facility] 20:38:00* Test Item Value Reference Range Interpretation Comme nts APPEARANCE (test code = 5136864284) Clear Clear COLOR (test code = 2799712848) Yellow Yellow PH (test code = 2343786143) 4.8-8.0 SP GRAVITY (test code = 0805724063) 1.003-1.030 GLU U QUAL (test code = 1211057140) 50 mg/dL Normal A BLOOD (test code = 9391347534) 1+ Negative A KETONES (test code = 6078171169) Negative Negative PROTEIN (test code = 2887-8) 30 mg/dL Negative A UROBILIN (test code = 7094327066) Normal Normal BILIRUBIN (test code = 6828302213) Negative Negative NITRITE (test code = 2683252538) Negative Negative LEUK TONYA (test code = 8734768533) 250/uL Negative A RBC/HPF (test code = 5509279120) See_Comment H [Automated Isagena ge] The system which generated this result transmitted reference range: 0 - 3 HPF. The reference range was not used to interpret this result as normal/abnormal. WBC/HPF (test code = 2660047430) See_Comment H [Automated Isagena ge] The system which generated this result transmitted reference range: 0 - 5 HPF. The reference range was not used to interpret this result as normal/abnormal. BACTERIA (test code = 0449250489) Many Negative A MUCOUS (test code = 2034643070) Slight Negative LPF A SQ EPITH (test code = 4533227917) HPF Lab Interpretation (test code = 79817-6) Abnormal [facility] Notes Date/Time Note Provider Source 2023-08-12 23:45:00 CDVBL+hbsj3B/j8irD7d +fpiz8Af0VK9PS 3APPMM2cIyLbF/TxS0WT7DIo3EQHGR1779 -03-31T23:45:00 Pt given printed and verbal discharge instructions regarding fall, left hand pain, left wrist pain, and uncontrolled HTNPt verbalized understanding of instructions, pt awake alert oriented, resp reg unlabored, skin w/d, color appropriate for race, moves all ext well,pt encouraged to follow up with pcpAdvised to seek medical attention for new/prolonged/worsening of symptomsNo adverse reaction to meds given in ER noted upon dischargeAwake, alert oriented, resp reg unlabored, skin w/d, pt leaving amb with steady gait, in no apparent distress 99167-1Vasryygue department IlnaLI8882-62-67Q22:56:55Emergency department NoteTXT1.2.840.996337.1.13.104.2.7 .2.488894|[id number] for patient bfaw33776-7WywiQEZODGXKCXSLmahcrrz d C-CDA narrative textUT[address] KvliRxeovhlepBixbrmwvaLXDC35453868 53NJZYZECAHXIIKRAMFQYZGL4279-33-53 T23:56:551.2.840.985415.1.72.3.15| 1.2.840.723325.1.13.104.2.7.2.7278 [id number] [facility] 2023-08-12 21:13:45 bfOSxkRhpOvp2GF1/oyM kn/cGrn5bEnkmc pAt0yrVIPPW6Qr+GSPkFG4Ry4UXu+f202T21:13:45 Pt arrived with c/o falling and landing on her L pain. Pt elevated extremity, placed ice, and has 800mg ibuprofen at 6:30pm. Pt reports fallings 3-4 inches onto her hand. Pt came into to ensure nothing is broken in her L hand. 90042-4Fhxgyjgmx department Triage gefcPT4900-39-18U17:16:11Emergency department Triage noteTXT1.2.840.704291.1.13.104.2.7 .2.889720|[id number] for patient egjk13573-3Ttyeagzcz department NoteLNNARRATIVEFormatted C-CDA narrative [id number] A Diaz RN[address] LtfsXefrueujmMlenqwlroLCDK49238860 10DCCJPIHCIYRNKQQMMDRSEL6616-76-05 T21:16:111.2.840.093499.1.72.3.15| 1.2.840.600489.1.13.104.2.7.2.7278 [id number] Mya Adame RN [facility] 2023-06-05 12:48:19 xthqh63qzZ9DhOh1BpRQ Kafgjz3nyt+8zu lvk1dRd555uVOzGZvQDDG982GBLKPN5340 -01-23T12:48:19 Pharmacy called and informed of dosage. Med list updated.Coreg 12.5 mg in AM 6.25 PMStart losartan today.Report BP Sunday. 51748-2Mxirjmzey encounter NkujOO5327-71-09F94:49:07Telephone encounter NoteTXT1.2.840.204189.1.13.104.2.7 .2.329626|[id number] for patient vgra27545-1AxcrAUUATDVXGNJLhkjssds d C-CDA narrative text[id number] 73MDCUKYLUFGDWYZYSVKJBXX5112-76-37 T12:49:071.2.840.420981.1.72.3.15| 1.2.840.551275.1.13.104.2.7.2.7278 [id number] [facility] 2023-06-04 16:21:45 jjNu8LfDrguj9iqp83z5 JH7q0Rf/PrhBrk RsMX4m3uvnl0bjA4hCCNW2L7JlLnhd3286 -01-22T16:21:45 oSlo Caballero is a 48 year old [facility] needing clarification on the instructions on how to take thecarvediloL 6.25 mg tabletPlease [facility] [id number] [address]kevon KinneyPhone: Yaaldwpurvcoem signed by Jordana Salomon at 06/04/2023 4:25 PM NHW13697-6Igywtoetb encounter UvxfYG8272-76-64Q51:25:30Telephone encounter NoteTXT1.2.840.140310.1.13.104.2.7 .2.722244|[id number] for patient vuqo59297-6BixbFJZPDQCXOEWGagxngab d C-CDA narrative iqfo784063510Fptpbpt D [id number] 47JYZVKLHJJBUCZZPAIAIMQT3016-46-99 T16:25:301.2.840.349066.1.72.3.15| 1.2.840.559546.1.13.104.2.7.2.7278 [id number] Jordana Salomon [facility] 2023-01-29 08:46:33 zohn4Km+UdkphZksqxJk j1+pmsH078WIxz di48+poTidrSpvMNUtroxZCn8L24Je2105 -09-18T08:46:33 Refill approved per cardio guidelines 35370-9Wzisrchei encounter WywhMR2005-51-17F95:47:55Telephone encounter NoteTXT1.2.840.794036.1.13.104.2.7 .2.271003|[id number] for patient sgsu31566-9MuyfIQ106047874Rerxoq D Jackson [address]TXTX[address] 83BMVNZIZLFHQNYSYJBGLHBC7365-12-82 T08:47:551.2.840.884313.1.72.3.15| 1.2.840.592198.1.13.104.2.7.2.7278 [id number] Cierra Lawrence RN [facility] 2023-01-26 20:58:48 RaXVpgZ5R/j5P9E7TrvM jG05pirIQjOsV6 nEy9rpXLcGA5H3CZupHCdV6iAHVYIo2669 -09-15T20:58:48 These meds need to be refilled by cardiology 09260-6Oaoysyxtj encounter ZtlmTL7723-22-18K55:59:10Telephone encounter NoteTXT1.2.840.158069.1.13.104.2.7 .2.466844|[id number] for patient apag62276-0CfytCJHIEFNGQF[address]veston[place]vestonTXTX[address] 64WSXQHSSTHYYEHQZFRLPGEN1031-77-05 T20:59:101.2.840.065152.1.72.3.15| 1.2.840.292083.1.13.104.2.7.2.7278 [id number] [facility] 2023-01-26 12:40:27 KRMhaSNjOuWivEFuTuEx e0JCtZsKrxixZY WWbOG9AptXCQBUzUne/jDlIS63Hwq49874 -09-15T12:40:27 Requested Prescriptions Pending Prescriptions Disp Refills carvediloL 6.25 mg tablet 30 tablet 3 Sig: Take 1 tablet by mouth in the morning and 1 tablet in the evening. Take with meals. clopidogreL 75 mg tablet 90 tablet 3 Sig: Take 1 tablet by mouth in the morning. Has patient had an appointment within the last year? 11/09/22F/u in 2 months or earlier if needed Last Lab:K (mmol/L) Date Value 09/20/2022 4.0 CREATININE (mg/dL) Date Value 09/20/2022 0.43 (L) Next office visit scheduled on 02/09/23Future Appointments In 2 weeks Hodan Sr MD [facility], [facility] In 2 months Nick Rick MD [facility] Cardiology, [facility], [facility] Pharmacy and allergies verified? YesAmbulatory guidelines were Met RX's pended for approval; previously ordered by hospitalist.Please advise on lab order request. 85506-4Hbqfxstxc encounter NmrhZW3634-18-62W91:45:20Telephone encounter NoteTXT1.2.840.228843.1.13.104.2.7 .2.955873|[id number] for patient huks39228-9YyaqUU551079197Iobec F Gonzales RNUT[id number] 90VLAGKYOQBPCMGXVDQBZMUI9852-60-12 T12:45:201.2.840.237811.1.72.3.15| 1.2.840.111720.1.13.104.2.7.2.7278 [id number] Sandi Marks RN [facility] 2023-01-25 15:03:25 itzhJPTUqPrd/JcMp0+u CtwputichnzAYz izHypnZCnVG/APGStlYR6Vl/+NLatT98652022T15:03:25 Patient states she is needing refills. Her appointment was canceled for tomorrow and rescheduled for 02/09/2023. She is also requesting an order for a HgbA1C before her appointment.[facility] [id number] [address]kevon KinneyPhone: [phone] encounter GrifQV9931-29-21D20:06:33Telephone encounter NoteTXT1.2.840.185783.1.13.104.2.7 .2.755466|[id number] for patient kgnu39194-0JmlhTFNWHAYWEU[id number] 82WFVEKQWPDZCDZZDTADDOFD9969-14-98 T15:06:331.2.840.785378.1.72.3.15| 1.2.840.141821.1.13.104.2.7.2.7278 [id number] [facility] 2023-01-13 16:34:13 wlLkJU1Tf6TUzNS3dXYo djM4jvrqfCDYVl d27o9jbGUbOoxE8uftjnB4KlH/NBKN39732022T16:34:13 Pt discharged with diagnosis of right calf pain. Printed and verbal instructions reviewed with and given to patient. No new prescriptions given for this visit. Pt verbalized understanding of teaching and recommended follow-up. Denies questions or concerns at this time. Pt ambulatory at discharge. Appears in no apparent distress. No ataxia noted. 28057-3Okugvklvm department ZjwzVA6497-13-06X20:36:11[facility] NoteTXT1.2.840.236343.1.13.104.2.7 .2.128583|[id number] for patient bppm65010-7BfboCH112516269Uvluu N Dewoody RN[address]vdGalvestonGalvestonTXTX[address] 73DYGILNIBKQZNPIMZFSJDBR2553-00-32 T16:36:111.2.840.692438.1.72.3.15| 1.2.840.545291.1.13.104.2.7.2.7278 [id number] Shakila Arambula RN [facility] 2023-01-13 15:12:16 CYtXSvmxy2d5UvGoZCSP Aw6dF8JCij92BU wbGPrL/JYpklXX3f6etHxpru5kDoER9974 -09-02T15:12:16 Solo Caballero is a 47 year old femalec /o right lower leg pain x 3 days, denies injury, take plavix and asa 36428-0Hxxltgehh department Triage glbcSU0155-86-75T63:14:37[facility] Triage noteTXT1.2.840.361720.1.13.104.2.7 .2.863569|[id number] for patient iqic31407-0Gnwqorbjc department FdghKI015159415Opnpfq M. Barton RN[address]vdG[id number] 64GJHPHKXIAESFBAQUEYIGCH4360-71-19 T15:14:371.2.840.866876.1.72.3.15| 1.2.840.605390.1.13.104.2.7.2.7278 [id number] Nellie El RN [facility]
[2023-08-31] MEDS ORDERED: ONDANSETRON 4 MG/2 ML VIAL ONE (19:45)
[2023-08-31] MEDS ORDERED: NA CHLORIDE 0.9% 1,000 ML ONE (19:45)
[2023-08-31 20:07] LABS: Absolute Eosinophils 0.2 K/uL (0-0.5); Absolute Lymphocytes (CBC) 3.5 K/uL (0.7-4.9); Absolute Monocytes 0.8 K/uL (0.1-1.3); Absolute Neutrophil 4.7 K/uL (1.8-8.0); Basophils % 0.4 % (0-1.3); Eosinophils % 1.7 % (0-4.4); Hematocrit 39.3 % (36.0-45.0); Hemoglobin 13.2 g/dL (12.0-15.0); Lymphocytes % 38.2 % (15.3-44.8); MCH 29.6 pg (27.0-35.0); MCHC 33.6 g/dL (32.0-36.0); MCV 88.2 fL (80-100); MPV 7.1 fL (7.6-11.3); Monocytes % 8.4 % (3.3-12.3); Neutrophils % 51.3 % (41.7-73.7); Nucleated Red Blood Cells % 0.3 % (0-0); Platelets 361 thou/uL (152-406); RBC Red Blood Cell Count 4.46 M/uL (3.86-4.86); Red Cell Distribution Width 14.7 % (12.1-15.2)
[2023-08-31 20:17] LABS: Albumin 3.7 g/dL (3.4-5.0); Albumin/Globulin Ratio 0.9 (1.1-1.8); Anion Gap 8.4 mEq/L (5.0-15.0); Bilirubin Total 0.4 mg/dL (0.2-1.0); Globulin 4.2 g/dL (2.3-3.5); Potassium 3.4 mEq/L (3.5-5.1); Protein, Total 7.9 g/dL (6.4-8.2)
--- NOTE | 2023-08-31 20:50 | RAD REPORT ---
EXAM DESCRIPTION: CT - Abdomen Pelvis W Contrast - 08/31/2023 8:32 pm CLINICAL HISTORY: Abdominal pain COMPARISON: 2020 TECHNIQUE: Computed axial tomography of the abdomen pelvis was obtained. 100 cc Isovue-300 was admin istered intravenously. Oral contrast was not requested which limits evaluation of bowel and appendix All CT scans are performed using dose optimization technique as appropriate and may include automated exposure control or mA/KV adjustment according to patient size. FINDINGS: Cholecystectomy. Liver, spleen, pancreas and adrenals are unremarkable. Areas of cortical thinning right kidney perhaps secondary to prior inflammation. Left kidney unremark able. Normal appendix No adnexal mass. There is no evidence of diverticulitis. Small amount of air within the bladder Tiny umbilical hernia IMPRESSION: Small amount of air within the bladder may be secondary to prior instrumentation. Infect ion can also have this appearance and should be correlated clinically.
[2023-08-31 21:51] LABS: Specific Gravity 1.029 (1.005-1.030); Sqamous Epithelial <5 /HPF (None Seen); Urine Bacteria 20-50 /HPF (<20); Urine Bilirubin NEGATIVE (Negative); Urine Blood Negative (Negative); Urine Clarity Clear (Clear); Urine Color Light-Yellow (Yellow); Urine Culture Reflex Order NOT NEEDED; Urine Glucose 4+ (Over) (Negative); Urine Ketones NEGATIVE (Negative); Urine Micro Reflex YN NO BILL MICROSCOPIC; Urine Nitrite 2+ (Negative); Urine Protein NEGATIVE (Negative); Urine RBC <5 /HPF (None Seen); Urine Urobilinogen Normal (Normal); Urine WBC <5 /HPF (<5); Urine pH 5.5 (5.0-7.0)
[2023-08-31] MEDS ORDERED: CEFTRIAXONE 1000 MG/VIAL ONE (22:08)
--- NOTE | 2023-08-31 22:08 | EDPHYS ---
Physician Documentation [facility] Name: Tonya Caballero Age: 48 yrs Sex: Female : 1975 Arrival Date: 08/31/2023 Time: 19:25 Bed 14 Private MD: ED Physician Chacorta Ayala HPI: 08/30 19:40 This 48 yrs old Female presents to ER via Ambulatory with complaints of sb4 Nausea/Vomiting/Diarrhea. 19:40 The patient presents to the emergency department with nausea, vomiting, diarrhea. sb4 Onset: The symptoms/episode began/occurred 2 week(s) ago, and became worse today. Possible causes: unknown. Associated signs and symptoms: Pertinent negatives: abdominal pain, fever, GI bleeding. n/v/d x 2 weeks. 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 denies any abdominal pain. 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 - Hysterectomy, Not Historical: - Allergies: 19:39 No Known Allergies; - Home Meds: 19:39 Coreg 6.25 mg Oral tablet 1 tab 2 times per day [Active]; losartan 100 mg oral tablet 1 km8 tab daily [Active]; Plavix 75 mg Oral tablet 1 tab daily [Active]; Levemir FlexPen 100 unit/mL (3 mL) subcutaneous Insulin Pen 50 units once [Active]; omeprazole 20 mg Oral tablet, delayed release (enteric coated) 2 times per day [Active]; aspirin 81 mg Oral capsule 1 cap once [Active]; Jardiance 25 mg oral tablet 1 tab once [Active]; Actose 15mg once a day [Active]; [place] 10-325 mg Oral tab every 6 hours [Active]; barenicline 1mg BID [Active]; - PMHx: 19:39 Anxiety; Diabetes - NIDDM; Hyperlipidemia; Hypertension; Myocardial infarction; km8 - PSHx: 19:39 cardiac stints (Myocardial infarction); Cholecystectomy; left oopherectomy; partial km8 hysterectomy; - Immunization history:: Adult Immunizations up to date. - Infectious Disease History:: Denies. - Social history:: Smoking status: Patient reports the use of cigarette tobacco products, smokes one pack cigarettes per day. Patient/guardian denies using alcohol, street drugs. ROS: 19:40 Constitutional: Negative for fever, chills, and weight loss, sb4 19:40 Abdomen/GI: Positive for nausea, vomiting, and diarrhea, 19:40 All other systems are negative, Exam: 19:40 Constitutional: This is a well developed, well nourished patient who is awake, alert, sb4 and in no acute distress. Head/Face: Normocephalic, atraumatic. Eyes: Extra-ocular motions intact. Periorbital areas with no swelling, redness, or edema. ENT: Mucous membranes moist. Cardiovascular: Regular rate and rhythm with a normal S1 and S2. Respiratory: Lungs have equal breath sounds bilaterally, clear to auscultation and percussion. No rales, rhonchi or wheezes noted. No increased work of breathing, no retractions or nasal flaring. Abdomen/GI: Soft, non-tender, no distension. Skin: Warm, dry with normal turgor. Normal color with no rashes, no lesions, and no evidence of cellulitis. MS/ Extremity: Pulses equal, no cyanosis. Neurovascular intact. Full, normal range of motion. Neuro: Awake and alert, GCS 15, oriented to person, place, time, and situation. Motor strength 5/5 in all extremities. Sensory grossly intact. Vital Signs: 19:37 BP 204 / 114; Pulse 86; Resp 16; Temp 98(TE); Pulse Ox 97% on R/A; Weight 89.36 kg (R); km8 Height 5 ft. 2 in. (R); Pain 0/10; 20:35 BP 145 / 84; Pulse 84; Resp 18; Pulse Ox 100% on R/A; mb9 21:13 BP 141 / 99; Pulse 74; Resp 18; Pulse Ox 100% on R/A; mb9 22:00 BP 145 / 84; Pulse 85; Resp 17; Pulse Ox 97% on R/A; me1 19:37 Body Mass Index 36.03 (89.36 kg, 157.48 cm) [facility] 19:37 Pain Scale: Adult km8 MDM: 19:31 Patient medically screened. sb4 22:07 Data reviewed: vital signs, nurses notes, lab test result(s), radiologic studies, and sb4 as a result, I will discharge patient. Counseling: I had a detailed discussion with the patient and/or guardian regarding the historical points, exam findings, and any diagnostic results supporting the discharge/admit diagnosis, lab results, radiology results, to return to the emergency department if symptoms worsen or persist or if there are any questions or concerns that arise at home. 08/30 19:40 Order name: CBC with Diff; Complete Time: 20:09 sb4 08/30 19:40 Order name: CMP; Complete Time: 20:18 sb4 08/30 19:40 Order name: Lipase; Complete Time: 20:18 sb4 08/30 20:52 Order name: UAM; Complete Time: 21:52 sb4 08/30 19:40 Order name: CT Abd/Pelvis - IV Contrast Only; Complete Time: 20:52 sb4 08/30 19:40 Order name: IV Saline Lock; Complete Time: 19:56 sb4 08/30 19:40 Order name: Labs collected and sent; Complete Time: 19:56 sb4 Administered Medications: 19:56 Drug: NS 0.9% IV 1000 ml IV at 1 bolus Per protocol; 1000 mL bolus Route: IV; Rate: 1 mb9 bolus; Site: right antecubital; 21:59 Follow up: Response: No adverse reaction; IV Status: Completed infusion mb9 19:56 Drug: Ondansetron IVP 4 mg IVP once; over 2 minutes Route: IVP; Site: right antecubital;mb9 21:59 Follow up: Response: No adverse reaction mb9 22:16 Drug: Rocephin IV 1 grams IV at calculated rate once; Given slow IV push per pharmacy me1 instructions Route: IV; Rate: calculated rate; Site: right antecubital; 22:25 Follow up: Response: No adverse reaction; IV Status: Completed infusion me1 Disposition: 19:55 Co-signature as Attending Physician, Chacorta Ayala MD I reviewed the patient's care rt provided by the Advanced Practice Provider and agree with the diagnosis and treatment plan. Disposition Summary: 08/31/23 22:07 Discharge Ordered Notes: Location: Home sb4 Problem: new sb4 Symptoms: have improved sb4 Condition: Stable sb4 Diagnosis - UTI/ Urinary tract infection, site not specified sb4 Followup: sb4 - With: Emergency Department - When: As needed - Reason: Trouble breathing, Worsening of condition Discharge Instructions: - Discharge Summary Sheet sb4 - Urinary Tract Infection, Adult sb4 Forms: - Work release form sb4 - Thank You Letter sb4 - Patient Portal Instructions sb4 - Leadership Thank You Letter sb4 Prescriptions: - Macrobid 100 mg Oral Capsule - take 1 capsule ORAL route every 12 hours for 7 days; 14 capsule; Refills: 0, sb4 Product Selection Permitted - ondansetron 8 mg Oral Tablet,disintegrating - take 1 tablet ORAL route every 8 hours; 20 tablet; Refills: 0, Product sb4 Selection Permitted Signatures: Dispatcher [employer] EDMS Connie Sr PA-C PA-C sb4 Aaliyah Herman, RN RN mb9 Chacorta Ayala MD MD rt Cyn Junior RN RN me1 Janine Gil RN RN km8 Corrections: (The following items were deleted from the chart) 19:40 19:40 CBC+H.LAB.BRZ ordered. EDMS EDMS 19:40 19:40 COMPREHENSIVE METABOLIC PANEL+C.LAB.BRZ ordered. EDMS EDMS 19:40 19:40 LIPASE+C.LAB.BRZ ordered. EDMS EDMS
--- NOTE | 2023-08-31 22:08 | ER ---
Nurse's Notes [facility] Name: Tonya Caballero Age: 48 yrs Sex: Female : 1975 Arrival Date: 08/31/2023 Time: 19:25 Bed 14 Private MD: Diagnosis: UTI/ Urinary tract infection, site not specified Presentation: 08/30 19:35 Chief complaint: Patient states: n/v/d starting this morning. Coronavirus screen: [facility] Client denies travel out of the [place] in the last 14 days. Ebola Screen: No symptoms or risks identified at this time. Initial Sepsis Screen: Does the patient meet any 2 criteria? No. Patient's initial sepsis screen is negative. Does the patient have a suspected source of infection? No. Patient's initial sepsis screen is negative. Risk Assessment: Do you want to hurt yourself or someone else? Patient reports no desire to harm self or others. 19:35 Method Of Arrival: Ambulatory [facility] 19:35 Acuity: BOLA 3 [facility] 19:37 Onset of symptoms was August 31, 2023. [facility] Triage Assessment: 19:35 General: Appears comfortable, Behavior is calm, cooperative, appropriate for age. [facility] Pain:. EENT: No signs and/or symptoms were reported regarding the EENT system. Neuro: Level of Consciousness is awake, alert, obeys commands, Oriented to person, place, time, situation. Cardiovascular: Denies chest pain, shortness of breath, Patient's skin is warm and dry. Respiratory: Airway is patent Respiratory effort is even, unlabored, Respiratory pattern is regular, symmetrical. GI: Reports diarrhea, nausea, vomiting, Patient currently denies abdominal pain. : No signs and/or symptoms were reported regarding the genitourinary system. Derm: No signs and/or symptoms reported regarding the dermatologic system. Skin is intact, is healthy with good turgor, Skin is dry, Skin is pink, warm \T\ dry. normal, Skin temperature is warm. Musculoskeletal: No signs and/or symptoms reported regarding the musculoskeletal system. Range of motion: intact in all extremities. 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, Not [facility] Historical: - Allergies: 19:39 No Known Allergies; 8 - Home Meds: 19:39 Coreg 6.25 mg Oral tablet 1 tab 2 times per day [Active]; losartan 100 mg oral tablet 1 km8 tab daily [Active]; Plavix 75 mg Oral tablet 1 tab daily [Active]; Levemir FlexPen 100 unit/mL (3 mL) subcutaneous Insulin Pen 50 units once [Active]; omeprazole 20 mg Oral tablet, delayed release (enteric coated) 2 times per day [Active]; aspirin 81 mg Oral capsule 1 cap once [Active]; Jardiance 25 mg oral tablet 1 tab once [Active]; Actose 15mg once a day [Active]; [place] 10-325 mg Oral tab every 6 hours [Active]; barenicline 1mg BID [Active]; - PMHx: 19:39 Anxiety; Diabetes - NIDDM; Hyperlipidemia; Hypertension; Myocardial infarction; km8 - PSHx: 19:39 cardiac stints (Myocardial infarction); Cholecystectomy; left oopherectomy; partial km8 hysterectomy; - Immunization history:: Adult Immunizations up to date. - Infectious Disease History:: Denies. - Social history:: Smoking status: Patient reports the use of cigarette tobacco products, smokes one pack cigarettes per day. Patient/guardian denies using alcohol, street drugs. Screenin:[facility] ED Fall Risk Assessment (Adult) History of falling in the last 3 months, mb9 including since admission No falls in past 3 months (0 pts) Confusion or Disorientation No (0 pts) Intoxicated or Sedated No (0 pts) Impaired Gait No (0 pts) Mobility Assist Device Used No (0 pt) Altered Elimination No (0 pt) Score/Fall Risk Level 0 - 2 = Low Risk Oriented to surroundings, Maintained a safe environment, Educated pt \T\ family on fall prevention, incl call for assistance when getting out of bed, Assessed \T\ reinforced patient's understanding of fall precautions. Abuse screen: Denies threats or abuse. Nutritional screening: No deficits noted. Tuberculosis screening: No symptoms or risk factors identified. Assessment: 19:56 General: Appears uncomfortable, Behavior is calm, cooperative. Pain: Denies pain. mb9 Neuro: Serrano Agitation-Sedation Scale (RASS): 0 - Alert and Calm Level of Consciousness is awake, alert, obeys commands, Oriented to person, place, time, situation, Appropriate for age. Cardiovascular: Patient's skin is warm and dry. Respiratory: Airway is patent Respiratory effort is even, unlabored, Respiratory pattern is regular, symmetrical. GI: Abdomen is round non-distended, Bowel sounds present X 4 quads. Abd is soft and non tender X 4 quads. Reports nausea, vomiting. : No signs and/or symptoms were reported regarding the genitourinary system. EENT: No signs and/or symptoms were reported regarding the EENT system. Derm: Skin is pink, warm \T\ dry. Musculoskeletal: Range of motion: intact in all extremities. 21:41 Reassessment: Patient appears in no apparent distress at this time. No changes from mb9 previously documented assessment. Patient and/or family updated on plan of care and expected duration. Pain level reassessed. Patient is alert, oriented x 3, equal unlabored respirations, skin warm/dry/pink. Vital Signs: 19:37 BP 204 / 114; Pulse 86; Resp 16; Temp 98(TE); Pulse Ox 97% on R/A; Weight 89.36 kg (R); km8 Height 5 ft. 2 in. (R); Pain 0/10; 20:35 BP 145 / 84; Pulse 84; Resp 18; Pulse Ox 100% on R/A; mb9 21:13 BP 141 / 99; Pulse 74; Resp 18; Pulse Ox 100% on R/A; mb9 22:00 BP 145 / 84; Pulse 85; Resp 17; Pulse Ox 97% on R/A; me1 19:37 Body Mass Index 36.03 (89.36 kg, 157.48 cm) km8 19:37 Pain Scale: Adult [facility] ED Course: 19:26 Patient arrived in ED. [email or web address] 19:27 Connie Sr PA-C is PHCP. sb4 19:27 Chacorta Ayala MD is Attending Physician. sb4 19:35 Triage completed. km8 19:35 Arm band placed on right wrist. km8 19:44 Aaliyah Herman RN is Primary Nurse. mb9 19:49 Placed in gown. Bed in low position. Call light in reach. Side rails up X 1. Provided mb9 Education on: press call light if needing anything. Client placed on continuous cardiac and pulse oximetry monitoring. NIBP monitoring applied. secured entrance monitor on. 19:55 Inserted saline lock: 20 gauge in right antecubital area, using aseptic technique. rv1 Blood collected. 19:56 CBC with Diff Sent. rv1 19:56 CMP Sent. rv1 19:56 Lipase Sent. rv1 19:57 No provider procedures requiring assistance completed. mb9 20:34 CT Abd/Pelvis - IV Contrast Only In Process Unspecified. EDMS 20:[address]. mb9 21:59 Report given to LARS Mehta. mb9 22:26 IV discontinued, intact, bleeding controlled, No redness/swelling at site. Pressure me1 dressing applied. Administered Medications: 19:56 Drug: NS 0.9% IV 1000 ml IV at 1 bolus Per protocol; 1000 mL bolus Route: IV; Rate: 1 mb9 bolus; Site: right antecubital; 21:59 Follow up: Response: No adverse reaction; IV Status: Completed infusion mb9 19:56 Drug: Ondansetron IVP 4 mg IVP once; over 2 minutes Route: IVP; Site: right antecubital;mb9 21:59 Follow up: Response: No adverse reaction mb9 22:16 Drug: Rocephin IV 1 grams IV at calculated rate once; Given slow IV push per pharmacy me1 instructions Route: IV; Rate: calculated rate; Site: right antecubital; 22:25 Follow up: Response: No adverse reaction; IV Status: Completed infusion me1 Medication: 19:49 VIS not applicable for this client. mb9 Outcome: 22:07 Discharge ordered by . sb4 22:26 Discharged to home ambulatory, me1 22:26 Condition: stable 22:26 Discharge instructions given to patient, Instructed on discharge instructions, follow up and referral plans. medication usage, Demonstrated understanding of instructions, follow-up care, medications, Prescriptions given X 2, 22:27 Patient left the ED. me1 Signatures: Dispatcher [employer] EDMS Mary Ellen MccannjConnie Curtis PA-C PAPhillip sb4 Aaliyah Herman RN RN mb9 Bryanna Spence rv1 Cyn Junior RN RN ms1 Janine Gil, LARS RN km8 Corrections: (The following items were deleted from the chart) 19:39 19:35 Chief complaint: Patient states: n/v/d for 4 days km8 km8
[2023-08-31 22:34] VITALS: TEMP 98; O2SAT 97
[2023-08-31 23:05] VITALS: BP 145/84
== END 2023-08-31 22:27 | disposition home or self-care (01) ==
LOC: ER 19:25
DX: N39.0 Urinary tract infection, site not specified (principal); E11.9 Type 2 diabetes mellitus without complications; I10 Essential (primary) hypertension; F17.210 Nicotine dependence, cigarettes, uncomplicated; Z95.818 Presence of other cardiac implants and grafts; Z79.01 Long term (current) use of anticoagulants; Z79.82 Long term (current) use of aspirin; Z79.4 Long term (current) use of insulin
CPT/HCPCS: 96361; 85025; 81001; 36415; 83690; 80053; 74177; 96375; 96374; 99285; Q9967; J2405; J7030; J0696

== ENCOUNTER 2024-04-26 09:54 | Emergency (ER) | payer BC ==
--- OUTSIDE RECORDS SUMMARY | 2024-04-26 09:59 | XMS REPORT | Continuity of Care Document ---
Author Name Unknown Address [address] [facility] [address] [place] [address] [facility] Address [address] [facility] [address] [facility] [address] [place] [address] Care Team Providers Care Surgical Instrument Technician Name Role Phone WHIT SR Primary Care Physician Un available NICK RICK Attending Clinician Unavailable Nick Rick MD Attending Clinician [phone] Nick Rick MD Attending Clinician [phone] LAURA GANDHI Attending Clinician Unavailable Laura Gandhi MD Attending Clinician [phone] DAVID CRUZ Attending Clinician Unavail able WHIT SR Attending Clinician Unava ilYAZAN Nair Attending Clinician Unavailab tad GC_[email or web address]_S Attending Clinician UnavailWhit Vale MD Attending Clinician [phone] Doctor Unassigned, [place] Attending Clinician U navailable TRACI SINCLAIR Attending Clinician Unavailable Traci Eason Attending Clinician [phone] Andrea SOUSA, Heena Louis Attending Clinician Siri Gill RN, Ekaterina Joseph Attending Clinician [phone] Florencio BATEMAN, Ana Luisa Attending Clinician [phone] Moriah BATEMAN, Abhishek Zuñiga Attendin g Clinician MORIAH, ABHISHEK ZUÑIGA Attending C linician Unavailable LANCE PATEL Attending Clinician Unavailable Lance Patel DO Attending Clinician [phone] Lucas Sotelo MD Attending Clinician [phone] LAURA GANDHI Admitting Clinician Unavailable YAZAN ARBOLEDA Admitting Clinician Unavailab tad GC_GCBZW_Kadiyala_S Admitting Clinician UnavailTRACI Leung Admitting Clinician Unavailable Moriah BATEMAN, Abhishek Zuñiga Admittin g Clinician MORIAH, ABHISHEK ZUÑIGA Admitting C linician Unavailable Payers Payer Name Policy Type Policy Number Effective Date Expirati on Date Source [facility] STATE [id number] 2022 00:00:00 Problems Condition Name Condition Details Condition Category Status Onset Date Resolution Date Last Treatment Date Treating Clinician Comments Source Type 2 diabetes mellitus without complicati on, with long-term current use of insulin Type 2 diabetes mellitus without complicati on, with long-term current use of insulin Disease Recurre nce 10-16 00:00: 00 [facility] Coronary artery disease involving [place] coronary artery of [place] heart without angina pectoris Coronary artery disease involving [place] coronary artery of [place] heart without angina pectoris Disease Active 10-16 00:00: 00 [facility] Hyperlipid emia, unspecifie d hyperlipid emia type Hyperlipid emia, unspecifie d hyperlipid emia type Disease Active 10-16 00:00: 00 [facility] Primary hypertensi on Primary hypertensi on Disease Active 10-16 00:00: 00 [facility] Tobacco dependence Tobacco dependence Disease Active 10-16 00:00: 00 [facility] Obesity (BMI 30-39.9) Obesity (BMI 30-39.9) Disease Active 09-19 00:00: 00 [facility] No known active problems No known active problems Disease [facility] NSTEMI (non-ST elevated myocardial infarction ) NSTEMI (non-ST elevated myocardial infarction ) Disease Resolve d 09-19 00:00: 00 2022-10-16 00:00:00 2022-10-16 16:13:48 [facility] Allergies, Adverse Reactions, Alerts Allergy Name Allergy Type Status Severity Reaction(s) Onset Date Inactive Date Treating Clinician Comments Source NO KNOWN ALLERGIE S Drug Class Active [facility] Social History Social Habit Start Date Stop Date Quantity Comments Source Gender identity [facility] History of tobacco use Cigarette Smoker [facility] History SDOH Alcohol Std Drinks [facility] History SDOH Alcohol Binge [facility] History SDOH Social Connections Get Together [facility] History SDOH Social Connections Scientology [facility] History SDOH Social Connections Membership [facility] History SDOH Social Connections Meetings [facility] Alcoholic beverage intake 2023-08-13 00:00:00 2023-08-13 00:00:00 Lifetime non-drinker (finding) [facility] Alcohol intake 2023-08-13 00:00:00 2023-08-13 00:00:00 Lifetime non-drinker (finding) [facility] History of Social function 2022-11-09 00:00:00 2022-11-09 00:00:00 [facility] Cigarettes smoked current (pack per day) - Reported 2022-09-19 00:00:00 2022-09-19 00:00:00 [facility] Cigarette pack-years 2022-09-19 00:00:00 2022-09-19 00:00:00 [facility] Tobacco use and exposure 2022-09-19 00:00:00 2022-09-19 00:00:00 User of smokeless tobacco [facility] History SDOH Alcohol Frequency 2022-09-19 00:00:00 2022-09-19 00:00:00 1 [facility] History SDOH Social Connections Phone 2022-09-19 00:00:00 2022-09-19 00:00:00 1 [facility] History SDOH Social Connections Living 2022-09-19 00:00:00 2022-09-19 00:00:00 7 [facility] History SDOH Physical Activity DPW 2022-09-19 00:00:00 2022-09-19 00:00:00 0 [facility] History SDOH Physical Activity MPS 2022-09-19 00:00:00 2022-09-19 00:00:00 0 [facility] History SDOH Financial 2022-09-19 00:00:00 2022-09-19 00:00:00 5 [facility] History SDOH Food Worry 2022-09-19 00:00:00 2022-09-19 00:00:00 1 [facility] History SDOH Food Scarcity 2022-09-19 00:00:00 2022-09-19 00:00:00 1 [facility] History SDOH Transport Med 2022-09-19 00:00:00 2022-09-19 00:00:00 2 [facility] History SDOH Transport Non-Med 2022-09-19 00:00:00 2022-09-19 00:00:00 2 [facility] History SDOH Housing Unable to Pay 2022-09-19 00:00:00 2022-09-19 00:00:00 2 [facility] History SDOH Housing Places Lived 2022-09-19 00:00:00 2022-09-19 00:00:00 1 [facility] History SDOH Housing Homeless Last Year 2022-09-19 00:00:00 2022-09-19 00:00:00 2 [facility] Exposure to SARS-CoV-2 (event) 2022-09-08 00:00:00 2022-09-18 22:55:00 Not sure [facility] Sex assigned at 1975 00:00:00 1975 00:00:00 [facility] Smoking Status Start Date Stop Date Source Tobacco smoking consumption unknown [facility] Smokes tobacco daily 2022-09-19 00:00:00 [facility] Medications Ordered Medication Name Filled Medication Name Start Date Stop Date Current Medication? Ordering Clinician Indication Dosage Frequency Signature (SIG) Comments Components Source losartan 100 mg tablet 2023-05 00:00: 00 Yes [id number] 100mg TAKE 1 TABLET BY MOUTH EVERY MORNING [facility] clopidogreL 75 mg tablet 2023-05 00:00: 00 Yes [id number] 75mg TAKE 1 TABLET BY MOUTH EVERY MORNING [facility] carvediloL 6.25 mg tablet 2023-05 00:00: 00 Yes [id number] TAKE 2 TABLETS BY MOUTH EVERY MORNING AND ONE TABLET AT NIGHT [facility] LOSARTAN 100 mg tablet 12-04 00:00: 00 04-08 00:00 :00 No [id number] 100mg TAKE 1 TABLET BY MOUTH EVERY MORNING [facility] losartan 100 mg tablet 08-21 00:00: 00 Yes [id number] 100mg TAKE 1 TABLET BY MOUTH EVERY MORNING [facility] carvediloL 6.25 mg tablet 08-21 00:00: 00 04-08 00:00 :00 No [id number] TAKE 1 TABLET BY MOUTH TWICE A DAY (MORNING AND EVENING) WITH MEALS [facility] carvediloL 6.25 mg tablet 06-05 00:00: 00 Yes [id number] Take 2 tablets by mouth every morning AND 1 tablet every evening. [facility] ALPRAZolam (XANAX) 0.25 mg tablet 06-04 15:06: 32 Yes .25mg Take 1 tablet by mouth at bedtime as needed. [facility] nitroglycer in 0.4 mg sublingual tablet 06-04 00:00: [id number] 1 tablet under the tongue every 5 (five) minutes as needed for Chest pain. [facility] losartan 100 mg tablet 06-04 00:00: 00 Yes [id number] 100mg Take 1 tablet by mouth in the morning. [facility] clopidogreL 75 mg tablet 06-04 00:00: 00 04-08 00:00 :00 No [id number] 75mg Take 1 tablet by mouth in the morning. [facility] carvediloL 6.25 mg tablet 06-04 00:00: 00 06-05 00:00 :00 No [id number] 6.25mg Take 1 tablet by mouth in the morning and 1 tablet in the evening. Take with meals. Please take 12.5 mg ( 2 tabs of the 6.25) in the AM and 1 tablet (6.25 mg) in PM [facility] losartan (COZAAR) tablet 100 mg 2022-05 15:00: 00 Yes 100mg 100 mg, Oral, DAILY, First dose (after last modificati on) on Sun03/20/23 at 0900, Until Discontinu ed, Routine [facility] carvediloL (COREG) tablet 6.25 mg 2022-05 14:00: 00 Yes 6.25mg 6.25 mg, Oral, BID MEALS, First dose on Sun03/20/23 at 0800, Until Discontinu ed, Routine [facility] ketorolac (TORADOL) injection 15 mg 2022-05 02:00: 00 03-20 01:48 :00 No 15mg 15 mg, Slow IV Push, ONCE, 1 dose, On Sun03/19/23 at 1999, Routine [facility] NaCl 0.9% (NS) bolus infusion 1,000 mL 2022-05 02:00: 00 03-20 02:31 :00 No 1000mL at 999 mL/hr, 1,000 mL, IV Infusion, ONCE, 1 dose, On Sun03/19/23 at 1999, ERIK [facility] HYDROcodone -acetaminop hen (NORCO 5) 5-325 mg tablet 1 tablet 2022-05 00:00: 00 03-19 23:58 :00 No 1{tbl} 1 tablet, Oral, ONCE, 1 dose, On Sun03/19/23 at 1800, ERIK [facility] carvediloL 6.25 mg tablet 9-18 00:00: 00 06-04 00:00 :00 No [id number] 6.25mg Take 1 tablet by mouth in the morning and 1 tablet in the evening. Take with meals. [facility] clopidogreL 75 mg tablet 9-18 00:00: 00 06-04 00:00 :00 No [id number] 75mg Take 1 tablet by mouth in the morning. [facility] varenicline 1 mg tablet 7-03 00:00: 00 Yes [id number] 1mg Take 1 tablet by mouth in the morning and 1 tablet in the evening. [facility] insulin lispro 100 unit/mL pen injector 11-09 00:00: 00 Yes [id number] 9U inject 9 Units under the skin in the morning and 9 Units at noon and 9 Units in the evening. inject before meals. Adjust according to sliding scale [facility] Insulin Detemir 100 unit/mL (3 mL) injection 11-09 00:00: 00 Yes [id number] 18U inject 18 Units under the skin in the morning and 18 Units in the evening. [facility] Insulin Warner, Disposable, (BD INSULIN PEN NEEDLE UF) 31 gauge x 5/16" Ndle 11-09 00:00: 00 Yes [id number] Use to inject insulin daily [facility] Insulin Warner, Disposable, (BD INSULIN PEN NEEDLE UF) 31 gauge x 5/16" Ndle 29 00:00: 00 Yes [id number] Use to inject insulin daily [facility] insulin lispro 100 unit/mL pen injector 11-09 00:00: 00 Yes [id number] 9U inject 9 Units under the skin in the morning and 9 Units at noon and 9 Units in the evening. inject before meals. Adjust according to sliding scale [facility] insulin detemir U-100 100 unit/mL injection 11-09 00:00: 00 11-09 00:00 :00 No [id number] 18U inject 18 Units under the skin in the morning and 18 Units in the evening. inject with meals. [facility] varenicline 1 mg tablet 10-16 00:00: 00 Yes [id number] Start 1 week before quit date. Day 1-3: 0.5 mg (1/2 tab) once; Day 4-7: 0.5 mg (1/2 tab) twice; THEN 1 mg (1 tab) twice daily for 3 weeks. [facility] insulin detemir U-100 (LEVEMIR U-100 INSULIN) injection 12 Units 09-21 13:00: 00 Yes 12U 12 Units, Subcutaneo us, BID MEALS, First dose on Sun09/21/22 at 0800, Until Discontinu ed, Routine
Restricte d - To be dispensed only to: Continuati on from home [facility] insulin detemir U-100 (LEVEMIR U-100 INSULIN) injection 14 Units 09-21 13:00: 00 Yes 14U 14 Units, Subcutaneo us, BID MEALS, First dose (after last modificati on) on Sun09/21/22 at 0800, Until Discontinu ed, Routine
Restricte d - To be dispensed only to: Continuati on from home [facility] atorvastati n (LIPITOR) tablet 80 mg 09-21 02:00: 00 Yes 80mg 80 mg, Oral, QHS, First dose (after last modificati on) on Sun09/20/22 at 2100, Until Discontinu ed, Routine [facility] aspirin 81 mg chewable tablet 09-21 00:00: 00 Yes [id number] 81mg Take 1 tablet by mouth in the morning. [facility] losartan 100 mg tablet 09-21 00:00: 00 06-04 00:00 :00 No [id number] 100mg Take 1 tablet by mouth in the morning. [facility] insulin detemir U-100 100 unit/mL injection 09-21 00:00: 00 11-09 00:00 :00 No [id number] 14U inject 14 Units under the skin in the morning and 14 Units in the evening. inject with meals. [facility] carvediloL (COREG) tablet 6.25 mg 09-20 22:00: 00 Yes 6.25mg 6.25 mg, Oral, BID MEALS, First dose on Sun09/20/22 at 1700, Until Discontinu ed, Routine [facility] insulin lispro (human) (HumaLOG U-100) injection 6 Units 09-20 22:00: 00 Yes 6U 6 Units, Subcutaneo us, TID MEALS, First dose (after last modificati on) on Sun09/20/22 at 1700, Until Discontinu ed, Routine [facility] insulin lispro (human) (HumaLOG U-100) injection 9 Units 09-20 22:00: 00 Yes 9U 9 Units, Subcutaneo us, TID MEALS, First dose (after last modificati on) on Sun09/20/22 at 1700, Until Discontinu ed, Routine [facility] clopidogreL (PLAVIX) 300 mg tablet 600 mg 09-20 21:52: 00 09-20 21:58 :00 No 600mg 600 mg, Oral, ONCE, 1 dose, On Sun09/20/22 at 1700, Routine [facility] insulin glargine (LANTUS U-100) injection 18 Units 09-20 18:15: 00 09-20 20:52 :47 No 18U 18 Units, Subcutaneo us, DAILY, First dose (after last modificati on) on Sun09/20/22 at 1315, Until Discontinu ed, Routine [facility] ALPRAZolam (XANAX) 0.25 mg tablet 09-20 17:18: 36 Yes .25mg Take 1 tablet by mouth at bedtime as needed. [facility] metoprolol tartrate (LOPRESSOR) 50 mg tablet 09-20 17:18: 32 09-20 00:00 :00 No 25mg Take 0.5 tablets by mouth in the morning and 0.5 tablets in the evening. [facility] omeprazole 20 mg capsule 09-20 17:18: 09-20 00:00 :00 No 20mg Take 1 capsule by mouth in the morning and 1 capsule in the evening. [facility] losartan 25 mg tablet 09-20 17:18: 09-20 00:00 :00 No 25mg Take 1 tablet by mouth in the morning. [facility] hydrOXYzine (ATARAX) tablet 10 mg 09-20 15:45: 00 09-20 16:28 :00 No 10mg 10 mg, Oral, ONCE, 1 dose, On Sun09/20/22 at 1045, Routine [facility] perflutren protein-A microsphr (OPTISON) injection 3 mL 09-20 14:30: 00 09-20 14:30 :00 No [id number] 3mL 3 mL, IV Push, ONCE, 1 dose, On Sun09/20/22 at 0930, Routine [facility] losartan (COZAAR) tablet 100 mg 09-20 14:00: 00 Yes 100mg 100 mg, Oral, DAILY, First dose (after last modificati on) on Sun09/20/22 at 0900, Until Discontinu ed, Routine [facility] insulin lispro (human) (HumaLOG U-100) injection 2 Units 09-20 12:30: 00 09-20 18:02 :12 No 2U 2 Units, Subcutaneo us, TIDAC, First dose on Sun09/20/22 at 0730, Until Discontinu ed, Routine [facility] QUEtiapine (SEROQUEL) tablet 50 mg 09-20 02:00: 00 Yes 50mg 50 mg, Oral, QHS, First dose on Sun09/19/22 at 2100, Until Discontinu ed, Routine [facility] insulin glargine (LANTUS U-100) injection 10 Units 09-20 02:00: 00 09-20 12:15 :05 No 10U 10 Units, Subcutaneo us, QHS, First dose on Sun09/19/22 at 2100, Until Discontinu ed, [facility] (BRILINTA) tablet 90 mg 09-20 01:00: 00 Yes 90mg 90 mg, Oral, BID, First dose on Sun09/19/22 at 2000, Until Discontinu ed, Routine [facility] Blood-Gluco se Meter (ACCU-CHEK GUIDE GLUCOSE METER) [facility] 09-20 00:00: 00 Yes [id number] Use as directed [facility] lancets 33 gauge [facility] 09-20 00:00: 00 Yes [id number] Use as directed [facility] omeprazole 20 mg capsule 09-20 00:00: 00 Yes [id number] 20mg Take 1 capsule by mouth in the morning and 1 capsule in the evening. [facility] atorvastati n 80 mg tablet 09-20 00:00: 00 Yes [id number] 80mg Take 1 tablet by mouth at bedtime. [facility] empaglifloz in (JARDIANCE) 25 mg Tab 09-20 00:00: 00 Yes [id number] 25mg Take 1 tablet by mouth in the morning. [facility] pioglitazon e 15 mg tablet 09-20 00:00: 00 Yes [id number] 15mg Take 1 tablet by mouth in the morning. [facility] blood sugar diagnostic (ACCU-CHEK GUIDE TEST STRIPS) strip 09-20 00:00: 00 Yes [id number] Use as directed [facility] semaglutide (OZEMPIC) 0.25 mg or 0.5 mg (2 mg/3 mL) PnIj 09-20 00:00: 00 Yes [id number] .25mg inject 0.25 mg under the skin weekly. [facility] insulin lispro 100 unit/mL pen injector 09-20 00:00: 00 Yes [id number] Humalog insulin If blood sugar before meal [...] with sliding scale.Max dose 18 units daily [facility] Blood-Gluco se Meter (ACCU-CHEK GUIDE GLUCOSE METER) Misc 09-20 00:00: 00 Yes [id number] Use as directed [facility] nitroglycer in 0.4 mg sublingual tablet 09-20 00:00: 00 06-04 00:00 :[id number] 1 tablet under the tongue every 5 (five) minutes as needed for Chest pain. [facility] carvediloL 6.25 mg tablet 09-20 00:00: 00 01-29 00:00 :00 No [id number] 6.25mg Take 1 tablet by mouth in the morning and 1 tablet in the evening. Take with meals. [facility] clopidogreL 75 mg tablet 09-20 00:00: 00 01-29 00:00 :00 No [id number] 75mg Take 1 tablet by mouth in the morning. [facility] insulin lispro, human, 100 unit/mL injection 09-20 00:00: 00 11-09 00:00 :00 No [id number] 9U inject 9 Units under the skin in the morning and 9 Units at noon and 9 Units in the evening. inject with meals. Do all this for 180 days. [facility] Insulin Glargine (BASAGLAR KWIKPEN U-100 INSULIN) 100 unit/mL (3 mL) injection 09-20 00:00: 00 10-21 04:59 :00 No [id number] 14U inject 14 Units under the skin in the morning for 30 doses. [facility] ticagrelor 90 mg tablet 09-20 00:00: 00 09-20 00:00 :00 No [id number] 90mg Take 1 tablet by mouth in the morning and 1 tablet in the evening. [facility] insulin glargine 100 unit/mL injection 09-20 00:00: 00 09-20 00:00 :00 No [id number] 14U inject 14 Units under the skin in the morning and 14 Units in the evening. [facility] ALPRAZolam (XANAX) tablet 0.5 mg 09-19 22:45: 00 09-19 23:35 :00 No .5mg 0.5 mg, Oral, ONCE, 1 dose, On Sun09/19/22 at 1745, Routine [facility] HYDROcodone -acetaminop hen (NORCO) 10-325 mg tablet 1 tablet 09-19 21:30: 00 09-19 20:41 :00 No 1{tbl} 1 tablet, Oral, ONCE NOW, 1 dose, On Sun09/19/22 at 1630, Routine [facility] iopamidol (ISOVUE 370-500 mL) injection 09-19 19:21: 38 09-19 19:31 :01 No ONCE INTRA PROCEDURE, Starting on Sun09/19/22 at 1421, Until Sun09/19/22 at 1431, Routine, CV Intraproce dure [facility] ticagrelor (BRILINTA) tablet 09-19 19:19: 45 09-19 19:31 :01 No ONCE INTRA PROCEDURE, Starting on Sun09/19/22 at 1419, Until Sun09/19/22 at 1431, Routine, CV Intraproce dure [facility] adenosine 6 mg/1000 mL INTRACORONA RY injection for MANGA ARTIST 09-19 19:09: 32 09-19 19:31 :01 No ONCE INTRA PROCEDURE, Starting on Sun09/19/22 at 1409, Until Sun09/19/22 at 1431, Routine, CV Intraproce dure [facility] hydralAZINE (APRESOLINE ) injection 09-19 18:50: 51 09-19 19:31 :01 No ONCE INTRA PROCEDURE, Starting on Sun09/19/22 at 1350, Until Sun09/19/22 at 1431, STAT, CV Intraproce dure [facility] aspirin tablet 325 mg 09-19 18:33: 40 Yes 325mg 325 mg, Oral, PRE-PROCED URE ONCE, 1 dose, Starting on Sun09/19/22 at 1333, Until Discontinu ed, Routine, Surgery/Pr ocedure, CV Preprocedu re [facility] nitroglycer in (TRIDIL) 2 mg in 10 mL D5W for Cardiac Cath 09-19 18:12: 08 09-19 19:31 :01 No ONCE INTRA PROCEDURE, Starting on Sun09/19/22 at 1312, Until Sun09/19/22 at 1431, Routine, CV Intraproce dure [facility] verapamiL (ISOPTIN) injection 09-19 18:12: 01 09-19 19:31 :01 No ONCE INTRA PROCEDURE, Starting on Sun09/19/22 at 1312, Until Sun09/19/22 at 1431, Routine, CV Intraproce dure [facility] heparin 1,000 unit/mL injection 09-19 18:11: 48 09-19 19:31 :01 No ONCE INTRA PROCEDURE, Starting on Sun09/19/22 at 1311, Until Sun09/19/22 at 1431, Routine, CV Intraproce dure [facility] lidocaine 1% (PF) (XYLOCAINE) injection 09-19 18:01: 00 09-19 19:31 :01 No ONCE INTRA PROCEDURE, Starting on Sun09/19/22 at 1301, Until Sun09/19/22 at 1431, Routine, CV Intraproce dure [facility] midazolam (VERSED) injection 09-19 17:59: 40 09-19 19:31 :01 No ONCE INTRA PROCEDURE, Starting on Sun09/19/22 at 1259, Until Sun09/19/22 at 1431, Routine, CV Intraproce dure [facility] FENTanyl PF (SUBLIMAZE (PF)) injection 09-19 17:59: 16 09-19 19:31 :01 No ONCE INTRA PROCEDURE, Starting on Sun09/19/22 at 1259, Until Sun09/19/22 at 1431, Routine, CV Intraproce dure [facility] nicotine (NICODERM) 21 mg/24 hr patch 1 Patch 09-19 17:00: 00 09-20 18:44 :10 No 1{patch } 1 Patch, Topical, Administer over 24 Hours, Q24H, First dose on Sun09/19/22 at 1200, Until Discontinu ed, Routine [facility] lidocaine (LIDODERM) 5 % (700 mg/patch) patch 1 Patch 09-19 16:45: 00 09-20 04:11 :00 No 1{patch } 1 Patch, Topical, Administer over 12 Hours, ONCE, 1 dose, On Sun09/19/22 at 1145, Routine [facility] hydrOXYzine (ATARAX) tablet 10 mg 09-19 16:45: 00 09-19 16:10 :00 No 10mg 10 mg, Oral, ONCE, 1 dose, On Sun09/19/22 at 1145, Routine [facility] acetaminoph en-codeine (TYLENOL #3) 300-30 mg tablet 1 tablet 09-19 15:45: 01 Yes 1{tbl} 1 tablet, Oral, Q6HPRN, Starting on Sun09/19/22 at 1045, Until Discontinu ed, Routine, Pain (scale 7-10) [facility] metoprolol tartrate (LOPRESSOR) 50 mg tablet 09-19 15:03: 23 Yes 25mg Take 0.5 tablets by mouth in the morning and 0.5 tablets in the evening. [facility] omeprazole 20 mg capsule 09-19 15:03: 23 Yes 20mg Take 1 capsule by mouth in the morning and 1 capsule in the evening. [facility] ALPRAZolam (XANAX) 0.25 mg tablet 09-19 15:03: 23 Yes .25mg Take 1 tablet by mouth at bedtime as needed. [facility] losartan 25 mg tablet 09-19 15:03: 23 Yes 25mg Take 1 tablet by mouth in the morning. [facility] aspirin chewable tablet 81 mg 09-19 14:00: 00 Yes 81mg 81 mg, Oral, DAILY, First dose on Sun09/19/22 at 0900, Until Discontinu ed, Routine [facility] losartan (COZAAR) tablet 50 mg 09-19 14:00: 00 09-20 11:35 :46 No 50mg 50 mg, Oral, DAILY, First dose on Sun09/19/22 at 0900, Until Discontinu ed, Routine [facility] omeprazole (PRILOSEC) capsule 20 mg 09-19 13:00: 00 Yes 20mg 20 mg, Oral, BID, First dose on Sun09/19/22 at 0800, Until Discontinu ed, Routine [facility] Sliding Scale Insulin - Lispro (HumaLOG) 09-19 13:00: 00 Yes Subcutaneo us, Q4H, First dose on Sun09/19/22 at 0800, Until Discontinu ed, Routine [facility] metoprolol tartrate (LOPRESSOR) tablet 25 mg 09-19 13:00: 00 09-20 18:44 :35 No 25mg 25 mg, Oral, BID, First dose on Sun09/19/22 at 0800, Until Discontinu ed, Routine [facility] enoxaparin (LOVENOX) injection 90 mg 09-19 13:00: 00 09-19 09:34 :09 No 1mg/kg 90 mg (rounded from 90.7 mg = 1 mg/kg ?90.7 kg), Subcutaneo us, Q12H, First dose on Sun09/19/22 at 0800, Until Discontinu ed, Routine [facility] magnesium sulfate in water 4 gram/50 mL (8 %) IV Piggyback 4 g 09-19 11:15: 00 09-19 15:12 :00 No 4g 4 g, IV Piggyback, at 25 mL/hr Administer over 120 Minutes, ONCE, 1 dose, On Sun09/19/22 at 0615, Routine [facility] atorvastati n (LIPITOR) tablet 40 mg 09-19 10:00: 00 09-20 11:34 :17 No 40mg 40 mg, Oral, QHS, First dose on Sun09/19/22 at 0500, Until Discontinu ed, Routine [facility] ALPRAZolam (XANAX) tablet 0.25 mg 09-19 09:48: 00 Yes .25mg 0.25 mg, Oral, QHSPRN, Starting on Sun09/19/22 at 0448, Until Discontinu ed, Routine, Anxiety [facility] nitroglycer in (NITROSTAT) sublingual tablet 0.4 mg 09-19 09:35: 45 Yes .4mg 0.4 mg, Sublingual , Q5MIN PRN, Starting on Sun09/19/22 at 0435, Until Discontinu ed, Routine, Chest pain [facility] glucagon (GLUCAGEN DIAGNOSTIC KIT) injection 1 mg 09-19 09:33: 02 Yes 1mg 1 mg, Intramuscu lar, PRN, Starting on Sun09/19/22 at 0433, Until Discontinu ed, ERIK, Blood Glucose < or = 70 mg/dL and patient is NPO, unable to swallow or has mental changes. [facility] acetaminoph en (TYLENOL) tablet 650 mg 09-19 09:33: 02 Yes 650mg 650 mg, Oral, Q6HPRN, Starting on Sun09/19/22 at 0433, Until Discontinu ed, Routine, Pain (scale 1-3) [facility] dextrose 10% (D10W) bolus infusion 250 mL [...] blood glucose is < 80 mg/dL, repeat.
[facility] morpHINE (4 mg/mL) injection 4 mg 09-19 07:30: 00 09-19 07:21 :00 No 4mg 4 mg, Slow IV Push, ONCE, 1 dose, On Sun09/19/22 at 0230, STAT [facility] ondansetron (ZOFRAN (PF)) injection 4 mg 09-19 07:30: 00 09-19 07:21 :00 No 4mg 4 mg, Slow IV Push, ONCE, 1 dose, On Sun09/19/22 at 0230, ERIK [facility] NaCl 0.9% (NS) IV infusion 1,000 mL 09-19 07:00: 00 09-19 09:35 :57 No 1000mL at 999 mL/hr, Intravenou s, CONTINUOUS , Starting on Sun09/19/22 at 0200, Until Sun09/19/22 at 0435, Routine [facility] insulin regular human (HUMULIN R) injection 10 Units 09-19 06:45: 00 09-19 05:56 :00 No 10U 10 Units, Subcutaneo us, ONCE, 1 dose, On Sun09/19/22 at 0145, Routine
Indicatio n for insulin: Hyperglyce sheldon [facility] nitroglycer in (NITROSTAT) sublingual tablet 0.4 mg 09-19 05:15: 00 09-19 05:18 :00 No .4mg 0.4 mg, Sublingual , ONCE, 1 dose, On Sun09/19/22 at 0015, ERIK [facility] methylPREDN ISolone (MEDROL, JAVIER,) 4 mg tablets 05-16 00:00: 00 09-19 00:00 :00 No [id number] Take by mouth SEE-INSTRU CTIONS. follow package directions [facility] chlorphenir amine 4 mg tablet 05-16 00:00: 00 09-19 00:00 :00 No [id number] 4mg Take 1 tablet by mouth every 6 (six) hours as needed for Allergies or Runny nose. [facility] dicyclomine (BENTYL) 20 mg tablet 3 00:00: 00 09-19 00:00 :00 No [id number] 20mg Take 1 tablet by mouth 4 (four) times daily. [facility] metoclopram alicia HCl 10 mg tablet 3 00:00: 00 09-19 00:00 :00 No [id number] 10mg Take 1 tablet by mouth every 6 (six) hours. [facility] metoclopram alicia HCl 10 mg tablet 2017-05 00:00: 00 09-19 00:00 :00 No 10mg Take 1 tablet by mouth every 6 (six) hours as needed for Nausea and Vomiting (N/V). [facility] ondansetron 4 mg disintegrat ing tablet 2017-05 00:00: 00 09-19 00:00 :00 No 4mg Take 1 tablet by mouth every 8 (eight) hours as needed for Nausea and Vomiting (N/V). [facility] Immunizations Ordered Immunization Name Filled Immunization Name Date Status Comments Source Influenza Virus Vaccine 2023-02-19 00:00:00 Completed [facility] TDAP 2022-11-09 00:00:00 Completed [facility] TDAP 2022-11-09 00:00:00 Completed [facility] TDAP 2022-11-09 00:00:00 Completed [facility] TDAP 2022-11-09 00:00:00 Completed [facility] TDAP 2022-11-09 00:00:00 Completed [facility] SARS-COV-2 COVID-19 PFIZER VACCINE 2020-07-07 00:00:00 Completed SARS-COV-2 COVID-19 PFIZER VACCINE 2020-07-07 00:00:00 Completed [facility] SARS-COV-2 COVID-19 PFIZER VACCINE 2020-07-07 00:00:00 Completed [facility] SARS-COV-2 COVID-19 PFIZER VACCINE 2020-07-07 00:00:00 Completed [facility] SARS-COV-2 COVID-19 PFIZER VACCINE 2020-07-07 00:00:00 Completed [facility] SARS-COV-2 COVID-19 PFIZER VACCINE 2020-06-09 00:00:00 Completed SARS-COV-2 COVID-19 PFIZER VACCINE 2020-06-09 00:00:00 Completed [facility] SARS-COV-2 COVID-19 PFIZER VACCINE 2020-06-09 00:00:00 Completed [facility] SARS-COV-2 COVID-19 PFIZER VACCINE 2020-06-09 00:00:00 Completed [facility] SARS-COV-2 COVID-19 PFIZER VACCINE 2020-06-09 00:00:00 Completed [facility] SARS-COV-2 COVID-19 PFIZER VACCINE Unknown Completed [facility] TDAP Unknown Completed [facility] Influenza Virus Vaccine Unknown Completed [facility] SARS-COV-2 COVID-19 PFIZER VACCINE Unknown Completed [facility] TDAP Unknown Completed [facility] Influenza Virus Vaccine Unknown Completed [facility] SARS-COV-2 COVID-19 PFIZER VACCINE Unknown Completed [facility] SARS-COV-2 COVID-19 PFIZER VACCINE Unknown Completed [facility] TDAP Unknown Completed [facility] SARS-COV-2 COVID-19 PFIZER VACCINE Unknown Completed [facility] TDAP Unknown Completed [facility] TDAP Unknown Completed [facility] Influenza Virus Vaccine Unknown Completed [facility] SARS-COV-2 COVID-19 PFIZER VACCINE Unknown Completed [facility] SARS-COV-2 COVID-19 PFIZER VACCINE Unknown Completed [facility] TDAP Unknown Completed [facility] Influenza Virus Vaccine Unknown Completed [facility] Vital Signs Vital Name Observation Time Observation Value Comments S ource Systolic blood pressure 2023-08-13 04:15:00 193 mm[Hg] [facility] Diastolic blood pressure 2023-08-13 04:15:00 105 mm[Hg] [facility] Heart rate 2023-08-13 04:15:00 80 /min [facility] Body temperature 2023-08-13 04:15:00 36.78 Kezia [facility] Respiratory rate 2023-08-13 04:15:00 16 /min [facility] Oxygen saturation in Arterial blood by Pulse oximetry 2023-08-13 04:15:00 98 /min [facility] Body height 2023-08-13 02:16:00 160 cm [facility] Body weight 2023-08-13 02:16:00 89.631 kg [facility] BMI 2023-08-13 02:16:00 35.00 kg/m2 [facility] Systolic blood pressure 2023-06-04 21:10:00 171 mm[Hg] [facility] Diastolic blood pressure 2023-06-04 21:10:00 92 mm[Hg] [facility] Heart rate 2023-06-04 21:08:00 98 /min [facility] Body temperature 2023-06-04 21:08:00 36.44 Kezia [facility] Respiratory rate 2023-06-04 21:08:00 16 /min [facility] Body height 2023-06-04 21:08:00 160 cm [facility] Body weight 2023-06-04 21:08:00 92.987 kg [facility] BMI 2023-06-04 21:08:00 36.31 kg/m2 [facility] Oxygen saturation in Arterial blood by Pulse oximetry 2023-06-04 21:08:00 98 /min [facility] Systolic blood pressure 2023-03-20 01:48:00 148 mm[Hg] [facility] Diastolic blood pressure 2023-03-20 01:48:00 82 mm[Hg] [facility] Heart rate 2023-03-20 01:48:00 82 /min [facility] Body temperature 2023-03-20 01:48:00 36.61 Kezia [facility] Respiratory rate 2023-03-20 01:48:00 16 /min [facility] Oxygen saturation in Arterial blood by Pulse oximetry 2023-03-20 01:48:00 98 /min [facility] Body height 2023-03-19 23:37:00 160 cm [facility] Body weight 2023-03-19 23:37:00 90.719 kg [facility] BMI 2023-03-19 23:37:00 35.43 kg/m2 [facility] Systolic blood pressure 2023-01-13 20:13:00 150 mm[Hg] [facility] Diastolic blood pressure 2023-01-13 20:13:00 95 mm[Hg] [facility] Heart rate 2023-01-13 20:13:00 99 /min [facility] Body temperature 2023-01-13 20:13:00 36.72 Kezia [facility] Respiratory rate 2023-01-13 20:13:00 16 /min [facility] Body height 2023-01-13 20:13:00 160 cm [facility] Body weight 2023-01-13 20:13:00 94.348 kg [facility] BMI 2023-01-13 20:13:00 36.85 kg/m2 [facility] Oxygen saturation in Arterial blood by Pulse oximetry 2023-01-13 20:13:00 99 /min [facility] Systolic blood pressure 2022-11-09 14:39:00 135 mm[Hg] [facility] Diastolic blood pressure 2022-11-09 14:39:00 78 mm[Hg] [facility] Heart rate 2022-11-09 14:39:00 76 /min [facility] Respiratory rate 2022-11-09 14:39:00 16 /min [facility] Body height 2022-11-09 14:39:00 160 cm [facility] Body weight 2022-11-09 14:39:00 94.348 kg [facility] BMI 2022-11-09 14:39:00 36.85 kg/m2 [facility] Systolic blood pressure 2022-10-16 20:41:00 143 mm[Hg] [facility] Diastolic blood pressure 2022-10-16 20:41:00 84 mm[Hg] [facility] Heart rate 2022-10-16 20:41:00 89 /min [facility] Respiratory rate 2022-10-16 20:41:00 16 /min [facility] Body height 2022-10-16 20:41:00 162.6 cm [facility] Body weight 2022-10-16 20:41:00 94.348 kg [facility] BMI 2022-10-16 20:41:00 35.70 kg/m2 [facility] Oxygen saturation in Arterial blood by Pulse oximetry 2022-10-16 20:41:00 96 /min [facility] Systolic blood pressure 2022-09-20 16:20:00 178 mm[Hg] [facility] Diastolic blood pressure 2022-09-20 16:20:00 96 mm[Hg] [facility] Heart rate 2022-09-20 16:20:00 76 /min [facility] Body temperature 2022-09-20 16:20:00 37 Kezia [facility] Respiratory rate 2022-09-20 16:20:00 20 /min [facility] Oxygen saturation in Arterial blood by Pulse oximetry 2022-09-20 16:20:00 98 /min [facility] Body height 2022-09-19 09:00:00 160 cm [facility] Body weight 2022-09-19 09:00:00 92.579 kg actual wt on the regular scale [facility] BMI 2022-09-19 09:00:00 36.15 kg/m2 [facility] Systolic blood pressure 2022-09-19 17:55:18 183 mm[Hg] [facility] Diastolic blood pressure 2022-09-19 17:55:18 93 mm[Hg] [facility] Heart rate 2022-09-19 17:55:18 65 /min [facility] Respiratory rate 2022-09-19 17:55:18 20 /min [facility] Oxygen saturation in Arterial blood by Pulse oximetry 2022-09-19 17:55:18 100 /min [facility] Body temperature 2022-09-19 16:22:00 36.11 Kezia [facility] Body height 2022-09-19 09:00:00 160 cm [facility] Body weight 2022-09-19 09:00:00 92.579 kg actual wt on the regular scale [facility] BMI 2022-09-19 09:00:00 36.15 kg/m2 [facility] Systolic blood pressure 2022-05-16 15:58:00 168 mm[Hg] [facility] Diastolic blood pressure 2022-05-16 15:58:00 100 mm[Hg] [facility] Heart rate 2022-05-16 15:58:00 100 /min [facility] Body temperature 2022-05-16 15:58:00 36.72 Kezia [facility] Respiratory rate 2022-05-16 15:58:00 20 /min [facility] Body height 2022-05-16 15:58:00 160 cm [facility] Body weight 2022-05-16 15:58:00 90.719 kg [facility] BMI 2022-05-16 15:58:00 35.43 kg/m2 [facility] Oxygen saturation in Arterial blood by Pulse oximetry 2022-05-16 15:58:00 97 /min [facility] Systolic blood pressure 2019-11-24 19:11:00 163 mm[Hg] [facility] Diastolic blood pressure 2019-11-24 19:11:00 93 mm[Hg] [facility] Heart rate 2019-11-24 19:11:00 77 /min [facility] Body temperature 2019-11-24 19:11:00 37.17 Kezia [facility] Respiratory rate 2019-11-24 19:11:00 18 /min [facility] Body weight 2019-11-24 19:11:00 90.719 kg [facility] BMI 2019-11-24 19:11:00 35.43 kg/m2 [facility] Oxygen saturation in Arterial blood by Pulse oximetry 2019-11-24 19:11:00 99 /min [facility] Systolic blood pressure 2019-11-24 19:11:00 163 mm[Hg] [facility] Diastolic blood pressure 2019-11-24 19:11:00 93 mm[Hg] [facility] Heart rate 2019-11-24 19:11:00 77 /min [facility] Body temperature 2019-11-24 19:11:00 37.17 Kezia [facility] Respiratory rate 2019-11-24 19:11:00 18 /min [facility] Body weight 2019-11-24 19:11:00 90.719 kg [facility] BMI 2019-11-24 19:11:00 35.43 kg/m2 [facility] Oxygen saturation in Arterial blood by Pulse oximetry 2019-11-24 19:11:00 99 /min [facility] Procedures Procedure Date / Time Performed Performing Clinician Source XR HAND 3+ VW LEFT 2023-08-13 03:27:53 Laura Gandhi [facility] XR WRIST 3+ VW LEFT 2023-08-13 03:27:53 Laura Gandhi [facility] POCT GLUCOSE(AGE >30DAYS) 2023-03-20 01:58:00 Yazan Gaston [facility] POCT GLUCOSE (AUTOMATED) 2023-03-20 01:57:00 Yazan Bender [facility] DUPLEX VENOUS LEG RIGHT - BY VASCULAR LAB 2023-03-20 00:34:54 Yazan Arboleda [facility] COMP. METABOLIC PANEL (77669) 2023-03-19 23:56:00 Yazan Arboleda [facility] CBC WITH DIFF 2023-03-19 23:56:00 [facility] 2023-03-19 23:20:04 Doctor Unassigned, [place] [facility] ASSIGNMENT OF BENEFITS 2023-01-13 21:40:36 Docto r Unassigned, [place] [facility] CONSENT/REFUSAL FOR DIAGNOSIS AND TREATMENT 2023-01-13 20:00:11 Doctor Unassigned, [place] [facility] TDAP VACCINE, >11 YRS, IM 2022-11-09 15:09:16 attWhit [facility] [id number] CONSENT 2022-11-09 05:01:00 Doctor Unas signed, [place] [facility] ASSIGNMENT OF BENEFITS 2022-10-16 20:33:36 Docto r Unassigned, [place] [facility] POCT GLUCOSE (AUTOMATED) 2022-09-20 16:58:00 [facility] POCT GLUCOSE (AUTOMATED) 2022-09-20 16:58:00 Abhishek Dsouza [facility] TRANSTHORACIC ECHO (TTE) COMPLETE W/ CONTRAST 2022-09-20 14:18:25 Luisa [facility] TRANSTHORACIC ECHO (TTE) COMPLETE W/ CONTRAST 2022-09-20 14:18:25 Morelia Moran [facility] POCT GLUCOSE (AUTOMATED) 2022-09-20 13:13:00 [facility] [place] [facility] POCT GLUCOSE (AUTOMATED) 2022-09-20 13:13:00 [facility] [place] [facility] MAGNESIUM 2022-09-20 09:54:00 Raúl Perkins [facility] BASIC METABOLIC PANEL (NA, K, CL, CO2, GLUCOSE, BUN, CREATININE, CA) 2022-09-20 09:54:00 Raúl Perkins [facility] CBC WITHOUT DIFF 2022-09-20 09:54:[address] [facility] MAGNESIUM 2022-09-20 09:54:00 Raúl Perkins [facility] BASIC METABOLIC PANEL (NA, K, CL, CO2, GLUCOSE, BUN, CREATININE, CA) 2022-09-20 09:54:00 Raúl Perkins [facility] CBC WITHOUT DIFF 2022-09-20 09:54:00 Maddie, Raakhi [facility] POCT GLUCOSE (AUTOMATED) 2022-09-20 09:50:00 James colin Abhishek Jensen [facility] POCT GLUCOSE (AUTOMATED) 2022-09-20 09:50:00 James colin Abhishek [facility] POCT GLUCOSE (AUTOMATED) 2022-09-20 05:02:00 James colin stevekira Jensen [facility] POCT GLUCOSE (AUTOMATED) 2022-09-20 05:02:00 Abhishek Dsouza Gelacio Sylviaanna [facility] ACTIVATED PARTIAL THRMPLAS MICHELLE 2022-09-20 02:01:00 Luisa [facility] ACTIVATED PARTIAL THRMPLAS MICHELLE 2022-09-20 02:01:00 Luisa [facility] POCT GLUCOSE (AUTOMATED) 2022-09-20 01:58:00 James colin josiah Gelacio anna [facility] POCT GLUCOSE (AUTOMATED) 2022-09-20 01:58:00 James colin josiah Gelacio anna [facility] ACTIVATED PARTIAL THRMPLAS MICHELLE 2022-09-19 22:03:00 Luisa [facility] ACTIVATED PARTIAL THRMPLAS MICHELLE 2022-09-19 22:03:00 Luisa [facility] POCT GLUCOSE (AUTOMATED) 2022-09-19 21:34:00 James colin josiah Gelacio Jensen [facility] POCT GLUCOSE (AUTOMATED) 2022-09-19 21:34:00 James colin josiah Gelacio Sylviaanna [facility] CARDIAC CATHETERIZATION 2022-09-19 19:12:51 Shal andrew, josiah Gelacio Camila [facility] CARDIAC CATHETERIZATION 2022-09-19 19:12:51 Shal andrewAbhishek varma Gelacio Sylviaanna [facility] CARDIAC CATHETERIZATION 2022-09-19 19:12:51 Shal andrew, josiah Gelacio Camila [facility] CARDIAC CATHETERIZATION 2022-09-19 19:12:51 Jamesl andrewAhbishek [facility] CARDIAC CATHETERIZATION 2022-09-19 19:12:51 Jamesl andrewAbhishek [facility] CARDIAC CATHETERIZATION 2022-09-19 19:12:51 Jamesl andrewAhbishek [facility] [place] [facility] CARDIAC CATHETERIZATION 2022-09-19 19:12:51 Jamesl andrewAbhishek [facility] [place] [facility] CARDIAC CATHETERIZATION 2022-09-19 19:12:51 Shal andrewAbhishek [facility] [place] [facility] CARDIAC CATHETERIZATION 2022-09-19 19:12:51 Jamesl andrewAbhishek [facility] [place] [facility] CARDIAC CATHETERIZATION 2022-09-19 19:12:51 Jamesl andrewAbhishek [facility] [place] [facility] POCT ACT LOW RANGE 2022-09-19 19:04:00 MoriahAbhishek [facility] POCT ACT LOW RANGE 2022-09-19 19:04:00 MoriahAbhishek [facility] POCT ACT LOW RANGE 2022-09-19 18:31:00 MoriahAbhishek [facility] POCT ACT LOW RANGE 2022-09-19 18:31:00 MoriahAbhishek [facility] POCT GLUCOSE (AUTOMATED) 2022-09-19 14:21:00 Abu-Summer bojorquez [facility] POCT GLUCOSE (AUTOMATED) 2022-09-19 14:21:00 Abu-Summer bojorquez [facility] COVID-19 (ID NOW RAPID TESTING) 2022-09-19 11:30:00 Luisa [facility] LAB ONLY COVID INTERPRETATION 2022-09-19 11:30:00 Morelia Moran [facility] COVID-19 (ID NOW RAPID TESTING) 2022-09-19 11:30:00 Luisa [facility] LAB ONLY COVID INTERPRETATION 2022-09-19 11:30:00 Luisa [facility] TROPONIN I 2022-09-19 11:28:00 [facility] N-TERMINAL PRO-BNP 2022-09-19 11:28:00 Luisa [facility] TROPONIN I 2022-09-19 11:28:00 [facility] N-TERMINAL PRO-BNP 2022-09-19 11:28:00 Luisa [facility] PROTHROMBIN TIME / INR 2022-09-19 11:27:00 Sa Luisa [facility] ACTIVATED PARTIAL THRMPLAS MICHELLE 2022-09-19 11:27:00 Luisa [facility] PROTHROMBIN TIME / INR 2022-09-19 11:27:00 Sa Luisa [facility] ACTIVATED PARTIAL THRMPLAS MICHELLE 2022-09-19 11:27:00 Luisa [facility] XR CHEST 1 VW 2022-09-19 10:21:00 Luisa [facility] XR CHEST 1 VW 2022-09-19 10:21:00 Luisa [facility] HB ECG ROUTINE & RHYTHM STRIP 2022-09-19 09:42:59 Luisa [facility] HB ECG ROUTINE & RHYTHM STRIP 2022-09-19 09:42:59 Luisa [facility] POCT GLUCOSE (AUTOMATED) 2022-09-19 07:12:00 Jose R Gandhi [facility] POCT GLUCOSE (AUTOMATED) 2022-09-19 07:12:00 Jose R Gandhi [facility] POCT GLUCOSE (AUTOMATED) 2022-09-19 05:54:00 Jose R Gandhi [facility] POCT GLUCOSE (AUTOMATED) 2022-09-19 05:54:00 Jose R Gandhi [facility] URINE DRUG (IMMUNOASSAY) - COMPREHENSIVE DRUG SCREEN 2022-09-19 05:19:00 Laura Gandhi [facility] URINALYSIS 2022-09-19 05:19:00 Laura [facility] URINE DRUG (IMMUNOASSAY) - COMPREHENSIVE DRUG SCREEN 2022-09-19 05:19:00 Laura Gandhi [facility] URINALYSIS 2022-09-19 05:19:00 Laura [facility] XR CHEST 2 VW 2022-09-19 04:44:00 Laura Gandhi [facility] XR CHEST 2 VW 2022-09-19 04:44:00 Laura Gandhi [facility] LIPASE 2022-09-19 04:01:00 Laura [facility] MAGNESIUM 2022-09-19 04:01:00 [facility] TROPONIN I 2022-09-19 04:01:00 [facility] COMP. METABOLIC PANEL ([id number]) 2022-09-19 04:01:00 Laura Gandhi [facility] LIPID PANEL ([id number])(TOTAL CHOLESTEROL, TRIGLYCERIDES, HDL) 2022-09-19 04:01:00 Luisa [facility] CBC WITH DIFF 2022-09-19 04:01:00 Laura Gandhi [facility] GLYCOSYLATED HEMOGLOBIN (A1C) 2022-09-19 04:01:00 Morelia Moran [facility] LIPASE 2022-09-19 04:01:00 Laura [facility] MAGNESIUM 2022-09-19 04:01:00 [facility] TROPONIN I 2022-09-19 04:01:00 Laura [facility] COMP. METABOLIC PANEL ([id number]) 2022-09-19 04:01:00 Laura Gandhi [facility] LIPID PANEL ([id number])(TOTAL CHOLESTEROL, TRIGLYCERIDES, HDL) 2022-09-19 04:01:00 Morelia Moran [facility] CBC WITH DIFF 2022-09-19 04:01:00 Laura Gandhi [facility] GLYCOSYLATED HEMOGLOBIN (A1C) 2022-09-19 04:01:00 Morelia Moran [facility] HB ECG ROUTINE & RHYTHM STRIP 2022-09-19 03:59:05 Laura Gandhi [facility] HB ECG ROUTINE & RHYTHM STRIP 2022-09-19 03:59:05 Laura Gandhi [facility] [facility] CONSENT/REFUSAL FOR DIAGNOSIS AND TREATMENT 2022-09-19 03:48:27 Doctor Unassigned, [place] [facility] CONSENT/REFUSAL FOR DIAGNOSIS AND TREATMENT 2022-09-19 03:48:27 Doctor Unassigned, [place] [facility] HOSPITAL ADMISSION 2022-09-18 05:01:00 Doctor Un assigned, [place] [facility] HOSPITAL ADMISSION 2022-09-18 05:01:00 Doctor Un assigned, [place] [facility] CONSENT/REFUSAL FOR DIAGNOSIS AND TREATMENT 2022-05-16 15:53:10 Doctor Unassigned, [place] [facility] URINALYSIS 2019-11-24 19:18:00 Lucas Sotelo [facility] NOTICE OF PRIVACY PRACTICES 2019-11-24 18:53:10 Doctor Unassigned, [place] [facility] CONSENT/REFUSAL FOR DIAGNOSIS AND TREATMENT 2019-11-24 18:52:41 Doctor Unassigned, [place] [facility] Encounters Start Date/Time End Date/Time Encounter Type Admission Type Attending [facility] Care Facility Care Department Encounter ID Source 2024-04-28 15:00:00 2024-04-28 15:00:00 Outpatient R NICK RICK [facility] [id number] Rodrigo [facility] 2024-04-07 00:00:00 2024-04-08 10:46:34 Refill Nick Rick [facility] 1.2.840.114 350.1.13.10 4.2.7.2.686 [id number] [facility] 2023-08-22 00:00:00 2023-08-22 00:00:00 Refill Nick [facility] 1..840.114 350.1.13.10 4.2.7.2.686 [id number] [facility] 2023-08-12 21:20:00 2023-08-12 23:50:00 Emergency X ALURA GANDHI [facility] ERT [id number] [facility] 2023-08-12 21:20:00 2023-08-12 23:50:00 Emergency Laura Gandhi [facility] 1..840.114 350.1.13.10 4.2.7.2.686 [id number] [facility] 2023-08-06 00:00:00 2023-08-06 00:00:00 Outpatient R DAVID CRUZ [facility] [id number] [facility] 2023-06-04 15:00:00 2023-06-04 15:30:00 Office Visit Nick Rick [facility] 1.2.840.114 350.1.13.10 4.2.7.2.686 [id number] [facility] 2023-06-04 15:00:00 2023-06-04 15:00:00 Outpatient R NICK RICK [facility] [id number] [facility] 2023-06-04 00:00:00 2023-06-04 00:00:00 Telephone Nick Rick [facility] 1.2.840.114 350.1.13.10 4.2.7.2.686 [id number] [facility] 2023-04-16 15:30:00 2023-04-16 15:30:00 Outpatient R NICK RICK [facility] [id number] [facility] 2023-03-29 11:00:00 2023-03-29 11:00:00 Outpatient R WHIT SR [facility] [id number] [facility] 2023-03-19 17:46:00 2023-03-19 20:41:00 Emergency X YAZAN ARBOLEDA [facility] ERT [id number] [facility] 2023-03-19 17:46:00 2023-03-19 20:41:00 Emergency Yazan Arboleda [facility] 1.840.114 350.1.13.10 4.2.7.2.686 [id number] [facility] 2023-03-14 00:00:00 2023-03-14 00:00:00 Outpatient GC_GCBZW_Ka diyala_S PRIV [facility] [id number] [facility] 2023-02-15 09:40:00 2023-02-15 09:40:00 Outpatient R RALPHWHIT KWONG [facility] [id number] [facility] 2023-01-25 00:00:00 2023-01-25 00:00:00 [facility] 1.840.114 350.1.13.10 4.2.7.2.686 [id number] [facility] 2023-01-24 00:00:00 2023-01-24 00:00:00 Patient Secure Msg Doctor Unassigned, [place] [facility] ..114 350.1.13.10 4.2.7.2.686 [id number] [facility] 2023-01-22 00:00:00 2023-01-22 00:00:00 Outpatient DAVID TRINIDAD [facility] [id number] [facility] 2023-01-13 15:15:00 2023-01-13 16:47:00 Emergency X TRACI SINCLAIR [facility] ERT [id number] [facility] 2023-01-13 15:15:00 2023-01-13 16:47:00 Emergency Traci Sinclair S [facility] 1.0.114 350.1.13.10 4.2.7.2.686 [id number] [facility] 2022-12-26 00:00:00 2022-12-26 00:00:00 Outpatient DAVID TRINIDAD [facility] [id number] [facility] 2022-11-27 00:00:00 2022-11-27 00:00:00 Outpatient DAVID TRINIDAD [facility] [id number] [facility] 2022-11-09 09:40:00 2022-11-09 10:44:07 Outpatient R WHIT SR [facility] [id number] [facility] 2022-11-09 09:40:00 2022-11-09 10:44:07 Office Visit Whit Sr [facility] 1.114 350.1.13.10 4.2.7.2.686 [id number] [facility] 2022-11-09 00:00:00 2022-11-09 00:00:00 Orders Only Doctor Unassigned, [place] [facility] 1..114 350.1.13.10 4.2.7.2.686 [id number] [id number] [facility] 2022-11-01 00:00:00 2022-11-01 00:00:00 Telephone Nick Rick [facility] 1..114 350.1.13.10 4.2.7.2.686 [id number] 059 [id number] [facility] 2022-10-16:30:00 2022-10-16 16:45:49 Outpatient R NICK RICK [facility] [id number] [facility] 2022-10-16 15:30:00 2022-10-16 16:45:49 Office Visit Nick Rick [facility] 1.2.840.114 350.1.13.10 4.2.7.2.686 [id number] [facility] 2022-10-16 00:00:00 2022-10-16 00:00:00 Orders Only Doctor Unassigned, [place] [facility] 1.2.840.114 350.1.13.10 4.2.7.2.686 [id number] [facility] 2022-10-11 00:00:00 2022-10-11 00:00:00 Patient Secure Msg Doctor Unassigned, [place] [facility] 1.2.840.114 350.1.13.10 4.2.7.2.686 [id number] [facility] 2022-10-03 00:00:00 2022-10-03 00:00:00 Telephone [facility] 1.2.840.114 350.1.13.10 4.2.7.2.686 [id number] [facility] 2022-09-28 00:00:00 2022-09-28 00:00:00 Telephone [facility] 1.2.840.114 350.1.13.10 4.2.7.2.686 [id number] [facility] 2022-09-24 00:00:00 2022-09-24 00:00:00 Telephone [facility] 1.2.840.114 350.1.13.10 4.2.7.2.686 [id number] [facility] 2022-09-21 00:00:00 2022-09-21 00:00:00 Transition of Care Bridget Ekaterina COLLAD[facility] 1.2.840.114 350.1.13.10 4.2.7.2.686 [id number] [facility] 2022-09-18 22:51:00 2022-09-20 17:18:00 Hospital Encounter Laura Gandhi h, Abhishek Jaquez Gel[facility] 1.2.840.114 350.1.13.10 4.2.7.2.686 [id number] [facility] 2022-09-18 22:51:00 2022-09-20 17:18:00 Inpatient X ABHISHEK MAJOR [facility] [id number] [facility] 2022-09-19 10:57:00 2022-09-19 12:57:[address] [facility] 1.2.840.114 350.1.13.10 4.2.7.2.686 [id number] [facility] 2022-05-16 10:00:00 2022-05-16 11:08:00 Emergency X LANCE PATEL [facility] ERT [id number] [facility] 2022-05-16 10:00:00 2022-05-16 11:08:00 Emergency Lance Patel [facility] 1.2.840.114 350.1.13.10 4.2.7.2.686 [id number] [facility] 2022-05-16 00:00:00 2022-05-16 00:00:00 Orders Only Doctor Unassigned, [place] [facility] 1.2.840.114 350.1.13.10 4.2.7.2.686 [id number] [facility] 2019-11-24 14:20:26 2019-11-24 18:54:00 Emergency Lucas Sotelo [facility] 1.2.840.114 350.1.13.10 4.2.7.2.686 [id number] [facility] 2019-11-24 14:20:26 2019-11-24 18:54:00 Emergency Lucas Sotelo [facility] 1.2.840.114 350.1.13.10 4.2.7.2.686 [id number] 2019-11-24 13:53:00 2019-11-24 13:53:00 Emergency X [facility] ERT [id number] [facility] Results Test Description Test Time Test [...] noted. Soft tissues are within normal limits. [facility] XR WRIST 3+ VW LEFT [...] Soft tissues are withinnormal limits. [facility] >30DAYS[facility]2023-03-20 01:58:00* Test Item Value Reference Range Interpretation Comme nts POCT Glu (age>30days) (test code = 3342) 274 mg/dL 70-110 A Lab Interpretation (test cod e = 22969-3) [facility] (53130)2023-03-20 00:22:07* Test Item Value Reference Range Interpretation Comme nts NA (test code = 9724919666) 137 mmol/L 135-145 K (test code = 8055199646) 4.0 mmol/L 3.5-5.0 CL (test code = 0302562078) 104 mmol/L 98-108 CO2 TOTAL (test code = 6855410625) 24 mmol/L 23-31 AGAP (test code = 6812591077) 9 2-16 BUN (test code = 4627851755) 11 mg/dL 7-23 GLUCOSE (test code = 7940220791) 339 mg/dL 70-110 H CREATININE (test code = 3261849594) 0.60 mg/dL 0.50-1.04 TOTAL BILI (test code = 8421804867) 0.3 mg/dL 0.1-1.1 CALCIUM (test code = 2986065420) 9.2 mg/dL 8.6-10.6 T PROTEIN (test code = 6491718838) 7.1 g/dL 6.3-8.2 ALBUMIN (test code = 8370568263) 3.8 g/dL 3.5-5.0 ALK PHOS (test code = 8959695472) 148 U/L 34-122 H ALTv (test code = 1742-6) 35 U/L 5-35 AST(SGOT) (test code = 1364058391) 23 U/L 13-40 eGFR (test code = 73514-0) 110.2 mL/min/1.73m2 CKD-EPI eGFR (2020). Assuming creatinine has been stable day-to-day for at least three months, the eGFR indicates Category G1 (>= 90 mL/min/1.73 m2) Lab Interpretation (test code = 75422-1) Abnormal [facility] WITH [id number] 00:07:44* Test Item Value Reference Range Interpretation Comme nts WBC (test code = 6690-2) 6.72 See_Comment [Automated [employer]] The system which generated this result transmitted reference range: 4.30 - 11.10 10*3/?L. The reference range was not used to interpret this result as normal/abnormal. RBC (test code = 789-8) 3.81 See_Comment L [Automated messa ge] The system which generated [...] 32.6 g/dL 31.6-35.1 RDW-SD (test code = 34465-3) 43.8 fL 39.0-49.9 RDW-CV (test code = 788-0) 13.4 % 12.0-15.5 PLT (test code = 777-3) 287 See_Comment [Automated messa ge] The system which generated this result transmitted reference range: 166 - 358 10*3/?L. The reference range was not used to interpret this result as normal/abnormal. MPV (test code = 57770-8) 9.4 fL 9.5-12.9 L NRBC/100 WBC (test code = 4821126309) 0.0 See_Comment [Automated [employer] ssage] The system which generated this result transmitted reference range: 0.0 - 10.0 /100 WBCs. The reference range was not used to interpret this result as normal/abnormal. NRBC x10^3 (test code = 3530085271) See_Comment [Automated messa ge] The system which generated this result transmitted reference range: 10*3/?L. The reference range was not used to interpret this result as normal/abnormal. GRAN MAT (NEUT) % (test code = 770-8) 47.2 % IMM GRAN % (test code = 6591047512) 0.40 % LYMPH % (test code = 736-9) 43.0 % MONO % (test code = 5905-5) 7.0 % EOS % (test code = 713-8) 2.1 % BASO % (test code = 706-2) 0.3 % GRAN MAT x10^3(ANC) (test code = 6290386383) 3.17 10*3/uL 1.88-7.09 IMM GRAN x10^3 (test code = 5428661308) 0.03 10*3/uL 0.00-0.06 LYMPH x10^3 (test code = 731-0) 2.89 10*3/uL 1.32-3.29 MONO x10^3 (test code = 742-7) 0.47 10*3/uL 0.33-0.92 EOS x10^3 (test code = 711-2) 0.14 10*3/uL 0.03-0.39 BASO x10^3 (test code = 704-7) 0.01-0.07 Lab Interpretation (test code = 88028-9) Abnormal [facility] GLUCOSE (AUTOMATED)2022-09-20 16:59:53* Test Item Value Reference Range Interpretation Comme nts POCT GLU (test code = 5754929673) 358 mg/dL 70-110 H Lab Interpretation (test cod e = 65497-0) Abnormal [facility] GLUCOSE (AUTOMATED)2022-09-20 16:59:53* Test Item Value Reference Range Interpretation Comme nts POCT GLU (test code = 1088502093) 358 mg/dL 70-110 H Lab Interpretation (test cod e = 96924-2) Abnormal [facility] GLUCOSE (AUTOMATED)2022-09-20 13:24:00* Test Item Value Reference Range Interpretation Comme nts POCT GLU (test code = 9245961747) 314 mg/dL 70-110 H Lab Interpretation (test cod e = 91957-4) Abnormal [facility] GLUCOSE (AUTOMATED)2022-09-20 13:24:00* Test Item Value Reference Range Interpretation Comme nts POCT GLU (test code = 6042195129) 314 mg/dL 70-110 H Lab Interpretation (test cod e = 03028-1) Abnormal [facility] METABOLIC PANEL (NA, K, CL, CO2, GLUCOSE, BUN, CREATININE, CA)2022-09-20 10:38:01* Test Item Value Reference Range Interpretation Comme nts NA (test code = 5492003115) 135 mmol/L 135-145 K (test code = 0781257947) 4.0 mmol/L 3.5-5.0 Slight hemolysis CL (test code = 2396965373) 100 mmol/L 98-108 CO2 TOTAL (test code = 0990188281) 26 mmol/L 23-31 AGAP (test code = 1731380016) 9 2-16 BUN (test code = 5310911505) 12 mg/dL 7-23 Slight hemolysis GLUCOSE (test code = 3527823216) 243 mg/dL 70-110 H CREATININE (test code = 7307845821) 0.43 mg/dL 0.50-1.04 L CALCIUM (test code = 1232663909) 8.7 mg/dL 8.6-10.6 eGFR (test code = 3859990127) 156.7 mL/min/1.73m2 MISHA (test code = MISHA) [...] imaging tests). Lab Interpretation (test code = 58740-1) [facility] 10:38:01* Test Item Value Reference Range Interpretation Comme nts MAGNESIUM (test code = 0531390174) 1.7 mg/dL 1.7-2.4 Lab Interpretation (test cod e = 54484-0) [facility] (NA, K, CL, CO2, GLUCOSE, BUN, CREATININE, CA)2022-09-20 10:38:01* Test Item Value Reference Range Interpretation Comme nts NA (test code = 9242788988) 135 mmol/L 135-145 K (test code = 7552987438) 4.0 mmol/L 3.5-5.0 Slight hemolysis CL (test code = 0644324803) 100 mmol/L 98-108 CO2 TOTAL (test code = 5027945872) 26 mmol/L 23-31 AGAP (test code = 0627861001) 9 2-16 BUN (test code = 5409519925) 12 mg/dL 7-23 Slight hemolysis GLUCOSE (test code = 8573598664) 243 mg/dL 70-110 H CREATININE (test code = 6542189677) 0.43 mg/dL 0.50-1.04 L CALCIUM (test code = 8823931974) 8.7 mg/dL 8.6-10.6 eGFR (test code = 0069734763) 156.7 mL/min/1.73m2 MISHA (test code = MISHA) [...] imaging tests). Lab Interpretation (test code = 89731-5) [facility] 10:38:01* Test Item Value Reference Range Interpretation Comme nts MAGNESIUM (test code = 0470327389) 1.7 mg/dL 1.7-2.4 Lab Interpretation (test cod e = 36116-0) Normal [facility] WITHOUT [id number] 10:12:01* Test Item Value Reference Range Interpretation [...] result as normal/abnormal. MPV (test code = 89872-8) 9.3 fL 9.5-12.9 L RDW-CV (test code = 788-0) 12.9 % 12.0-15.5 RDW-SD (test code = 38592-7) 39.6 fL 39.0-49.9 NRBC x10^3 (test code = 8366703716) See_Comment [Automated [employer]] The system which generated this result transmitted reference range: 10*3/?L. The reference range was not used to interpret this result as normal/abnormal. NRBC/100 WBC (test code = 8239864043) 0.0 See_Comment [Automated [employer]] The system which generated this result transmitted reference range: 0.0 - 10.0 /100 WBCs. The reference range was not used to interpret this result as normal/abnormal. IPF % (test code = 1926965406) Lab Interpretation (test code = 04688-8) Abnormal [facility] WITHOUT [id number] 10:12:01* Test Item Value Reference Range Interpretation [...] result as normal/abnormal. MPV (test code = 46229-5) 9.3 fL 9.5-12.9 L RDW-CV (test code = 788-0) 12.9 % 12.0-15.5 RDW-SD (test code = 53907-5) 39.6 fL 39.0-49.9 NRBC x10^3 (test code = 7793263674) See_Comment [Automated [employer]] The system which generated this result transmitted reference range: 10*3/?L. The reference range was not used to interpret this result as normal/abnormal. NRBC/100 WBC (test code = 5006471032) 0.0 See_Comment [Automated messa ge] The system which generated this result transmitted reference range: 0.0 - 10.0 /100 WBCs. The reference range was not used to interpret this result as normal/abnormal. IPF % (test code = 6721661668) Lab Interpretation (test code = 10945-0) Abnormal [facility] GLUCOSE (AUTOMATED)2022-09-20 09:51:14* Test Item Value Reference Range Interpretation Comme nts POCT GLU (test code = 6561751559) 251 mg/dL 70-110 H Lab Interpretation (test cod e = 03928-3) Abnormal [facility] GLUCOSE (AUTOMATED)2022-09-20 09:51:14* Test Item Value Reference Range Interpretation Comme nts POCT GLU (test code = 0042240665) 251 mg/dL 70-110 H Lab Interpretation (test cod e = 60900-6) Abnormal [facility] GLUCOSE (AUTOMATED)2022-09-20 05:03:47* Test Item Value Reference Range Interpretation Comme nts POCT GLU (test code = 8142068430) 238 mg/dL 70-110 H Lab Interpretation (test cod e = 02405-0) Abnormal [facility] GLUCOSE (AUTOMATED)2022-09-20 05:03:47* Test Item Value Reference Range Interpretation Comme nts POCT GLU (test code = 6844799029) 238 mg/dL 70-110 H Lab Interpretation (test cod e = 01803-6) [facility]2022-09-20 02:25:53* Test Item Value Reference Range Interpretation Comme nts APTT Patient (test code = 3173-2) 37 See_Comment H [Automated messa ge] The system which generated this result transmitted reference range: 26 - 36 Seconds. The reference range was not used to interpret this result as normal/abnormal. Lab Interpretation (test code = 11893-0) [facility]2022-09-20 02:25:53* Test Item Value Reference Range Interpretation Comme nts APTT Patient (test code = 3173-2) 37 See_Comment H [Automated messa ge] The system which generated this result transmitted reference range: 26 - 36 Seconds. The reference range was not used to interpret this result as normal/abnormal. Lab Interpretation (test code = 83882-4) Abnormal [facility] GLUCOSE (AUTOMATED)2022-09-20 01:59:08* Test Item Value Reference Range Interpretation Comme nts POCT GLU (test code = 6583984615) 399 mg/dL 70-110 H Lab Interpretation (test cod e = 46048-7) Abnormal [facility] GLUCOSE (AUTOMATED)2022-09-20 01:59:08* Test Item Value Reference Range Interpretation Comme nts POCT GLU (test code = 2178426427) 399 mg/dL 70-110 H Lab Interpretation (test cod e = 71668-0) Abnormal [facility] GLUCOSE (AUTOMATED)2022-09-19 22:19:23* Test Item Value Reference Range Interpretation Comme nts POCT GLU (test code = 6560638948) 379 mg/dL 70-110 H Lab Interpretation (test cod e = 32890-2) Abnormal [facility] GLUCOSE (AUTOMATED)2022-09-19 22:19:23* Test Item Value Reference Range Interpretation Comme nts POCT GLU (test code = 1931070672) 379 mg/dL 70-110 H Lab Interpretation (test cod e = 40121-8) Abnormal [facility] ACT LOW [id number] 19:13:24* Test Item Value Reference Range Interpretation Comme nts ACTLR (test code = 4245831290) 276 See_Comment H [Automated messa ge] The system which generated this result transmitted reference range: 89 - 169 Seconds. The reference range was not used to interpret this result as normal/abnormal. Lab Interpretation (test code = 19638-6) Abnormal [facility] ACT LOW [id number] 19:13:24* Test Item Value Reference Range Interpretation Comme nts ACTLR (test code = 0705319020) 276 See_Comment H [Automated messa ge] The system which generated this result transmitted reference range: 89 - 169 Seconds. The reference range was not used to interpret this result as normal/abnormal. Lab Interpretation (test code = 13301-3) Abnormal [facility] ACT LOW [id number] 18:37:26* Test Item Value Reference Range Interpretation Comme nts ACTLR (test code = 6057877292) 374 See_Comment H [Automated messa ge] The system which generated this result transmitted reference range: 89 - 169 Seconds. The reference range was not used to interpret this result as normal/abnormal. Lab Interpretation (test code = 71565-6) Abnormal [facility] ACT LOW [id number] 18:37:26* Test Item Value Reference Range Interpretation Comme nts ACTLR (test code = 7304870978) 374 See_Comment H [Automated messa ge] The system which generated this result transmitted reference range: 89 - 169 Seconds. The reference range was not used to interpret this result as normal/abnormal. Lab Interpretation (test code = 87141-9) Abnormal [facility] GLUCOSE (AUTOMATED)2022-09-19 14:24:25* Test Item Value Reference Range Interpretation Comme nts POCT GLU (test code = 3748655026) 225 mg/dL 70-110 H Lab Interpretation (test cod e = 26520-7) Abnormal [facility] GLUCOSE (AUTOMATED)2022-09-19 14:24:25* Test Item Value Reference Range Interpretation Comme nts POCT GLU (test code = 3106805437) 225 mg/dL 70-110 H Lab Interpretation (test cod e = 89440-6) [facility]C)2022-09-19 10:31:36* Test Item Value Reference Range Interpretation Comme nts HGB A1C (test code = 4548-4) 10.6 % 4.0-5.7 H MISHA (test code = MISHA) Reference RangesNormal: <5.7%Prediabetes: 5.7 - 6.4%Diabetes: > 6.5% Lab Interpretation (test code = 48362-9) [facility]A1C)2022-09-19 10:31:36* Test Item Value Reference Range Interpretation Comme nts HGB A1C (test code = 4548-4) 10.6 % 4.0-5.7 H MISHA (test code = MISHA) Reference RangesNormal: <5.7%Prediabetes: 5.7 - 6.4%Diabetes: > 6.5% Lab Interpretation (test code = 11619-2) [facility] 10:15:22* Test Item Value Reference Range Interpretation Comme nts MAGNESIUM (test code = 1627863646) 1.6 mg/dL 1.7-2.4 L Lab Interpretation (test cod e = 82816-7) [facility]:15[facility]22* Test Item Value Reference Range Interpretation Comme nts MAGNESIUM (test code = 0217555345) 1.6 mg/dL 1.7-2.4 L Lab Interpretation (test cod e = 46025-7) [facility] (40352)(TOTAL CHOLESTEROL, TRIGLYCERIDES, HDL)2022-09-19 10:10:43* Test Item Value Reference Range Interpretation Comme nts CHOL (test code = 4679449457) 219 mg/dL 120-200 H HDL (test code = 3415798235) 36 mg/dL >=50 L HDLC RATIO (test code = 8739578411) 6.1 <=4.5 H TRIG (test code = 7246222011) 388 mg/dL 30-170 H LDL CHOL (test code = 42589-9) 105 mg/dL <=160 VLDL (test code = 6949512709) 78 mg/dL 5-60 H Lab Interpretation (test cod e = 24271-2) [facility]TOTAL CHOLESTEROL, TRIGLYCERIDES, HDL)2022-09-19 10:10:43* Test Item Value Reference Range Interpretation Comme nts CHOL (test code = 7906542912) 219 mg/dL 120-200 H HDL (test code = 9483228472) 36 mg/dL >=50 L HDLC RATIO (test code = 7988391693) 6.1 <=4.5 H TRIG (test code = 6312805792) 388 mg/dL 30-170 H LDL CHOL (test code = 78417-3) 105 mg/dL <=160 VLDL (test code = 2962310349) 78 mg/dL 5-60 H Lab Interpretation (test cod e = 49796-8) Abnormal [facility] GLUCOSE (AUTOMATED)2022-09-19 07:14:14* Test Item Value Reference Range Interpretation Comme nts POCT GLU (test code = 1638602789) 330 mg/dL 70-110 H Lab Interpretation (test cod e = 69057-7) Abnormal [facility] GLUCOSE (AUTOMATED)2022-09-19 07:14:14* Test Item Value Reference Range Interpretation Comme nts POCT GLU (test code = 4342429935) 330 mg/dL 70-110 H Lab Interpretation (test cod e = 07129-5) Abnormal [facility] GLUCOSE (AUTOMATED)2022-09-19 05:58:25* Test Item Value Reference Range Interpretation Comme nts POCT GLU (test code = 6121944498) 403 mg/dL 70-110 H Lab Interpretation (test cod e = 42193-2) Abnormal [facility] GLUCOSE (AUTOMATED)2022-09-19 05:58:25* Test Item Value Reference Range Interpretation Comme nts POCT GLU (test code = 8427035953) 403 mg/dL 70-110 H Lab Interpretation (test cod e = 29104-3) [id number] 04:36:52* Test Item Value Reference Range Interpretation Comme nts TROPONIN I (test code = 0147590259) 0.116 ng/mL <=0.034 H MISHA (test code [...] of biotin. Lab Interpretation (test code = 29727-5) [facility] [id number] 04:36:52* Test Item Value Reference Range Interpretation Comme nts TROPONIN I (test code = 3224090294) 0.116 ng/mL <=0.034 H MISHA (test code [...] of biotin. Lab Interpretation (test code = 05931-3) [facility] [id number] 04:36:31* Test Item Value Reference Range Interpretation Comme nts WBC (test code = 6690-2) 9.71 See_Comment [Automated [employer]] The system which generated this result transmitted reference range: 4.30 - 11.10 10*3/?L. The reference range was not used to interpret this result as normal/abnormal. RBC (test code = 789-8) 4.55 See_Comment [Automated [employer]] The system which generated this result transmitted [...] 33.5 g/dL 31.6-35.1 RDW-SD (test code = 55656-5) 40.3 fL 39.0-49.9 RDW-CV (test code = 788-0) 13.0 % 12.0-15.5 PLT (test code = 777-3) 315 See_Comment [Automated messa ge] The system which generated this result transmitted reference range: 166 - 358 10*3/?L. The reference range was not used to interpret this result as normal/abnormal. MPV (test code = 37296-5) 9.6 fL 9.5-12.9 NRBC/100 WBC (test code = 6065838639) 0.0 See_Comment [Automated [facility] ssage] The system which generated this result transmitted reference range: 0.0 - 10.0 /100 WBCs. The reference range was not used to interpret this result as normal/abnormal. NRBC x10^3 (test code = 0990519278) See_Comment [Automated [employer] ge] The system which generated this result transmitted reference range: 10*3/?L. The reference range was not used to interpret this result as normal/abnormal. GRAN MAT (NEUT) % (test code = 770-8) 48.1 % IMM GRAN % (test code = 3256866843) 0.50 % LYMPH % (test code = 736-9) 41.6 % MONO % (test code = 5905-5) 7.7 % EOS % (test code = 713-8) 1.6 % BASO % (test code = 706-2) 0.5 % GRAN MAT x10^3(ANC) (test code = 6548685965) 4.66 10*3/uL 1.88-7.09 IMM GRAN x10^3 (test code = 5898227794) 0.05 10*3/uL 0.00-0.06 LYMPH x10^3 (test code = 731-0) 4.04 10*3/uL 1.32-3.29 H MONO x10^3 (test code = 742-7) 0.75 10*3/uL 0.33-0.92 EOS x10^3 (test code = 711-2) 0.16 10*3/uL 0.03-0.39 BASO x10^3 (test code = 704-7) 0.05 10*3/uL 0.01-0.07 Lab Interpretation (test code = 92663-9) Abnormal [facility] WITH [id number] 04:36:31* Test Item Value Reference Range Interpretation Comme nts WBC (test code = 6690-2) 9.71 See_Comment [Automated [employer] ge] The system which generated this result transmitted reference range: 4.30 - 11.10 10*3/?L. The reference range was not used to interpret this result as normal/abnormal. RBC (test code = 789-8) 4.55 See_Comment [Automated [employer]] The system which generated this result transmitted [...] 33.5 g/dL 31.6-35.1 RDW-SD (test code = 84742-5) 40.3 fL 39.0-49.9 RDW-CV (test code = 788-0) 13.0 % 12.0-15.5 PLT (test code = 777-3) 315 See_Comment [Automated [employer] ge] The system which generated this result transmitted reference range: 166 - 358 10*3/?L. The reference range was not used to interpret this result as normal/abnormal. MPV (test code = 95457-9) 9.6 fL 9.5-12.9 NRBC/100 WBC (test code = 0984654473) 0.0 See_Comment [Automated me ssage] The system which generated this result transmitted reference range: 0.0 - 10.0 /100 WBCs. The reference range was not used to interpret this result as normal/abnormal. NRBC x10^3 (test code = 6290048809) See_Comment [Automated messa ge] The system which generated this result transmitted reference range: 10*3/?L. The reference range was not used to interpret this result as normal/abnormal. GRAN MAT (NEUT) % (test code = 770-8) 48.1 % IMM GRAN % (test code = 0405270428) 0.50 % LYMPH % (test code = 736-9) 41.6 % MONO % (test code = 5905-5) 7.7 % EOS % (test code = 713-8) 1.6 % BASO % (test code = 706-2) 0.5 % GRAN MAT x10^3(ANC) (test code = 2104099656) 4.66 10*3/uL 1.88-7.09 IMM GRAN x10^3 (test code = 9135637290) 0.05 10*3/uL 0.00-0.06 LYMPH x10^3 (test code = 731-0) 4.04 10*3/uL 1.32-3.29 H MONO x10^3 (test code = 742-7) 0.75 10*3/uL 0.33-0.92 EOS x10^3 (test code = 711-2) 0.16 10*3/uL 0.03-0.39 BASO x10^3 (test code = 704-7) 0.05 10*3/uL 0.01-0.07 Lab Interpretation (test code = 22733-5) Abnormal [facility]. METABOLIC PANEL ([id number])2022-09-19 04:29:09* Test Item Value Reference Range Interpretation Comme nts NA (test code = 9383120605) 132 mmol/L 135-145 L K (test code = 6825826067) 4.5 mmol/L 3.5-5.0 CL (test code = 3841655133) 95 mmol/L 98-108 L CO2 TOTAL (test code = 4572481320) 27 mmol/L 23-31 AGAP (test code = 7313270150) 10 2-16 BUN (test code = 6604391376) 15 mg/dL 7-23 GLUCOSE (test code = 6589675615) 511 mg/dL 70-110 HH CREATININE (test code = 6600527561) 0.68 mg/dL 0.50-1.04 TOTAL BILI (test code = 0547679551) 0.4 mg/dL 0.1-1.1 CALCIUM (test code = 8786354611) 10.3 mg/dL 8.6-10.6 T PROTEIN (test code = 5118312840) 7.3 g/dL 6.3-8.2 ALBUMIN (test code = 2879960709) 4.2 g/dL 3.5-5.0 ALK PHOS (test code = 8971941809) 138 U/L 34-122 H ALTv (test code = 1742-6) 19 U/L 5-35 AST(SGOT) (test code = 7012646738) 18 U/L 13-40 eGFR (test code = 8636007616) 92.3 mL/min/1.73m2 MISHA (test code = MISHA) [...] imaging tests). Lab Interpretation (test code = 62519-1) Abnormal [facility]. METABOLIC PANEL ([id number])2022-09-19 04:29:09* Test Item Value Reference Range Interpretation Comme nts NA (test code = 7104244521) 132 mmol/L 135-145 L K (test code = 5393815142) 4.5 mmol/L 3.5-5.0 CL (test code = 0923059700) 95 mmol/L 98-108 L CO2 TOTAL (test code = 0051818941) 27 mmol/L 23-31 AGAP (test code = 4319462307) 10 2-16 BUN (test code = 4948996205) 15 mg/dL 7-23 GLUCOSE (test code = 3574148466) 511 mg/dL 70-110 HH CREATININE (test code = 8757283929) 0.68 mg/dL 0.50-1.04 TOTAL BILI (test code = 4257018797) 0.4 mg/dL 0.1-1.1 CALCIUM (test code = 2326665682) 10.3 mg/dL 8.6-10.6 T PROTEIN (test code = 9830530669) 7.3 g/dL 6.3-8.2 ALBUMIN (test code = 4909659440) 4.2 g/dL 3.5-5.0 ALK PHOS (test code = 6516338713) 138 U/L 34-122 H ALTv (test code = 1742-6) 19 U/L 5-35 AST(SGOT) (test code = 2563085006) 18 U/L 13-40 eGFR (test code = 4383815235) 92.3 mL/min/1.73m2 MISHA (test code = MISHA) [...] imaging tests). Lab Interpretation (test code = 55639-2) [facility] [id number] 04:25:07* Test Item Value Reference Range Interpretation Comme nts LIPASE (test code = 4874890895) 114 U/L 0-220 Lab Interpretation (test cod e = 48752-1) [facility] [id number] 04:25:07* Test Item Value Reference Range Interpretation Comme nts LIPASE (test code = 5984178231) 114 U/L 0-220 Lab Interpretation (test cod e = 75984-7) [facility]2020-[facility]-13 20:38:00* Test Item Value Reference Range Interpretation Comme nts APPEARANCE (test code = 9938371004) Clear Clear COLOR (test code = 5853344486) Yellow Yellow PH (test code = 3371383365) 4.8-8.0 SP GRAVITY (test code = 1775873019) 1.003-1.030 GLU U QUAL (test code = 5180863152) 50 mg/dL Normal A BLOOD (test code = 1617860537) 1+ Negative A KETONES (test code = 0791194748) Negative Negative PROTEIN (test code = 2887-8) 30 mg/dL Negative A UROBILIN (test code = 5617772060) Normal Normal BILIRUBIN (test code = 6980873788) Negative Negative NITRITE (test code = 7312890456) Negative Negative LEUK TONYA (test code = 9537025150) 250/uL Negative A RBC/HPF (test code = 6672237496) See_Comment H [Automated [employer] ge] The system which generated this result transmitted reference range: 0 - 3 HPF. The reference range was not used to interpret this result as normal/abnormal. WBC/HPF (test code = 8548043566) See_Comment H [Automated [employer] ge] The system which generated this result transmitted reference range: 0 - 5 HPF. The reference range was not used to interpret this result as normal/abnormal. BACTERIA (test code = 4837248945) Many Negative A MUCOUS (test code = 7478246091) Slight Negative LPF A SQ EPITH (test code = 8029005101) HPF Lab Interpretation (test code = 77465-4) Abnormal [facility]
[2024-04-26] MEDS ORDERED: NA CHLORIDE 0.9% 1,000 ML ONE (10:41)
[2024-04-26] MEDS ORDERED: ONDANSETRON 4 MG/2 ML VIAL ONE (10:41)
[2024-04-26 10:46] LABS: Absolute Basophils 0.1 K/uL (0-0.5); Absolute Eosinophils 0.1 K/uL (0-0.5); Absolute Lymphocytes (CBC) 2.9 K/uL (0.7-4.9); Absolute Monocytes 0.6 K/uL (0.1-1.3); Absolute Neutrophil 6.3 K/uL (1.8-8.0); Basophils % 0.7 % (0-1.3); Eosinophils % 0.6 % (0-4.4); Hematocrit 41.3 % (36.0-45.0); Hemoglobin 13.4 g/dL (12.0-15.0); Lymphocytes % 29.3 % (15.3-44.8); MCH 28.3 pg (27.0-35.0); MCHC 32.5 g/dL (32.0-36.0); MPV 7.3 fL (7.6-11.3); Monocytes % 6.2 % (3.3-12.3); Neutrophils % 63.2 % (41.7-73.7); Platelets 328 thou/uL (152-406); RBC Red Blood Cell Count 4.75 M/uL (3.86-4.86)
[2024-04-26 11:02] LABS: Albumin 3.6 g/dL (3.4-5.0); Albumin/Globulin Ratio 0.9 (1.1-1.8); Alkaline Phosphatase 97 U/L (45-117); Anion Gap 11.2 mEq/L (5.0-15.0); BUN Blood Urea Nitrogen 9 mg/dL (7-18); Bicarbonate 27 mEq/L (21-32); Bilirubin Total 0.7 mg/dL (0.2-1.0); Globulin 4.2 g/dL (2.3-3.5); Glomerular Filtration Rate 108 ml/min (=/>90); Glucose Level 180 mg/dL (74-106); Lipase 18 U/L (13-75); Magnesium 1.6 mg/dL (1.6-2.4); Potassium 3.2 mEq/L (3.5-5.1); Protein, Total 7.8 g/dL (6.4-8.2); Sodium Level 134 mEq/L (136-145)
[2024-04-26 11:06] LABS: ALT/SGPT < 14 U/L (13-56); AST/SGOT < 10 U/L (15-37)
[2024-04-26] MEDS ORDERED: POTASSIUM 25 MEQ EFFERV TAB ONE (11:17)
[2024-04-26 11:31] LABS: Specific Gravity 1.005 (1.005-1.030); Urine Bacteria <20 /HPF (<20); Urine Bilirubin NEGATIVE (Negative); Urine Blood Negative (Negative); Urine Clarity Extremely Turbid (Clear); Urine Color Light-Yellow (Yellow); Urine Culture Reflex Order NOT NEEDED; Urine Glucose NEGATIVE (Negative); Urine Ketones NEGATIVE (Negative); Urine Microscopic Reflex YN ORDER UMIC; Urine Mucus Slight /HPF (None Seen); Urine Nitrite NEGATIVE (Negative); Urine Protein TRACE (Negative); Urine RBC None Seen /HPF (None Seen); Urine Urobilinogen Normal (Normal); Urine WBC <5 /HPF (<5); Urine pH 6.5 (5.0-7.0)
[2024-04-26] MEDS ORDERED: NA CHLORIDE 0.9% 50 ML ONE (12:03)
[2024-04-26] MEDS ORDERED: PROMETHAZINE INJ 25 MG/ML AMP ONE (12:03)
[2024-04-26] MEDS ORDERED: DICYCLOMINE HCL 20 MG/2 ML AMP IM ONE (12:03)
--- NOTE | 2024-04-26 12:34 | EDPHYS ---
Physician Documentation [facility] Name: Tonya Caballero Age: 49 yrs Sex: Female : 1975 Arrival Date: 04/26/2024 Time: 09:54 Bed 19 Private MD: ED Physician Aldo Zhu HPI: 04/26 10:27 This 49 yrs old Female presents to ER via Ambulatory with complaints of sb4 Nausea/Vomiting/Diarrhea, dehydrated. 10:27 patient reports nausea, vomiting, and diarrhea x 4 days. states there has been a sb4 stomach bug running through her workplace. she is concerned about being dehydrated because she had an AK a few months ago and is on a lot of medications, has not been able to hold them down. Historical: - Allergies: 10:12 No Known Allergies; iw - PMHx: 10:12 Hypertension; Hyperlipidemia; Anxiety; Myocardial infarction; Diabetes - NIDDM; iw - PSHx: 10:12 cardiac stints; Left oopherectomy; Cholecystectomy; partial hysterectomy; iw - Immunization history:: Adult Immunizations up to date. - Infectious Disease History:: Denies. - Social history:: Smoking status: Patient reports the use of cigarette tobacco products, smokes one pack cigarettes per day. ROS: 10:27 Constitutional: Negative for fever, chills, and weight loss, sb4 10:27 Abdomen/GI: Positive for nausea, vomiting, and diarrhea, 10:27 All other systems are negative, Exam: 10:27 Constitutional: This is a well developed, well nourished patient who is awake, alert, sb4 and in no acute distress. Head/Face: Normocephalic, atraumatic. Eyes: Extra-ocular motions intact. Periorbital areas with no swelling, redness, or edema. ENT: Mucous membranes moist. Cardiovascular: Regular rate and rhythm with a normal S1 and S2. Respiratory: No increased work of breathing, no retractions or nasal flaring. Abdomen/GI: Soft, non-tender, no distension. Skin: Warm, dry with normal turgor. Normal color with no rashes, no lesions, and no evidence of cellulitis. Vital Signs: 10:11 BP 174 / 100; Pulse 70; Resp 18; Temp 98; Pulse Ox 100% on R/A; Weight 82.55 kg; Height iw 5 ft. 3 in. ; 10:35 BP 163 / 92; Pulse 66; Resp 16; Pulse Ox 96% ; db 11:15 BP 148 / 90; Pulse 63; Resp 16; Pulse Ox 99% on R/A; db 12:30 BP 168 / 75; Pulse 68; Resp 16; Pulse Ox 99% on R/A; db 10:11 Body Mass Index 32.24 (82.55 kg, 160.02 cm) iw MDM: 10:18 Medical Screening Exam initiated sb4 12:32 Data reviewed: vital signs, nurses notes, lab test result(s), and as a result, I will sb4 discharge patient. Counseling: I had a detailed discussion with the patient and/or guardian regarding the historical points, exam findings, and any diagnostic results supporting the discharge/admit diagnosis, the presence of at least one elevated blood pressure reading (>120/80) during this emergency department visit, lab results, to return to the emergency department if symptoms worsen or persist or if there are any questions or concerns that arise at home. 04/26 10:23 Order name: CBC with Diff; Complete Time: 10:53 sb4 04/26 10:23 Order name: CMP; Complete Time: 11:08 sb4 04/26 10:23 Order name: Lipase; Complete Time: 11:08 sb4 04/26 10:23 Order name: Urinalysis w/ reflexes; Complete Time: 11:31 sb4 04/26 10:23 Order name: Magnesium; Complete Time: 11:08 sb4 04/26 10:23 Order name: IV Saline Lock; Complete Time: 10:46 sb4 04/26 10:23 Order name: Labs collected and sent; Complete Time: 10:46 sb4 Administered Medications: 10:40 Drug: Ondansetron IVP 4 mg IVP once; over 2 minutes Route: IVP; Site: right antecubital;db 12:48 Follow up: Response: No adverse reaction db 10:40 Drug: NS 0.9% IV 1000 ml IV at 1 bolus Per protocol; to be given as a bolus over 60 db minutes Route: IV; Rate: 1 bolus; Site: right antecubital; 12:48 Follow up: Response: No adverse reaction; IV Status: Completed infusion; IV Intake: db 1000ml 11:23 Drug: Potassium PO Effervescent Tablet 50 mEq PO once; dissolve in 4 ounces of water or db juice Route: PO; 12:48 Follow up: Response: No adverse reaction db 12:08 Drug: Promethazine IVP 12.5 mg IVP once Route: IVP; Site: right antecubital; db 12:48 Follow up: Response: No adverse reaction db 12:10 Drug: Dicyclomine IM 20 mg IM once Route: IM; Site: right deltoid; db 12:48 Follow up: Response: No adverse reaction db Disposition Summary: 04/26/24 12:33 Discharge Ordered Notes: Location: Home sb4 Problem: new sb4 Symptoms: have improved sb4 Condition: Stable sb4 Diagnosis - Nausea with vomiting, unspecified sb4 Followup: sb4 - With: Emergency Department - When: As needed - Reason: Trouble breathing, Worsening of condition Discharge Instructions: - Discharge Summary Sheet sb4 - Nausea and Vomiting, Adult sb4 Forms: - Work release form sb4 - Patient Portal Instructions sb4 - Leadership Thank You Letter sb4 Prescriptions: - promethazine 25 mg Oral Tablet - take 1 tablet ORAL route every 6 hours As needed; 20 tablet; Refills: 0, sb4 Product Selection Permitted Signatures: Dispatcher [employer] Clary Franco RN RN iw Noreen Adam RN RN Connie Avina PA-C PA-C sb4 Corrections: (The following items were deleted from the chart) 10:24 10:23 CBC+H.LAB.BRZ ordered. EDMS EDMS 10:24 10:23 COMPREHENSIVE METABOLIC PANEL+C.LAB.BRZ ordered. EDMS EDMS 10:24 10:23 LIPASE+C.LAB.BRZ ordered. EDMS EDMS 10:24 10:23 Urinalysis+U.LAB.BRZ ordered. EDMS EDMS 10:24 10:23 MAGNESIUM+C.LAB.BRZ ordered. EDMS EDMS 11:44 11:44 Urinalysis W/Microscopic+U.LAB.BRZ ordered. EDMS EDMS
--- NOTE | 2024-04-26 12:34 | ER ---
Nurse's Notes [facility] Name: Tonya Caballero Age: 49 yrs Sex: Female : 1975 Arrival Date: 04/26/2024 Time: 09:54 Bed 19 Private MD: Diagnosis: Nausea with vomiting, unspecified Presentation: 04/26 10:11 Chief complaint: Patient states: vomiting and diarrhea X 3 days, has not had plavix or iw aspirin because she was passing blood. Coronavirus screen: Client presents with at least one sign or symptom that may indicate coronavirus-19. Ebola Screen: No symptoms or risks identified at this time. Initial Sepsis Screen: Does the patient meet any 2 criteria? No. Patient's initial sepsis screen is negative. Does the patient have a suspected source of infection? No. Patient's initial sepsis screen is negative. Risk Assessment: Do you want to hurt yourself or someone else? Patient reports no desire to harm self or others. Onset of symptoms was April 23, 2024. 10:11 Method Of Arrival: Ambulatory iw 10:11 Acuity: BOLA 3 iw Historical: - Allergies: 10:12 No Known Allergies; iw - PMHx: 10:12 Hypertension; Hyperlipidemia; Anxiety; Myocardial infarction; Diabetes - NIDDM; iw - PSHx: 10:12 cardiac stints; Left oopherectomy; Cholecystectomy; partial hysterectomy; iw - Immunization history:: Adult Immunizations up to date. - Infectious Disease History:: Denies. - Social history:: Smoking status: Patient reports the use of cigarette tobacco products, smokes one pack cigarettes per day. Screenin:47 [facility] ED Fall Risk Assessment (Adult) History of falling in the last 3 months, db including since admission No falls in past 3 months (0 pts) Confusion or Disorientation No (0 pts) Intoxicated or Sedated No (0 pts) Impaired Gait No (0 pts) Mobility Assist Device Used No (0 pt) Altered Elimination No (0 pt) Score/Fall Risk Level 0 - 2 = Low Risk Oriented to surroundings, Maintained a safe environment. Abuse screen: Denies threats or abuse. Denies injuries from another. Nutritional screening: No deficits noted. Tuberculosis screening: No symptoms or risk factors identified. Assessment: 10:22 Reassessment: Patient appears in no apparent distress at this time. Patient and/or db family updated on plan of care and expected duration. Pain level reassessed. Patient is alert, oriented x 3, equal unlabored respirations, skin warm/dry/pink. General: Appears in no apparent distress. comfortable, Behavior is calm, cooperative. Neuro: Level of Consciousness is awake, alert, obeys commands, Oriented to person, place, time, situation. Respiratory: Airway is patent Respiratory effort is even, unlabored, Respiratory pattern is regular, symmetrical. GI: Abdomen is non-distended. 10:23 GI: Reports diarrhea, nausea, vomiting. db 10:47 Reassessment: PATIENT STATES UNABLE TO URINATE AT THIS TIME WANTS TO WAIT TILL AFTER db FLUIDS. 12:30 Reassessment: Patient appears in no apparent distress at this time. Patient and/or db family updated on plan of care and expected duration. Pain level reassessed. Patient is alert, oriented x 3, equal unlabored respirations, skin warm/dry/pink. Patient states feeling better. Patient states symptoms have improved. Pain: Denies pain. Vital Signs: 10:11 BP 174 / 100; Pulse 70; Resp 18; Temp 98; Pulse Ox 100% on R/A; Weight 82.55 kg; Height iw 5 ft. 3 in. ; 10:35 BP 163 / 92; Pulse 66; Resp 16; Pulse Ox 96% ; db 11:15 BP 148 / 90; Pulse 63; Resp 16; Pulse Ox 99% on R/A; db 12:30 BP 168 / 75; Pulse 68; Resp 16; Pulse Ox 99% on R/A; db 10:11 Body Mass Index 32.24 (82.55 kg, 160.02 cm) iw ED Course: 09:57 Patient arrived in ED. al6 10:05 Connie Sr PA-C is PHCP. sb4 10:05 Aldo Zhu MD is Attending Physician. sb4 10:12 Triage completed. iw 10:13 Arm band placed on. iw 10:22 Noreen Adam, LARS is Primary Nurse. db 10:35 Initial lab(s) drawn, by me, sent to lab. Inserted saline lock: 22 gauge in right db antecubital area, using aseptic technique. Blood collected. Flushed with 10 mL NS. 10:48 Patient has correct armband on for positive identification. Bed in low position. Call db light in reach. Side rails up X 1. Pulse ox on. NIBP on. Pillow given. 11:36 Warm blanket given. Verbal reassurance given. am7 12:45 Provided Education on: DISCHARGE AND FOLLOWUP. db 12:45 No provider procedures requiring assistance completed. IV discontinued. db Administered Medications: 10:40 Drug: Ondansetron IVP 4 mg IVP once; over 2 minutes Route: IVP; Site: right antecubital;db 12:48 Follow up: Response: No adverse reaction db 10:40 Drug: NS 0.9% IV 1000 ml IV at 1 bolus Per protocol; to be given as a bolus over 60 db minutes Route: IV; Rate: 1 bolus; Site: right antecubital; 12:48 Follow up: Response: No adverse reaction; IV Status: Completed infusion; IV Intake: db 1000ml 11:23 Drug: Potassium PO Effervescent Tablet 50 mEq PO once; dissolve in 4 ounces of water or db juice Route: PO; 12:48 Follow up: Response: No adverse reaction db 12:08 Drug: Promethazine IVP 12.5 mg IVP once Route: IVP; Site: right antecubital; db 12:48 Follow up: Response: No adverse reaction db 12:10 Drug: Dicyclomine IM 20 mg IM once Route: IM; Site: right deltoid; db 12:48 Follow up: Response: No adverse reaction db Medication: 12:45 VIS not applicable for this client. db Intake: 12:48 IV: 1000ml; Total: 1000ml. db Outcome: 12:33 Discharge ordered by . sb4 12:45 Discharged to home ambulatory, with family, db 12:45 Condition: stable 12:45 Discharge instructions given to patient, Instructed on discharge instructions, follow up and referral plans. Prescriptions given X 1, 12:49 Patient left the ED. db Signatures: Clary Pandya, RN LARS iw Noreen Adam RN RN db Connie Sr PA-C PA-C sb4 Liya Olvera am7 Susan Thompson6 Corrections: (The following items were deleted from the chart) 10:23 10:22 Reassessment: Patient appears in no apparent distress at this time. Patient db and/or family updated on plan of care and expected duration. Pain level reassessed. Patient is alert, oriented x 3, equal unlabored respirations, skin warm/dry/pink. db
[2024-04-26 13:12] VITALS: TEMP 98
[2024-04-26 13:15] VITALS: O2SAT 99
[2024-04-26 13:16] VITALS: BP 168/75
== END 2024-04-26 12:49 | disposition home or self-care (01) ==
LOC: ER 09:54
DX: R11.2 Nausea with vomiting, unspecified (principal); R19.7 Diarrhea, unspecified; F17.210 Nicotine dependence, cigarettes, uncomplicated
CPT/HCPCS: 96361; 85025; 81001; 36415; 83735; 83690; 80053; 96375; 96372; 96374; 99284; J2550; J0500; J2405; J7030